=== PATIENT | male | born 1940 | race Caucasian/White ===

== ENCOUNTER → 2016-11-01 | Day surgery (SDC) | payer OTHER ==
[~2016-11-01] VITALS: Ht 176.5 cm; Wt 90.2 kg
[~2016-11-01] MED LIST: *morphine SULFATE 8 MG/ML PERIprocedure ONLY ONE; ACETAMINOPHEN 1000 MG/100 ML VIAL IV ONE; ALLO300T2 PO; ASPI1TAB69 PO; ATEN50TA PO; BUPIVACAINE/EPINEPHRINE 0.25% 50 ML VIAL ONE; DEXAMETHASONE SOD PHOS 4 MG/ML VIAL ONE; FAMOTIDINE 20 MG/2 ML VIAL ONE; FLUT50SP EACH NARE; HYDROmorphone HCL PF 1 MG/ML VIAL IV PUSH PRN; INSULIN HUMAN REGULAR 1,000 UNITS/10 ML VIAL SQ PRN; LACTATED RINGER'S 1000 ML INJ 1,000 ML IV ONE; LACTATED RINGER'S 1000 ML IV SCH; METOPROLOL TARTRATE 25 MG TAB PO PRN; MIDAZOLAM HCL 2 MG/2 ML VIAL ONE; NEOSTIGMINE 3 MG/3 ML SYR IV ONE; OMEP20TA PO; ONDANSETRON HCL 4 MG/2 ML VIAL IV PUSH ONE; PROPOFOL 200 MG/20 ML AMP IV ONE; SERT-132 PO; SITA1TAB2 PO; SODIUM CHLORID 0.9% 500 ML IV SCH; SODIUM CHLORIDE 0.9% INJ 100 ML ONE; ULTR50TA5 PO; VYTO10TA9 PO; ceFAZolin 1,000 MG/NS 100 ML IV SCH; ceFAZolin INJ 1,000 MG VIAL ONE; fentaNYL CITRATE 250 MCG/5 ML AMP ONE
[2016-11-01 06:46] VITALS: BP 148/81; PULSE 61; RESP 20; TEMP 98; O2SAT 94
[2016-11-01 06:52] LABS: AUTOMATED NEUTROPHIL # 5.2 TH/MM3 (1.8-7.7); BASOPHIL # 0.1 TH/MM3 (0-0.2); EOSINOPHIL # 0.2 TH/MM3 (0-0.4); EOSINOPHIL % 2.1 % (0.0-4.0); HEMO FLAGS DIFF FINAL; LYMPH % 25.4 % (9.0-44.0); LYMPHOCYTE # 2.1 TH/MM3 (1.0-4.8); MEAN CELL VOLUME 89.5 FL (80.0-100.0); MEAN CORPUSCULAR HEMOGLOBIN 30.4 PG (27.0-34.0); MONO % 7.9 % (0.0-8.0); NEUT % 63.6 % (16.0-70.0); PLATELET COUNT 127 TH/MM3 (150-450); RED BLOOD COUNT 4.59 MIL/MM3 (4.50-5.90); RED CELL DISTRIBUTION WIDTH 14.5 % (11.6-17.2); WHITE BLOOD COUNT 8.2 TH/MM3 (4.0-11.0)
--- NOTE | 2016-11-01 09:35 | EKG ---
Date Performed: 11/01/2016 Time Performed: 06:44:40 PTAGE: 75 years EKG: Sinus rhythm WITH FIRST DEGREE AV BLOCK SEPTAL MYOCARDIAL INFARCTION , OF INDETERMINATE AGE ABNORMAL ECG PREVIOUS TRACING : 03/29/2010 10.35 No significant change from previous tracing noted. DOCTOR: Kj Noguera Interpretating Date/Time 11/01/2016 09:34:30
[2016-11-01 12:18] VITALS: BP 133/67; PULSE 67; RESP 20; TEMP 97.7; O2SAT 94
--- NOTE | 2016-11-02 08:57 | MP ---
cc: BREANNA JONES M.D., JOSEPH D. M.D. CHEW, BOON Y. M.D. DATE OF SURGERY: 11/01/2016 PREOPERATIVE DIAGNOSIS Lymphadenopathy. POSTOPERATIVE DIAGNOSIS Lymphadenopathy. PROCEDURE Diagnostic laparoscopy with laparoscopic biopsy of deep retroperitoneal lymph node in the mesentery of the small bowel. ANESTHESIA General. SURGEON Dr. Turcios. ASSISTANT CLINICAL DIRECTOR Ms. Debra Cm. The COMMUNITY HEALTH DIRECTOR was present from beginning to the end of the case assisting in all portions of the procedure. It was necessary to have this individual in the room to assist in the above surgical procedure. The surgical procedure was assisted by the COMMUNITY HEALTH DIRECTOR. The COMMUNITY HEALTH DIRECTOR presence was necessary throughout the case for appropriate retraction, dissection, visualization, and resection of the important anatomical structures during the surgical procedure. The COMMUNITY HEALTH DIRECTOR was assisting throughout the entirety of the operation. The skill set of the COMMUNITY HEALTH DIRECTOR is medically and surgically necessary to safely complete the surgical procedure. During the surgical case the operating room hospital technician was working instrument table and passing instruments to the attending surgeon and COMMUNITY HEALTH DIRECTOR The COMMUNITY HEALTH DIRECTOR was directly assisting the operating surgeon and involved in the technical aspects of the surgical case. INDICATIONS This is a pleasant gentleman who was referred to me by Dr. Garett Granger, his primary care physician is Dr. Jones. They have asked me to perform a lymph node biopsy of lymph node seen on two different CT scans, suspicious. This could not be biopsied by radiology, for this reason plans were made for above. PROCEDURE The patient was taken to the operating room and placed in the supine position. After endotracheal anesthesia his abdomen is prepped with Betadine. With deep palpation we could feel a fullness in the kind of mid epigastric region off to the left. This corresponded to the area seen on CT scan. We made an incision just below the umbilicus. Veress needle was inserted, saline load test was performed. The abdomen was insufflated to 15 mmHg. We then placed two 5 mm ports in the left side of the abdomen. We can see the omentum draping over this enlarged node. This is gently sweeped upward and the patient is placed in Trendelenburg position that facilitates the transverse colon and omentum going superior. We were able to see the lymph node and feel it. I am able to dissect down a fair amount of tissue for pathological analysis, this was sent down, using the harmonic scalpel for frozen section, we send this down and Dr. Kecia Bethea states in question, there is a lymph node and it looks like a low grade lymphoma, although she wants to do definitive stains on it and immunohistochemistry. Further tissue was removed for pathological analysis and sent down as permanent. The lymph node that was biopsied was marked with numerous hemoclips. Alvarez is placed in the base of the cavity where the lymph node was removed. Hemostasis was assured. We do note that the patient had gallstones, he did not want any surgery on and also left inguinal hernia that is seen and did not want that repaired as well. We removed the irrigating solution and the trocars were removed, after the CO2 is removed, the 10 mm port sites closed at the fascial layer with 0 Vicryl and skin is closed with a 4-0 Monocryl at all three sites. Steri-Strips were applied. Sterile bandage was applied. The patient tolerated the procedure well and had no immediate postop complications. Intraoperative findings were discussed with the by phone. Jace Turcios MD JDB/TLL /10:34 AM /8:23 AM MTDKim
== END | disposition home or self-care (01) ==
LOC: HSDC 05:33
PROVIDERS: ATTEND Surgery
DX: C82.90 Follicular lymphoma, unspecified, unspecified site (principal); I44.0 Atrioventricular block, first degree
CPT/HCPCS: 00840; 38570; 85025; 88184; 88185; 88305; 88331; 93005; J0131; J0690; J1100; J2250; J2270; J2405; J2710; J3010; J7120

== ENCOUNTER 2016-11-28 09:15 | Day surgery (SDC) | payer OTHER ==
[~2016-11-28] VITALS: Ht 177.8 cm; Wt 86.4 kg
[~2016-11-28 09:15] MED LIST changes: -*morphine SULFATE 8 MG/ML PERIprocedure ONLY ONE; -ACETAMINOPHEN 1000 MG/100 ML VIAL IV ONE; -BUPIVACAINE/EPINEPHRINE 0.25% 50 ML VIAL ONE; -DEXAMETHASONE SOD PHOS 4 MG/ML VIAL ONE; -FAMOTIDINE 20 MG/2 ML VIAL ONE; -HYDROmorphone HCL PF 1 MG/ML VIAL IV PUSH PRN; -INSULIN HUMAN REGULAR 1,000 UNITS/10 ML VIAL SQ PRN; -LACTATED RINGER'S 1000 ML INJ 1,000 ML IV ONE; -LACTATED RINGER'S 1000 ML IV SCH; -METOPROLOL TARTRATE 25 MG TAB PO PRN; -MIDAZOLAM HCL 2 MG/2 ML VIAL ONE; -NEOSTIGMINE 3 MG/3 ML SYR IV ONE; -ONDANSETRON HCL 4 MG/2 ML VIAL IV PUSH ONE; -PROPOFOL 200 MG/20 ML AMP IV ONE; -SODIUM CHLORID 0.9% 500 ML IV SCH; -SODIUM CHLORIDE 0.9% INJ 100 ML ONE; -ceFAZolin 1,000 MG/NS 100 ML IV SCH; -ceFAZolin INJ 1,000 MG VIAL ONE; -fentaNYL CITRATE 250 MCG/5 ML AMP ONE
[2016-11-28 09:43] VITALS: BP 135/84; PULSE 65; RESP 20; O2SAT 96
[2016-11-28 10:12] LABS: AUTOMATED NEUTROPHIL # 5.6 TH/MM3 (1.8-7.7); BASOPHIL # 0.1 TH/MM3 (0-0.2); BASOPHIL % 0.9 % (0.0-2.0); EOSINOPHIL # 0.2 TH/MM3 (0-0.4); EOSINOPHIL % 2.6 % (0.0-4.0); HEMATOCRIT 44.9 % (39.0-51.0); HEMO FLAGS DIFF FINAL; LYMPH % 23.1 % (9.0-44.0); MEAN CELL VOLUME 89.7 FL (80.0-100.0); MEAN CORPUSCULAR HEMOGLOBIN 29.6 PG (27.0-34.0); MONO % 8.9 % (0.0-8.0); NEUT % 64.5 % (16.0-70.0); PLATELET COUNT 128 TH/MM3 (150-450); RED CELL DISTRIBUTION WIDTH 14.4 % (11.6-17.2); WHITE BLOOD COUNT 8.8 TH/MM3 (4.0-11.0)
[2016-11-28] MEDS ORDERED: MIDAZOLAM HCL 5 MG/5 ML VIAL ONE (11:09)
[2016-11-28] MEDS ORDERED: fentaNYL CITRATE 250 MCG/5 ML AMP ONE (11:09)
[2016-11-28 12:35] VITALS: BP 140/70; PULSE 66; RESP 20; TEMP 98.3; O2SAT 91
[2016-11-28 12:50] VITALS: BP 118/64; PULSE 73; RESP 18; O2SAT 95
[2016-11-28 13:18] LABS: BONE MARROW PROCESSING COMPLETE; IRON STAIN DONE; JENNER GIEMSA STAIN DONE
[2016-11-28 13:20] VITALS: BP 113/63; PULSE 64; RESP 20; O2SAT 95
[2016-11-28 13:50] VITALS: BP 115/60; PULSE 61; RESP 20; O2SAT 96
--- NOTE | 2016-11-28 16:04 | RADRPT ---
EXAM DATE/TIME: 11/28/2016 12:04 [facility] COMPARISON: No previous studies available for comparison. INDICATIONS : Bone marrow biopsy; Thrombocytopenia. SEDATION TIME: minutes BIOPSY SITE: Right iliac MEDICATION(S): 1.) 3 mg midazolam (Versed) IV 2.) 125 mcg fentanyl (Sublimaze) DEVICE(S): 1.) 11 gauge Bone biopsy needle MEDICAL HISTORY : Lymphoma. SURGICAL HISTORY : None. ENCOUNTER: Initial ACUITY: 1 day PAIN SCORE: 0/10 LOCATION: Right pelvis A total of two core specimen(s) were obtained and sent to the laboratory for pathologic evaluation. PROCEDURE: 1. CT guided pelvic biopsy. 2. Conscious sedation with continuous EKG and oximetry monitoring. 3. EKG and oximetry remained stable throughout the procedure. Prior to the procedure informed consent was obtained. Any appropriate prior imaging studies were rev iewed. Using automated exposure control and adjustment of the mA and/or kV according to patient size , radiation dose was kept as low as reasonably achievable to obtain optimal diagnostic quality images . The site was prepped in a sterile fashion. Full sterile technique was used, including cap, mask, isael rile gloves and gown and a large sterile sheet. Hand hygiene and 2% chlorhexidine and/or betadine/al cohol prep was utilized per protocol for cutaneous antisepsis. The skin and subcutaneous tissues wer e infiltrated with local anesthetic solution. With CT guidance the previously identified target was localized. Biopsy was performed using the presc ribed needle as above. Following biopsy marrow aspiration was performed with repeat puncture. Adequa te hemostasis was obtained with compression at the puncture site. Follow-up CT scan reveals no hemorrhage. Conscious sedation was performed with the prescribed dosages and duration as above in the presence of an independent trained radiology nurse to assist in the monitoring of the patient. EKG and oximetry remained stable throughout the procedure. The patient tolerated the procedure well and there were no complications. The patient was sent to Radiology Outpatient Unit in stable condition. CONCLUSION: 1. Uncomplicated CT guided bone marrow aspirate. 2. Uncomplicated CT guided bone marrow biopsy. Leo Farfan MD FACR on November 28, 2016 at 16:02 Board Certified Radiologist. This report was verified electronically.
== END 2016-11-28 14:45 | disposition home or self-care (01) ==
LOC: HRAD 09:15 → HRIP 09:42 → HRAD 14:45
PROVIDERS: ATTEND Internal Medicine Hematology & Oncology
DX: D69.6 Thrombocytopenia, unspecified (principal); E11.9 Type 2 diabetes mellitus without complications; I10 Essential (primary) hypertension
CPT/HCPCS: 38221; 77012; 85025; 85097; 88184; 88185; 88237; 88264; 88305; 88311; 88313; 99152; 99153; C1830; J2250; J3010; 88280

== ENCOUNTER 2017-05-26 06:36 | Day surgery (SDC) | payer OTHER ==
[~2017-05-26] VITALS: Ht 177.8 cm; Wt 88.6 kg
[2017-05-26 06:53] VITALS: BP 139/78; PULSE 63; RESP 20; TEMP 97.5; O2SAT 98
[2017-05-26] MEDS ORDERED: VANCOMYCIN 1000 MG/NS 250 ML - implanted port/tunneled catheter IV SCH ×2 (07:15)
[2017-05-26] MEDS ORDERED: CHLORHEXIDINE GLUCONATE 2 % 1 PACK (2 CLOTHS) TOPICAL SCH (07:15)
[2017-05-26] MEDS ORDERED: ceFAZolin 2 GM PREMIX 50 ML - implanted port/tunneled catheter insertion IV SCH (07:15)
[2017-05-26] MEDS ORDERED: SODIUM CHLORIDE 0.9% 1000 ML IV SCH (07:15)
[2017-05-26] MEDS ORDERED: POVIDONE IODINE 5% (ANTISEPSIS KIT) 4 APPLICATIONS EACH NARE SCH (07:15)
[2017-05-26] MEDS ORDERED: MIDAZOLAM HCL 5 MG/5 ML VIAL ONE (08:25)
--- NOTE | 2017-05-26 09:23 | PD.RAD ---
Post Procedure Progress Note Pre Procedure Diagnosis: (1) Lymphoma Post Procedure Diagnosis: (1) Lymphoma Procedure Date: May 26, 2017 Supervising Radiologist: Luis Boyle Proceduralist/Assist: Rober Zhu RT(R), Kristopher Penn RT(R) Anesthesia: Conscious Sedation Plan of Activity Patient to Unit: [facility] Patient Condition: Good See PACS Report for procedural detail/treatment Central Venous Access Device Procedure 1 Right Internal Jugular Infusaport Placement single lumen Luis Boyle MD May 26, 2017 09:23
[2017-05-26 09:30] VITALS: BP 136/72; PULSE 61; RESP 18; TEMP 97.7; O2SAT 95
[2017-05-26] MEDS ORDERED: SODIUM CHLORIDE 0.9% FLUSH 10 ML FLUSH IVF PRN (09:30)
[2017-05-26 09:45] VITALS: BP 125/65; PULSE 64; RESP 18; O2SAT 95
[2017-05-26 10:15] VITALS: BP 135/71; PULSE 63; RESP 18; O2SAT 94
[2017-05-26 10:45] VITALS: BP 135/61; PULSE 61; RESP 18; O2SAT 97
--- NOTE | 2017-05-26 10:55 | RADRPT ---
EXAM DATE/TIME: 05/26/2017 08:30 [facility] COMPARISON: No previous studies available for comparison. INDICATIONS : Patient presents with lymphoma in need of port placement for treatment. MEDICAL HISTORY : Diabetes GERD Gout HI Kidney stone Lymphoma CAD SURGICAL HISTORY : Retroperitoneal lymph node biopsy CABG Hernia repair Appendectomy ENCOUNTER: Initial ACUITY: 1 year PAIN SCORE: 0/10 LOCATION: N/A FLUORO TIME: 0.5 minutes IMAGE SERIES: 1 SEDATION TIME: 30 minutes ACCESS: Right internal jugular vein SEDATION: 1.) 2.5 mg midazolam (Versed) IV 2.) 125 mcg fentanyl (Sublimaze) IV Prophylactic antibiotics were administered with appropriate pre-procedure timing. Vancomycin within 2 hours of procedure, Ancef (or alternative) within 1 hour of procedure. DEVICE: 1. [address] Smart port PROCEDURE : 1. Continuous pulse oximetry and EKG monitoring. 2. Intravenous conscious sedation. 3. Ultrasound guidance for venous access. 4. Fluoroscopic guided implantable central venous port placement. The patient was placed supine. The neck was prepped in sterile fashion. Full sterile technique was u sed, including cap, mask, sterile gloves and gown, and a large sterile sheet. Hand hygiene and 2% ch lorhexidine Betadine was utilized per protocol for cutaneous antisepsis with appropriate dry time for site. Sterile gel and sterile probe cover were utilized for ultrasound guidance. The skin and sub cutaneous tissues were infiltrated with local anesthetic solution. Under direct ultrasound guidance, central venous access was accomplished in the targeted vessel. The ultrasound images depicting access guidance were stored and saved to PACS for permanent record. A s ubcutaneous pocket was created using blunt dissection. The port was introduced to the pocket. The c atheter tubing was fed through a subcutaneous tunnel to the venotomy site. The catheter tubing was c ut to a suitable length and then was introduced through a valved Peel-Away sheath and positioned with catheter tubing tip at the cavo-atrial junction level. The pocket incision was closed with subcutic ular Vicryl suture. Steri-Strips were applied. The port was flushed and locked with heparin solutio n per protocol. Sterile dressing was applied to the site. The patient tolerated the procedure well. Conscious sedation was performed with the prescribed dosages and duration as above in the presence of an independent trained radiology nurse to assist in the monitoring of the patient. EKG and oximetry remained stable throughout the procedure. The patient tolerated the procedure well and there were no complications. The patient was sent to post anesthesia recovery in stable condition. CONCLUSION: Uncomplicated ultrasound and fluoroscopic guided implanted central venous port catheter placement as described in detail above. An 8 Filipino Power port was placed. Luis Boyle MD on May 26, 2017 at 10:53 Board Certified Radiologist. This report was verified electronically.
== END 2017-05-26 11:35 | disposition home or self-care (01) ==
LOC: HROP 06:36 → HRIP 06:42 → HROP 11:35
PROVIDERS: ATTEND Internal Medicine Hematology & Oncology
DX: C85.90 Non-Hodgkin lymphoma, unspecified, unspecified site (principal); E11.9 Type 2 diabetes mellitus without complications; K21.9 Gastro-esophageal reflux disease without esophagitis; M10.9 Gout, unspecified; I25.2 Old myocardial infarction; I25.10 Atherosclerotic heart disease of native coronary artery without angina pectoris; N20.0 Calculus of kidney
CPT/HCPCS: 36561; 76937; 77001; 99152; 99153; C1788; J0690; J1642; J2250; J3010; J3370; J7030; J7050

== ENCOUNTER 2017-12-12 06:18 | Day surgery (SDC) | payer OTHER ==
[~2017-12-12] VITALS: Ht 177.8 cm; Wt 85.0 kg
[~2017-12-12 06:18] MED LIST changes: -OMEP20TA PO; +OMEP20TA93 PO; +TRAM50 PO; -ULTR50TA5 PO
[2017-12-12 06:52] VITALS: BP 121/71; PULSE 82; RESP 18; TEMP 97.9; O2SAT 97
[2017-12-12] MEDS ORDERED: LIDOCAINE 1%/EPINEPHrine 1:100,000 SOLN 50 ML VIAL ONE (06:56)
[2017-12-12] MEDS ORDERED: VYTO10TA9 PO (07:08)
[2017-12-12] MEDS ORDERED: METF500T PO (07:08)
[2017-12-12] MEDS ORDERED: ASPI-516 CHEW (07:08)
[2017-12-12] MEDS ORDERED: SODIUM CHLOR 0.9% 1000 ML INJ 1,000 ML IV SCH (07:15)
[2017-12-12] MEDS ORDERED: MIDAZOLAM HCL 2 MG/2 ML VIAL ONE ×2 (08:00→08:18)
--- NOTE | 2017-12-12 08:52 | PD.RAD ---
Post CT Procedure Prog Note Pre Procedure Diagnosis: (1) Retroperitoneal lymphadenopathy (2) Lymphoma Post Procedure Diagnosis: (1) Lymphoma (2) Retroperitoneal lymphadenopathy Procedure Date: Dec 12, 2017 Supervising Radiologist: Arpit Perez Proceduralist/Assist: kathleen cowart Estimated blood loss: none Anesthesia: Conscious Sedation Plan of Activity Patient to Unit: ROPU Patient Condition: Good See PACS Report for procedural detail/treatment Arpit Perez MD Dec 12, 2017 08:52
[2017-12-12 09:00] VITALS: BP 130/74; PULSE 86; RESP 18; TEMP 98.2; O2SAT 92
[2017-12-12 09:15] VITALS: BP 122/69; PULSE 55; RESP 20; O2SAT 94
[2017-12-12 09:45] VITALS: BP 127/75; PULSE 82; RESP 20; O2SAT 97
[2017-12-12 10:15] VITALS: BP 117/65; PULSE 82; RESP 20; O2SAT 97
[2017-12-12 10:45] VITALS: BP 123/68; PULSE 78; RESP 18; O2SAT 95
--- NOTE | 2017-12-12 18:08 | RADRPT ---
EXAM DATE/TIME: 12/12/2017 08:18 [facility] COMPARISON: No previous studies available for comparison. INDICATIONS : Enlarged node. SEDATION TIME: 30 minutes BIOPSY SITE: Left Retroperitoneal MEDICATION(S): 1.) 3 mg midazolam (Versed) IV 2.) 150 mcg fentanyl (Sublimaze) IV DEVICE(S): 1.) 18 gauge Ho blunt needle 2.) 20 gauge Temno core biopsy needle MEDICAL HISTORY : Cardiovascular disease. Diabetes mellitus type 2. Lymphoma. SURGICAL HISTORY : CABG Appendectomy. ENCOUNTER: Initial ACUITY: 1 day PAIN SCORE: 0/10 LOCATION: Left Retroperitoneal A total of three core specimen(s) were obtained and sent to the laboratory for pathologic evaluation. PROCEDURE: 1. CT guided lymph node biopsy. 2. Conscious sedation with continuous EKG and oximetry monitoring. Prior to the procedure informed consent was obtained. Any appropriate prior imaging studies were rev iewed. Using automated exposure control and adjustment of the mA and/or kV according to patient size, radiat ion dose was kept as low as reasonably achievable to obtain optimal diagnostic quality images. DICOM format image data is available electronically for review and comparison. The site was prepped in a sterile fashion. Full sterile technique was used, including cap, mask, isael rile gloves and gown and a large sterile sheet. Hand hygiene and 2% chlorhexidine and/or betadine/al cohol prep was utilized per protocol for cutaneous antisepsis. The skin and subcutaneous tissues wer e infiltrated with local anesthetic solution. With CT guidance the previously identified target was localized. Biopsy was performed using the presc ribed needle as above. Adequate hemostasis was obtained with compression at the puncture site. Follow-up CT scan reveals no hemorrhage. The patient tolerated the procedure well and there were no complications. The patient was returned to the Radiology Outpatient Unit in stable condition. CONCLUSION: Uncomplicated CT guided biopsy of retroperitoneal adenopathy. Arpit Perez MD on December 12, 2017 at 18:05 Board Certified Radiologist. This report was verified electronically.
== END 2017-12-12 10:55 | disposition home or self-care (01) ==
LOC: HRAD 06:18 → HRIP 06:22 → HRAD 10:55
PROVIDERS: ATTEND Internal Medicine Hematology & Oncology
DX: C83.33 Diffuse large B-cell lymphoma, intra-abdominal lymph nodes (principal); I10 Essential (primary) hypertension; E11.9 Type 2 diabetes mellitus without complications; I25.2 Old myocardial infarction; M10.9 Gout, unspecified; N20.0 Calculus of kidney; Z95.1 Presence of aortocoronary bypass graft
CPT/HCPCS: 38505; 77012; 88184; 88185; 88305; 88341; 88342; J2250; J3010; J7030; 88377

== ENCOUNTER 2018-01-10 06:35 | Inpatient (IN) | payer OTHER, MEDICARE ==
[2018-01-10] VITALS (10 sets, daily range): BP systolic 122–148; BP diastolic 60–81; PULSE 69–84; RESP 16–18; TEMP 96.6–98.5; O2SAT 96–100
[~2018-01-10] VITALS: Ht 177.8 cm; Wt 92.0 kg
[~2018-01-10 06:35] MED LIST changes: +ASPI-516 CHEW; -ASPI1TAB69 PO; +METF500T PO; -TRAM50 PO
[2018-01-10] MEDS ORDERED: GLUCAGON 1 MG/ML VIAL OTHER PRN (09:15)
[2018-01-10] MEDS ORDERED: DEXTROSE 50% IN WATER 50 ML VIAL(D50) IV PUSH PRN (09:15)
[2018-01-10] MEDS ORDERED: SODIUM CHLORIDE 0.65% NASAL SPRAY 45 ML BTL EACH NARE PRN (09:15)
[2018-01-10 09:34] LABS: AUTOMATED NEUTROPHIL # 6.8 TH/MM3 (1.8-7.7); BASOPHIL # 0.1 TH/MM3 (0-0.2); BASOPHIL % 0.9 % (0.0-2.0); EOSINOPHIL # 0.2 TH/MM3 (0-0.4); EOSINOPHIL % 2.2 % (0.0-4.0); HEMATOCRIT 34.5 % (39.0-51.0); HEMOGLOBIN 11.6 GM/DL (13.0-17.0); LYMPHOCYTE # 1.4 TH/MM3 (1.0-4.8); MEAN CELL VOLUME 94.5 FL (80.0-100.0); MEAN CORPUSCULAR HEMOGLOBIN 31.9 PG (27.0-34.0); MEAN CORPUSCULAR HGB CONC 33.8 % (32.0-36.0); MEAN PLATELET VOLUME 8.4 FL (7.0-11.0); MONO % 5.6 % (0.0-8.0); MONOCYTE # 0.5 TH/MM3 (0-0.9); NEUT % 75.3 % (16.0-70.0); PLATELET COUNT 107 TH/MM3 (150-450); RED BLOOD COUNT 3.65 MIL/MM3 (4.50-5.90); RED CELL DISTRIBUTION WIDTH 15.9 % (11.6-17.2)
[2018-01-10 09:58] LABS: ALBUMIN 3.5 GM/DL (3.4-5.0); ALT (GPT) 29 U/L (12-78); AST (GOT) 26 U/L (15-37); BICARBONATE 24.4 MEQ/L (21.0-32.0); BLOOD UREA NITROGEN 14 MG/DL (7-18); CALCIUM 9.1 MG/DL (8.5-10.1); CHLORIDE 107 MEQ/L (98-107); CREATININE 0.88 MG/DL (0.60-1.30); GLOMERULAR FILTRATION RATE 84 ML/MIN (>89); GLUCOSE,RANDOM 124 MG/DL (74-106); MAGNESIUM 1.8 MG/DL (1.5-2.5); SODIUM (NA) 140 MEQ/L (136-145)
[2018-01-10 10:02] LABS: ALKALINE PHOSPHATASE 70 U/L (45-117); PHOSPHORUS 3.1 MG/DL (2.5-4.9); TOTAL BILIRUBIN ADULT 0.3 MG/DL (0.2-1.0); TOTAL PROTEIN 7.2 GM/DL (6.4-8.2)
[2018-01-10 10:21] LABS: BANDS 7 % (0-6); LYMPHOCYTES 13 % (9-44); METAMYELOCYTES 1 % (0-1); MONOCYTES 9 % (0-8); NEUTROPHIL # MANUAL DIFF 6.8 TH/MM3 (1.8-7.7); OVALOCYTES 1+ (NORMAL); POLYS (SEG NEUTROPHILS) 68 % (16-70)
--- NOTE | 2018-01-10 11:05 | MB ---
cc: Garett Granger MD DATE: 01/10/2018 ADMITTING DIAGNOSES: Transformed large B-cell lymphoma, admitted for ICE chemotherapy. HISTORY OF PRESENT ILLNESS: The patient is a very pleasant 77-year-old male diagnosed with follicular lymphoma in 07/2016. He was treated with Rituxan and bendamustine. A CT scan after 3 cycles of chemotherapy showed improvement of the adenopathy. He continue on the Rituxan and bendamustine for 3 more cycles. Unfortunately, a PET scan after the sixth cycle of chemotherapy showed increase adenopathy. He had a biopsy which showed a transformed large B-cell lymphoma. Initially, we were planning on treating him with Rituxan and EPOCH chemotherapy; however, he had cardiomyopathy with an ejection fraction down to 25%. The plan is now to treat him with RICE chemotherapy. He received Rituxan yesterday. He tolerated it very well. He has mild fatigue. He denies any mouth sores. Denied any chest pain or palpitation. Denies shortness of breath or cough. Denies any nausea, vomiting, diarrhea or abdominal pain. He had an episode of backache yesterday, but that has resolved. Denies any dysuria, hematuria, rash or pruritus. No headache, focal numbness or weakness. PAST MEDICAL HISTORY: 1. Follicular lymphoma. 2. Diabetes mellitus. 3. Gastroesophageal reflux disease. 4. Cardiomyopathy. 5. Gout. 6. Coronary artery disease, status post a heart attack 1993. 7. Chronic kidney disease. 8. Kidney stone. PAST SURGICAL HISTORY: 1. Colonoscopy, 2010. 2. EGD, 2009. 3. Coronary bypass graft surgery in 1995. 4. Hernia repair in 1989. 5. Appendectomy in 1982. ALLERGIES: 1. AMOXICILLIN. 2. DEMEROL. 3. GLIMEPIRIDE. 4. GLIPIZIDE. 5. KEFLEX. 6. METOPROLOL. 7. PERCOCET WHICH CAUSES DIZZINESS. OUTPATIENT MEDICATIONS: 1. Allopurinol. 2. Aspirin. 3. Atenolol. 4. Azithromycin. 5. Niacin. 6. Januvia. 7. Metformin. 8. Nasonex. 9. Omeprazole. 10. Sertraline. FAMILY HISTORY: No cancer in the family. He has 2 daughters, both are healthy. SOCIAL HISTORY: He never smoked. He drinks occasionally. REVIEW OF SYSTEMS: CONSTITUTIONAL: Mild fatigue, otherwise negative. EYES: Negative. ENT: Negative. CARDIOVASCULAR: No chest pressure or palpitation. RESPIRATORY: No shortness of breath or cough. GASTROINTESTINAL: Denies nausea, vomiting, diarrhea or abdominal pain. GENITOURINARY: No dysuria or hematuria. MUSCULOSKELETAL: As above. HEMATOLOGIC: As above. ENDOCRINE: Negative. DERMATOLOGIC: Negative. PSYCHIATRIC: Negative. NEUROLOGIC: Negative. PHYSICAL EXAMINATION: VITAL SIGNS: Temperature, afebrile. Vitals stable. GENERAL: He is alert and oriented x 3, in no acute distress. HEENT: Atraumatic, normocephalic. Pupils equal, round, and reactive to light. Extraocular muscles are intact. No scleral icterus. Oropharynx, dry mucosa. No lesion, no thrush. No mucositis. NECK: No thyromegaly. No palpable mass. LYMPHATIC: No palpable cervical, clavicular, axillary, or inguinal lymph nodes. CARDIOVASCULAR: Regular S1, S2. No murmur. LUNGS: Clear to auscultation bilaterally. No wheezing or rhonchi. ABDOMEN: Soft, nontender. Cannot palpate liver or spleen. EXTREMITIES: No cyanosis, no clubbing, no edema, no calf tenderness. BACK: No paravertebral tenderness. SKIN: No rash or petechiae. NEUROLOGIC: Nonfocal. LABORATORY DATA: WBC 9, hemoglobin 11.6, platelet count 107. Creatinine 0.8. Liver transaminase within normal limits. LDH 375. ASSESSMENT: 1. 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 He first presented with adenopathy in the mediastinum and retroperitoneum. Bone marrow biopsy also showed follicular lymphoma, stage IV. He was started on Rituxan and bendamustine. CT scan after 3 cycles of chemotherapy showed improvement and decreased adenopathy. He completed 3 more cycles of Rituxan and bendamustine and repeat PET scan, unfortunately, showed increased retroperitoneal adenopathy and mesenteric adenopathy consistent with progression of disease. Biopsy of retroperitoneal lymph node showed transformed diffuse large B-cell lymphoma. There was not enough tissue to do c-MYC, BCL2 or BCL6 study. He had a second opinion consultation with Dr. Mac at [facility]. Initially, we plan to treat him with Rituxan and EPOCH, but we found out that he has an ejection fraction of 35% and is not able to tolerate Adriamycin. Plan is to treat him with Rituxan and ICE chemotherapy. If he had a good response, maybe he could have a consolidation bone marrow transplant, but I think that might be difficult given his cardiomyopathy. I have explained the potential side effect of chemotherapy to the patient and his . The side effects include, but are not limited to confusion, myelosuppression, alopecia, increased risk of infection and possibly requiring a blood product transfusion support, renal toxicity, tumor lysis syndrome, GI toxicity and so. I told him that chemotherapy may exacerbate the congestive heart failure given that we will be giving him a significant amount of IV fluid. They want to be aggressive with treatment. 2. Cardiomyopathy. Recent echocardiogram showed ejection fraction of 35%. He was seen by Dr. Lloyd recently. He has no symptoms at this time. 3. Anemia and thrombocytopenia due to chemotherapy. CBC is quite stable. 4. Diabetes mellitus, stable. 5. Gastroesophageal reflux is stable. PLAN: 1. Proceed with ICE chemotherapy. 2. Monitor closely and we will add diuretic if necessary. 3. Monitor lab work. Garett Granger MD BYC/DL , 10:12 AM , 11:03 AM [facility]
[2018-01-10] MEDS ORDERED: FUROSEMIDE 20 MG/2 ML VIAL IV PUSH PRN (11:30)
[2018-01-10] MEDS ORDERED: SODIUM CHLORIDE 0.9% IV ONE (12:30)
[2018-01-10] MEDS ORDERED: GRANISETRON IV ONE (12:30)
[2018-01-10] MEDS: INSULIN ASPART SUPPLEMENTAL SCALE SQ SCH ×3 (12:33→20:45)
[2018-01-10] MEDS ORDERED: ETOPOSIDE IV ONE (13:00)
[2018-01-10] MEDS ORDERED: NS IV ONE (13:00)
--- NOTE | 2018-01-10 15:37 | MB ---
cc: Flavio Velasquez DO DATE: 01/10/2018 REASON FOR CONSULTATION: Cardiomyopathy, on chemotherapy, possible arrhythmia. HISTORY OF PRESENT ILLNESS: Sarath Gómez is a pleasant 77-year-old male who sees my partner, Dr. Lloyd, in the office and appears to be admitted for starting chemotherapy. Apparently, he underwent a biopsy which showed transformed large B cell lymphoma and at the time they were looking into what to treat him with chemotherapeutic mazariegos. He has a known cardiomyopathy with an ejection fraction less than 50% for greater than 10 years. Most recent ejection fraction in the office was in a similar range to previous around 30%. As of right now they are planning on doing ICE chemotherapy which would include quite a bit of IV fluid and so he will need to be evaluated with his cardiomyopathy. It was also felt that his heart rate was irregular and an EKG was checked, but on this it appears that he has first degree heart block with sinus arrhythmia and no atrial fibrillation. In seeing him, he is currently hemodynamically stable without chest pain or shortness of breath. PAST MEDICAL HISTORY: 1. Coronary artery disease. 2. Follicular lymphoma. 3. Transformed large B-cell lymphoma. 4. Diabetes mellitus. 5. Gastroesophageal reflux disease. 6. Cardiomyopathy of unknown type. 7. Gout. 8. Chronic kidney disease. 9. Kidney stones. PAST SURGICAL HISTORY: 1. Coronary artery bypass grafting (1995). 2. Cardiac catheterization (03/29/2010): Left main 40%. LAD totally occluded at its origin. Left circumflex with large obtuse marginal 60% . RCA subtotal occlusion at its origin. Sequential vein graft to the diagonal and LAD is widely patent and mildly irregular. Vein graft to the distal RCA is widely patent and has minimal irregularities. 3. Colonoscopy (2010). 4. EGD (2009). 5. Hernia repair (1989). 6. Appendectomy (1982). ALLERGIES: 1. AMOXICILLIN. 2. DEMEROL. 3. GLIMEPIRIDE. 4. GLIPIZIDE. 5. KEFLEX. 6. METOPROLOL. 7. PERCOCET. MEDICATIONS: 1. Vytorin 10/40 every night. 2. Atenolol 50 mg daily. 3. Aspirin 81 mg daily. 4. Zoloft 50 mg daily. 5. Fluticasone 50 mcg b.i.d. 6. Omeprazole 20 mg daily. 7. Metformin 500 mg b.i.d. 8. Januvia 100 mg daily. 9. Allopurinol 300 mg daily. FAMILY HISTORY: Denies premature coronary artery disease or sudden cardiac within the family. SOCIAL HISTORY: The patient denies tobacco or drug abuse. He rarely drinks alcohol. REVIEW OF SYSTEMS: 14 systems are reviewed including osteopathic. Pertinent positives and negatives above, otherwise negative. PHYSICAL EXAMINATION: VITAL SIGNS: Temperature 98.2, heart rate 82, blood pressure 136/81, respirations 18, pulse oximetry 98% on room air. GENERAL: The patient appears well ,in no acute distress, alert, awake and oriented x3. HEENT: Extraocular muscles intact. Mucous membranes moist. NECK: Supple. No JVD at 45 degrees. No carotid bruits heard bilaterally. Carotid upstrokes brisk in nature. HEART: Regular rate and rhythm. Positive first and second heart sounds with no known murmurs, gallops or rubs. LUNGS: Clear to auscultation bilaterally. No wheezes, rales or rhonchi. ABDOMEN: Soft, nontender, nondistended, no organomegaly noted. EXTREMITIES: Show no clubbing, cyanosis or edema. Femoral and distal pulses intact bilaterally. NEUROLOGIC: No focal deficits. SKIN: Warm, dry and intact. OSTEOPATHIC: No kyphoscoliosis, lordosis or paraspinal tender points. LABORATORY DATA: Hemoglobin 11.6, hematocrit 34.5, platelets 107. Potassium 4.3, BUN 14, creatinine 0.88. Electrocardiogram (01/10/2018): Sinus rhythm with sinus arrhythmia and first-degree AV block. Nonspecific ST-T wave changes. IMPRESSION: 1. 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 2. Cardiomyopathy of unknown type. 3. Coronary artery disease with a history of coronary artery bypass grafting. 4. Anemia/thrombocytopenia due to chemotherapy. 5. Diabetes mellitus. 6. Possible arrhythmia, although appears to be sinus arrhythmia with first degree atrioventricular block. RECOMMENDATIONS: 1. Mr. Gómez presented with what appears to be diffuse large B-cell lymphoma and will be treated per Hematology/Oncology recommendations. 2. From a cardiomyopathy standpoint, he is not currently on the best of medications. From a cardiomyopathy standpoint, we may need to change medications around to help his overall heart including changing atenolol to probably carvedilol and may be adding lisinopril. This may be done also in the outpatient setting, but I do not want to change too much at this time as he is going through significant changes being placed on chemotherapy. 3. He does not appear to be in acute heart failure at this time by any means. This will continue to be evaluated with weights, I's and O's and clinically during his hospitalization as he does get an extensive amount of IV fluids during his chemotherapy treatment. He will need to have Lasix intermittently as judged clinically based on his overall picture. 4. Possible arrhythmia noted on telemetry, but EKG shows sinus rhythm. 5. There was a questionable arrhythmia noted on telemetry, but overall I agree with the medical team that once the EKG was reviewed, showed sinus arrhythmia with first degree AV block. 6. Further recommendations will be made based on the hospital course. Thank you for allowing me to see Sarath Rico. If there are any questions, please do not hesitate to call. DO JUVENCIO Avilez/SB , 02:55 PM , 03:35 PM
[2018-01-11] VITALS (15 sets, daily range): BP systolic 120–143; BP diastolic 61–78; PULSE 65–93; RESP 16–18; TEMP 97.8–98.6; O2SAT 94–97
[2018-01-11 06:29] LABS: AUTOMATED NEUTROPHIL # 5.6 TH/MM3 (1.8-7.7); BASOPHIL % 0.5 % (0.0-2.0); EOSINOPHIL # 0.2 TH/MM3 (0-0.4); EOSINOPHIL % 3.2 % (0.0-4.0); HEMATOCRIT 31.2 % (39.0-51.0); HEMOGLOBIN 10.7 GM/DL (13.0-17.0); LYMPH % 12.7 % (9.0-44.0); LYMPHOCYTE # 0.9 TH/MM3 (1.0-4.8); MEAN CELL VOLUME 93.7 FL (80.0-100.0); MEAN CORPUSCULAR HEMOGLOBIN 32.2 PG (27.0-34.0); MEAN CORPUSCULAR HGB CONC 34.3 % (32.0-36.0); MEAN PLATELET VOLUME 8.9 FL (7.0-11.0); MONO % 5.7 % (0.0-8.0); MONOCYTE # 0.4 TH/MM3 (0-0.9); NEUT % 77.9 % (16.0-70.0); PLATELET COUNT 93 TH/MM3 (150-450); RED BLOOD COUNT 3.33 MIL/MM3 (4.50-5.90); RED CELL DISTRIBUTION WIDTH 15.6 % (11.6-17.2); WHITE BLOOD COUNT 7.2 TH/MM3 (4.0-11.0)
[2018-01-11 06:40] LABS: ALT (GPT) 20 U/L (12-78); AST (GOT) 27 U/L (15-37); BICARBONATE 25.3 MEQ/L (21.0-32.0); BLOOD UREA NITROGEN 15 MG/DL (7-18); CALCIUM 8.5 MG/DL (8.5-10.1); CHLORIDE 107 MEQ/L (98-107); CREATININE 0.92 MG/DL (0.60-1.30); GLOMERULAR FILTRATION RATE 79 ML/MIN (>89); GLUCOSE,RANDOM 149 MG/DL (74-106); SODIUM (NA) 141 MEQ/L (136-145)
[2018-01-11 06:42] LABS: ALKALINE PHOSPHATASE 61 U/L (45-117); TOTAL BILIRUBIN ADULT 0.3 MG/DL (0.2-1.0); TOTAL PROTEIN 5.8 GM/DL (6.4-8.2)
[2018-01-11] MEDS: INSULIN ASPART SUPPLEMENTAL SCALE SQ SCH ×4 (08:00→22:59)
[2018-01-11] MEDS: ALLOPURINOL 300 MG TAB PO SCH (08:26)
[2018-01-11] MEDS: PANTOPRAZOLE SOD 20 MG DELAYED RELEASE TAB PO SCH (08:26)
[2018-01-11] MEDS: ATENOLOL 50 MG TAB PO SCH (08:26)
[2018-01-11] MEDS: SERTRALINE HCL 50 MG TAB PO SCH (08:26)
--- NOTE | 2018-01-11 08:53 | PD.ONC.PN ---
Subjective Subjective Remarks Afebrile overnight. Patient resting in bed in nad. No complaints. Tolerated VP16 yesterday without problems. Objective Data Date Time Temp Pulse Resp B/P (MAP) Pulse Ox O2 Delivery O2 Flow Rate FiO2 01/11/18 08:17 98.6 79 18 143/63 (89) 96 01/11/18 04:34 98.0 68 16 125/65 (85) 94 01/11/18 04:10 69 01/11/18 00:38 98.1 69 16 133/61 (85) 97 01/11/18 00:08 65 01/10/18 20:28 98.4 72 16 139/65 (89) 97 01/10/18 20:17 69 01/10/18 19:00 98 Room Air 01/10/18 17:10 97.8 76 18 148/78 (101) 96 01/10/18 16:00 76 01/10/18 15:18 98.5 76 18 134/68 (90) 97 01/10/18 14:45 78 18 98 01/10/18 13:36 82 18 136/81 (99) 98 01/10/18 12:32 98.2 84 18 147/68 (94) 97 01/10/18 12:00 78 01/10/18 12:00 98 Room Air 01/11/18 01/11/18 01/11/18 06:59 14:59 22:59 Intake Total 480 ml 716 ml Output Total 1200 ml 675 ml Balance -720 ml 41 ml Result Diagram: 01/11/18 0450 01/11/18 0450 Laboratory Results Laboratory Tests Test 01/10/18 09:15 01/11/18 04:50 White Blood Count 9.0 TH/MM3 7.2 TH/MM3 Red Blood Count 3.65 MIL/MM3 3.33 MIL/MM3 Hemoglobin 11.6 GM/DL 10.7 GM/DL Hematocrit 34.5 % 31.2 % Mean Corpuscular Volume 94.5 FL 93.7 FL Mean Corpuscular Hemoglobin 31.9 PG 32.2 PG Mean Corpuscular Hemoglobin Concent 33.8 % 34.3 % Red Cell Distribution Width 15.9 % 15.6 % Platelet Count 107 TH/MM3 93 TH/MM3 Mean Platelet Volume 8.4 FL 8.9 FL Neutrophils (%) (Auto) 75.3 % 77.9 % Lymphocytes (%) (Auto) 16.0 % 12.7 % Monocytes (%) (Auto) 5.6 % 5.7 % Eosinophils (%) (Auto) 2.2 % 3.2 % Basophils (%) (Auto) 0.9 % 0.5 % Neutrophils # (Auto) 6.8 TH/MM3 5.6 TH/MM3 Lymphocytes # (Auto) 1.4 TH/MM3 0.9 TH/MM3 Monocytes # (Auto) 0.5 TH/MM3 0.4 TH/MM3 Eosinophils # (Auto) 0.2 TH/MM3 0.2 TH/MM3 Basophils # (Auto) 0.1 TH/MM3 0.0 TH/MM3 CBC Comment AUTO DIFF AUTO DIFF Differential Total Cells Counted 100 Neutrophils % (Manual) 68 % Band Neutrophils % 7 % Lymphocytes % 13 % Monocytes % 9 % Eosinophils % 2 % Neutrophils # (Manual) 6.8 TH/MM3 Metamyelocytes 1 % Differential Comment FINAL DIFF MANUAL Platelet Estimate LOW Platelet Morphology Comment NORMAL Ovalocytes 1+ Blood Urea Nitrogen 14 MG/DL 15 MG/DL Creatinine 0.88 MG/DL 0.92 MG/DL Random Glucose 124 MG/DL 149 MG/DL Total Protein 7.2 GM/DL 5.8 GM/DL Albumin 3.5 GM/DL 3.0 GM/DL Calcium Level 9.1 MG/DL 8.5 MG/DL Phosphorus Level 3.1 MG/DL Magnesium Level 1.8 MG/DL Uric Acid 4.2 MG/DL 4.6 MG/DL Alkaline Phosphatase 70 U/L 61 U/L Aspartate Amino Transf (AST/SGOT) 26 U/L 27 U/L Alanine Aminotransferase (ALT/SGPT) 29 U/L 20 U/L Lactate Dehydrogenase 375 U/L Total Bilirubin 0.3 MG/DL 0.3 MG/DL Sodium Level 140 MEQ/L 141 MEQ/L Potassium Level 4.3 MEQ/L 4.2 MEQ/L Chloride Level 107 MEQ/L 107 MEQ/L Carbon Dioxide Level 24.4 MEQ/L 25.3 MEQ/L Anion Gap 9 MEQ/L 9 MEQ/L Estimat Glomerular Filtration Rate 84 ML/MIN 79 ML/MIN Administered Medications Medications (Trade) Dose Ordered Sig/Marilee Route PRN Reason Start Time Stop Time Status Last Admin Dose Admin Allopurinol (Zyloprim) 300 mg DAILY PO 01/11/18 09:00 01/11/18 08:26 Atenolol (Tenormin) 50 mg DAILY PO 01/11/18 09:00 01/11/18 08:26 Pantoprazole Sodium (Protonix) 20 mg DAILY PO 01/11/18 09:00 01/11/18 08:26 Sertraline HCl (Zoloft) 50 mg DAILY PO 01/11/18 09:00 01/11/18 08:26 Sitagliptin Phosphate (Januvia) 100 mg DAILY PO 01/11/18 09:00 01/11/18 08:26 Insulin Aspart (NovoLOG SUPPLEMENTAL SCALE) 1 ACHS SLIDING SCALE SQ 01/10/18 12:00 01/10/18 20:45 Objective Remarks GENERAL: Elderly male, sitting up in bed in nad. SKIN: Warm and dry. HEAD: Normocephalic. EYES: No injection or drainage. NECK: Supple, trachea midline. CARDIOVASCULAR: Regular rate and rhythm RESPIRATORY: Breath sounds equal bilaterally. No accessory muscle use. GASTROINTESTINAL: Abdomen soft, non-tender, nondistended. EXTREMITIES: No cyanosis NEUROLOGICAL: awake and alert. normal speech. moving extremities. Assessment/Plan Problem List: (1) Large B-cell lymphoma ICD Codes: C85.10 - Unspecified B-cell lymphoma, unspecified site Plan: --diagnosed with follicular lymphoma in 07/2016. treated with Rituxan and bendamustine. --CT scan after 3 cycles of chemotherapy showed improvement of the adenopathy. --PET scan after the sixth cycle of chemotherapy showed increase adenopathy. --biopsy showed transformed large B-cell lymphoma. ++cardiomyopathy with an ejection fraction down to 35%. (2) Cardiomyopathy ICD Codes: I42.9 - Cardiomyopathy, unspecified Plan: --cardiology following along with us, appreciate assistance. --Cardiomyopathy. Recent echocardiogram showed ejection fraction of 35%. --seen by Dr. Lloyd recently. (3) Anemia + thrombocytopenia Plan: --due to chemotherapy. --monitor closely. 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 h/o Diabetes mellitus.Gastroesophageal reflux disease. Cardiomyopathy. Gout. Coronary artery disease, status post a heart attack 1993. chronic kidney disease. Kidney stone. Plan 1. proceed with Day 2 of ICE chemotherapy. Discussed with patient the plan for today. will Give Etoposide, Carboplatin and start Ifex/Mesna combination today as well as concurrent hydration 2. will monitor I/O closely and give Lasix as needed for UO less than 100cc/hr or signs of fluid overload. 3. monitor blood pressure, continue home medications. Attending Statement The exam, history, and the medical decision-making described in the above note were completed with the assistance of the mid-level provider. I reviewed and agree with the findings presented. I attest that I had a [id number] encounter with the patient on the same day, and personally performed and documented my assessment and findings in the medical record. Denies CP/SOB. Good urine output. Tolerated VP16. Had episode of sinus arrythmia and cardiology is following. Appreciate cardiology input. Continue chemotx and monitor I/O closely. Shirley Hernandez January 11, 2018 08:53 Garett Granger MD January 11, 2018 11:09
[2018-01-11 09:07] LABS: BANDS 13 % (0-6); LYMPHOCYTES 14 % (9-44); METAMYELOCYTES 1 % (0-1); MONOCYTES 5 % (0-8); NEUTROPHIL # MANUAL DIFF 5.7 TH/MM3 (1.8-7.7); POLYS (SEG NEUTROPHILS) 65 % (16-70)
[2018-01-11 09:08] LABS: OVALOCYTES 1+ (NORMAL)
[2018-01-11] MEDS: GRANISETRON INJ 1 MG, DEXAMETHASONE INJ 20 MG in SODIUM CHLORIDE 0.9% INJ 50 ML IV SCH (11:32)
[2018-01-11] MEDS ORDERED: ETOPOSIDE IV ONE (12:00)
[2018-01-11] MEDS ORDERED: NS IV ONE (12:00)
--- NOTE | 2018-01-11 12:11 | PD.CARD.PN ---
Subjective Subjective Remarks No events overnight Feels well No SOB Objective Medications Current Medications Medications (Trade) Dose Ordered Sig/Marilee Route Start Time Stop Time Status Last Admin (Zyloprim) 300 mg DAILY PO 01/11/18 09:00 01/11/18 08:26 (Tenormin) 50 mg DAILY PO 01/11/18 09:00 01/11/18 08:26 (Protonix) 20 mg DAILY PO 01/11/18 09:00 01/11/18 08:26 (Zoloft) 50 mg DAILY PO 01/11/18 09:00 01/11/18 08:26 (Januvia) 100 mg DAILY PO 01/11/18 09:00 01/11/18 08:26 ([place]) 2 spray Q4H PRN EACH NARE 01/10/18 09:15 (D50w (Vial) Inj) 50 ml UNSCH PRN IV PUSH 01/10/18 09:15 (Glucagon Inj) 1 mg UNSCH PRN OTHER 01/10/18 09:15 (NovoLOG SUPPLEMENTAL SCALE) 1 ACHS SLIDING SCALE SQ 01/10/18 12:00 01/10/18 20:45 Granisetron HCl 1 mg/Dexamethasone Sodium Phosphate 20 mg/Sodium Chloride 56 ml @ 336 mls/hr Q24H IV 01/11/18 11:30 01/12/18 11:39 01/11/18 11:32 Etoposide 200 mg/ Sodium Chloride 510 ml @ 510 mls/hr ONCE ONCE IV 01/11/18 12:00 01/11/18 12:59 Carboplatin 547 mg/Sodium Chloride 250 ml @ 500 mls/hr ONCE ONCE IV 01/11/18 13:00 01/11/18 13:29 [place] 93106 mg/ Ifosfamide 16902 mg/Sodium Chloride 1,100 ml @ 45.833 mls/ hr ONCE ONCE IV 01/11/18 14:00 01/12/18 13:59 Etoposide 200 mg/ Sodium Chloride 510 ml @ 510 mls/hr ONCE ONCE IV 01/12/18 14:00 01/12/18 14:59 Sodium Chloride 1,000 ml @ 250 mls/hr Q4H IV 01/11/18 10:00 01/12/18 23:59 (Lasix Inj) 20 mg Q1H PRN IV PUSH 01/10/18 11:30 01/12/18 23:59 (Neupogen Inj) 480 mcg DAILY@14 SQ 01/14/18 14:00 01/21/18 14:01 (Methylene Blue Inj) 50 mg Q6H PRN IV PUSH 01/11/18 14:00 01/12/18 23:59 Vital Signs / I&O Vital Signs Date Time Temp Pulse Resp B/P (MAP) Pulse Ox O2 Delivery O2 Flow Rate FiO2 01/11/18 08:17 98.6 79 18 143/63 (89) 96 01/11/18 08:00 81 01/11/18 04:34 98.0 68 16 125/65 (85) 94 01/11/18 04:10 69 01/11/18 00:38 98.1 69 16 133/61 (85) 97 01/11/18 00:08 65 01/10/18 20:28 98.4 72 16 139/65 (89) 97 01/10/18 20:17 69 01/10/18 19:00 98 Room Air 01/10/18 17:10 97.8 76 18 148/78 (101) 96 01/10/18 16:00 76 01/10/18 15:18 98.5 76 18 134/68 (90) 97 01/10/18 14:45 78 18 98 01/10/18 13:36 82 18 136/81 (99) 98 01/10/18 12:32 98.2 84 18 147/68 (94) 97 I/O 01/10/18 01/10/18 01/10/18 01/11/18 01/11/18 01/11/18 07:00 15:00 23:00 07:00 15:00 23:00 Intake Total 560 ml 1320 ml 480 ml 716 ml Output Total 1475 ml 1200 ml 675 ml Balance 560 ml -155 ml -720 ml 41 ml Intake Oral 1320 ml 480 ml 716 ml IV Total 560 ml Output Urine Total 1475 ml 1200 ml 675 ml # Voids 5 Physical Exam GENERAL: SKIN: Warm and dry. HEAD: Atraumatic. Normocephalic. EYES: Pupils equal and round. No scleral icterus. No injection or drainage. ENT: No nasal bleeding or discharge. Mucous membranes pink and moist. NECK: Trachea midline. No JVD. CARDIOVASCULAR: Regular rate and rhythm. RESPIRATORY: No accessory muscle use. Clear to auscultation. Breath sounds equal bilaterally. GASTROINTESTINAL: Abdomen soft, non-tender, nondistended. Hepatic and splenic margins not palpable. MUSCULOSKELETAL: Extremities without clubbing, cyanosis, or edema. No obvious deformities. NEUROLOGICAL: Awake and alert. No obvious cranial nerve deficits. Motor grossly within normal limits. Five out of 5 muscle strength in the arms and legs. Normal speech. PSYCHIATRIC: Appropriate mood and affect; insight and judgment normal. Laboratory Laboratory Tests Test 01/11/18 04:50 White Blood Count 7.2 TH/MM3 Red Blood Count 3.33 MIL/MM3 Hemoglobin 10.7 GM/DL Hematocrit 31.2 % Mean Corpuscular Volume 93.7 FL Mean Corpuscular Hemoglobin 32.2 PG Mean Corpuscular Hemoglobin Concent 34.3 % Red Cell Distribution Width 15.6 % Platelet Count 93 TH/MM3 Mean Platelet Volume 8.9 FL Neutrophils (%) (Auto) 77.9 % Lymphocytes (%) (Auto) 12.7 % Monocytes (%) (Auto) 5.7 % Eosinophils (%) (Auto) 3.2 % Basophils (%) (Auto) 0.5 % Neutrophils # (Auto) 5.6 TH/MM3 Lymphocytes # (Auto) 0.9 TH/MM3 Monocytes # (Auto) 0.4 TH/MM3 Eosinophils # (Auto) 0.2 TH/MM3 Basophils # (Auto) 0.0 TH/MM3 CBC Comment AUTO DIFF Differential Total Cells Counted 100 Neutrophils % (Manual) 65 % Band Neutrophils % 13 % Lymphocytes % 14 % Monocytes % 5 % Eosinophils % 2 % Neutrophils # (Manual) 5.7 TH/MM3 Metamyelocytes 1 % Differential Comment FINAL DIFF MANUAL Platelet Estimate LOW Platelet Morphology Comment NORMAL Ovalocytes 1+ Blood Urea Nitrogen 15 MG/DL Creatinine 0.92 MG/DL Random Glucose 149 MG/DL Total Protein 5.8 GM/DL Albumin 3.0 GM/DL Calcium Level 8.5 MG/DL Uric Acid 4.6 MG/DL Alkaline Phosphatase 61 U/L Aspartate Amino Transf (AST/SGOT) 27 U/L Alanine Aminotransferase (ALT/SGPT) 20 U/L Total Bilirubin 0.3 MG/DL Sodium Level 141 MEQ/L Potassium Level 4.2 MEQ/L Chloride Level 107 MEQ/L Carbon Dioxide Level 25.3 MEQ/L Anion Gap 9 MEQ/L Estimat Glomerular Filtration Rate 79 ML/MIN Assessment and Plan Problem List: (1) Large B-cell lymphoma ICD Codes: C85.10 - Unspecified B-cell lymphoma, unspecified site (2) Anemia + thrombocytopenia (3) Cardiomyopathy ICD Codes: I42.9 - Cardiomyopathy, unspecified (4) Retroperitoneal lymphadenopathy ICD Codes: R59.0 - Localized enlarged lymph nodes (5) Lymphoma ICD Codes: C85.90 - Non-Hodgkin lymphoma, unspecified, unspecified site Assessment and Plan 1) Large B-cell lymphoma Per Heme/Onc 2) Cardiomyopathy Had for a number of years Consideration of changing BB to Coreg and starting CRISTINE-I, can be done outpt 3) Will have to watch with chemotherapy since high IV fluid volume Will continue to follow weight, I/Os, and clinically Lasix Flavio Raphael DO January 11, 2018 12:11
[2018-01-11] MEDS ORDERED: CARBOPLATIN IV ONE (13:00)
[2018-01-11] MEDS ORDERED: SODIUM CHLOR 0.9% IV ONE (13:00)
[2018-01-11] MEDS: IFOSFAMIDE IV ONE ×2 (14:00→20:21)
[2018-01-11] MEDS: MESNA IV ONE ×2 (14:00→20:21)
[2018-01-11] MEDS ORDERED: METHYLENE BLUE 100 MG/10 ML VIAL IV PUSH PRN (14:00)
[2018-01-11] MEDS: SODIUM CHLOR 0.9% IV ONE ×2 (14:00→20:21)
[2018-01-11] MEDS: SODIUM CHLOR 0.9% 1000 ML INJ 1,000 ML IV SCH ×5 (14:00→22:00)
[2018-01-12] VITALS (10 sets, daily range): BP systolic 118–135; BP diastolic 65–71; PULSE 59–111; RESP 16–18; TEMP 97.4–97.6; O2SAT 96–100
[2018-01-12] MEDS: SODIUM CHLOR 0.9% 1000 ML INJ 1,000 ML IV SCH ×4 (02:28→23:51)
[2018-01-12 05:43] LABS: HEMATOCRIT 30.4 % (39.0-51.0); HEMOGLOBIN 10.5 GM/DL (13.0-17.0); MEAN CELL VOLUME 93.1 FL (80.0-100.0); MEAN CORPUSCULAR HEMOGLOBIN 32.2 PG (27.0-34.0); MEAN CORPUSCULAR HGB CONC 34.6 % (32.0-36.0); MEAN PLATELET VOLUME 8.7 FL (7.0-11.0); PLATELET COUNT 88 TH/MM3 (150-450); RED BLOOD COUNT 3.26 MIL/MM3 (4.50-5.90); RED CELL DISTRIBUTION WIDTH 15.7 % (11.6-17.2); WHITE BLOOD COUNT 10.5 TH/MM3 (4.0-11.0)
[2018-01-12 06:09] LABS: AST (GOT) 26 U/L (15-37); BICARBONATE 22.2 MEQ/L (21.0-32.0); BLOOD UREA NITROGEN 19 MG/DL (7-18); CALCIUM 8.2 MG/DL (8.5-10.1); CHLORIDE 107 MEQ/L (98-107); CREATININE 0.95 MG/DL (0.60-1.30); GLOMERULAR FILTRATION RATE 76 ML/MIN (>89); GLUCOSE,RANDOM 209 MG/DL (74-106); SODIUM (NA) 140 MEQ/L (136-145)
[2018-01-12 06:23] LABS: ALKALINE PHOSPHATASE 62 U/L (45-117); ALT (GPT) 24 U/L (12-78); TOTAL BILIRUBIN ADULT 0.3 MG/DL (0.2-1.0); TOTAL PROTEIN 5.8 GM/DL (6.4-8.2)
[2018-01-12] MEDS: INSULIN ASPART SUPPLEMENTAL SCALE SQ SCH ×4 (08:00→23:37)
[2018-01-12 09:07] LABS: BANDS 15 % (0-6); LYMPHOCYTES 8 % (9-44); METAMYELOCYTES 2 % (0-1); MONOCYTES 5 % (0-8); NEUTROPHIL # MANUAL DIFF 9.1 TH/MM3 (1.8-7.7); OVALOCYTES 1+ (NORMAL); POLYS (SEG NEUTROPHILS) 70 % (16-70)
--- NOTE | 2018-01-12 10:27 | PD.ONC.PN ---
Subjective Subjective Remarks Afebrile overnight. Patient resting in room with . tolerated infusion last night without difficulty. No difficulty breathing. Had urine output greater than 100cc/hr. Did not require lasix. Objective Data Date Time Temp Pulse Resp B/P (MAP) Pulse Ox O2 Delivery O2 Flow Rate FiO2 01/12/18 04:50 97.6 72 127/65 (85) 100 01/12/18 04:01 59 01/12/18 01:02 97.6 65 16 135/68 (90) 96 01/12/18 00:02 72 01/11/18 20:29 97.8 75 18 133/76 (95) 97 01/11/18 20:11 73 01/11/18 19:00 96 Room Air 01/11/18 18:24 72 01/11/18 18:24 72 18 134/74 (94) 97 01/11/18 17:31 96 Room Air 01/11/18 17:28 98.0 89 18 141/77 (98) 96 01/11/18 16:30 96 Room Air 01/11/18 16:00 96 Room Air 01/11/18 16:00 91 01/11/18 14:52 98.4 93 18 137/78 (97) 97 01/11/18 13:59 73 96 01/11/18 12:29 98.5 70 18 120/70 (87) 96 01/11/18 12:00 96 Room Air 01/11/18 12:00 80 01/12/18 01/12/18 01/12/18 07:00 15:00 23:00 Intake Total 2688 ml Output Total 925 ml Balance 1763 ml Result Diagram: 01/12/18 0450 01/12/18 0450 Laboratory Results Laboratory Tests Test 01/12/18 04:50 01/12/18 06:05 White Blood Count 10.5 TH/MM3 Red Blood Count 3.26 MIL/MM3 Hemoglobin 10.5 GM/DL Hematocrit 30.4 % Mean Corpuscular Volume 93.1 FL Mean Corpuscular Hemoglobin 32.2 PG Mean Corpuscular Hemoglobin Concent 34.6 % Red Cell Distribution Width 15.7 % Platelet Count 88 TH/MM3 Mean Platelet Volume 8.7 FL CBC Comment AUTO DIFF Differential Total Cells Counted 100 Neutrophils % (Manual) 70 % Band Neutrophils % 15 % Lymphocytes % 8 % Monocytes % 5 % Neutrophils # (Manual) 9.1 TH/MM3 Metamyelocytes 2 % Differential Comment FINAL DIFF MANUAL Platelet Estimate LOW Platelet Morphology Comment NORMAL Ovalocytes 1+ Blood Urea Nitrogen 19 MG/DL Creatinine 0.95 MG/DL Random Glucose 209 MG/DL Total Protein 5.8 GM/DL Albumin 3.0 GM/DL Calcium Level 8.2 MG/DL Uric Acid 4.3 MG/DL Alkaline Phosphatase 62 U/L Aspartate Amino Transf (AST/SGOT) 26 U/L Alanine Aminotransferase (ALT/SGPT) 24 U/L Total Bilirubin 0.3 MG/DL Sodium Level 140 MEQ/L Potassium Level 3.8 MEQ/L Chloride Level 107 MEQ/L Carbon Dioxide Level 22.2 MEQ/L Anion Gap 11 MEQ/L Estimat Glomerular Filtration Rate 76 ML/MIN Urine Occult Blood NEG Administered Medications Medications (Trade) Dose Ordered Sig/Marilee Route PRN Reason Start Time Stop Time Status Last Admin Dose Admin Allopurinol (Zyloprim) 300 mg DAILY PO 01/11/18 09:00 01/11/18 08:26 Atenolol (Tenormin) 50 mg DAILY PO 01/11/18 09:00 01/11/18 08:26 Pantoprazole Sodium (Protonix) 20 mg DAILY PO 01/11/18 09:00 01/11/18 08:26 Sertraline HCl (Zoloft) 50 mg DAILY PO 01/11/18 09:00 01/11/18 08:26 Sitagliptin Phosphate (Januvia) 100 mg DAILY PO 01/11/18 09:00 01/11/18 08:26 Insulin Aspart (NovoLOG SUPPLEMENTAL SCALE) 1 ACHS SLIDING SCALE SQ 01/10/18 12:00 01/11/18 22:59 Granisetron HCl 1 mg/Dexamethasone Sodium Phosphate 20 mg/Sodium Chloride 56 ml @ 336 mls/hr Q24H IV 01/11/18 11:30 01/12/18 11:39 01/11/18 11:32 Mes[place] 20659 mg/ Ifosfamide 25820 mg/Sodium Chloride 1,100 ml @ 45.833 mls/ hr ONCE ONCE IV 01/11/18 14:00 01/12/18 13:59 01/11/18 20:21 Sodium Chloride 1,000 ml @ 150 mls/hr Q6H40M IV 01/11/18 10:00 01/12/18 23:59 01/11/18 20:22 Objective Remarks GENERAL: Elderly male, sitting up in bed in nad. SKIN: Warm and dry. HEAD: Normocephalic. EYES: No injection or drainage. NECK: Supple, trachea midline CARDIOVASCULAR: Regular rate and rhythm RESPIRATORY: Breath sounds equal bilaterally. No accessory muscle use. GASTROINTESTINAL: Abdomen soft, non-tender, nondistended. EXTREMITIES: No cyanosis NEUROLOGICAL: awake and alert. normal speech. moving extremities. Assessment/Plan Problem List: (1) Large B-cell lymphoma ICD Codes: C85.10 - Unspecified B-cell lymphoma, unspecified site Plan: --diagnosed with follicular lymphoma in 07/2016. treated with Rituxan and bendamustine. --CT scan after 3 cycles of chemotherapy showed improvement of the adenopathy. --PET scan after the sixth cycle of chemotherapy showed increase adenopathy. --biopsy showed transformed large B-cell lymphoma. ++cardiomyopathy with an ejection fraction down to 35%. (2) Cardiomyopathy ICD Codes: I42.9 - Cardiomyopathy, unspecified Plan: --cardiology following along with us, appreciate assistance. --Cardiomyopathy. Recent echocardiogram showed ejection fraction of 35%. --seen by Dr. Lloyd recently. (3) Anemia + thrombocytopenia Plan: --due to chemotherapy. --monitor closely. 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 h/o Diabetes mellitus.Gastroesophageal reflux disease. Cardiomyopathy. Gout. Coronary artery disease, status post a heart attack 1993. chronic kidney disease. Kidney stone. Plan 1. proceed with Day 3 of ICE chemotherapy. finish Ifex/Mesna and give last dose of etoposide. 2. continue to monitor I/O 3. plan for discharge over the weekend 4. start Neupogen tomorrow. Attending Statement The exam, history, and the medical decision-making described in the above note were completed with the assistance of the mid-level provider. I reviewed and agree with the findings presented. I attest that I had a [id number] encounter with the patient on the same day, and personally performed and documented my assessment and findings in the medical record. Tolerating chemotherapy. Has good urine output. Has A.fib but rate controlled. Cardiology following. Start neupogen tomorrow and d/c when if stable. Shirley Hernandez January 12, 2018 10:27 Garett Granger MD January 12, 2018 16:53
[2018-01-12] MEDS: ATENOLOL 50 MG TAB PO SCH (11:21)
[2018-01-12] MEDS: PANTOPRAZOLE SOD 20 MG DELAYED RELEASE TAB PO SCH (11:21)
[2018-01-12] MEDS: SERTRALINE HCL 50 MG TAB PO SCH (11:22)
[2018-01-12] MEDS: ALLOPURINOL 300 MG TAB PO SCH (11:23)
--- NOTE | 2018-01-12 12:10 | EKG ---
Date Performed: 01/10/2018 Time Performed: 12:26:28 PTAGE: 77 years EKG: Sinus arrhythmia with 1st degree A-V block Possible left anterior fascicular block Possible anteroseptal infarct - age undetermined Lateral T wave changes are nonspecific Abnormal ECG PREVIOUS TRACING : 11/01/2016 06.44 DOCTOR: Tushar Nelson Interpretating Date/Time 01/12/2018 11:59:27
[2018-01-12] MEDS: GRANISETRON INJ 1 MG, DEXAMETHASONE INJ 20 MG in SODIUM CHLORIDE 0.9% INJ 50 ML IV SCH (12:17)
[2018-01-12] MEDS ORDERED: ETOPOSIDE IV ONE (14:00)
[2018-01-12] MEDS ORDERED: NS IV ONE (14:00)
[2018-01-12] MEDS: ASPIRIN EC 81 MG TABEC PO SCH (16:17)
[2018-01-12] MEDS ORDERED: POLYETHYLENE GLYCOL 17 GM PKG PO ONE (18:30)
--- NOTE | 2018-01-12 18:35 | PD.CARD.PN ---
Subjective Subjective Remarks Overnight appears to have gone into AFib, rates controlled Feels well No SOB Objective Medications Current Medications Medications (Trade) Dose Ordered Sig/Marilee Route Start Time Stop Time Status Last Admin (Zyloprim) 300 mg DAILY PO 01/11/18 09:00 01/12/18 11:23 (Tenormin) 50 mg DAILY PO 01/11/18 09:00 01/12/18 11:21 (Protonix) 20 mg DAILY PO 01/11/18 09:00 01/12/18 11:21 (Zoloft) 50 mg DAILY PO 01/11/18 09:00 01/12/18 11:22 (Januvia) 100 mg DAILY PO 01/11/18 09:00 01/12/18 11:21 ([place]) 2 spray Q4H PRN EACH NARE 01/10/18 09:15 (D50w (Vial) Inj) 50 ml UNSCH PRN IV PUSH 01/10/18 09:15 (Glucagon Inj) 1 mg UNSCH PRN OTHER 01/10/18 09:15 (NovoLOG SUPPLEMENTAL SCALE) 1 ACHS SLIDING SCALE SQ 01/10/18 12:00 01/12/18 13:59 Sodium Chloride 1,000 ml @ 150 mls/hr Q6H40M IV 01/11/18 10:00 01/12/18 23:59 01/12/18 11:24 (Lasix Inj) 20 mg Q1H PRN IV PUSH 01/10/18 11:30 01/12/18 23:59 (Neupogen Inj) 480 mcg DAILY@14 SQ 01/14/18 14:00 01/21/18 14:01 (Methylene Blue Inj) 50 mg Q6H PRN IV PUSH 01/11/18 14:00 01/12/18 23:59 (Ecotrin Ec) 81 mg DAILY PO 01/12/18 14:15 01/12/18 16:17 (Miralax) 17 gm DAILY PO 01/13/18 09:00 Vital Signs / I&O Vital Signs Date Time Temp Pulse Resp B/P (MAP) Pulse Ox O2 Delivery O2 Flow Rate FiO2 01/12/18 16:15 97.4 66 18 131/71 (91) 97 01/12/18 04:50 97.6 72 127/65 (85) 100 01/12/18 04:01 59 01/12/18 01:02 97.6 65 16 135/68 (90) 96 01/12/18 00:02 72 01/11/18 20:29 97.8 75 18 133/76 (95) 97 01/11/18 20:11 73 01/11/18 19:00 96 Room Air I/O 01/11/18 01/11/18 01/11/18 01/12/18 01/12/18 01/12/18 07:00 15:00 23:00 07:00 15:00 23:00 Intake Total 480 ml 1272 ml 2090 ml 2688 ml 720 ml 500 ml Output Total 1200 ml 1475 ml 3000 ml 925 ml 800 ml 700 ml Balance -720 ml -203 ml -910 ml 1763 ml -80 ml -200 ml Intake Oral 480 ml 716 ml 840 ml 720 ml 720 ml 500 ml IV Total 556 ml 1250 ml 1968 ml Output Urine Total 1200 ml 1475 ml 3000 ml 925 ml 800 ml 700 ml Physical Exam GENERAL: SKIN: Warm and dry. HEAD: Atraumatic. Normocephalic. EYES: Pupils equal and round. No scleral icterus. No injection or drainage. ENT: No nasal bleeding or discharge. Mucous membranes pink and moist. NECK: Trachea midline. No JVD. CARDIOVASCULAR: Regular rate and rhythm. RESPIRATORY: No accessory muscle use. Clear to auscultation. Breath sounds equal bilaterally. GASTROINTESTINAL: Abdomen soft, non-tender, nondistended. Hepatic and splenic margins not palpable. MUSCULOSKELETAL: Extremities without clubbing, cyanosis, or edema. No obvious deformities. NEUROLOGICAL: Awake and alert. No obvious cranial nerve deficits. Motor grossly within normal limits. Five out of 5 muscle strength in the arms and legs. Normal speech. PSYCHIATRIC: Appropriate mood and affect; insight and judgment normal. Laboratory Laboratory Tests Test 01/12/18 04:50 01/12/18 06:05 White Blood Count 10.5 TH/MM3 Red Blood Count 3.26 MIL/MM3 Hemoglobin 10.5 GM/DL Hematocrit 30.4 % Mean Corpuscular Volume 93.1 FL Mean Corpuscular Hemoglobin 32.2 PG Mean Corpuscular Hemoglobin Concent 34.6 % Red Cell Distribution Width 15.7 % Platelet Count 88 TH/MM3 Mean Platelet Volume 8.7 FL CBC Comment AUTO DIFF Differential Total Cells Counted 100 Neutrophils % (Manual) 70 % Band Neutrophils % 15 % Lymphocytes % 8 % Monocytes % 5 % Neutrophils # (Manual) 9.1 TH/MM3 Metamyelocytes 2 % Differential Comment FINAL DIFF MANUAL Platelet Estimate LOW Platelet Morphology Comment NORMAL Ovalocytes 1+ Blood Urea Nitrogen 19 MG/DL Creatinine 0.95 MG/DL Random Glucose 209 MG/DL Total Protein 5.8 GM/DL Albumin 3.0 GM/DL Calcium Level 8.2 MG/DL Uric Acid 4.3 MG/DL Alkaline Phosphatase 62 U/L Aspartate Amino Transf (AST/SGOT) 26 U/L Alanine Aminotransferase (ALT/SGPT) 24 U/L Total Bilirubin 0.3 MG/DL Sodium Level 140 MEQ/L Potassium Level 3.8 MEQ/L Chloride Level 107 MEQ/L Carbon Dioxide Level 22.2 MEQ/L Anion Gap 11 MEQ/L Estimat Glomerular Filtration Rate 76 ML/MIN Urine Occult Blood NEG Assessment and Plan Problem List: (1) Large B-cell lymphoma ICD Codes: C85.10 - Unspecified B-cell lymphoma, unspecified site (2) Anemia + thrombocytopenia (3) Cardiomyopathy ICD Codes: I42.9 - Cardiomyopathy, unspecified (4) Retroperitoneal lymphadenopathy ICD Codes: R59.0 - Localized enlarged lymph nodes (5) Lymphoma ICD Codes: C85.90 - Non-Hodgkin lymphoma, unspecified, unspecified site Assessment and Plan 1) Large B-cell lymphoma Per Heme/Onc 2) Cardiomyopathy Had for a number of years Consideration of changing BB to Coreg and starting CRISTINE-I, can be done outpt 3) Will have to watch with chemotherapy since high IV fluid volume Received large volume, but urine output has kept up with intake Will continue to follow weight, I/Os, and clinically Lasix PRN 4) Afib New onset Rates controlled Not an anti-coagulation candidate due to thrombocytopenia, concern for platelets decreasing more with chemotherapy Discussed with Heme/Onc, consideration of ASA 81mg, will wait to see where his platelets level off Flavio Velasquez DO January 12, 2018 18:35
[2018-01-13] VITALS (14 sets, daily range): BP systolic 121–144; BP diastolic 66–78; PULSE 59–86; RESP 16–18; TEMP 97.5–98.6; O2SAT 95–100
[2018-01-13] MEDS ORDERED: FUROSEMIDE 20 MG/2 ML VIAL IV PUSH PRN (01:00)
[2018-01-13 05:44] LABS: HEMATOCRIT 29.8 % (39.0-51.0); HEMOGLOBIN 10.2 GM/DL (13.0-17.0); MEAN CELL VOLUME 93.6 FL (80.0-100.0); MEAN CORPUSCULAR HEMOGLOBIN 32.1 PG (27.0-34.0); MEAN CORPUSCULAR HGB CONC 34.3 % (32.0-36.0); PLATELET COUNT 89 TH/MM3 (150-450); RED BLOOD COUNT 3.18 MIL/MM3 (4.50-5.90); RED CELL DISTRIBUTION WIDTH 15.7 % (11.6-17.2); WHITE BLOOD COUNT 12.5 TH/MM3 (4.0-11.0)
[2018-01-13 06:11] LABS: ALBUMIN 3.1 GM/DL (3.4-5.0); AST (GOT) 31 U/L (15-37); BICARBONATE 25.3 MEQ/L (21.0-32.0); BLOOD UREA NITROGEN 22 MG/DL (7-18); CALCIUM 8.1 MG/DL (8.5-10.1); CHLORIDE 105 MEQ/L (98-107); CREATININE 0.99 MG/DL (0.60-1.30); GLOMERULAR FILTRATION RATE 73 ML/MIN (>89); GLUCOSE,RANDOM 183 MG/DL (74-106); SODIUM (NA) 138 MEQ/L (136-145)
[2018-01-13 06:14] LABS: ALKALINE PHOSPHATASE 61 U/L (45-117); ALT (GPT) 35 U/L (12-78); TOTAL BILIRUBIN ADULT 0.4 MG/DL (0.2-1.0); TOTAL PROTEIN 5.9 GM/DL (6.4-8.2)
[2018-01-13] MEDS: INSULIN ASPART SUPPLEMENTAL SCALE SQ SCH ×4 (08:00→20:17)
[2018-01-13 08:15] LABS: BANDS 11 % (0-6); LYMPHOCYTES 6 % (9-44); MONOCYTES 1 % (0-8); NEUTROPHIL # MANUAL DIFF 11.6 TH/MM3 (1.8-7.7); POLYS (SEG NEUTROPHILS) 82 % (16-70)
[2018-01-13 08:16] LABS: OVALOCYTES 1+ (NORMAL)
[2018-01-13] MEDS: PANTOPRAZOLE SOD 20 MG DELAYED RELEASE TAB PO SCH (08:22)
[2018-01-13] MEDS: SERTRALINE HCL 50 MG TAB PO SCH (08:22)
[2018-01-13] MEDS: ASPIRIN EC 81 MG TABEC PO SCH (08:22)
[2018-01-13] MEDS: ATENOLOL 50 MG TAB PO SCH (08:22)
[2018-01-13] MEDS: ALLOPURINOL 300 MG TAB PO SCH (08:22)
[2018-01-13] MEDS ORDERED: POLYETHYLENE GLYCOL 17 GM PKG PO SCH (09:00)
--- NOTE | 2018-01-13 10:52 | PD.CARD.PN ---
Subjective Subjective Remarks Mostly sinus rhythm with PVCs, occasional Afib noted Feels well SOB this morning, then given Lasix x1 and felt better after urinating Objective Medications Current Medications Medications (Trade) Dose Ordered Sig/Marilee Route Start Time Stop Time Status Last Admin (Zyloprim) 300 mg DAILY PO 01/11/18 09:00 01/13/18 08:22 (Tenormin) 50 mg DAILY PO 01/11/18 09:00 01/13/18 08:22 (Protonix) 20 mg DAILY PO 01/11/18 09:00 01/13/18 08:22 (Zoloft) 50 mg DAILY PO 01/11/18 09:00 01/13/18 08:22 (Januvia) 100 mg DAILY PO 01/11/18 09:00 01/13/18 08:22 ([place] Drasco) 2 spray Q4H PRN EACH NARE 01/10/18 09:15 (D50w (Vial) Inj) 50 ml UNSCH PRN IV PUSH 01/10/18 09:15 (Glucagon Inj) 1 mg UNSCH PRN OTHER 01/10/18 09:15 (NovoLOG SUPPLEMENTAL SCALE) 1 ACHS SLIDING SCALE SQ 01/10/18 12:00 01/12/18 23:37 (Neupogen Inj) 480 mcg DAILY@14 SQ 01/14/18 14:00 01/21/18 14:01 (Ecotrin Ec) 81 mg DAILY PO 01/12/18 14:15 01/13/18 08:22 (Miralax) 17 gm DAILY PO 01/13/18 09:00 01/13/18 08:22 Vital Signs / I&O Vital Signs Date Time Temp Pulse Resp B/P (MAP) Pulse Ox O2 Delivery O2 Flow Rate FiO2 01/13/18 09:45 124/66 (85) 01/13/18 09:00 97.9 01/13/18 08:30 79 01/13/18 08:30 100 Nasal Cannula 1.00 01/13/18 07:51 78 18 144/71 (95) 100 01/13/18 04:20 97.5 74 18 132/78 (96) 98 01/13/18 04:04 59 01/13/18 00:19 68 01/13/18 00:00 97.6 68 18 135/66 (89) 97 01/12/18 20:14 77 01/12/18 20:09 97.6 71 18 126/68 (87) 97 01/12/18 20:00 97 Room Air 01/12/18 16:15 97.4 66 18 131/71 (91) 97 01/12/18 16:00 98 Room Air 01/12/18 16:00 71 01/12/18 12:00 65 01/12/18 12:00 97 Room Air I/O 01/12/18 01/12/18 01/12/18 01/13/18 01/13/18 01/13/18 07:00 15:00 23:00 07:00 15:00 23:00 Intake Total 2688 ml 776 ml 3177 ml 1972 ml 510 ml Output Total 925 ml 1450 ml 1540 ml 1575 ml Balance 1763 ml -674 ml 1637 ml 397 ml 510 ml Intake Oral 720 ml 720 ml 865 ml 240 ml IV Total 1968 ml 56 ml 2312 ml 1732 ml 510 ml Output Urine Total 925 ml 1450 ml 1540 ml 1575 ml Physical Exam GENERAL: SKIN: Warm and dry. HEAD: Atraumatic. Normocephalic. EYES: Pupils equal and round. No scleral icterus. No injection or drainage. ENT: No nasal bleeding or discharge. Mucous membranes pink and moist. NECK: Trachea midline. No JVD. CARDIOVASCULAR: Regular rate and rhythm. RESPIRATORY: No accessory muscle use. Clear to auscultation. Breath sounds equal bilaterally. GASTROINTESTINAL: Abdomen soft, non-tender, nondistended. Hepatic and splenic margins not palpable. MUSCULOSKELETAL: Extremities without clubbing, cyanosis, or edema. No obvious deformities. NEUROLOGICAL: Awake and alert. No obvious cranial nerve deficits. Motor grossly within normal limits. Five out of 5 muscle strength in the arms and legs. Normal speech. PSYCHIATRIC: Appropriate mood and affect; insight and judgment normal. Laboratory Laboratory Tests Test 01/13/18 04:30 01/13/18 05:30 White Blood Count 12.5 TH/MM3 Red Blood Count 3.18 MIL/MM3 Hemoglobin 10.2 GM/DL Hematocrit 29.8 % Mean Corpuscular Volume 93.6 FL Mean Corpuscular Hemoglobin 32.1 PG Mean Corpuscular Hemoglobin Concent 34.3 % Red Cell Distribution Width 15.7 % Platelet Count 89 TH/MM3 Mean Platelet Volume 9.0 FL CBC Comment AUTO DIFF Differential Total Cells Counted 100 Neutrophils % (Manual) 82 % Band Neutrophils % 11 % Lymphocytes % 6 % Monocytes % 1 % Neutrophils # (Manual) 11.6 TH/MM3 Differential Comment FINAL DIFF MANUAL Platelet Estimate LOW Platelet Morphology Comment NORMAL Ovalocytes 1+ Blood Urea Nitrogen 22 MG/DL Creatinine 0.99 MG/DL Random Glucose 183 MG/DL Total Protein 5.9 GM/DL Albumin 3.1 GM/DL Calcium Level 8.1 MG/DL Uric Acid 4.2 MG/DL Alkaline Phosphatase 61 U/L Aspartate Amino Transf (AST/SGOT) 31 U/L Alanine Aminotransferase (ALT/SGPT) 35 U/L Total Bilirubin 0.4 MG/DL Sodium Level 138 MEQ/L Potassium Level 4.2 MEQ/L Chloride Level 105 MEQ/L Carbon Dioxide Level 25.3 MEQ/L Anion Gap 8 MEQ/L Estimat Glomerular Filtration Rate 73 ML/MIN Urine Occult Blood NEG Assessment and Plan Problem List: (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 Lloyd, can be restarted on discharge 3) Will have to watch with chemotherapy since high IV fluid volume Received large volume, but urine output has kept up with intake Will continue to follow weight, I/Os, and clinically Lasix PRN 4) Afib New onset Rates controlled Not an anti-coagulation candidate due to thrombocytopenia, concern for platelets decreasing more with chemotherapy Discussed with Heme/Onc, continue ASA 81mg, will wait to see where his platelets level off Flavio Velasquez DO January 13, 2018 10:52
--- NOTE | 2018-01-13 11:46 | PD.ONC.PN ---
Subjective Subjective Remarks Afebrile Patient reports he had a bowel movement this morning Had some mild burning on the right side of his abdomen earlier but it is gone now Anxious to go home Objective Data Date Time Temp Pulse Resp B/P (MAP) Pulse Ox O2 Delivery O2 Flow Rate FiO2 01/13/18 09:45 124/66 (85) 01/13/18 09:00 97.9 01/13/18 08:30 79 01/13/18 08:30 100 Nasal Cannula 1.00 01/13/18 07:51 78 18 144/71 (95) 100 01/13/18 04:20 97.5 74 18 132/78 (96) 98 01/13/18 04:04 59 01/13/18 00:19 68 01/13/18 00:00 97.6 68 18 135/66 (89) 97 01/12/18 20:14 77 01/12/18 20:09 97.6 71 18 126/68 (87) 97 01/12/18 20:00 97 Room Air 01/12/18 16:15 97.4 66 18 131/71 (91) 97 01/12/18 16:00 98 Room Air 01/12/18 16:00 71 01/12/18 12:00 65 01/12/18 12:00 97 Room Air 01/13/18 01/13/18 01/13/18 07:00 15:00 23:00 Intake Total 1972 ml 510 ml Output Total 1575 ml Balance 397 ml 510 ml Result Diagram: 01/13/18 0430 01/13/18 0430 Laboratory Results Laboratory Tests Test 01/13/18 04:30 01/13/18 05:30 White Blood Count 12.5 TH/MM3 Red Blood Count 3.18 MIL/MM3 Hemoglobin 10.2 GM/DL Hematocrit 29.8 % Mean Corpuscular Volume 93.6 FL Mean Corpuscular Hemoglobin 32.1 PG Mean Corpuscular Hemoglobin Concent 34.3 % Red Cell Distribution Width 15.7 % Platelet Count 89 TH/MM3 Mean Platelet Volume 9.0 FL CBC Comment AUTO DIFF Differential Total Cells Counted 100 Neutrophils % (Manual) 82 % Band Neutrophils % 11 % Lymphocytes % 6 % Monocytes % 1 % Neutrophils # (Manual) 11.6 TH/MM3 Differential Comment FINAL DIFF MANUAL Platelet Estimate LOW Platelet Morphology Comment NORMAL Ovalocytes 1+ Blood Urea Nitrogen 22 MG/DL Creatinine 0.99 MG/DL Random Glucose 183 MG/DL Total Protein 5.9 GM/DL Albumin 3.1 GM/DL Calcium Level 8.1 MG/DL Uric Acid 4.2 MG/DL Alkaline Phosphatase 61 U/L Aspartate Amino Transf (AST/SGOT) 31 U/L Alanine Aminotransferase (ALT/SGPT) 35 U/L Total Bilirubin 0.4 MG/DL Sodium Level 138 MEQ/L Potassium Level 4.2 MEQ/L Chloride Level 105 MEQ/L Carbon Dioxide Level 25.3 MEQ/L Anion Gap 8 MEQ/L Estimat Glomerular Filtration Rate 73 ML/MIN Urine Occult Blood NEG Administered Medications Medications (Trade) Dose Ordered Sig/Marilee Route PRN Reason Start Time Stop Time Status Last Admin Dose Admin Allopurinol (Zyloprim) 300 mg DAILY PO 01/11/18 09:00 01/13/18 08:22 Atenolol (Tenormin) 50 mg DAILY PO 01/11/18 09:00 01/13/18 08:22 Pantoprazole Sodium (Protonix) 20 mg DAILY PO 01/11/18 09:00 01/13/18 08:22 Sertraline HCl (Zoloft) 50 mg DAILY PO 01/11/18 09:00 01/13/18 08:22 Sitagliptin Phosphate (Januvia) 100 mg DAILY PO 01/11/18 09:00 01/13/18 08:22 Insulin Aspart (NovoLOG SUPPLEMENTAL SCALE) 1 ACHS SLIDING SCALE SQ 01/10/18 12:00 01/12/18 23:37 Aspirin (Ecotrin Ec) 81 mg DAILY PO 01/12/18 14:15 01/13/18 08:22 Polyethylene Glycol (Miralax) 17 gm DAILY PO 01/13/18 09:00 01/13/18 08:22 Objective Remarks GENERAL: Elderly male, sitting up in bed with visitors at bedside SKIN: Warm and dry. HEAD: Normocephalic. EYES: No injection or drainage. NECK: Supple, trachea midline CARDIOVASCULAR: Regular rate and rhythm RESPIRATORY: Breath sounds equal bilaterally. No accessory muscle use. GASTROINTESTINAL: Abdomen soft, non-tender, nondistended. EXTREMITIES: No cyanosis. No edema NEUROLOGICAL: Moving all extremities. No obvious focal deficit. Assessment/Plan Problem List: (1) Large B-cell lymphoma ICD Codes: C85.10 - Unspecified B-cell lymphoma, unspecified site Plan: --diagnosed with follicular lymphoma in 07/2016. treated with Rituxan and bendamustine. --CT scan after 3 cycles of chemotherapy showed improvement of the adenopathy. --PET scan after the sixth cycle of chemotherapy showed increase adenopathy. --biopsy showed transformed large B-cell lymphoma. ++cardiomyopathy with an ejection fraction down to 35%. (2) Cardiomyopathy ICD Codes: I42.9 - Cardiomyopathy, unspecified Plan: --cardiology following along with us, appreciate assistance. --Cardiomyopathy. Recent echocardiogram showed ejection fraction of 35%. --seen by Dr. Lloyd recently. (3) Anemia + thrombocytopenia Plan: --due to chemotherapy. --monitor closely. 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 h/o Diabetes mellitus.Gastroesophageal reflux disease. Cardiomyopathy. Gout. Coronary artery disease, status post a heart attack 1993. chronic kidney disease. Kidney stone. Plan 1. Patient has completed chemotherapy 2. Plan for discharge tomorrow after first dose of Neupogen 3. Monitor CBC 4. Follow-up in clinic as planned on Monday. Attending Statement The exam, history, and the medical decision-making described in the above note were completed with the assistance of the mid-level provider. I reviewed and agree with the findings presented. I attest that I had a [id number] encounter with the patient on the same day, and personally performed and documented my assessment and findings in the medical record. Had episode of SOB and wheezes this am, improved with lasix. completed VP16 this morning. Monitor closely. Start neupogen tomorrow. plan d/c if stable. Discussed with pt's family. Sally Haywood January 13, 2018 11:46 Garett Granger MD January 13, 2018 13:09
--- NOTE | 2018-01-13 14:23 | EKG ---
Date Performed: 01/11/2018 Time Performed: 18:34:20 PTAGE: 77 years EKG: Sinus rhythm WITH FIRST DEGREE AV BLOCK Possible anteroseptal infarct - age undetermined Lateral T wave changes a re nonspecific Abnormal ECG PREVIOUS TRACING : 01/10/2018 12.26 Since the previous tracing, no significant change noted DOCTOR: Saeed Saleem Interpretating Date/Time 01/13/2018 14:23:03
[2018-01-13] MEDS ORDERED: RESP: ALBUTEROL 2.5 MG/IPRATROPIUM 0.5 MG NEB (PRN) NEB (22:15)
[2018-01-14] VITALS: BP 107/44; PULSE 67; PULSE 72; RESP 16; TEMP 99.4; O2SAT 95
[2018-01-14 04:00] VITALS: BP 113/59; PULSE 79; PULSE 82; RESP 16; TEMP 98.4; O2SAT 97
[2018-01-14 06:34] LABS: BASOPHIL % 0.3 % (0.0-2.0); EOSINOPHIL % 0.1 % (0.0-4.0); HEMATOCRIT 28.2 % (39.0-51.0); HEMOGLOBIN 9.7 GM/DL (13.0-17.0); LYMPHOCYTE # 0.5 TH/MM3 (1.0-4.8); MEAN CELL VOLUME 94.9 FL (80.0-100.0); MEAN CORPUSCULAR HEMOGLOBIN 32.7 PG (27.0-34.0); MEAN CORPUSCULAR HGB CONC 34.5 % (32.0-36.0); MEAN PLATELET VOLUME 9.8 FL (7.0-11.0); MONO % 0.6 % (0.0-8.0); MONOCYTE # 0.1 TH/MM3 (0-0.9); PLATELET COUNT 82 TH/MM3 (150-450); RED BLOOD COUNT 2.97 MIL/MM3 (4.50-5.90); RED CELL DISTRIBUTION WIDTH 15.4 % (11.6-17.2); WHITE BLOOD COUNT 8.6 TH/MM3 (4.0-11.0)
--- NOTE | 2018-01-14 07:27 | PD.ONC.PN ---
Subjective Subjective Remarks Tmax 99.4 overnight Reports he did not sleep great. Had to get up to use the restroom and had difficulty catching his breath Denies palpitations Still feels comfortable to go home if he can get oxygen delivered Objective Data Date Time Temp Pulse Resp B/P (MAP) Pulse Ox O2 Delivery O2 Flow Rate FiO2 01/14/18 04:00 79 01/14/18 04:00 98.4 82 16 113/59 (77) 97 01/14/18 00:00 99.4 67 16 107/44 (65) 95 01/14/18 00:00 72 01/13/18 22:30 Nasal Cannula 2.00 01/13/18 22:16 98 Nasal Cannula 2.00 01/13/18 22:13 83 01/13/18 20:00 98.2 86 16 135/77 (96) 96 01/13/18 20:00 Room Air 01/13/18 16:00 98.6 72 18 125/69 (87) 98 01/13/18 15:49 74 01/13/18 12:00 98.3 72 18 121/68 (85) 95 01/13/18 12:00 73 01/13/18 09:45 124/66 (85) 01/13/18 09:00 97.9 01/13/18 08:30 79 01/13/18 08:30 100 Nasal Cannula 1.00 01/13/18 07:51 78 18 144/71 (95) 100 01/14/18 01/14/18 01/14/18 07:00 15:00 23:00 Intake Total 240 ml Output Total 775 ml Balance -535 ml Result Diagram: 01/14/18 0400 01/13/18 0430 Laboratory Results Laboratory Tests Test 01/14/18 04:00 01/14/18 06:15 White Blood Count 8.6 TH/MM3 Red Blood Count 2.97 MIL/MM3 Hemoglobin 9.7 GM/DL Hematocrit 28.2 % Mean Corpuscular Volume 94.9 FL Mean Corpuscular Hemoglobin 32.7 PG Mean Corpuscular Hemoglobin Concent 34.5 % Red Cell Distribution Width 15.4 % Platelet Count 82 TH/MM3 Mean Platelet Volume 9.8 FL Neutrophils (%) (Auto) 93.0 % Lymphocytes (%) (Auto) 6.0 % Monocytes (%) (Auto) 0.6 % Eosinophils (%) (Auto) 0.1 % Basophils (%) (Auto) 0.3 % Neutrophils # (Auto) 8.0 TH/MM3 Lymphocytes # (Auto) 0.5 TH/MM3 Monocytes # (Auto) 0.1 TH/MM3 Eosinophils # (Auto) 0.0 TH/MM3 Basophils # (Auto) 0.0 TH/MM3 CBC Comment AUTO DIFF Administered Medications Medications (Trade) Dose Ordered Sig/Marilee Route PRN Reason Start Time Stop Time Status Last Admin Dose Admin Allopurinol (Zyloprim) 300 mg DAILY PO 01/11/18 09:00 01/13/18 08:22 Atenolol (Tenormin) 50 mg DAILY PO 01/11/18 09:00 01/13/18 08:22 Pantoprazole Sodium (Protonix) 20 mg DAILY PO 01/11/18 09:00 01/13/18 08:22 Sertraline HCl (Zoloft) 50 mg DAILY PO 01/11/18 09:00 01/13/18 08:22 Sitagliptin Phosphate (Januvia) 100 mg DAILY PO 01/11/18 09:00 01/13/18 08:22 Insulin Aspart (NovoLOG SUPPLEMENTAL SCALE) 1 ACHS SLIDING SCALE SQ 01/10/18 12:00 01/13/18 20:17 Aspirin (Ecotrin Ec) 81 mg DAILY PO 01/12/18 14:15 01/13/18 08:22 Albuterol/ Ipratropium (Duoneb Neb) 1 ampule Q4HR NEB PRN NEB SHORTNESS OF BREATH 01/13/18 22:15 01/13/18 22:12 Objective Remarks GENERAL: Elderly male resting in bed in no obvious distress SKIN: Warm and dry. HEAD: Normocephalic. EYES: No injection or drainage. NECK: Supple, trachea midline CARDIOVASCULAR: Regular rate and rhythm RESPIRATORY: Clear anteriorly. Breathing unlabored at rest. On 1 L O2 via nasal cannula GASTROINTESTINAL: Abdomen soft, non-tender, nondistended. EXTREMITIES: No cyanosis. No edema NEUROLOGICAL: Moving all extremities. No obvious focal deficit. Assessment/Plan Problem List: (1) Large B-cell lymphoma ICD Codes: C85.10 - Unspecified B-cell lymphoma, unspecified site Plan: --diagnosed with follicular lymphoma in 07/2016. treated with Rituxan and bendamustine. --CT scan after 3 cycles of chemotherapy showed improvement of the adenopathy. --PET scan after the sixth cycle of chemotherapy showed increase adenopathy. --biopsy showed transformed large B-cell lymphoma. ++cardiomyopathy with an ejection fraction down to 35%. (2) Cardiomyopathy ICD Codes: I42.9 - Cardiomyopathy, unspecified Plan: --cardiology following along with us, appreciate assistance. --Cardiomyopathy. Recent echocardiogram showed ejection fraction of 35%. --seen by Dr. Lloyd recently. (3) Anemia + thrombocytopenia Plan: --due to chemotherapy. --monitor closely. 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 h/o Diabetes mellitus.Gastroesophageal reflux disease. Cardiomyopathy. Gout. Coronary artery disease, status post a heart attack 1993. chronic kidney disease. Kidney stone. Plan 1. Will ask respiratory therapy to do walk test 2. Consult case management for likely need for oxygen concentrator for home 3. Follow-up in clinic on Monday for daily Neupogen Attending Statement The exam, history, and the medical decision-making described in the above note were completed with the assistance of the mid-level provider. I reviewed and agree with the findings presented. I attest that I had a [id number] encounter with the patient on the same day, and personally performed and documented my assessment and findings in the medical record. Patient has now completed chemotherapy. He has an episode of shortness of breath this morning but has improved with nebulizer treatment. He denies any chest pain. His blood count was beginning to trend down. He will get Neupogen injection today. Plan to discharge him today. Will check CBC every Monday and . He has follow-up at hematology clinic on Monday. Sally Haywood January 14, 2018 07:26 Garett Granger MD January 14, 2018 11:29
[2018-01-14 08:00] VITALS: BP 103/56; PULSE 79; PULSE 80; RESP 18; TEMP 98; O2SAT 94
[2018-01-14] MEDS: INSULIN ASPART SUPPLEMENTAL SCALE SQ SCH (08:00)
[2018-01-14] MEDS: PANTOPRAZOLE SOD 20 MG DELAYED RELEASE TAB PO SCH (08:11)
[2018-01-14] MEDS: ALLOPURINOL 300 MG TAB PO SCH (08:11)
[2018-01-14] MEDS: ASPIRIN EC 81 MG TABEC PO SCH (08:11)
[2018-01-14] MEDS: ATENOLOL 50 MG TAB PO SCH (08:11)
[2018-01-14] MEDS: SERTRALINE HCL 50 MG TAB PO SCH (08:12)
[2018-01-14 09:17] VITALS: O2SAT 97
[2018-01-14 09:48] LABS: BANDS 7 % (0-6); LYMPHOCYTES 7 % (9-44); MONOCYTES 1 % (0-8); NEUTROPHIL # MANUAL DIFF 7.9 TH/MM3 (1.8-7.7); POLYS (SEG NEUTROPHILS) 85 % (16-70)
[2018-01-14 09:49] LABS: OVALOCYTES 1+ (NORMAL); TEARDROP RBCS 1+ (NORMAL)
[2018-01-14] MEDS ORDERED: FILGRASTIM 480 MCG/1.6 ML VIAL SQ SCH ×2 (10:00→14:00)
--- NOTE | 2018-01-14 11:27 | PD.CARD.PN ---
Subjective Subjective Remarks Mostly sinus rhythm with PVCs Feels well No SOB, mild edema Objective Medications Current Medications Medications (Trade) Dose Ordered Sig/Marilee Route Start Time Stop Time Status Last Admin (Zyloprim) 300 mg DAILY PO 01/11/18 09:00 01/14/18 08:11 (Tenormin) 50 mg DAILY PO 01/11/18 09:00 01/14/18 08:11 (Protonix) 20 mg DAILY PO 01/11/18 09:00 01/14/18 08:11 (Zoloft) 50 mg DAILY PO 01/11/18 09:00 01/14/18 08:12 (Januvia) 100 mg DAILY PO 01/11/18 09:00 01/14/18 08:11 ([place]) 2 spray Q4H PRN EACH NARE 01/10/18 09:15 (D50w (Vial) Inj) 50 ml UNSCH PRN IV PUSH 01/10/18 09:15 (Glucagon Inj) 1 mg UNSCH PRN OTHER 01/10/18 09:15 (NovoLOG SUPPLEMENTAL SCALE) 1 ACHS SLIDING SCALE SQ 01/10/18 12:00 01/13/18 20:17 (Ecotrin Ec) 81 mg DAILY PO 01/12/18 14:15 01/14/18 08:11 (Duoneb Neb) 1 ampule Q4HR NEB PRN NEB 01/13/18 22:15 01/13/18 22:12 (Neupogen Inj) 480 mcg DAILY@1000 SQ 01/14/18 10:00 01/21/18 10:01 01/14/18 10:37 Vital Signs / I&O Vital Signs Date Time Temp Pulse Resp B/P (MAP) Pulse Ox O2 Delivery O2 Flow Rate FiO2 01/14/18 09:17 97 21 01/14/18 08:00 98.0 79 18 103/56 (72) 94 01/14/18 08:00 Nasal Cannula 1.00 01/14/18 08:00 80 01/14/18 04:00 79 01/14/18 04:00 98.4 82 16 113/59 (77) 97 01/14/18 00:00 99.4 67 16 107/44 (65) 95 01/14/18 00:00 72 01/13/18 22:30 Nasal Cannula 2.00 01/13/18 22:16 98 Nasal Cannula 2.00 01/13/18 22:13 83 01/13/18 20:00 98.2 86 16 135/77 (96) 96 01/13/18 20:00 Room Air 01/13/18 16:00 98.6 72 18 125/69 (87) 98 01/13/18 15:49 74 01/13/18 12:00 98.3 72 18 121/68 (85) 95 01/13/18 12:00 73 I/O 01/13/18 01/13/18 01/13/18 01/14/18 01/14/18 01/14/18 07:00 15:00 23:00 07:00 15:00 23:00 Intake Total 1972 ml 510 ml 1560 ml 240 ml Output Total 1575 ml 1525 ml 775 ml Balance 397 ml 510 ml 35 ml -535 ml Intake Oral 240 ml 1560 ml 240 ml IV Total 1732 ml 510 ml Output Urine Total 1575 ml 1525 ml 775 ml # Bowel Movements 1 Physical Exam GENERAL: SKIN: Warm and dry. HEAD: Atraumatic. Normocephalic. EYES: Pupils equal and round. No scleral icterus. No injection or drainage. ENT: No nasal bleeding or discharge. Mucous membranes pink and moist. NECK: Trachea midline. No JVD. CARDIOVASCULAR: Regular rate and rhythm. RESPIRATORY: No accessory muscle use. Clear to auscultation. Breath sounds equal bilaterally. GASTROINTESTINAL: Abdomen soft, non-tender, nondistended. Hepatic and splenic margins not palpable. MUSCULOSKELETAL: Extremities without clubbing, cyanosis. Trace edema. No obvious deformities. NEUROLOGICAL: Awake and alert. No obvious cranial nerve deficits. Motor grossly within normal limits. Five out of 5 muscle strength in the arms and legs. Normal speech. PSYCHIATRIC: Appropriate mood and affect; insight and judgment normal. Laboratory Laboratory Tests Test 01/14/18 04:00 01/14/18 06:15 White Blood Count 8.6 TH/MM3 Red Blood Count 2.97 MIL/MM3 Hemoglobin 9.7 GM/DL Hematocrit 28.2 % Mean Corpuscular Volume 94.9 FL Mean Corpuscular Hemoglobin 32.7 PG Mean Corpuscular Hemoglobin Concent 34.5 % Red Cell Distribution Width 15.4 % Platelet Count 82 TH/MM3 Mean Platelet Volume 9.8 FL Neutrophils (%) (Auto) 93.0 % Lymphocytes (%) (Auto) 6.0 % Monocytes (%) (Auto) 0.6 % Eosinophils (%) (Auto) 0.1 % Basophils (%) (Auto) 0.3 % Neutrophils # (Auto) 8.0 TH/MM3 Lymphocytes # (Auto) 0.5 TH/MM3 Monocytes # (Auto) 0.1 TH/MM3 Eosinophils # (Auto) 0.0 TH/MM3 Basophils # (Auto) 0.0 TH/MM3 CBC Comment AUTO DIFF Differential Total Cells Counted 100 Neutrophils % (Manual) 85 % Band Neutrophils % 7 % Lymphocytes % 7 % Monocytes % 1 % Neutrophils # (Manual) 7.9 TH/MM3 Differential Comment FINAL DIFF MANUAL Platelet Estimate LOW Platelet Morphology Comment NORMAL Tear Drop Cells 1+ Ovalocytes 1+ Urine Occult Blood NEG Assessment and Plan Problem List: (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 Lloyd, can be restarted on discharge 3) Will have to watch with chemotherapy since high IV fluid volume Received large volume, but urine output has kept up with intake Will continue to follow weight, I/Os, and clinically Lasix dose today Otherwise cardiovascularly stable for discharge, follow up with Dr. Lloyd 4) Afib New onset Rates controlled Not an anti-coagulation candidate due to thrombocytopenia, concern for platelets decreasing more with chemotherapy Discussed with Heme/Onc, continue ASA 81mg, will wait to see where his platelets level off Flavio Velasquez DO January 14, 2018 11:27
[2018-01-14] MEDS ORDERED: FUROSEMIDE 20 MG/2 ML VIAL IV PUSH ONE ×2 (11:30→11:45)
--- NOTE | 2018-01-14 11:31 | HHI.DCPOC ---
Discharge Care Plan Diagnosis: (1) Large B-cell lymphoma Goals to Promote Your Health * To prevent worsening of your condition and complications * To maintain your health at the optimal level Directions to Meet Your Goals Take your medications as prescribed Follow your dietary instruction Follow activity as directed Keep your appointments as scheduled Take your immunizations and boosters as scheduled If your symptoms worsen call your PCP, if no PCP go to Urgent Care Center or Emergency Room Smoking is Dangerous to Your Health. Avoid second hand smoke Call the 24-hour hour crisis hotline for domestic abuse at Sally Haywood January 14, 2018 11:31
--- NOTE | 2018-01-14 11:38 | HHI.DS ---
Discharge Summary Admission Date January 10, 2018 at 06:35 Discharge Date: January 14, 2018 Admitting Diagnosis Large B-cell lymphoma Brief History Patient was originally diagnosed with follicular lymphoma in July 2016. He was treated with Rituxan and bendamustine and a CAT scan after 3 cycles showed improvement of the adenopathy. Unfortunately a PET scan after the sixth and final cycle of chemotherapy showed increased adenopathy. 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 He has been receiving Rituxan and ICE chemotherapy. He received the first cycle while inpatient on this hospitalization. He is being monitored for cardiac issues as he has severe cardiomyopathy with ejection fraction at 25%. CBC/BMP: 01/14/18 0400 01/13/18 0430 Significant Findings Laboratory Tests Test 01/12/18 04:50 01/12/18 06:05 01/13/18 04:30 01/13/18 05:30 Red Blood Count 3.26 MIL/MM3 (4.50-5.90) 3.18 MIL/MM3 (4.50-5.90) Hemoglobin 10.5 GM/DL (13.0-17.0) 10.2 GM/DL (13.0-17.0) Hematocrit 30.4 % (39.0-51.0) 29.8 % (39.0-51.0) Platelet Count 88 TH/MM3 (150-450) 89 TH/MM3 (150-450) Band Neutrophils % 15 % (0-6) 11 % (0-6) Lymphocytes % 8 % (9-44) 6 % (9-44) Neutrophils # (Manual) 9.1 TH/MM3 (1.8-7.7) 11.6 TH/MM3 (1.8-7.7) Metamyelocytes 2 % (0-1) Platelet Estimate LOW (NORMAL) LOW (NORMAL) Ovalocytes 1+ (NORMAL) 1+ (NORMAL) Blood Urea Nitrogen 19 MG/DL (7-18) 22 MG/DL (7-18) Random Glucose 209 MG/DL (74-106) 183 MG/DL (74-106) Total Protein 5.8 GM/DL (6.4-8.2) 5.9 GM/DL (6.4-8.2) Albumin 3.0 GM/DL (3.4-5.0) 3.1 GM/DL (3.4-5.0) Calcium Level 8.2 MG/DL (8.5-10.1) 8.1 MG/DL (8.5-10.1) Estimat Glomerular Filtration Rate 76 ML/MIN (>89) 73 ML/MIN (>89) White Blood Count 12.5 TH/MM3 (4.0-11.0) Neutrophils % (Manual) 82 % (16-70) Test 01/14/18 04:00 01/14/18 06:15 Red Blood Count 2.97 MIL/MM3 (4.50-5.90) Hemoglobin 9.7 GM/DL (13.0-17.0) Hematocrit 28.2 % (39.0-51.0) Platelet Count 82 TH/MM3 (150-450) Neutrophils (%) (Auto) 93.0 % (16.0-70.0) Lymphocytes (%) (Auto) 6.0 % (9.0-44.0) Neutrophils # (Auto) 8.0 TH/MM3 (1.8-7.7) Lymphocytes # (Auto) 0.5 TH/MM3 (1.0-4.8) Neutrophils % (Manual) 85 % (16-70) Band Neutrophils % 7 % (0-6) Lymphocytes % 7 % (9-44) Neutrophils # (Manual) 7.9 TH/MM3 (1.8-7.7) Platelet Estimate LOW (NORMAL) Tear Drop Cells 1+ (NORMAL) Ovalocytes 1+ (NORMAL) PE at Discharge See progress note dated 01/14/18 Hospital Course Patient was treated with Rituxan outpatient and was brought in for the remainder of the chemotherapy. This was started on 01/10. He tolerated the chemotherapy well. 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 He converted back to sinus rhythm and had no further cardiac incidents while chemotherapy ensued Pt Condition on Discharge: Fair Discharge Disposition: Discharge Home Discharge Instructions DIET: Follow Instructions for: Heart Healthy Diet Activities you can perform: Regular-No Restrictions Sally Haywood January 14, 2018 11:38
== END 2018-01-14 12:21 | disposition home or self-care (01) | DRG 847 ==
LOC: HCIN 06:35
PROVIDERS: ADMIT Internal Medicine Hematology & Oncology; ATTEND Internal Medicine Hematology & Oncology
DX: Z51.11 Encounter for antineoplastic chemotherapy (principal); I42.9 Cardiomyopathy, unspecified; C83.30 Diffuse large B-cell lymphoma, unspecified site; E11.22 Type 2 diabetes mellitus with diabetic chronic kidney disease; D69.59 Other secondary thrombocytopenia; D64.81 Anemia due to antineoplastic chemotherapy; I25.10 Atherosclerotic heart disease of native coronary artery without angina pectoris; K21.9 Gastro-esophageal reflux disease without esophagitis; M10.9 Gout, unspecified; Z87.442 Personal history of urinary calculi; Z95.1 Presence of aortocoronary bypass graft; I25.2 Old myocardial infarction; R59.0 Localized enlarged lymph nodes; T45.1X5A Adverse effect of antineoplastic and immunosuppressive drugs, initial encounter; N18.9 Chronic kidney disease, unspecified; I48.91 Unspecified atrial fibrillation; Z88.1 Allergy status to other antibiotic agents; Z88.5 Allergy status to narcotic agent; Z88.8 Allergy status to other drugs, medicaments and biological substances; Z79.82 Long term (current) use of aspirin; Z79.84 Long term (current) use of oral hypoglycemic drugs
CPT/HCPCS: 76937; 80053; 81002; 82948; 83615; 83735; 84100; 84550; 85007; 85027; 93005; 94618; 94664; J1100; J1442; J1626; J1815; J1940; J7030; J7040; J7050; J9045; J9181; J9208; J9209

== ENCOUNTER 2018-01-19 13:15 | Inpatient (IN) | payer OTHER, MEDICARE ==
[2018-01-19 15:20] VITALS: BP 116/62; PULSE 73; RESP 18; TEMP 97.4; O2SAT 98
[2018-01-19] MEDS ORDERED: LOPERAMIDE HCL 2 MG CAP PO PRN ×2 (16:00→17:15)
[2018-01-19] MEDS ORDERED: ACETAMINOPHEN 325 MG TAB PO PRN (16:00)
[2018-01-19] MEDS ORDERED: SODIUM CHLOR 0.9% 250 ML INJ 250 ML IV ONE (16:00)
[2018-01-19 16:25] VITALS: PULSE 81
[2018-01-19] MEDS: CEFEPIME INJ 2,000 MG in SODIUM CHLORIDE 0.9% INJ 100 ML IV SCH (16:52)
[2018-01-19] MEDS: VANCOMYCIN INJ 1,000 MG in SODIUM CHLOR 0.9% 250 ML INJ 250 ML IV SCH (17:00)
--- NOTE | 2018-01-19 17:41 | MB ---
cc: Garett Granger MD, Boon Y MD DATE: 01/19/2018 ATTENDING PHYSICIAN: Dr. Perez. REASON FOR CONSULTATION: Oncology is consulted to render an opinion regarding patient with lymphoma, recently treated with chemotherapy, presented with sepsis and neutropenic fever. 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 He was just discharged from the hospital last weekend. He has been getting Neupogen injection at the clinic. According to his , the patient developed fever up to 100.4 yesterday. He, however, refused to go to the emergency room as instructed. This morning he has temperature up to 101. Again, he refused to go to the emergency room. He also developed a blister-like lesion on his right face and scalp yesterday. When he came to the clinic for Neupogen injection, he was noted to be febrile and weak. He also had chills. Blood work showed 0 neutrophils. His platelet count was down to 15,000. He was admitted to the hospital. He denies any headache. Denies any visual changes. Denies any focal numbness or weakness. He has no chest pain. Denies any shortness of breath. He has occasional wheezes. He has no nausea, vomiting , diarrhea or abdominal pain. Denies any dysuria or hematuria. He said that the blister-like lesion on his right jaw area is tender. PAST MEDICAL HISTORY: 1. 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 2. Diabetes mellitus, 3. Gastroesophageal reflux disease, 4. Cardiomyopathy with ejection fraction around 35%, 5. Gout. 6. Coronary artery disease, status post a heart attack in 1993. 7. Chronic kidney disease. 8. Kidney stone. PAST SURGICAL HISTORY: 1. Colonoscopy, upper endoscopy 2. Coronary bypass graft surgery in 1995. 3. Hernia repair. 4. Appendectomy 5. Port placement. ALLERGIES: AMOXICILLIN, DEMEROL, GLIMEPIRIDE, GLIPIZIDE, KEFLEX, METOPROLOL, PERCOCET WHICH CAUSED DIZZINESS FAMILY HISTORY: No cancer in the family. He has 2 daughters, both are healthy. SOCIAL HISTORY: Never smoked. He drinks occasionally. CURRENT MEDICATIONS: 1. Neupogen 2. Allopurinol. 3. Aspirin. 4. Atenolol. 5. Zoloft. 6. Januvia. 7. Protonix. 8. Flonase. 9. Vancomycin. 10. Acyclovir. 11. Cefepime. REVIEW OF SYSTEMS: CONSTITUTIONAL: As above. EYES: Negative. ENT: Negative. CARDIOVASCULAR: Denied any chest pressure or palpitation. RESPIRATORY: Denies shortness of breath or cough. GASTROINTESTINAL: Denies any nausea, vomiting, diarrhea or abdominal pain. GENITOURINARY: Denies any dysuria or hematuria. MUSCULOSKELETAL: Denies any pain. HEMATOLOGIC: As above. ENDOCRINE: Negative. DERMATOLOGY: As above. NEUROLOGIC: Negative. PSYCHIATRIC: Negative. PHYSICAL EXAMINATION: VITAL SIGNS: Temperature 97.4, blood pressure 116/62, pulse 73, O2 saturation 98% on room air. GENERAL: He is alert, oriented x3 in no acute distress. He is having some chills. HEENT: Atraumatic, normocephalic. Pupils are equal, round, reactive to light. Oropharynx dry mucosa. No lesion. NECK: No thyromegaly or palpable mass. LYMPHATIC: No palpable cervical, clavicular, axillary, or inguinal lymph nodes. CARDIOVASCULAR: Regular S1, S2. No murmur. LUNGS: Clear to auscultation bilaterally with no wheezing. ABDOMEN: Soft, nontender. Could not palpate liver or spleen. EXTREMITIES: No cyanosis, clubbing, or edema. No calf tenderness. BACK: No paravertebral tenderness. SKIN: He has a blister-like lesion at his right jaw and 2 of them on his scalp. There is what looked like a blood blister. LABORATORY DATA: WBC 0.1, hemoglobin 8.2, platelet count 15,000. ANC is 0. Creatinine 1.2. Liver transaminase within normal limits. ASSESSMENT: 1. Sepsis and neutropenic fever. He started having a fever yesterday. He, however, refused to come to the emergency room as instructed. When he came to clinic today, he was noted to be weak and febrile. His temperature was up to 101. He has a blister-like lesion on his scalp and right face, worrisome for varicella zoster infection. He was given vancomycin, cefepime and acyclovir in the clinic and then admitted to the hospital. Culture has been drawn and is pending. Urinalysis is unremarkable. He has no pulmonary symptoms. He will continue with current antibiotic and infectious disease has been consulted. 2. Pancytopenia due to recent chemotherapy. His neutrophil trended down to 0. Continue to monitor him. He was given a unit of platelet transfusion today. No bleeding noted. We will transfuse to keep hemoglobin above 8 and platelet count above 20,000 given his symptoms. 3. Transformed large B cell lymphoma. He has a history of follicular lymphoma, stage IV, treated with Rituxan and bendamustine. After 6 cycles of chemotherapy, he was noted to have progression of disease with increased adenopathy. He has increased retroperitoneal and mesenteric adenopathy. Biopsy of the retroperitoneal adenopathy showed transformed diffuse large B-cell lymphoma. He was given the first cycle of RICE chemotherapy last week. 4. Cardiomyopathy. Recent echocardiogram showed ejection fraction of 35%. He has been followed by cardiology. He has no symptoms of congestive heart failure at this time. 5. Diabetes mellitus, stable. 6. Gastroesophageal reflux disease, stable. PLAN: 1. Continue vancomycin, cefepime and acyclovir. 2. Await infectious disease evaluation and recommendation. 3. Monitor blood culture. 4. Continue Neupogen. 5. Monitor CBC and transfuse to keep hemoglobin above 8 and platelets above 20,000. 6. Start hydration slowly as patient has decreased oral intake. Thank you, Dr. Perez, for asking me to see this patient. MD REMI Connors/ , 04:55 PM , 05:40 PM BARBRA
--- NOTE | 2018-01-19 17:54 | HHI.HP ---
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 He was just discharged from the hospital last weekend. Hehas been getting Neupogen injection at the clinic. According to his , the patient developed fever up to 100.4 yesterday. He, however, refused to go to the emergency room as instructed. This morning he has temperature up to 101. Again, he refused to go to the emergency room. He also developed a blister-like lesion on his right face and scalp yesterday. When he came to the clinic for Neupogen injection, he was noted to be febrile and weak. He also had chills. Blood work showed 0 neutrophils. His platelet count was down to 15,000. He is admitted to the hospital for further evaluation, IV abx. He denies any headache. Denies any visual changes. Denies any focal numbness or weakness. He has no chest pain. Denies any shortness of breath. He has occasional wheezes. He has no nausea, vomiting , diarrhea or abdominal pain. Denies any dysuria or hematuria. He said that the blister-like lesion on his right jaw area is tender. Review of Systems ROS Limitations: Clinical Condition, Poor Historian Except as stated in HPI: all other systems reviewed are Neg Past Family Social History Past Medical History Follicular lymphoma with transformation to a large B cell lymphoma. Diabetes mellitus, Gastroesophageal reflux disease, Cardiomyopathy with ejection fraction around 35%, Gout. Coronary artery disease, status post a heart attack in 1993. Chronic kidney disease. Kidney stone. Past Surgical History Colonoscopy, upper endoscopy Coronary bypass graft surgery in 1995. Hernia repair. Appendectomy Port placement. Reported Medications Reported Meds & Active Scripts Active Reported Lisinopril 2.5 Mg Tab 2.5 Mg PO HS Metformin (Metformin HCl) 500 Mg Tab 500 Mg PO BIDPC Aspirin 81 Mg Chew 81 Mg CHEW DAILY Vytorin (Ezetimibe-Simvastatin) 10-40 Mg Tab 1 Tab PO HS Januvia (Sitagliptin Phosphate) 100 Mg Tab 100 Mg PO DAILY Allopurinol 300 Mg Tab 300 Mg PO DAILY Atenolol 50 Mg Tab 50 Mg PO DAILY Vytorin (Ezetimibe-Simvastatin) 10-40 Mg Tab 1 Tab PO HS Fluticasone Nasal Colbert 50 Mcg/Act Naspr 50 Mcg EACH NARE BID 50 mcg/spray Omeprazole 20 Mg Tab 20 Mg PO DAILY Sertraline (Sertraline HCl) 50 Mg Tab 50 Mg PO DAILY Allergies: Coded Allergies: erythromycin base (Unverified Allergy, Severe, 05/26/17) Patient denies meperidine (Unverified Allergy, Severe, 05/26/17) Patient denies penicillin G (Unverified Allergy, Severe, 05/26/17) pt. denies acetaminophen (Unverified Allergy, Unknown, 05/26/17) oxycodone (Unverified Allergy, Unknown, 05/26/17) pt. denies amoxicillin (Unverified Adverse Reaction, Mild, upset stomach, 05/26/17) Family History No cancer in the family. He has 2 daughters, both are healthy. Social History Never smoked. He drinks occasionally. Physical Exam Vital Signs Vital Signs Date Time Temp Pulse Resp B/P (MAP) Pulse Ox O2 Delivery O2 Flow Rate FiO2 01/19/18 15:20 97.4 73 18 116/62 (80) 98 Physical Exam GENERAL: This is a well-nourished, well-developed patient, anxious. SKIN: Pale. Blister-like lesions at his right jaw and 2 of them on his scalp. There is what looked like a blood blister. HEAD: Atraumatic. Normocephalic. No temporal or scalp tenderness. EYES: Pupils equal round and reactive. Extraocular motions intact. No scleral icterus. No injection or drainage. ENT: Nose without bleeding, purulent drainage or septal hematoma. Throat without erythema, tonsillar hypertrophy or exudate. Uvula midline. Airway patent. NECK: Trachea midline. No JVD or lymphadenopathy. Supple, nontender, no meningeal signs. CARDIOVASCULAR: Regular rate and rhythm without murmurs, gallops, or rubs. RESPIRATORY: Clear to auscultation. Breath sounds equal bilaterally. No wheezes , rales, or rhonchi. GASTROINTESTINAL: Abdomen soft, non-tender, nondistended. No hepato-splenomegaly , or palpable masses. No guarding. MUSCULOSKELETAL: Extremities without clubbing, cyanosis, or edema. No joint tenderness, effusion, or edema noted. No calf tenderness. Negative Homans sign bilaterally. NEUROLOGICAL: Awake and alert. Cranial nerves II through XII intact. Motor and sensory grossly within normal limits. Five out of 5 muscle strength in all muscle groups. Normal speech. Caprini VTE Risk Assessment Caprini VTE Risk Assessment: Mod/High Risk (score >= 2) Caprini Risk Assessment Model Point Value = 1 Point Value = 2 Point Value = 3 Point Value = 5 Age 41-60 Minor surgery BMI > 25 kg/m2 Swollen legs Varicose veins or History of unexplained or recurrent spontaneous Oral contraceptives or hormone replacement Sepsis (< 1 month) Serious lung disease, including pneumonia (< 1 month) Abnormal pulmonary function Acute myocardial infarction Congestive heart failure (< 1 month) History of inflammatory bowel disease Medical patient at bed rest Age 61-74 Arthroscopic surgery Major open surgery (> 45 min) Laparoscopic surgery (> 45 min) Malignancy Confined to bed (> 72 hours) Immobilizing plaster cast Central venous access Age >= 75 History of VTE Family history of VTE Factor V Leiden Prothrombin [id number] Lupus anticoagulant Anticardiolipin antibodies Elevated serum homocysteine Heparin-induced thrombocytopenia Other congenital or acquired thrombophilia Stroke (< 1 month) Elective arthroplasty Hip, pelvis, or leg fracture Acute spinal cord injury (< 1 month) Prophylaxis Regimen Total Risk Factor Score Risk Level Prophylaxis Regimen 0-1 Low Early ambulation 2 Moderate Order ONE of the following: *Sequential Compression Device (SCD) *Heparin 5000 units SQ BID 3-4 Higher Order ONE of the following medications: *Heparin 5000 units SQ TID *Enoxaparin/Lovenox 40 mg SQ daily (WT < 150 kg, CrCl > 30 mL/min) *Enoxaparin/Lovenox 30 mg SQ daily (WT < 150 kg, CrCl > 10-29 mL/min) *Enoxaparin/Lovenox 30 mg SQ BID (WT < 150 kg, CrCl > 30 mL/min) AND/OR *Sequential Compression Device (SCD) 5 or more Highest Order ONE of the following medications: *Heparin 5000 units SQ TID (Preferred with Epidurals) *Enoxaparin/Lovenox 40 mg SQ daily (WT < 150 kg, CrCl > 30 mL/min) *Enoxaparin/Lovenox 30 mg SQ daily (WT < 150 kg, CrCl > 10-29 mL/min) *Enoxaparin/Lovenox 30 mg SQ BID (WT < 150 kg, CrCl > 30 mL/min) AND *Sequential Compression Device (SCD) Assessment and Plan Problem List: (1) Cardiomyopathy ICD Code: I42.9 - Cardiomyopathy, unspecified (2) Large B-cell lymphoma ICD Code: C85.10 - Unspecified B-cell lymphoma, unspecified site (3) Anemia + thrombocytopenia (4) Lymphoma ICD Code: C85.90 - Non-Hodgkin lymphoma, unspecified, unspecified site (5) Retroperitoneal lymphadenopathy ICD Code: R59.0 - Localized enlarged lymph nodes Assessment and Plan Severe Sepsis (fever, tachycardia. source rash, neutropenic fever, Lactic acid > 2) on admission Neutropenic fever Varicella Zoster on his scalp and right face, worrisome for varicella zoster infection Blood cultures pending Urinalysis is unremarkable. Started on vanco cefepime and acyclovir Cobsult ID for eval Consult hem onc Dr Granger Pancytopenia due to recent chemotherapy. Neutrophil trended down to 0. Received 1 unit of platelet transfusion today by Dr Granger as OP No bleeding noted. Transfuse to keep hemoglobin above 8 and platelet count above 20,000 given his symptoms. Gentle IVF Transformed large B cell lymphoma. History of follicular lymphoma, stage IV, treated with Rituxan and bendamustine . treated with chemo Consult Dr Granger his hem/onc Cardiomyopathy with low EF 35 % on recent OP ECHO. Sattign well on rrom air . Recent echocardiogram showed ejection fraction of 35%. He has been followed by cardiology. Monitor closely, he has no symptoms of congestive heart failure at this time. Diabetes mellitus 2, stable. ISS accuchecks. Monitor BS Gastroesophageal reflux disease, stable. cntinue PPI Anxiety/ depresson continue home emds ativan as need DVT ppx SCD/TEDs. CI chemical ppx at this time as patient with pancytopenia and high risk of bleeding. Discussed Condition With pt, family at bedside, hem/onc staff. Sally RUIZ hem/onc Physician Certification 2 Midnight Certification Type: Admission for Inpatient Services Order for Inpatient Services The services are ordered in accordance with Medicare regulations or non- Medicare payer requirements, as applicable. In the case of services not specified as inpatient-only, they are appropriately provided as inpatient services in accordance with the 2-midnight benchmark. Estimated LOS (days): 3 days is the estimated time the patient will need to remain in the hospital, assuming treatment plan goals are met and no additional complications. Post-Hospital Plan: Home Alvina Perez MD January 19, 2018 17:54
[2018-01-19] MEDS: ACYCLOVIR INJ 700 MG in SODIUM CHLORIDE 0.9% INJ 100 ML IV SCH (18:03)
[2018-01-19] MEDS: SODIUM CHLOR 0.9% 1000 ML INJ 1,000 ML IV SCH (18:14)
[2018-01-19 18:19] VITALS: BP 117/51; PULSE 75; TEMP 102.2; O2SAT 96
[2018-01-19] MEDS ORDERED: LISI2.5T3 PO (18:30)
[2018-01-19] MEDS: ACETAMINOPHEN/HYDROcodone 325 MG/5 MG TAB PO PRN (18:46)
--- NOTE | 2018-01-19 19:33 | RADRPT ---
EXAM DATE: 01/19/2018 7:29 PM EDT AGE/SEX: 77 years / Male INDICATIONS: Shortness of breath. Evaluate for pneumonia. CLINICAL DATA: This is the patient's initial encounter. Patient reports that signs and symptoms have been present for 1 week and indicates a pain score of 0/10. MEDICAL/SURGICAL HISTORY: Hypertension. CABG. COMPARISON: No prior [place] exams available for comparison. FINDINGS: Right-sided [id number] tip is in the superior vena cava. Previous CABG. Bilateral mostly basilar a irspace disease is present. Differential diagnosis includes edema and infection. No significant effus ion. Cardiomegaly. CONCLUSION: Cardiomegaly with bilateral mostly basilar airspace disease. Differential diagnosis includes mild sandy ma or infection. Electronically signed by: Jace Fajardo MD 01/19/2018 7:32 PM EDT
[2018-01-19 20:00] VITALS: BP 106/55; PULSE 98; RESP 18; TEMP 99.1; O2SAT 97
[2018-01-19 20:03] VITALS: PULSE 70
[2018-01-19] MEDS: SIMVASTATIN PO SCH (21:00)
[2018-01-19] MEDS: EZETIMIBE PO SCH (21:00)
[2018-01-19] MEDS: FLUTICASONE PROPIONATE 50 MCG/ACT 16 GM NASAL SPRAY EACH NARE SCH (22:30)
[2018-01-20] VITALS (13 sets, daily range): BP systolic 106–121; BP diastolic 54–78; PULSE 58–78; RESP 18; TEMP 97.5–99.8; O2SAT 97–100
[2018-01-20] MEDS: CEFEPIME INJ 2,000 MG in SODIUM CHLORIDE 0.9% INJ 100 ML IV SCH ×3 (00:57→16:32)
[2018-01-20] MEDS: ACYCLOVIR INJ 700 MG in SODIUM CHLORIDE 0.9% INJ 100 ML IV SCH ×2 (02:02→10:58)
[2018-01-20] MEDS: VANCOMYCIN INJ 1,000 MG in SODIUM CHLOR 0.9% 250 ML INJ 250 ML IV SCH ×2 (04:33→18:08)
[2018-01-20 05:49] LABS: MEAN CELL VOLUME 93.7 FL (80.0-100.0); MEAN CORPUSCULAR HEMOGLOBIN 32.1 PG (27.0-34.0); MEAN CORPUSCULAR HGB CONC 34.3 % (32.0-36.0); MEAN PLATELET VOLUME 8.9 FL (7.0-11.0); PLATELET COUNT 20 TH/MM3 (150-450); RED BLOOD COUNT 2.21 MIL/MM3 (4.50-5.90); RED CELL DISTRIBUTION WIDTH 14.5 % (11.6-17.2); WHITE BLOOD COUNT 0.1 TH/MM3 (4.0-11.0)
[2018-01-20 05:52] LABS: ALBUMIN 2.7 GM/DL (3.4-5.0); AST (GOT) 19 U/L (15-37); BICARBONATE 22.3 MEQ/L (21.0-32.0); BLOOD UREA NITROGEN 26 MG/DL (7-18); CALCIUM 7.5 MG/DL (8.5-10.1); CHLORIDE 108 MEQ/L (98-107); CREATININE 1.23 MG/DL (0.60-1.30); GLOMERULAR FILTRATION RATE 57 ML/MIN (>89); GLUCOSE,RANDOM 150 MG/DL (74-106); SODIUM (NA) 139 MEQ/L (136-145)
[2018-01-20 05:53] LABS: ALT (GPT) 29 U/L (12-78)
[2018-01-20 05:55] LABS: ALKALINE PHOSPHATASE 67 U/L (45-117); HEMATOCRIT 20.7 % (39.0-51.0); HEMOGLOBIN 7.1 GM/DL (13.0-17.0); TOTAL BILIRUBIN ADULT 0.6 MG/DL (0.2-1.0); TOTAL PROTEIN 5.6 GM/DL (6.4-8.2)
[2018-01-20 06:45] LABS: LYMPHOCYTES 90 % (9-44)
[2018-01-20] MEDS: SODIUM CHLOR 0.9% 1000 ML INJ 1,000 ML IV SCH ×2 (07:20→20:07)
[2018-01-20] MEDS: FLUTICASONE PROPIONATE 50 MCG/ACT 16 GM NASAL SPRAY EACH NARE SCH ×2 (09:40→20:12)
[2018-01-20] MEDS: SERTRALINE HCL 50 MG TAB PO SCH (09:41)
[2018-01-20] MEDS: ATENOLOL 50 MG TAB PO SCH (09:41)
[2018-01-20] MEDS: ALLOPURINOL 300 MG TAB PO SCH (09:41)
[2018-01-20] MEDS: ASPIRIN 81 MG CHEW TAB CHEW SCH (09:41)
[2018-01-20] MEDS: PANTOPRAZOLE SOD 20 MG DELAYED RELEASE TAB PO SCH (09:41)
--- NOTE | 2018-01-20 10:22 | PD.ONC.PN ---
Subjective Subjective Remarks T-max 102.2 at 6 PM last night Patient reports he still having diarrhea Thinks he feels somewhat better today. Denies shortness of breath Has some oozing from a small abrasion on his left arm He reports the blisters on his face are painful however it is not bad enough to take pain medication for it. Objective Data Date Time Temp Pulse Resp B/P (MAP) Pulse Ox O2 Delivery O2 Flow Rate FiO2 01/20/18 09:34 99.5 72 18 113/59 (77) 97 01/20/18 07:00 72 01/20/18 04:36 97.9 74 18 121/60 (80) 99 01/20/18 04:02 71 01/20/18 01:03 97.5 68 18 115/72 (86) 100 01/20/18 00:21 69 01/19/18 20:03 70 01/19/18 20:00 99.1 98 18 106/55 (72) 97 01/19/18 18:19 102.2 75 117/51 (73) 96 01/19/18 18:00 97 Room Air 01/19/18 16:25 81 01/19/18 15:20 97.4 73 18 116/62 (80) 98 01/20/18 01/20/18 01/20/18 07:00 15:00 23:00 Intake Total 300 ml Output Total 420 ml Balance -120 ml Result Diagram: 01/20/1843901/20/18439 Laboratory Results Laboratory Tests Test 01/19/18 18:05 01/20/18 04:40 Lactic Acid Level 2.7 mmol/L White Blood Count 0.1 TH/MM3 Red Blood Count 2.21 MIL/MM3 Hemoglobin 7.1 GM/DL Hematocrit 20.7 % Mean Corpuscular Volume 93.7 FL Mean Corpuscular Hemoglobin 32.1 PG Mean Corpuscular Hemoglobin Concent 34.3 % Red Cell Distribution Width 14.5 % Platelet Count 20 TH/MM3 Mean Platelet Volume 8.9 FL CBC Comment AUTO DIFF Differential Total Cells Counted 10 Lymphocytes % 90 % Eosinophils % 10 % Neutrophils # (Manual) 0.0 TH/MM3 Differential Comment FINAL DIFF MANUAL Platelet Estimate RARE Platelet Morphology Comment NORMAL Blood Urea Nitrogen 26 MG/DL Creatinine 1.23 MG/DL Random Glucose 150 MG/DL Total Protein 5.6 GM/DL Albumin 2.7 GM/DL Calcium Level 7.5 MG/DL Alkaline Phosphatase 67 U/L Aspartate Amino Transf (AST/SGOT) 19 U/L Alanine Aminotransferase (ALT/SGPT) 29 U/L Total Bilirubin 0.6 MG/DL Sodium Level 139 MEQ/L Potassium Level 3.7 MEQ/L Chloride Level 108 MEQ/L Carbon Dioxide Level 22.3 MEQ/L Anion Gap 9 MEQ/L Estimat Glomerular Filtration Rate 57 ML/MIN Culture Results Microbiology Date/Time Source Procedure Growth Status 01/19/18 18:05 Blood Peripheral Aerobic Blood Culture Pending Received 01/19/18 18:05 Blood Peripheral Anaerobic Blood Culture Pending Received 01/19/18 18:00 Blood Peripheral Aerobic Blood Culture Pending Received 01/19/18 18:00 Blood Peripheral Anaerobic Blood Culture Pending Received Administered Medications Medications (Trade) Dose Ordered Sig/Marilee Route PRN Reason Start Time Stop Time Status Last Admin Dose Admin Vancomycin HCl 1000 mg/Sodium Chloride 250 ml @ 250 mls/hr Q12H IV 01/19/18 17:00 01/20/18 04:33 Acyclovir Sodium 700 mg/Sodium Chloride 100 ml @ 100 mls/hr Q8H IV 01/19/18 17:00 01/20/18 02:02 Cefepime HCl 2000 mg/Sodium Chloride 100 ml @ 200 mls/hr Q8H IV 01/19/18 17:00 01/20/18 09:41 Allopurinol (Zyloprim) 300 mg DAILY PO 01/20/18 09:00 01/20/18 09:41 Aspirin (Aspirin Chew) 81 mg DAILY CHEW 01/20/18 09:00 01/20/18 09:41 Atenolol (Tenormin) 50 mg DAILY PO 01/20/18 09:00 01/20/18 09:41 Fluticasone Propionate (Flonase Gilles Spr) 2 spray BID EACH NARE 01/19/18 21:00 01/20/18 09:40 Sertraline HCl (Zoloft) 50 mg DAILY PO 01/20/18 09:00 01/20/18 09:41 Sitagliptin Phosphate (Januvia) 100 mg DAILY PO 01/20/18 09:00 01/20/18 09:40 Pantoprazole Sodium (Protonix) 20 mg DAILY PO 01/20/18 09:00 01/20/18 09:41 Sodium Chloride 1,000 ml @ 75 mls/hr [id number] IV 01/19/18 18:00 01/19/18 18:14 Acetaminophen/ Hydrocodone Bitart ([place] 5-325 Mg) 1 tab Q4H PRN PO pain 2-10 01/19/18 19:00 01/19/18 18:46 Objective Remarks GENERAL: Elderly male sitting on side of bed in no obvious distress. Spouse at bedside SKIN: Blood-filled blisters noted to right lip, cheek and scalp. HEAD: Normocephalic. Few blisters noted on scalp to the right side of midline. EYES: No injection or drainage. NECK: Supple, trachea midline. No JVD or lymphadenopathy. LYMPHATIC: Right supraclavicular shoddy lymph node palpated CARDIOVASCULAR: Irregular rhythm RESPIRATORY: Clear anteriorly. Breathing unlabored at rest. GASTROINTESTINAL: Abdomen soft, non-tender, nondistended. EXTREMITIES: No cyanosis, or edema. MUSCULOSKELETAL: Adequate muscle tone. NEUROLOGICAL: No obvious focal deficit. Awake, alert, and oriented x3. Assessment/Plan Problem List: (1) Neutropenic fever ICD Codes: D70.9 - Neutropenia, unspecified; R50.81 - Fever presenting with conditions classified elsewhere Plan: --The patient has been getting Neupogen injections in the clinic Monday through Monday and reported that he had been running fever overnight on Monday. He did not want to go to the emergency room. He was evaluated in clinic and given IV antibiotics as well as IV antivirals for what appears to be a herpes zoster outbreak on the right side of his face. 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 The patient had stage IV disease with involvement of the bone marrow on initial diagnosis. -- Treated with his first cycle of R- ICE chemo last week. --He received a second opinion at an academic center where they recommended R- EPOCH chemo however this was not feasible due to severe cardiomyopathy. (3) Cardiomyopathy ICD Codes: I42.9 - Cardiomyopathy, unspecified Plan: --No sign of CHF at this time (4) Pancytopenia due to chemotherapy ICD Codes: D61.810 - Antineoplastic chemotherapy induced pancytopenia Plan: --Transfuse to keep hemoglobin greater than 8 and platelet count greater than 20,000. Assessment 77 y/o male admitted with neutropenic fever Plan 1. Transfuse 1 unit packed red blood cells today 2. Monitor CBC 3. Continue antibiotics. Appreciate ID input and recommendations. 4. Check stool for C. difficile 5. Swab blisters on face to check for zoster Attending Statement The exam, history, and the medical decision-making described in the above note were completed with the assistance of the mid-level provider. I reviewed and agree with the findings presented. I attest that I had a [id number] encounter with the patient on the same day, and personally performed and documented my assessment and findings in the medical record. Patient was seen by myself at approximately 2:15 PM on 01/20/2018 (attending attestation and note is a late entry). Subjectively; the patient reports feeling fair, he denies having had any additional fevers or chills. He remains on antibiotic therapy and on growth factor support. Blood cultures (2 sets) had preliminary findings of gram-negative rods. He is on broad-spectrum antibiotic coverage with vancomycin cefepime and acyclovir infusion. Infectious diseases consultation reviewed. They have advised continue current treatment. Plan: Continue broad-spectrum antibiotic coverage and growth factor support. Transfuse as needed. He is cytopenic secondary to recent systemic chemotherapy with RICE which was delivered for management of relapsed diffuse large B-cell lymphoma. Sally Haywood January 20, 2018 10:22 Buddy Zelaya MD January 21, 2018 16:40
[2018-01-20] MEDS ORDERED: SODIUM CHLOR 0.9% 250 ML INJ 250 ML IV ONE (10:30)
--- NOTE | 2018-01-20 10:50 | PD.CONS ---
History of Present Illness Service Infectious disease Consult Requested By Humphrey Kruger Reason for Consult Evaluate patient with zoster, fever and neutropenia Primary Care Physician Roslyn Hurd MD Diagnoses: History of Present Illness Patient seen and examined. Records reviewed. Patient is a 77-year-old male, recently diagnosed to have transformation to large B-cell lymphoma, has received his first cycle of chemotherapy about a week ago, brought into the hospital for further evaluation of fevers. He has had some fevers for 2 days, but the patient has refused to go to the emergency room. He has developed some lesions on his right lower lip and some scalp, and when he went to the oncology clinic for Neupogen injection, he was noted to be febrile, and was having chills. He also has been having significant weakness. He denies any respiratory complaint, GI or any urinary complaints. He has not had any headache. According to the patient and the he has had fever blisters which she is actively on the same location as his current rash on the right lower lip. Patient apparently has had diagnosis of zoster several years ago by his primary care physician and he is rash was in the abdominal area. His initial blood works showed significant neutropenia. He has been febrile. Patient currently is on vancomycin, cefepime, and IV acyclovir. also mentioned that the patient hit his left elbow, and she had noticed that it is now red and swollen which is new. Infectious disease consultation has been requested to evaluate the patient with fever and neutropenia, and a possible zoster rash. Review of Systems Constitutional: COMPLAINS OF: Fatigue, Fever, Chills Eyes: DENIES: Eye pain Ears, nose, mouth, throat: DENIES: Nasal discharge, Oral lesions, Throat pain, Sinus Pain Respiratory: DENIES: Cough, Shortness of breath Cardiovascular: DENIES: Chest pain, Palpitations, Syncope Gastrointestinal: DENIES: Abdominal pain, Diarrhea, Nausea, Vomiting, Difficulty Swallowing Genitourinary: DENIES: Dysuria Musculoskeletal: COMPLAINS OF: Joint pain, Joint Swelling Integumentary: COMPLAINS OF: Rash, DENIES: Pruritus Neurologic: DENIES: Headache, Localized weakness Psychiatric: DENIES: Hallucinations Past Family Social History Allergies: Coded Allergies: erythromycin base (Unverified Allergy, Severe, 05/26/17) Patient denies meperidine (Unverified Allergy, Severe, 05/26/17) Patient denies penicillin G (Unverified Allergy, Severe, 05/26/17) pt. denies acetaminophen (Unverified Allergy, Unknown, 05/26/17) oxycodone (Unverified Allergy, Unknown, 05/26/17) pt. 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 Diabetes mellitus, Gastroesophageal reflux disease, Cardiomyopathy with ejection fraction around 35%, Gout. Coronary artery disease, status post a heart attack in 1993. Chronic kidney disease. Kidney stone. Past Surgical History Colonoscopy, upper endoscopy Coronary bypass graft surgery in 1995. Hernia repair. Appendectomy Port placement. Active Ordered Medications Current Medications Medications (Trade) Dose Ordered Sig/Marilee Route Start Time Stop Time Status Last Admin (Neupogen Inj) 480 mcg DAILY@14 SQ 01/20/18 14:00 Vancomycin HCl 1000 mg/Sodium Chloride 250 ml @ 250 mls/hr Q12H IV 01/19/18 17:00 01/20/18 04:33 Acyclovir Sodium 700 mg/Sodium Chloride 100 ml @ 100 mls/hr Q8H IV 01/19/18 17:00 01/20/18 02:02 Cefepime HCl 2000 mg/Sodium Chloride 100 ml @ 200 mls/hr Q8H IV 01/19/18 17:00 01/20/18 09:41 (Zyloprim) 300 mg DAILY PO 01/20/18 09:00 01/20/18 09:41 (Aspirin Chew) 81 mg DAILY CHEW 01/20/18 09:00 01/20/18 09:41 (Tenormin) 50 mg DAILY PO 01/20/18 09:00 01/20/18 09:41 (Flonase Gilles Spr) 2 spray BID EACH NARE 01/19/18 21:00 01/20/18 09:40 (Zoloft) 50 mg DAILY PO 01/20/18 09:00 01/20/18 09:41 (Januvia) 100 mg DAILY PO 01/20/18 09:00 01/20/18 09:40 Patient Own Medication PT OWN MED: EZETIMIBE-SIMVASTATIN... HS PO 01/19/18 21:00 (Protonix) 20 mg DAILY PO 01/20/18 09:00 01/20/18 09:41 Sodium Chloride 1,000 ml @ 75 mls/hr [id number] IV 01/19/18 18:00 01/19/18 18:14 (Imodium) 2 mg Q6H PRN PO 01/19/18 17:15 (Ativan) 0.5 mg Q6H PRN PO 01/19/18 18:00 ([place] 5-325 Mg) 1 tab Q4H PRN PO 01/19/18 19:00 01/19/18 18:46 Sodium Chloride 250 ml @ 15 mls/hr ONCE ONCE IV 01/20/18 10:30 01/21/18 03:09 (Benadryl) 25 mg Q4H PRN PO 01/20/18 10:30 Family History Noncontributory Social History No smoking Occasional alcohol use No illicit drugs Physical Exam Vital Signs Vital Signs Date Time Temp Pulse Resp B/P (MAP) Pulse Ox O2 Delivery O2 Flow Rate FiO2 01/20/18 09:45 Room Air 01/20/18 09:34 99.5 72 18 113/59 (77) 97 01/20/18 07:00 72 01/20/18 04:36 97.9 74 18 121/60 (80) 99 01/20/18 04:02 71 01/20/18 01:03 97.5 68 18 115/72 (86) 100 01/20/18 00:21 69 01/19/18 20:03 70 01/19/18 20:00 99.1 98 18 106/55 (72) 97 01/19/18 18:19 102.2 75 117/51 (73) 96 01/19/18 18:00 97 Room Air 01/19/18 16:25 81 01/19/18 15:20 97.4 73 18 116/62 (80) 98 Physical Exam GENERAL: Patient is a well-nourished, well-developed male, awake and alert, not in respiratory distress. SKIN: Warm and dry. No generalized rash. Has ecchymoses in his L forearm. Has rash with bloody crust in R lower lip, with some erythema and swelling around it and one similar and smaller spot on his R cheek HEAD: Atraumatic. Normocephalic. No temporal wasting, or tenderness. EYES: [place] conjunctiva. No petechia or hemorrhage. Pupils equal, round and reactive to light. Extraocular movements full and intact. No scleral icterus. No injection or drainage. EARS, NOSE AND THROAT: Nose without bleeding or purulent nasal discharge. No sinus tenderness. Mucous membranes pink and moist. No oral lesions noted. NECK: Trachea midline. Supple and not tender, no meningeal signs CARDIOVASCULAR: Regular rate and rhythm. No murmurs, rubs or gallops heard. Port looks ok. RESPIRATORY: Clear to auscultation. Breath sounds equal bilaterally. No rales , wheezing or rhonchi ABDOMEN: Soft, non-tender, nondistended. Bowel sounds present and normoactive. No guarding. No rebound. No organomegaly. EXTREMITIES: No clubbing, cyanosis, or edema. No joint effusion, has good ROM. No calf tenderness. Well perfused and warm. RUE - has ecchymoses on the forearm, and has some erythema with mild induration below the R elbow, good ROM at elbow joint NEUROLOGICAL: Awake and alert. Cranial nerves grossly intact. Motor grossly within normal limits. PSYCHIATRIC: Normal affect, calm and cooperative. LINE: No evidence of infection Laboratory Laboratory Tests Test 01/19/18 18:05 01/20/18 04:40 01/20/18 09:45 Lactic Acid Level 2.7 White Blood Count 0.1 Red Blood Count 2.21 Hemoglobin 7.1 Hematocrit 20.7 Mean Corpuscular Volume 93.7 Mean Corpuscular Hemoglobin 32.1 Mean Corpuscular Hemoglobin Concent 34.3 Red Cell Distribution Width 14.5 Platelet Count 20 Mean Platelet Volume 8.9 CBC Comment AUTO DIFF Differential Total Cells Counted 10 Lymphocytes % 90 Eosinophils % 10 Neutrophils # (Manual) 0.0 Differential Comment FINAL DIFF MANUAL Platelet Estimate RARE Platelet Morphology Comment NORMAL Blood Urea Nitrogen 26 Creatinine 1.23 Random Glucose 150 Total Protein 5.6 Albumin 2.7 Calcium Level 7.5 Alkaline Phosphatase 67 Aspartate Amino Transf (AST/SGOT) 19 Alanine Aminotransferase (ALT/SGPT) 29 Total Bilirubin 0.6 Sodium Level 139 Potassium Level 3.7 Chloride Level 108 Carbon Dioxide Level 22.3 Anion Gap 9 Estimat Glomerular Filtration Rate 57 Date/Time Source Procedure Growth Status 01/19/18 18:05 Blood Peripheral Aerobic Blood Culture Pending Received 01/19/18 18:05 Blood Peripheral Anaerobic Blood Culture Pending Received Result Diagram: 01/20/18 0440 01/20/18 0440 Imaging RADIOLOGY STUDIES/FILMS REVIEWED Last Impressions Chest X-Ray 01/19/18 0000 Signed Impressions: CONCLUSION: Cardiomegaly with bilateral mostly basilar airspace disease. Differential diagn osis includes mild edema or infection. Assessment and Plan Assessment and Plan IMPRESSION Febrile neutropenia, status post chemo for large cell lymphoma Rash in R lower lip looks more HSV Large cell lymphoma ?cellulitis R forearm vs due to recent trauma RECOMMENDATION Continue Vanco Continue Cefepime Continue Acyclovir for now - decrease dose UA and C/S Follow C/S Monitor temps Monitor progress I will follow along with you Thank you for this consultation Discussed Condition With Explained plan to the patient and Discussed with Lin Gilbert MD January 20, 2018 10:50
[2018-01-20] MEDS: diphenhydrAMINE HCL 25 MG CAP PO PRN (11:55)
--- NOTE | 2018-01-20 14:15 | HHI.PR ---
Subjective Remarks seen with at bedside states feeling better no further diarrhea- days before but not now no urinary symptoms minimal cough feels cold states had diarrhea days ago- none today Objective Vitals Vital Signs Date Time Temp Pulse Resp B/P (MAP) Pulse Ox O2 Delivery O2 Flow Rate FiO2 01/20/18 13:04 98.1 69 18 106/55 99 01/20/18 12:42 98.9 78 18 111/58 98 01/20/18 11:00 99.8 75 18 109/54 (72) 98 01/20/18 11:00 71 01/20/18 09:45 Room Air 01/20/18 09:34 99.5 72 18 113/59 (77) 97 01/20/18 07:00 72 01/20/18 04:36 97.9 74 18 121/60 (80) 99 01/20/18 04:02 71 01/20/18 01:03 97.5 68 18 115/72 (86) 100 01/20/18 00:21 69 01/19/18 20:03 70 01/19/18 20:00 99.1 98 18 106/55 (72) 97 01/19/18 18:19 102.2 75 117/51 (73) 96 01/19/18 18:00 97 Room Air 01/19/18 16:25 81 01/19/18 15:20 97.4 73 18 116/62 (80) 98 I/O 01/19/18 01/19/18 01/19/18 01/20/18 01/20/18 01/20/18 07:00 15:00 23:00 07:00 15:00 23:00 Intake Total 250 ml 300 ml Output Total 420 ml Balance 250 ml -120 ml Intake Oral 100 ml IV Total 250 ml 200 ml Output Urine Total 420 ml Result Diagram: 01/20/18 0440 01/20/18 0440 Imaging Last Impressions Chest X-Ray 01/19/18 0000 Signed Impressions: CONCLUSION: Cardiomegaly with bilateral mostly basilar airspace disease. Differential diagn osis includes mild edema or infection. Objective Remarks awake and alert, no acute distress anicteric face- with several dry necrotic scabs on the cheek and chin no oral thrush no nuchal rigidity chest wall- port in place- no signs of infection lungs decreased breath sounds, no rales irregular rhythm abdomen soft, nontender extremtiies- trace pretibiial edema, good peripheral pulses neuro exam- unremarkable A/P Problem List: (1) Cardiomyopathy ICD Code: I42.9 - Cardiomyopathy, unspecified (2) Large B-cell lymphoma ICD Code: C85.10 - Unspecified B-cell lymphoma, unspecified site (3) Anemia + thrombocytopenia (4) Lymphoma ICD Code: C85.90 - Non-Hodgkin lymphoma, unspecified, unspecified site (5) Retroperitoneal lymphadenopathy ICD Code: R59.0 - Localized enlarged lymph nodes Assessment and Plan 77 years old male Severe Sepsis (fever, tachycardia. source rash, neutropenic fever, Lactic acid > 2) on admission Neutropenic fever Varicella Zoster on his scalp and right face, worrisome for varicella zoster infection Blood cultures pending Urinalysis is unremarkable. Started on vanco cefepime and acyclovir ID ff stools ordered for C diff study Pancytopenia due to recent chemotherapy. Large B cell lymphoma stage IV, treated with Rituxan and bendamustine. Neutrophil trended down to 0. Received 1 unit of platelet transfusion today by Dr Granger as OP getting another unit today 01/20 Transfuse to keep hemoglobin above 8 and platelet count above 20,000 given his symptoms. Gentle IVF -ONcology ff Cardiomyopathy with low EF 35 % on recent OP ECHO. good sats Recent echocardiogram showed ejection fraction of 35%. He has been followed by cardiology. Monitor closely, he has no symptoms of congestive heart failure at this time. Diabetes mellitus 2, stable. on Januvia. Gastroesophageal reflux disease, stable. PPI Anxiety/ depression continue home emds ativan as need Patient up and ambulating seen with supportive at bedside Sheldon Gottlieb MD January 20, 2018 14:15
[2018-01-20] MEDS: FILGRASTIM 480 MCG/1.6 ML VIAL SQ SCH (14:21)
[2018-01-20 15:59] LABS: AMORPHOUS SEDIMENT, URINE RARE; BILIRUBIN, URINE NEG (NEG); BLOOD, URINE SMALL (NEG); GLUCOSE,URINE 70 mg/dL (NEG); KETONE, URINE TRACE mg/dL (NEG); NITRITE,URINE NEG (NEG); PH, URINE 5.5 (5.0-8.5); SQUAMOUS EPITHELIAL CELL URINE 1 /hpf (0-5); URINE COLOR YELLOW (YELLW/STRAW); URINE LEUKOCYTE ESTERASE NEG (NEG)
[2018-01-20] MEDS: ACYCLOVIR IV SCH (17:06)
[2018-01-20] MEDS: SODIUM CHLORIDE 0.9% IV SCH (17:06)
[2018-01-20] MEDS: SIMVASTATIN PO SCH (20:06)
[2018-01-20] MEDS: EZETIMIBE PO SCH (20:06)
[2018-01-20] MEDS: ACETAMINOPHEN/HYDROcodone 325 MG/5 MG TAB PO PRN (23:07)
[2018-01-21] VITALS (15 sets, daily range): BP systolic 114–145; BP diastolic 55–88; PULSE 62–82; RESP 18–22; TEMP 97.9–99.7; O2SAT 98–100
[2018-01-21] MEDS: SODIUM CHLORIDE 0.9% IV SCH (00:25)
[2018-01-21] MEDS: ACYCLOVIR IV SCH (00:25)
[2018-01-21] MEDS: CEFEPIME INJ 2,000 MG in SODIUM CHLORIDE 0.9% INJ 100 ML IV SCH ×3 (01:34→16:18)
[2018-01-21] MEDS: VANCOMYCIN INJ 1,000 MG in SODIUM CHLOR 0.9% 250 ML INJ 250 ML IV SCH ×2 (04:24→17:35)
[2018-01-21 04:36] LABS: HEMOGLOBIN 8.5 GM/DL (13.0-17.0); MEAN CELL VOLUME 92.3 FL (80.0-100.0); MEAN CORPUSCULAR HEMOGLOBIN 32.7 PG (27.0-34.0); MEAN CORPUSCULAR HGB CONC 35.4 % (32.0-36.0); MEAN PLATELET VOLUME 9.2 FL (7.0-11.0); RED BLOOD COUNT 2.61 MIL/MM3 (4.50-5.90); RED CELL DISTRIBUTION WIDTH 14.8 % (11.6-17.2); WHITE BLOOD COUNT 0.2 TH/MM3 (4.0-11.0)
[2018-01-21 04:50] LABS: PLATELET COUNT 13 TH/MM3 (150-450)
[2018-01-21 05:08] LABS: CALCIUM 7.8 MG/DL (8.5-10.1); CREATININE 1.22 MG/DL (0.60-1.30)
[2018-01-21] MEDS ORDERED: diphenhydrAMINE HCL 25 MG CAP PO PRN (08:00)
[2018-01-21] MEDS ORDERED: SODIUM CHLOR 0.9% 250 ML INJ 250 ML IV ONE (08:00)
--- NOTE | 2018-01-21 08:07 | HHI.IDPN ---
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 He has had some fevers for 2 days, but the patient has refused to go to the emergency room. He has developed some lesions on his right lower lip and some scalp, and when he went to the oncology clinic for Neupogen injection, he was noted to be febrile, and was having chills. He also has been having significant weakness. He denies any respiratory complaint, GI or any urinary complaints. He has not had any headache. According to the patient and the he has had fever blisters which she is actively on the same location as his current rash on the right lower lip. Patient apparently has had diagnosis of zoster several years ago by his primary care physician and he is rash was in the abdominal area. His initial blood works showed significant neutropenia. He has been febrile. Patient currently is on vancomycin, cefepime, and IV acyclovir. also mentioned that the patient hit his left elbow, and she had noticed that it is now red and swollen which is new. Infectious disease consultation has been requested to evaluate the patient with fever and neutropenia, and a possible zoster rash. Notes reviewed Temps better Appetite fair No swallowing difficulty No cough No GI complaints No complaints 1 blood culture done in the oncology center with gram-negative carolyn Blood cultures here are negative so far Count still low Antibiotics Cefepime Vancomycin Acyclovir Current Medications Medications (Trade) Dose Ordered Sig/Marilee Route Start Time Stop Time Status Last Admin (Neupogen Inj) 480 mcg DAILY@14 SQ 01/20/18 14:00 01/20/18 14:21 Vancomycin HCl 1000 mg/Sodium Chloride 250 ml @ 250 mls/hr Q12H IV 01/19/18 17:00 01/21/18 04:24 Cefepime HCl 2000 mg/Sodium Chloride 100 ml @ 200 mls/hr Q8H IV 01/19/18 17:00 01/21/18 01:34 (Zyloprim) 300 mg DAILY PO 01/20/18 09:00 01/20/18 09:41 (Aspirin Chew) 81 mg DAILY CHEW 01/20/18 09:00 01/20/18 09:41 (Tenormin) 50 mg DAILY PO 01/20/18 09:00 01/20/18 09:41 (Flonase Gilles Spr) 2 spray BID EACH NARE 01/19/18 21:00 01/20/18 20:12 (Zoloft) 50 mg DAILY PO 01/20/18 09:00 01/20/18 09:41 (Januvia) 100 mg DAILY PO 01/20/18 09:00 01/20/18 09:40 Patient Own Medication PT OWN MED: EZETIMIBE-SIMVASTATIN... HS PO 01/19/18 21:00 (Protonix) 20 mg DAILY PO 01/20/18 09:00 01/20/18 09:41 Sodium Chloride 1,000 ml @ 75 mls/hr [id number] IV 01/19/18 18:00 01/20/18 20:07 (Imodium) 2 mg Q6H PRN PO 01/19/18 17:15 (Ativan) 0.5 mg Q6H PRN PO 01/19/18 18:00 ([place] 5-325 Mg) 1 tab Q4H PRN PO 01/19/18 19:00 01/20/18 23:07 (Benadryl) 25 mg Q4H PRN PO 01/20/18 10:30 01/20/18 11:55 Acyclovir Sodium 400 mg/Sodium Chloride 100 ml @ 100 mls/hr Q8H IV 01/20/18 17:00 01/21/18 00:25 Sodium Chloride 250 ml @ 15 mls/hr ONCE ONCE IV 01/21/18 08:00 01/22/18 00:39 (Benadryl) 25 mg Q4H PRN PO 01/21/18 08:00 (Magic Mouthwash Adult Liq) 10 ml QID SWISH-SWAL 01/21/18 09:00 Lines Port right upper chest Past Medical History 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 Diabetes mellitus, Gastroesophageal reflux disease, Cardiomyopathy with ejection fraction around 35%, Gout. Coronary artery disease, status post a heart attack in 1993. Chronic kidney disease. Kidney stone. Past Surgical History Colonoscopy, upper endoscopy Coronary bypass graft surgery in 1995. Hernia repair. Appendectomy Port placement. Allergies: Coded Allergies: erythromycin base (Unverified Allergy, Severe, 05/26/17) Patient denies meperidine (Unverified Allergy, Severe, 05/26/17) Patient denies penicillin G (Unverified Allergy, Severe, 05/26/17) pt. denies acetaminophen (Unverified Allergy, Unknown, 05/26/17) oxycodone (Unverified Allergy, Unknown, 05/26/17) pt. denies amoxicillin (Unverified Adverse Reaction, Mild, upset stomach, 05/26/17) Objective . Vital Signs Date Time Temp Pulse Resp B/P (MAP) Pulse Ox O2 Delivery O2 Flow Rate FiO2 01/21/18 07:00 75 01/21/18 04:23 79 01/21/18 04:13 97.9 70 20 129/68 (88) 99 01/21/18 00:21 98.9 62 18 114/55 (74) 98 01/21/18 00:08 75 01/20/18 20:14 70 01/20/18 20:00 Room Air 01/20/18 19:57 99.8 58 18 111/78 (89) 97 01/20/18 16:30 99.1 69 18 120/67 98 01/20/18 15:00 61 01/20/18 13:04 98.1 69 18 106/55 99 01/20/18 12:42 98.9 78 18 111/58 98 01/20/18 11:00 99.8 75 18 109/54 (72) 98 01/20/18 11:00 71 01/20/18 09:45 Room Air 01/20/18 09:34 99.5 72 18 113/59 (77) 97 . Laboratory Tests Test 01/20/18 04:40 01/21/18 04:04 White Blood Count 0.1 TH/MM3 0.2 TH/MM3 Red Blood Count 2.21 MIL/MM3 2.61 MIL/MM3 Hemoglobin 7.1 GM/DL 8.5 GM/DL Hematocrit 20.7 % 24.0 % Mean Corpuscular Volume 93.7 FL 92.3 FL Mean Corpuscular Hemoglobin 32.1 PG 32.7 PG Mean Corpuscular Hemoglobin Concent 34.3 % 35.4 % Red Cell Distribution Width 14.5 % 14.8 % Platelet Count 20 TH/MM3 13 TH/MM3 Mean Platelet Volume 8.9 FL 9.2 FL CBC Comment AUTO DIFF AUTO DIFF Differential Total Cells Counted 10 Lymphocytes % 90 % Eosinophils % 10 % Neutrophils # (Manual) 0.0 TH/MM3 Differential Comment FINAL DIFF MANUAL Platelet Estimate RARE Platelet Morphology Comment NORMAL Laboratory Tests Test 01/19/18 18:05 01/20/18 04:40 01/21/18 04:04 Lactic Acid Level 2.7 mmol/L Blood Urea Nitrogen 26 MG/DL 24 MG/DL Creatinine 1.23 MG/DL 1.22 MG/DL Random Glucose 150 MG/DL 139 MG/DL Total Protein 5.6 GM/DL Albumin 2.7 GM/DL Calcium Level 7.5 MG/DL 7.8 MG/DL Alkaline Phosphatase 67 U/L Aspartate Amino Transf (AST/SGOT) 19 U/L Alanine Aminotransferase (ALT/SGPT) 29 U/L Total Bilirubin 0.6 MG/DL Sodium Level 139 MEQ/L 138 MEQ/L Potassium Level 3.7 MEQ/L 3.8 MEQ/L Chloride Level 108 MEQ/L 106 MEQ/L Carbon Dioxide Level 22.3 MEQ/L 22.0 MEQ/L Anion Gap 9 MEQ/L 10 MEQ/L Estimat Glomerular Filtration Rate 57 ML/MIN 57 ML/MIN Microbiology Date/Time Source Procedure Growth Status 01/19/18 18:05 Blood Peripheral Aerobic Blood Culture - Preliminary NO GROWTH IN 1 DAY Resulted 01/19/18 18:05 Blood Peripheral Anaerobic Blood Culture - Preliminary NO GROWTH IN 1 DAY Resulted 01/19/18 18:00 Blood Peripheral Aerobic Blood Culture - Preliminary NO GROWTH IN 1 DAY Resulted 01/19/18 18:00 Blood Peripheral Anaerobic Blood Culture - Preliminary NO GROWTH IN 1 DAY Resulted Imaging Last Impressions Chest X-Ray 01/19/18 0000 Signed Impressions: CONCLUSION: Cardiomegaly with bilateral mostly basilar airspace disease. Differential diagn osis includes mild edema or infection. Physical Exam GENERAL: awake and alert, not in respiratory distress. SKIN: Warm and dry. No generalized rash. Has ecchymoses in his L forearm. Has rash with bloody crust in R lower lip, with improving erythema and swelling around it and one similar and smaller spot on his R cheek HEAD: Atraumatic. Normocephalic. No temporal wasting, or tenderness. EYES: [place] conjunctiva. No petechia or hemorrhage. Pupils equal, round and reactive to light. Extraocular movements full and intact. No scleral icterus. No injection or drainage. EARS, NOSE AND THROAT: Nose without bleeding or purulent nasal discharge. No sinus tenderness. Mucous membranes pink and moist. No oral lesions noted. NECK: Trachea midline. Supple and not tender, no meningeal signs CARDIOVASCULAR: Regular rate and rhythm. No murmurs, rubs or gallops heard. Port looks ok. RESPIRATORY: Clear to auscultation. Breath sounds equal bilaterally. No rales , wheezing or rhonchi ABDOMEN: Soft, non-tender, nondistended. Bowel sounds present and normoactive. No guarding. No rebound. No organomegaly. EXTREMITIES: No clubbing, cyanosis, or edema. No joint effusion, has good ROM. No calf tenderness. Well perfused and warm. RUE - has ecchymoses on the forearm, and has some erythema with mild induration below the R elbow, good ROM at elbow joint NEUROLOGICAL: Awake and alert. Cranial nerves grossly intact. Motor grossly within normal limits. PSYCHIATRIC: Normal affect, calm and cooperative. LINE: No evidence of infection Assessment & Plan Remarks IMPRESSION Febrile neutropenia, status post chemo for large cell lymphoma GNR bacteremia Rash in R lower lip looks more HSV Large cell lymphoma ?cellulitis R forearm vs due to recent trauma RECOMMENDATION Continue Vanco Continue Cefepime Change Acyclovir to po Repeat BC from port Follow C/S Monitor temps Monitor progress D/W Dr Gottlieb D/W RN D/W Lin Tipton MD January 21, 2018 08:07
--- NOTE | 2018-01-21 08:16 | HHI.PR ---
Subjective Remarks up already side of the bed- having breakfast- frsutrated with the pancake- - trying to cuy- feels like rubber no difficulty swallowing T down Objective Vitals Vital Signs Date Time Temp Pulse Resp B/P (MAP) Pulse Ox O2 Delivery O2 Flow Rate FiO2 01/21/18 07:00 75 01/21/18 04:23 79 01/21/18 04:13 97.9 70 20 129/68 (88) 99 01/21/18 00:21 98.9 62 18 114/55 (74) 98 01/21/18 00:08 75 01/20/18 20:14 70 01/20/18 20:00 Room Air 01/20/18 19:57 99.8 58 18 111/78 (89) 97 01/20/18 16:30 99.1 69 18 120/67 98 01/20/18 15:00 61 01/20/18 13:04 98.1 69 18 106/55 99 01/20/18 12:42 98.9 78 18 111/58 98 01/20/18 11:00 99.8 75 18 109/54 (72) 98 01/20/18 11:00 71 01/20/18 09:45 Room Air 01/20/18 09:34 99.5 72 18 113/59 (77) 97 I/O 01/20/18 01/20/18 01/20/18 01/21/18 01/21/18 01/21/18 07:00 15:00 23:00 07:00 15:00 23:00 Intake Total 300 ml 3890 ml 560 ml Output Total 420 ml 625 ml 350 ml Balance -120 ml 3265 ml 210 ml Intake Oral 100 ml 2040 ml 360 ml IV Total 200 ml 1400 ml 200 ml Packed Cells 400 ml Blood Product IV Normal Saline Flush 50 ml Output Urine Total 420 ml 625 ml 350 ml # Voids 2 # Bowel Movements 1 Result Diagram: 01/21/18 0404 01/21/18 0404 Imaging Last Impressions Chest X-Ray 01/19/18 0000 Signed Impressions: CONCLUSION: Cardiomegaly with bilateral mostly basilar airspace disease. Differential diagn osis includes mild edema or infection. Objective Remarks awake and alert, no acute distress anicteric face- with several dry necrotic scabs on the cheek and chin no oral thrush no nuchal rigidity chest wall- port in place- no signs of infection lungs decreased breath sounds, no rales irregular rhythm abdomen soft, nontender extremities- , trace pretibial edema good peripheral pulses neuro exam- unremarkable A/P Problem List: (1) Cardiomyopathy ICD Code: I42.9 - Cardiomyopathy, unspecified (2) Large B-cell lymphoma ICD Code: C85.10 - Unspecified B-cell lymphoma, unspecified site (3) Anemia + thrombocytopenia (4) Lymphoma ICD Code: C85.90 - Non-Hodgkin lymphoma, unspecified, unspecified site (5) Retroperitoneal lymphadenopathy ICD Code: R59.0 - Localized enlarged lymph nodes Assessment and Plan 77 years old male Severe Sepsis (fever, tachycardia. source rash, neutropenic fever, Lactic acid > 2) on admission Neutropenic fever Varicella Zoster on his scalp and right face, worrisome for varicella zoster infection Blood cultures pending Urinalysis is unremarkable. on Vanco, cefepime and acyclovir ID ff stools ordered for C diff study Pancytopenia due to recent chemotherapy. Large B cell lymphoma stage IV, treated with Rituxan and bendamustine. Neutrophil trended down to 0. Transfuse to keep hemoglobin above 8 and platelet count above 20,000 given his symptoms. - blood product transfusion per Hematology -ONcology ff Cardiomyopathy with low EF 35 % on recent OP ECHO. good sats Recent echocardiogram showed ejection fraction of 35%. He has been followed by cardiology. on Lasix Diabetes mellitus 2, stable. on Januvia. good readings on BMP. Gastroesophageal reflux disease, stable. PPI Anxiety/ depression continue home emds ativan as need Patient up and ambulating seen with supportive at bedside Sheldon Gottlieb MD January 21, 2018 08:16
--- NOTE | 2018-01-21 08:28 | PD.ONC.PN ---
Subjective Subjective Remarks Afebrile overnight Patient reports he slept "so-so" States his breathing feels okay Reports he has had a poor appetite due to his mouth being sore Would like to try Magic mouthwash Objective Data Date Time Temp Pulse Resp B/P (MAP) Pulse Ox O2 Delivery O2 Flow Rate FiO2 01/21/18 07:00 75 01/21/18 04:23 79 01/21/18 04:13 97.9 70 20 129/68 (88) 99 01/21/18 00:21 98.9 62 18 114/55 (74) 98 01/21/18 00:08 75 01/20/18 20:14 70 01/20/18 20:00 Room Air 01/20/18 19:57 99.8 58 18 111/78 (89) 97 01/20/18 16:30 99.1 69 18 120/67 98 01/20/18 15:00 61 01/20/18 13:04 98.1 69 18 106/55 99 01/20/18 12:42 98.9 78 18 111/58 98 01/20/18 11:00 99.8 75 18 109/54 (72) 98 01/20/18 11:00 71 01/20/18 09:45 Room Air 01/20/18 09:34 99.5 72 18 113/59 (77) 97 01/21/18 01/21/18 01/21/18 07:00 15:00 23:00 Intake Total 560 ml Output Total 350 ml Balance 210 ml Result Diagram: 01/21/18 0404 01/21/18 0404 Laboratory Results Laboratory Tests Test 01/20/18 09:45 01/20/18 14:15 01/20/18 17:05 01/21/18 04:04 Urine Color YELLOW Urine Turbidity HAZY Urine pH 5.5 Urine Specific [place] 1.021 Urine Protein 30 mg/dL Urine Glucose (UA) 70 mg/dL Urine Ketones TRACE mg/dL Urine Occult Blood SMALL Urine Nitrite NEG Urine Bilirubin NEG Urine Urobilinogen LESS THAN 2.0 MG/DL Urine Leukocyte Esterase NEG Urine RBC 1 /hpf Urine WBC 4 /hpf Urine Squamous Epithelial Cells 1 /hpf Urine Amorphous Sediment RARE Microscopic Urinalysis Comment CULT NOT INDICATED Stool C. difficile Toxin (PCR) NEGATIVE Stl C. difficile Toxin Epiderm 027 PRESUMPTIVE NEGATIVE White Blood Count 0.2 TH/MM3 Red Blood Count 2.61 MIL/MM3 Hemoglobin 8.5 GM/DL Hematocrit 24.0 % Mean Corpuscular Volume 92.3 FL Mean Corpuscular Hemoglobin 32.7 PG Mean Corpuscular Hemoglobin Concent 35.4 % Red Cell Distribution Width 14.8 % Platelet Count 13 TH/MM3 Mean Platelet Volume 9.2 FL CBC Comment AUTO DIFF Blood Urea Nitrogen 24 MG/DL Creatinine 1.22 MG/DL Random Glucose 139 MG/DL Calcium Level 7.8 MG/DL Sodium Level 138 MEQ/L Potassium Level 3.8 MEQ/L Chloride Level 106 MEQ/L Carbon Dioxide Level 22.0 MEQ/L Anion Gap 10 MEQ/L Estimat Glomerular Filtration Rate 57 ML/MIN Culture Results Microbiology Date/Time Source Procedure Growth Status 01/19/18 18:05 Blood Peripheral Aerobic Blood Culture - Preliminary NO GROWTH IN 1 DAY Resulted 01/19/18 18:05 Blood Peripheral Anaerobic Blood Culture - Preliminary NO GROWTH IN 1 DAY Resulted 01/19/18 18:00 Blood Peripheral Aerobic Blood Culture - Preliminary NO GROWTH IN 1 DAY Resulted 01/19/18 18:00 Blood Peripheral Anaerobic Blood Culture - Preliminary NO GROWTH IN 1 DAY Resulted Administered Medications Medications (Trade) Dose Ordered Sig/Marilee Route PRN Reason Start Time Stop Time Status Last Admin Dose Admin Filgrastim (Neupogen Inj) 480 mcg DAILY@14 SQ 01/20/18 14:00 01/20/18 14:21 Vancomycin HCl 1000 mg/Sodium Chloride 250 ml @ 250 mls/hr Q12H IV 01/19/18 17:00 01/21/18 04:24 Cefepime HCl 2000 mg/Sodium Chloride 100 ml @ 200 mls/hr Q8H IV 01/19/18 17:00 01/21/18 01:34 Allopurinol (Zyloprim) 300 mg DAILY PO 01/20/18 09:00 01/20/18 09:41 Aspirin (Aspirin Chew) 81 mg DAILY CHEW 01/20/18 09:00 01/20/18 09:41 Atenolol (Tenormin) 50 mg DAILY PO 01/20/18 09:00 01/20/18 09:41 Fluticasone Propionate (Flonase Gilles Spr) 2 spray BID EACH NARE 01/19/18 21:00 01/20/18 20:12 Sertraline HCl (Zoloft) 50 mg DAILY PO 01/20/18 09:00 01/20/18 09:41 Sitagliptin Phosphate (Januvia) 100 mg DAILY PO 01/20/18 09:00 01/20/18 09:40 Pantoprazole Sodium (Protonix) 20 mg DAILY PO 01/20/18 09:00 01/20/18 09:41 Sodium Chloride 1,000 ml @ 75 mls/hr [id number] IV 01/19/18 18:00 01/20/18 20:07 Acetaminophen/ Hydrocodone Bitart ([place] 5-325 Mg) 1 tab Q4H PRN PO pain 2-10 01/19/18 19:00 01/20/18 23:07 Diphenhydramine HCl (Benadryl) 25 mg Q4H PRN PO SEE LABEL COMMENTS 01/20/18 10:30 01/20/18 11:55 Objective Remarks GENERAL: Elderly male resting in bed in no obvious distress SKIN: Blood-filled blisters noted to right lip, cheek and scalp. Left lateral arm with erythema. Appears to be an early cellulitis. HEAD: Normocephalic. Few blisters noted on scalp to the right side of midline. EYES: No injection or drainage. NECK: Supple, trachea midline. No JVD or lymphadenopathy. LYMPHATIC: Right supraclavicular shoddy lymph node palpated CARDIOVASCULAR: Irregular rhythm RESPIRATORY: Clear anteriorly. Breathing unlabored at rest. GASTROINTESTINAL: Abdomen soft, non-tender, nondistended. EXTREMITIES: No cyanosis, or edema. MUSCULOSKELETAL: Adequate muscle tone. NEUROLOGICAL: No obvious focal deficit. Awake, alert, and oriented x3. Assessment/Plan Problem List: (1) Neutropenic fever ICD Codes: D70.9 - Neutropenia, unspecified; R50.81 - Fever presenting with conditions classified elsewhere Plan: --The patient has been getting Neupogen injections in the clinic Monday through Monday and reported that he had been running fever overnight on Monday. He did not want to go to the emergency room. He was evaluated in clinic and given IV antibiotics as well as IV antivirals for what appears to be a herpes zoster outbreak on the right side of his face/scalp. --Infectious disease following --Patient is on vancomycin, cefepime and IV acyclovir --Blood cultures drawn from port on 01/19 show preliminary gram-negative rods --Blood cultures drawn in the evening on 01/19 show no growth 1 day (2) Large B-cell lymphoma ICD Codes: C85.10 - Unspecified B-cell lymphoma, unspecified site Plan: -- The patient recently was found to have large B-cell lymphoma that had been transformed from a prior diagnosis of follicular lymphoma. The patient had stage IV disease with involvement of the bone marrow on initial diagnosis. -- Treated with his first cycle of R- ICE chemo last week. --He received a second opinion at an [facility] center where they recommended R- EPOCH chemo however this was not feasible due to severe cardiomyopathy. (3) Cardiomyopathy ICD Codes: I42.9 - Cardiomyopathy, unspecified Plan: --No sign of CHF at this time (4) Pancytopenia due to chemotherapy ICD Codes: D61.810 - Antineoplastic chemotherapy induced pancytopenia Plan: --Transfuse to keep hemoglobin greater than 8 and platelet count greater than 20,000. Assessment 77 y/o male admitted with neutropenic fever Plan 1. Transfuse 1 unit platelets today 2. Start Magic mouthwash to hopefully increase p.o. intake 3. Continue cefepime, vancomycin. Change acyclovir to p.o. per infectious disease 4. Monitor CBC. Transfuse to keep platelets around 20,000, hemoglobin greater than 8. Attending Statement The exam, history, and the medical decision-making described in the above note were completed with the assistance of the mid-level provider. I reviewed and agree with the findings presented. I attest that I had a [id number] encounter with the patient on the same day, and personally performed and documented my assessment and findings in the medical record. Patient seen and examined, vital signs, labs and medications reviewed. Stool was negative for C. difficile antigen and toxin. Subjectively; the patient reports feeling weak and short of breath with minimal exertion. At the time I saw this patient at 5:40 PM he had just gotten back into bed after urinating. And he was visibly short of breath. Patient reports his appetite is poor but he has been forcing himself to eat. He continues to have diarrhea as well. Earlier today he was transfused 1 unit platelet for platelet count of 13. He remains on G-CSF, his absolute neutrophil count is undetectable, total WBC count 0.2. Though The microbiology lab called me yesterday personally and reported grams negative rods growing in 2 sets of blood cultures, on the EMR this is not yet been updated. I will try to clarify with microbiology. Continue ongoing care. Sally Haywood January 21, 2018 08:27 Buddy Zelaya MD January 21, 2018 17:48
[2018-01-21 08:52] LABS: LYMPHOCYTES 95 % (9-44); TEARDROP RBCS 1+ (NORMAL)
[2018-01-21 08:53] LABS: OVALOCYTES 1+ (NORMAL)
[2018-01-21] MEDS: ACYCLOVIR 200 MG CAP PO SCH ×4 (08:56→21:26)
[2018-01-21] MEDS: NYSTAT/DIPHENHY/LIDO MOUTHWASH (Adult) 120ML SWISH-SWAL SCH ×4 (08:56→20:22)
[2018-01-21] MEDS: SERTRALINE HCL 50 MG TAB PO SCH (08:57)
[2018-01-21] MEDS: ASPIRIN 81 MG CHEW TAB CHEW SCH (08:57)
[2018-01-21] MEDS: PANTOPRAZOLE SOD 20 MG DELAYED RELEASE TAB PO SCH (08:57)
[2018-01-21] MEDS: FLUTICASONE PROPIONATE 50 MCG/ACT 16 GM NASAL SPRAY EACH NARE SCH ×2 (08:57→20:13)
[2018-01-21] MEDS: ATENOLOL 50 MG TAB PO SCH (08:57)
[2018-01-21] MEDS: ALLOPURINOL 300 MG TAB PO SCH (08:57)
[2018-01-21] MEDS: diphenhydrAMINE HCL 25 MG CAP PO PRN (09:40)
[2018-01-21] MEDS: SODIUM CHLOR 0.9% 1000 ML INJ 1,000 ML IV SCH ×2 (10:00→23:23)
--- NOTE | 2018-01-21 12:19 | RADRPT ---
EXAM DATE: 01/21/2018 12:09 PM EDT AGE/SEX: 77 years / Male INDICATIONS: Short of breath CLINICAL DATA: This is the patient's subsequent encounter. Patient reports that signs and symptoms h ave been present for 2 days and indicates a pain score of 0/10. MEDICAL/SURGICAL HISTORY: . Hypertension. Diabetes mellitus type II. Renal failure, chronic. Appendectomy. [place] [facility] [place]. . FINDINGS: A single AP view of the chest demonstrates pulmonary venous congestion. The lung bases on today's kendra dy appear to be grossly clear. No significant pleural effusions are demonstrated.. The heart size is enlarged but stable. There is evidence of previous cardiothoracic surgery. The right-sided central l ine remains in place.. Osseous structures are intact. CONCLUSION: Pulmonary venous congestion. Electronically signed by: Reyes Gonzales MD 01/21/2018 12:17 PM EDT
[2018-01-21] MEDS: FILGRASTIM 480 MCG/1.6 ML VIAL SQ SCH (13:31)
[2018-01-21] MEDS ORDERED: FUROSEMIDE 20 MG/2 ML VIAL IV PUSH ONE (14:30)
--- NOTE | 2018-01-21 18:25 | MB ---
cc: Kj Noguera MD DATE: 01/21/2018 REASON FOR THE CONSULTATION: Atrial fibrillation, cardiomyopathy, elevated brain natriuretic peptide level. HISTORY OF PRESENT ILLNESS: The patient is a 77-year-old white male, followed in our office by Dr. Ronnell Lloyd, with a history of transformed large B-cell lymphoma, status post recent chemotherapy, history of paroxysmal atrial fibrillation diagnosed recently, coronary artery disease, diabetes, ischemic cardiomyopathy, with ejection fraction at 30%, who was admitted with neutropenic fever. The patient denies any recent chest pain, paroxysmal nocturnal dyspnea, dizziness, syncope, near syncope, palpitations, pedal edema. He does experience mild dyspnea with very minimal exertion. He reports compliance with his medications. On his last admission, he was felt to be a poor candidate for anticoagulation therapy with his severe thrombocytopenia, so he was recommended daily baby aspirin for his atrial fibrillation. PAST MEDICAL HISTORY: 1. Paroxysmal atrial fibrillation. 2. Coronary artery disease, status post bypass surgery in 1993 with 3 separate vein grafts to the LAD, diagonal, right coronary artery. His last heart catheterization was 03/2010, showing 50% left main, totally occluded LAD at its origin, 60% obtuse marginal disease, subtotal occluded proximal right coronary artery, patent vein graft to the diagonal with sequential to the LAD, patent vein graft to the right coronary artery. The obtuse marginal disease was treated medically. 3. Diabetes. 4. Gastroesophageal reflux disease. 5. Gout. 6. Hyperlipidemia. 7. Hypertension. 8. Ischemic cardiomyopathy with ejection fraction of 30% by echo 01/02/2018. 9. Transformed large B cell lymphoma, status post his first cycle of chemotherapy about 2 weeks ago. CARDIAC MEDICATIONS: Currently include: 1. Aspirin 81 mg p.o. daily. 2. Atenolol 50 mg p.o. daily. ALLERGIES: ACETAMINOPHEN, AMOXICILLIN, ERYTHROMYCIN, DEMEROL, OXYCODONE, PENICILLIN. FAMILY HISTORY: Noncontributory. SOCIAL HISTORY: The patient is a former smoker. He denies alcohol abuse. REVIEW OF SYSTEMS: As in the history of present illness, otherwise negative or noncontributory. He also denies headache, abdominal pain, melena, nausea, bright red blood per rectum. PHYSICAL EXAMINATION: VITAL SIGNS: His blood pressure 128/79, with a pulse of 66, respirations 18. GENERAL: He is a well-developed, well-nourished white male, in no acute distress. NECK: Jugular venous pressure is normal. Carotid pulses are 2+ bilaterally and without bruits. CHEST: Reveals diminished breath sounds at the bases. CARDIAC: He has an irregularly irregular rhythm, without S3 or murmur. ABDOMEN: He has a soft, nontender abdomen. Bowel sounds are present. There is no definite hepatosplenomegaly. EXTREMITIES: Reveals no clubbing or cyanosis. There is trace to 1+ pretibial edema bilaterally. IMAGING: Chest x-ray from today shows pulmonary venous congestion. LABORATORY DATA: Includes potassium 3.8, BUN 24, creatinine 1.22. Brain natriuretic peptide level 784, WBC 0.2, hemoglobin 8.5, platelets 13. IMPRESSION: Possible mild congestive heart failure, persistent atrial fibrillation, with overall controlled heart rates in this 77-year-old white male with a history of recently diagnosed paroxysmal atrial fibrillation, history of coronary artery disease, diabetes, hypertension, ischemic cardiomyopathy with ejection fraction of 30%, large B-cell lymphoma, status post chemotherapy. His chest x-ray has been reviewed. Indeed, it does show pulmonary venous congestion. His brain natriuretic peptide level is also moderately elevated. There is no evidence for acute coronary syndrome. His atrial fibrillation persists. His thromboembolic risk is fairly high, although with severe thrombocytopenia, he is not a good candidate for oral anticoagulation therapy. RECOMMENDATIONS: 1. Would resume his CRISTINE inhibitor and continue his beta megha. 2. Agree with mild diuresis. 3. Consider stopping his baby aspirin in light of the severe thrombocytopenia. MD STEPAN Licea/PAULO , 05:21 PM , 06:24 PM BARBRA
[2018-01-21] MEDS ORDERED: FUROSEMIDE 40 MG/4 ML VIAL IV PUSH ONE (19:15)
[2018-01-21] MEDS: SIMVASTATIN PO SCH (20:22)
[2018-01-21] MEDS: EZETIMIBE PO SCH (20:22)
[2018-01-22] VITALS (14 sets, daily range): BP systolic 115–136; BP diastolic 53–75; PULSE 58–80; RESP 18–22; TEMP 96.9–99.8; O2SAT 98–100
[2018-01-22] MEDS: CEFEPIME INJ 2,000 MG in SODIUM CHLORIDE 0.9% INJ 100 ML IV SCH ×3 (00:50→18:29)
[2018-01-22] MEDS: ACYCLOVIR 200 MG CAP PO SCH ×5 (04:35→21:00)
[2018-01-22] MEDS: VANCOMYCIN INJ 1,000 MG in SODIUM CHLOR 0.9% 250 ML INJ 250 ML IV SCH ×2 (04:35→19:41)
[2018-01-22 05:01] LABS: HEMATOCRIT 22.4 % (39.0-51.0); HEMOGLOBIN 7.9 GM/DL (13.0-17.0); MEAN CELL VOLUME 92.6 FL (80.0-100.0); MEAN CORPUSCULAR HEMOGLOBIN 32.6 PG (27.0-34.0); MEAN CORPUSCULAR HGB CONC 35.2 % (32.0-36.0); MEAN PLATELET VOLUME 7.7 FL (7.0-11.0); PLATELET COUNT 25 TH/MM3 (150-450); RED BLOOD COUNT 2.42 MIL/MM3 (4.50-5.90); RED CELL DISTRIBUTION WIDTH 14.8 % (11.6-17.2); WHITE BLOOD COUNT 0.2 TH/MM3 (4.0-11.0)
[2018-01-22 05:23] LABS: BICARBONATE 23.3 MEQ/L (21.0-32.0); CREATININE 1.21 MG/DL (0.60-1.30)
[2018-01-22] MEDS ORDERED: SODIUM CHLOR 0.9% 250 ML INJ 250 ML IV ONE (07:45)
[2018-01-22 09:13] LABS: LYMPHOCYTES 87 % (9-44); MONOCYTES 13 % (0-8)
--- NOTE | 2018-01-22 09:21 | HHI.IDPN ---
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 He has had some fevers for 2 days, but the patient has refused to go to the emergency room. He has developed some lesions on his right lower lip and some scalp, and when he went to the oncology clinic for Neupogen injection, he was noted to be febrile, and was having chills. He also has been having significant weakness. He denies any respiratory complaint, GI or any urinary complaints. He has not had any headache. According to the patient and the he has had fever blisters which she is actively on the same location as his current rash on the right lower lip. Patient apparently has had diagnosis of zoster several years ago by his primary care physician and he is rash was in the abdominal area. His initial blood works showed significant neutropenia. He has been febrile. Patient currently is on vancomycin, cefepime, and IV acyclovir. also mentioned that the patient hit his left elbow, and she had noticed that it is now red and swollen which is new. Infectious disease consultation has been requested to evaluate the patient with fever and neutropenia, and a possible zoster rash. Notes reviewed D/W RN Temps low grade BC from oncology center has GNR, and now with [facility]PC BC here negative so far Counts remain very low Appetite fair No swallowing difficulty No cough No GI complaints No complaints Antibiotics Cefepime Vancomycin Acyclovir Current Medications Medications (Trade) Dose Ordered Sig/Marilee Route Start Time Stop Time Status Last Admin (Neupogen Inj) 480 mcg DAILY@14 SQ 01/20/18 14:00 01/21/18 13:31 Vancomycin HCl 1000 mg/Sodium Chloride 250 ml @ 250 mls/hr Q12H IV 01/19/18 17:00 01/22/18 04:35 Cefepime HCl 2000 mg/Sodium Chloride 100 ml @ 200 mls/hr Q8H IV 01/19/18 17:00 01/22/18 00:50 (Zyloprim) 300 mg DAILY PO 01/20/18 09:00 01/21/18 08:57 (Tenormin) 50 mg DAILY PO 01/20/18 09:00 01/21/18 08:57 (Flonase Gilles Spr) 2 spray BID EACH NARE 01/19/18 21:00 01/21/18 08:57 (Zoloft) 50 mg DAILY PO 01/20/18 09:00 01/21/18 08:57 (Januvia) 100 mg DAILY PO 01/20/18 09:00 01/21/18 08:57 Patient Own Medication PT OWN MED: EZETIMIBE-SIMVASTATIN... HS PO 01/19/18 21:00 (Protonix) 20 mg DAILY PO 01/20/18 09:00 01/21/18 08:57 Sodium Chloride 1,000 ml @ 75 mls/hr [id number] IV 01/19/18 18:00 01/21/18 23:23 (Imodium) 2 mg Q6H PRN PO 01/19/18 17:15 (Ativan) 0.5 mg Q6H PRN PO 01/19/18 18:00 ([place] 5-325 Mg) 1 tab Q4H PRN PO 01/19/18 19:00 01/20/18 23:07 (Benadryl) 25 mg Q4H PRN PO 01/21/18 08:00 (Magic Mouthwash Adult Liq) 10 ml QID SWISH-SWAL 01/21/18 09:00 01/21/18 17:35 (Zovirax) 200 mg 5 TIMES A DAY PO 01/21/18 10:00 01/28/18 09:59 01/22/18 04:35 (Duoneb Neb) 1 ampule Q4HR NEB PRN NEB 01/21/18 12:00 Sodium Chloride 250 ml @ 15 mls/hr ONCE ONCE IV 01/22/18 07:45 01/23/18 00:24 (Benadryl) 25 mg Q4H PRN PO 01/22/18 07:45 Lines Port right upper chest Past Medical History 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 Diabetes mellitus, Gastroesophageal reflux disease, Cardiomyopathy with ejection fraction around 35%, Gout. Coronary artery disease, status post a heart attack in 1993. Chronic kidney disease. Kidney stone. Past Surgical History Colonoscopy, upper endoscopy Coronary bypass graft surgery in 1995. Hernia repair. Appendectomy Port placement. Allergies: Coded Allergies: erythromycin base (Unverified Allergy, Severe, 05/26/17) Patient denies meperidine (Unverified Allergy, Severe, 05/26/17) Patient denies penicillin G (Unverified Allergy, Severe, 05/26/17) pt. denies acetaminophen (Unverified Allergy, Unknown, 05/26/17) oxycodone (Unverified Allergy, Unknown, 05/26/17) pt. denies amoxicillin (Unverified Adverse Reaction, Mild, upset stomach, 05/26/17) Objective . Vital Signs Date Time Temp Pulse Resp B/P (MAP) Pulse Ox O2 Delivery O2 Flow Rate FiO2 01/22/18 04:30 98.6 69 18 121/59 (79) 100 01/22/18 03:10 72 01/22/18 00:00 98.0 76 20 133/71 (91) 98 01/21/18 23:08 81 01/21/18 20:00 98.4 72 22 130/88 (102) 99 01/21/18 19:15 Room Air 01/21/18 19:11 82 01/21/18 15:29 99.7 66 18 128/79 (95) 100 01/21/18 15:00 66 01/21/18 11:34 98.5 75 18 129/65 99 01/21/18 11:00 72 01/21/18 10:40 99.4 74 18 131/65 99 01/21/18 10:15 98.2 66 18 145/80 100 . Laboratory Tests Test 01/21/18 04:04 01/22/18 04:43 White Blood Count 0.2 TH/MM3 0.2 TH/MM3 Corrected White Blood Count 0.0 TH/MM3 0.0 TH/MM3 Red Blood Count 2.61 MIL/MM3 2.42 MIL/MM3 Hemoglobin 8.5 GM/DL 7.9 GM/DL Hematocrit 24.0 % 22.4 % Mean Corpuscular Volume 92.3 FL 92.6 FL Mean Corpuscular Hemoglobin 32.7 PG 32.6 PG Mean Corpuscular Hemoglobin Concent 35.4 % 35.2 % Red Cell Distribution Width 14.8 % 14.8 % Platelet Count 13 TH/MM3 25 TH/MM3 Mean Platelet Volume 9.2 FL 7.7 FL CBC Comment AUTO DIFF AUTO DIFF Differential Total Cells Counted 20 15 Lymphocytes % 95 % 87 % Eosinophils % 5 % Differential Comment FINAL DIFF MANUAL FINAL DIFF MANUAL Platelet Estimate RARE LOW Platelet Morphology Comment NORMAL NORMAL Tear Drop Cells 1+ Ovalocytes 1+ Monocytes % 13 % Laboratory Tests Test 01/21/18 04:04 01/21/18 12:35 01/22/18 04:43 Blood Urea Nitrogen 24 MG/DL 28 MG/DL Creatinine 1.22 MG/DL 1.21 MG/DL Random Glucose 139 MG/DL 136 MG/DL Calcium Level 7.8 MG/DL 8.0 MG/DL Sodium Level 138 MEQ/L 136 MEQ/L Potassium Level 3.8 MEQ/L 3.9 MEQ/L Chloride Level 106 MEQ/L 105 MEQ/L Carbon Dioxide Level 22.0 MEQ/L 23.3 MEQ/L Anion Gap 10 MEQ/L 8 MEQ/L Estimat Glomerular Filtration Rate 57 ML/MIN 58 ML/MIN B-Type Natriuretic Peptide 784 PG/ML Microbiology Date/Time Source Procedure Growth Status 01/21/18 09:45 Blood Other Aerobic Blood Culture Pending Received 01/21/18 09:45 Blood Other Anaerobic Blood Culture Pending Received 01/19/18 18:05 Blood Peripheral Aerobic Blood Culture - Preliminary NO GROWTH IN 2 DAYS Resulted 01/19/18 18:05 Blood Peripheral Anaerobic Blood Culture - Preliminary NO GROWTH IN 2 DAYS Resulted 01/19/18 18:00 Blood Peripheral Aerobic Blood Culture - Preliminary NO GROWTH IN 2 DAYS Resulted 01/19/18 18:00 Blood Peripheral Anaerobic Blood Culture - Preliminary NO GROWTH IN 2 DAYS Resulted Imaging Last Impressions Chest X-Ray 01/19/18 0000 Signed Impressions: CONCLUSION: Cardiomegaly with bilateral mostly basilar airspace disease. Differential diagn osis includes mild edema or infection. Physical Exam GENERAL: awake and alert, not in respiratory distress. SKIN: Warm and dry. No generalized rash. Has ecchymoses in his L forearm. Has rash with bloody crust in R lower lip, with improving erythema and swelling around it and one similar and smaller spot on his R cheek HEAD: Atraumatic. Normocephalic. No temporal wasting, or tenderness. EYES: [place] conjunctiva. No petechia or hemorrhage. Pupils equal, round and reactive to light. Extraocular movements full and intact. No scleral icterus. No injection or drainage. EARS, NOSE AND THROAT: Nose without bleeding or purulent nasal discharge. No sinus tenderness. Mucous membranes pink and moist. No oral lesions noted. NECK: Trachea midline. Supple and not tender, no meningeal signs CARDIOVASCULAR: Regular rate and rhythm. No murmurs, rubs or gallops heard. Port looks ok. RESPIRATORY: Clear to auscultation. Breath sounds equal bilaterally. No rales , wheezing or rhonchi ABDOMEN: Soft, non-tender, nondistended. Bowel sounds present and normoactive. No guarding. No rebound. No organomegaly. EXTREMITIES: No clubbing, cyanosis, or edema. No joint effusion, has good ROM. No calf tenderness. Well perfused and warm. RUE - has ecchymoses on the forearm, and has some erythema with mild induration below the R elbow, good ROM at elbow joint NEUROLOGICAL: Awake and alert. Cranial nerves grossly intact. Motor grossly within normal limits. PSYCHIATRIC: Normal affect, calm and cooperative. 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
[2018-01-22] MEDS: ATENOLOL 50 MG TAB PO SCH (10:15)
[2018-01-22] MEDS: SERTRALINE HCL 50 MG TAB PO SCH (10:15)
[2018-01-22] MEDS: NYSTAT/DIPHENHY/LIDO MOUTHWASH (Adult) 120ML SWISH-SWAL SCH ×4 (10:15→20:58)
[2018-01-22] MEDS: ALLOPURINOL 300 MG TAB PO SCH (10:16)
[2018-01-22] MEDS: PANTOPRAZOLE SOD 20 MG DELAYED RELEASE TAB PO SCH (10:16)
[2018-01-22] MEDS: FLUTICASONE PROPIONATE 50 MCG/ACT 16 GM NASAL SPRAY EACH NARE SCH ×2 (10:23→20:57)
--- NOTE | 2018-01-22 10:45 | PD.ONC.PN ---
Subjective Subjective Remarks Afebrile overnight Patient states his breathing is okay at rest Gets somewhat short of breath with activity Diarrhea improved Noticed lower extremities feel swollen today Objective Data Date Time Temp Pulse Resp B/P (MAP) Pulse Ox O2 Delivery O2 Flow Rate FiO2 01/22/18 09:57 96.9 67 19 136/65 (88) 01/22/18 08:00 99 Room Air 01/22/18 08:00 76 01/22/18 04:30 98.6 69 18 121/59 (79) 100 01/22/18 03:10 72 01/22/18 00:00 98.0 76 20 133/71 (91) 98 01/21/18 23:08 81 01/21/18 20:00 98.4 72 22 130/88 (102) 99 01/21/18 19:15 Room Air 01/21/18 19:11 82 01/21/18 15:29 99.7 66 18 128/79 (95) 100 01/21/18 15:00 66 01/21/18 11:34 98.5 75 18 129/65 99 01/21/18 11:00 72 01/22/18 01/22/18 01/22/18 07:00 15:00 23:00 Output Total 1500 ml Balance -1500 ml Result Diagram: 01/22/18 0443 01/22/18 0443 Laboratory Results Laboratory Tests Test 01/21/18 12:35 01/22/18 04:43 B-Type Natriuretic Peptide 784 PG/ML White Blood Count 0.2 TH/MM3 Corrected White Blood Count 0.0 TH/MM3 Red Blood Count 2.42 MIL/MM3 Hemoglobin 7.9 GM/DL Hematocrit 22.4 % Mean Corpuscular Volume 92.6 FL Mean Corpuscular Hemoglobin 32.6 PG Mean Corpuscular Hemoglobin Concent 35.2 % Red Cell Distribution Width 14.8 % Platelet Count 25 TH/MM3 Mean Platelet Volume 7.7 FL CBC Comment AUTO DIFF Differential Total Cells Counted 15 Lymphocytes % 87 % Monocytes % 13 % Differential Comment FINAL DIFF MANUAL Platelet Estimate LOW Platelet Morphology Comment NORMAL Blood Urea Nitrogen 28 MG/DL Creatinine 1.21 MG/DL Random Glucose 136 MG/DL Calcium Level 8.0 MG/DL Sodium Level 136 MEQ/L Potassium Level 3.9 MEQ/L Chloride Level 105 MEQ/L Carbon Dioxide Level 23.3 MEQ/L Anion Gap 8 MEQ/L Estimat Glomerular Filtration Rate 58 ML/MIN Culture Results Microbiology Date/Time Source Procedure Growth Status 01/21/18 09:45 Blood Other Aerobic Blood Culture Pending Received 01/21/18 09:45 Blood Other Anaerobic Blood Culture Pending Received 01/19/18 18:05 Blood Peripheral Aerobic Blood Culture - Preliminary NO GROWTH IN 2 DAYS Resulted 01/19/18 18:05 Blood Peripheral Anaerobic Blood Culture - Preliminary NO GROWTH IN 2 DAYS Resulted 01/19/18 18:00 Blood Peripheral Aerobic Blood Culture - Preliminary NO GROWTH IN 2 DAYS Resulted 01/19/18 18:00 Blood Peripheral Anaerobic Blood Culture - Preliminary NO GROWTH IN 2 DAYS Resulted Administered Medications Medications (Trade) Dose Ordered Sig/Marilee Route PRN Reason Start Time Stop Time Status Last Admin Dose Admin Filgrastim (Neupogen Inj) 480 mcg DAILY@14 SQ 01/20/18 14:00 01/21/18 13:31 Vancomycin HCl 1000 mg/Sodium Chloride 250 ml @ 250 mls/hr Q12H IV 01/19/18 17:00 01/22/18 04:35 Cefepime HCl 2000 mg/Sodium Chloride 100 ml @ 200 mls/hr Q8H IV 01/19/18 17:00 01/22/18 10:23 Allopurinol (Zyloprim) 300 mg DAILY PO 01/20/18 09:00 01/22/18 10:16 Atenolol (Tenormin) 50 mg DAILY PO 01/20/18 09:00 01/22/18 10:15 Fluticasone Propionate (Flonase Gilles Spr) 2 spray BID EACH NARE 01/19/18 21:00 01/22/18 10:23 Sertraline HCl (Zoloft) 50 mg DAILY PO 01/20/18 09:00 01/22/18 10:15 Sitagliptin Phosphate (Januvia) 100 mg DAILY PO 01/20/18 09:00 01/22/18 10:16 Pantoprazole Sodium (Protonix) 20 mg DAILY PO 01/20/18 09:00 01/22/18 10:16 Acetaminophen/ Hydrocodone Bitart ([place] 5-325 Mg) 1 tab Q4H PRN PO pain 2-10 01/19/18 19:00 01/20/18 23:07 Multi-Ingredient Mouthwash/Gargle (Magic Mouthwash Adult Liq) 10 ml QID SWISH-SWAL 01/21/18 09:00 01/22/18 10:15 Acyclovir (Zovirax) 200 mg 5 TIMES A DAY PO 01/21/18 10:00 01/28/18 09:59 01/22/18 10:15 Objective Remarks GENERAL: Elderly male resting in bed in no obvious distress SKIN: Blood-filled blisters noted to right lip, cheek and scalp. Left lateral arm with erythema, open lesion. Bandage covering. HEAD: Normocephalic. Few blisters noted on scalp to the right side of midline. EYES: No injection or drainage. NECK: Supple, trachea midline. No JVD or lymphadenopathy. LYMPHATIC: Right supraclavicular shoddy lymph node palpated CARDIOVASCULAR: Irregular rhythm RESPIRATORY: Clear anteriorly. Breathing unlabored at rest. GASTROINTESTINAL: Abdomen soft, non-tender, nondistended. EXTREMITIES: No cyanosis, or edema. MUSCULOSKELETAL: Adequate muscle tone. NEUROLOGICAL: No obvious focal deficit. Awake, alert, and oriented x3. Assessment/Plan Problem List: (1) Neutropenic fever ICD Codes: D70.9 - Neutropenia, unspecified; R50.81 - Fever presenting with conditions classified elsewhere Plan: --The patient has been getting Neupogen injections in the clinic Monday through Monday and reported that he had been running fever overnight on Monday. He did not want to go to the emergency room. He was evaluated in clinic and given IV antibiotics as well as IV antivirals for what appears to be a herpes zoster outbreak on the right side of his face/scalp. --Infectious disease following --Patient is on vancomycin, cefepime and IV acyclovir --Blood cultures drawn from port on 01/19 show preliminary gram-negative rods --Blood cultures drawn in the evening on 01/19 show no growth 1 day (2) Large B-cell lymphoma ICD Codes: C85.10 - Unspecified B-cell lymphoma, unspecified site Plan: -- The patient recently was found to have large B-cell lymphoma that had been transformed from a prior diagnosis of follicular lymphoma. The patient had stage IV disease with involvement of the bone marrow on initial diagnosis. -- Treated with his first cycle of R- ICE chemo last week. --He received a second opinion at an academic center where they recommended R- EPOCH chemo however this was not feasible due to severe cardiomyopathy. (3) Cardiomyopathy ICD Codes: I42.9 - Cardiomyopathy, unspecified Plan: --Chest x-ray on 01/21 showed vascular congestion --BNP elevated --Cardiology following (4) Pancytopenia due to chemotherapy ICD Codes: D61.810 - Antineoplastic chemotherapy induced pancytopenia Plan: --Transfuse to keep hemoglobin greater than 8 and platelet count greater than 20,000. Assessment 77 y/o male admitted with neutropenic fever Plan 1. Transfuse 1 unit packed red blood cells today 2. Start Lasix 20 mg IV once daily for cardiomyopathy, increasing lower extremity edema 3. Continue antibiotics per infectious disease 4. Monitor CBC Attending Statement The exam, history, and the medical decision-making described in the above note were completed with the assistance of the mid-level provider. I reviewed and agree with the findings presented. I attest that I had a [id number] encounter with the patient on the same day, and personally performed and documented my assessment and findings in the medical record. Now afebrile. Still neutropenic. Blood cultures negative to date. Continue abx per ID> Continue neupogen. Transfuse PRBC today. Sally Haywood January 22, 2018 10:45 Garett Granger MD January 22, 2018 21:16
--- NOTE | 2018-01-22 11:55 | PD.CARD.PN ---
Subjective Subjective Remarks Dyspneic walking to bathroom and while washing up. No CP, dizziness, near syncope, palpitations. Slept poorly. Objective Medications Item Value Date Time Furosemide 20 mg 01/22/18 1100 (Lasix Inj) DAILY/IV PUSH Atenolol 50 mg 01/20/18 0900 (Tenormin) DAILY/PO 01/22/18 1015 Current Medications Medications (Trade) Dose Ordered Sig/Marilee Route Start Time Stop Time Status Last Admin (Neupogen Inj) 480 mcg DAILY@14 SQ 01/20/18 14:00 01/21/18 13:31 Vancomycin HCl 1000 mg/Sodium Chloride 250 ml @ 250 mls/hr Q12H IV 01/19/18 17:00 01/22/18 04:35 Cefepime HCl 2000 mg/Sodium Chloride 100 ml @ 200 mls/hr Q8H IV 01/19/18 17:00 01/22/18 10:23 (Zyloprim) 300 mg DAILY PO 01/20/18 09:00 01/22/18 10:16 (Tenormin) 50 mg DAILY PO 01/20/18 09:00 01/22/18 10:15 (Flonase Gilles Spr) 2 spray BID EACH NARE 01/19/18 21:00 01/22/18 10:23 (Zoloft) 50 mg DAILY PO 01/20/18 09:00 01/22/18 10:15 (Januvia) 100 mg DAILY PO 01/20/18 09:00 01/22/18 10:16 Patient Own Medication PT OWN MED: EZETIMIBE-SIMVASTATIN... HS PO 01/19/18 21:00 (Protonix) 20 mg DAILY PO 01/20/18 09:00 01/22/18 10:16 (Imodium) 2 mg Q6H PRN PO 01/19/18 17:15 (Ativan) 0.5 mg Q6H PRN PO 01/19/18 18:00 (Purdin 5-325 Mg) 1 tab Q4H PRN PO 01/19/18 19:00 01/20/18 23:07 (Benadryl) 25 mg Q4H PRN PO 01/21/18 08:00 (Magic Mouthwash Adult Liq) 10 ml QID SWISH-SWAL 5/27/18 09:00 01/22/18 10:15 (Zovirax) 200 mg 5 TIMES A DAY PO 01/21/18 10:00 01/28/18 09:59 01/22/18 10:15 (Duoneb Neb) 1 ampule Q4HR NEB PRN NEB 01/21/18 12:00 Sodium Chloride 250 ml @ 15 mls/hr ONCE ONCE IV 01/22/18 07:45 01/23/18 00:24 (Benadryl) 25 mg Q4H PRN PO 01/22/18 07:45 (Lasix Inj) 20 mg DAILY IV PUSH 01/22/18 11:00 Vital Signs / I&O Vital Signs Date Time Temp Pulse Resp B/P (MAP) Pulse Ox O2 Delivery O2 Flow Rate FiO2 01/22/18 09:57 96.9 67 19 136/65 (88) 01/22/18 08:00 99 Room Air 01/22/18 08:00 76 01/22/18 04:30 98.6 69 18 121/59 (79) 100 01/22/18 03:10 72 01/22/18 00:00 98.0 76 20 133/71 (91) 98 01/21/18 23:08 81 01/21/18 20:00 98.4 72 22 130/88 (102) 99 01/21/18 19:15 Room Air 01/21/18 19:11 82 01/21/18 15:29 99.7 66 18 128/79 (95) 100 01/21/18 15:00 66 I/O 01/21/18 01/21/18 01/21/18 01/22/18 01/22/18 01/22/18 07:00 15:00 23:00 07:00 15:00 23:00 Intake Total 560 ml 311 ml 1680 ml Output Total 350 ml 1440 ml 1500 ml Balance 210 ml 311 ml 240 ml -1500 ml Intake Oral 360 ml 1680 ml IV Total 200 ml Platelets 311 ml Output Urine Total 350 ml 1440 ml 1500 ml # Voids 1 # Bowel Movements 1 Physical Exam GENERAL: Well developed, well nourished. No acute distress. HEENT: Jugular venous pressure is normal. CHEST: Diminished breath sounds bases. Minimal left basilar crackles. CARDIAC: Regular rate and rhythm without S3, S4, or murmur. ABDOMEN: Soft, nontender, no hepatosplenomegaly. Bowel sounds present. EXTREMITIES: No clubbing, cyanosis. Trace edema bilaterally. Laboratory Laboratory Tests Test 01/21/18 12:35 01/22/18 04:43 B-Type Natriuretic Peptide 784 PG/ML White Blood Count 0.2 TH/MM3 Corrected White Blood Count 0.0 TH/MM3 Red Blood Count 2.42 MIL/MM3 Hemoglobin 7.9 GM/DL Hematocrit 22.4 % Mean Corpuscular Volume 92.6 FL Mean Corpuscular Hemoglobin 32.6 PG Mean Corpuscular Hemoglobin Concent 35.2 % Red Cell Distribution Width 14.8 % Platelet Count 25 TH/MM3 Mean Platelet Volume 7.7 FL CBC Comment AUTO DIFF Differential Total Cells Counted 15 Lymphocytes % 87 % Monocytes % 13 % Differential Comment FINAL DIFF MANUAL Platelet Estimate LOW Platelet Morphology Comment NORMAL Blood Urea Nitrogen 28 MG/DL Creatinine 1.21 MG/DL Random Glucose 136 MG/DL Calcium Level 8.0 MG/DL Sodium Level 136 MEQ/L Potassium Level 3.9 MEQ/L Chloride Level 105 MEQ/L Carbon Dioxide Level 23.3 MEQ/L Anion Gap 8 MEQ/L Estimat Glomerular Filtration Rate 58 ML/MIN Assessment and Plan Problem List: (1) Ischemic cardiomyopathy ICD Codes: I25.5 - Ischemic cardiomyopathy Status: Chronic Plan: Stable overnight. Still considerably dyspneic with minimal activity. Negative fluid balance so far today. EF 35% by echo this month. REC agree with IV furosemide diuresis continue his beta megha, resume CRISTINE-I (I believe he was on Lisinopril recently) will f/u as needed; he can f/u with Dr. Lloyd after discharge (2) CAD (coronary artery disease) ICD Codes: I25.10 - Atherosclerotic heart disease of [place] coronary artery without angina pectoris Status: Chronic Plan: History of CABG 1993. Stable. No angina symptoms. Continue beta megha. Resume aspirin when possible. (3) Paroxysmal atrial fibrillation ICD Codes: I48.0 - Paroxysmal atrial fibrillation Status: Chronic Plan: Remains in atrial fibrillation. No HR control problems. Not good candidate for oral anticoagulation therapy at this time. Continue beta megha. Resume aspirin when possible. Code Status full code Discussed Condition With patient and Problem Qualifiers (1) CAD (coronary artery disease): Qualified Codes: I25.10 - Atherosclerotic heart disease of [place] coronary artery without angina pectoris Kj Noguera MD January 22, 2018 11:55
[2018-01-22] MEDS: diphenhydrAMINE HCL 25 MG CAP PO PRN (12:50)
--- NOTE | 2018-01-22 14:21 | HHI.PR ---
Subjective Remarks sitting at side of bed no chest discomfort still with leg swelling- improved voiding Objective Vitals Vital Signs Date Time Temp Pulse Resp B/P (MAP) Pulse Ox O2 Delivery O2 Flow Rate FiO2 01/22/18 12:46 99.8 78 20 127/67 (87) 100 01/22/18 12:00 75 01/22/18 09:57 96.9 67 19 136/65 (88) 01/22/18 08:00 99 Room Air 01/22/18 08:00 76 01/22/18 04:30 98.6 69 18 121/59 (79) 100 01/22/18 03:10 72 01/22/18 00:00 98.0 76 20 133/71 (91) 98 01/21/18 23:08 81 01/21/18 20:00 98.4 72 22 130/88 (102) 99 01/21/18 19:15 Room Air 01/21/18 19:11 82 01/21/18 15:29 99.7 66 18 128/79 (95) 100 01/21/18 15:00 66 I/O 01/21/18 01/21/18 01/21/18 01/22/18 01/22/18 01/22/18 07:00 15:00 23:00 07:00 15:00 23:00 Intake Total 560 ml 311 ml 1680 ml Output Total 350 ml 1440 ml 1500 ml Balance 210 ml 311 ml 240 ml -1500 ml Intake Oral 360 ml 1680 ml IV Total 200 ml Platelets 311 ml Output Urine Total 350 ml 1440 ml 1500 ml # Voids 1 # Bowel Movements 1 Result Diagram: 01/22/18 0443 01/22/18 0443 Imaging Last Impressions Chest X-Ray 01/21/18 0000 Signed Impressions: CONCLUSION: Pulmonary venous congestion. Objective Remarks awake and alert, no acute distress anicteric face- with several dry black scabs on the cheek and chin - no surrounding erytehma no oral thrush no nuchal rigidity chest wall- port in place- no signs of infection lungs decreased breath sounds, no rales irregular rhythm abdomen soft, nontender extremtiies- trace pretibiial edema, good peripheral pulses neuro exam- unremarkable A/P Problem List: (1) Cardiomyopathy ICD Code: I42.9 - Cardiomyopathy, unspecified (2) Large B-cell lymphoma ICD Code: C85.10 - Unspecified B-cell lymphoma, unspecified site (3) Anemia + thrombocytopenia (4) Lymphoma ICD Code: C85.90 - Non-Hodgkin lymphoma, unspecified, unspecified site (5) Retroperitoneal lymphadenopathy ICD Code: R59.0 - Localized enlarged lymph nodes Assessment and Plan 77 years old male Severe Sepsis (fever, tachycardia. source rash, neutropenic fever, Lactic acid > 2) on admission Neutropenic fever Varicella Zoster on his scalp and right face, worrisome for varicella zoster infection- scabs drying up Blood cultures negative so far Urinalysis is unremarkable. on Vanco, cefepime and acyclovir ID ff stools ordered for C diff study- no reported diarrhea Pancytopenia due to recent chemotherapy. Large B cell lymphoma stage IV, treated with Rituxan and bendamustine. Neutrophil trended down to 0. Transfuse to keep hemoglobin above 8 and platelet count above 20,000 given his symptoms. - blood product transfusion per Hematology -ONcology ff Cardiomyopathy with low EF 35 % on recent OP ECHO. good sats Recent echocardiogram showed ejection fraction of 35%. He has been followed by cardiology. on Lasix IV daily - Lisinopril 10 mg po daily Diabetes mellitus 2, stable. on Januvia. good readings on BMP. Gastroesophageal reflux disease, stable. PPI Anxiety/ depression continue home emds ativan as need Patient up and ambulating seen with supportive at bedside Sheldon Gottlieb MD January 22, 2018 14:20
[2018-01-22] MEDS: FUROSEMIDE 20 MG/2 ML VIAL IV PUSH SCH (15:13)
[2018-01-22] MEDS: FILGRASTIM 480 MCG/1.6 ML VIAL SQ SCH (19:41)
[2018-01-22] MEDS: SIMVASTATIN PO SCH (21:00)
[2018-01-22] MEDS: EZETIMIBE PO SCH (21:00)
[2018-01-23] VITALS (10 sets, daily range): BP systolic 112–143; BP diastolic 46–73; PULSE 58–98; RESP 16–20; TEMP 97.4–99.7; O2SAT 98–99
[2018-01-23] MEDS ORDERED: FUROSEMIDE 40 MG/4 ML VIAL IV PUSH ONE (00:30)
[2018-01-23] MEDS: CEFEPIME INJ 2,000 MG in SODIUM CHLORIDE 0.9% INJ 100 ML IV SCH ×3 (00:44→18:11)
[2018-01-23 01:22] LABS: HEMATOCRIT 24.1 % (39.0-51.0); HEMOGLOBIN 8.5 GM/DL (13.0-17.0); MEAN CELL VOLUME 92.6 FL (80.0-100.0); MEAN CORPUSCULAR HEMOGLOBIN 32.5 PG (27.0-34.0); MEAN CORPUSCULAR HGB CONC 35.1 % (32.0-36.0); MEAN PLATELET VOLUME 8.6 FL (7.0-11.0); PLATELET COUNT 22 TH/MM3 (150-450); RED BLOOD COUNT 2.61 MIL/MM3 (4.50-5.90); RED CELL DISTRIBUTION WIDTH 14.2 % (11.6-17.2); WHITE BLOOD COUNT 0.2 TH/MM3 (4.0-11.0)
[2018-01-23 01:36] LABS: BICARBONATE 23.3 MEQ/L (21.0-32.0); CALCIUM 7.7 MG/DL (8.5-10.1); CREATININE 1.07 MG/DL (0.60-1.30); MAGNESIUM 1.7 MG/DL (1.5-2.5)
[2018-01-23 01:40] LABS: TROPONIN I 0.02 NG/ML (0.02-0.05)
[2018-01-23 01:51] LABS: BANDS 4 % (0-6); LYMPHOCYTES 88 % (9-44); MONOCYTES 4 % (0-8); POLYS (SEG NEUTROPHILS) 4 % (16-70)
[2018-01-23] MEDS: ACYCLOVIR 200 MG CAP PO SCH ×5 (05:01→20:40)
[2018-01-23] MEDS ORDERED: SODIUM CHLORIDE 0.9% FLUSH 10 ML FLUSH IV FLUSH PRN (05:30)
[2018-01-23] MEDS: VANCOMYCIN INJ 1,000 MG in SODIUM CHLOR 0.9% 250 ML INJ 250 ML IV SCH ×2 (06:08→18:39)
[2018-01-23] MEDS: FLUTICASONE PROPIONATE 50 MCG/ACT 16 GM NASAL SPRAY EACH NARE SCH ×2 (08:48→20:39)
[2018-01-23] MEDS: NYSTAT/DIPHENHY/LIDO MOUTHWASH (Adult) 120ML SWISH-SWAL SCH ×4 (08:48→20:40)
[2018-01-23] MEDS: SERTRALINE HCL 50 MG TAB PO SCH (08:49)
[2018-01-23] MEDS: FUROSEMIDE 20 MG/2 ML VIAL IV PUSH SCH (08:49)
[2018-01-23] MEDS: ALLOPURINOL 300 MG TAB PO SCH (08:49)
[2018-01-23] MEDS: ATENOLOL 50 MG TAB PO SCH (08:49)
[2018-01-23] MEDS: LISINOPRIL 10 MG TAB PO SCH (08:49)
[2018-01-23] MEDS: PANTOPRAZOLE SOD 20 MG DELAYED RELEASE TAB PO SCH (08:50)
--- NOTE | 2018-01-23 09:06 | PD.ONC.PN ---
Subjective Subjective Remarks tmax 99.7 overnight. Patient denies pain. states he is short of breath with exertion. no change in leg swelling. Objective Data Date Time Temp Pulse Resp B/P (MAP) Pulse Ox O2 Delivery O2 Flow Rate FiO2 01/23/18 08:36 98.2 72 18 99 01/23/18 08:15 99 Nasal Cannula 1.00 01/23/18 04:56 97.6 74 20 143/73 (96) 98 01/23/18 04:10 58 01/23/18 00:47 99.7 01/23/18 00:17 65 01/22/18 23:30 74 22 134/75 (94) 100 01/22/18 21:01 97.9 58 20 127/75 (92) 100 01/22/18 20:57 99 Nasal Cannula 1.00 01/22/18 20:13 80 01/22/18 17:30 98.2 71 20 131/53 (79) 01/22/18 17:30 98.2 71 20 131/53 100 01/22/18 16:00 67 01/22/18 15:00 99.0 80 18 115/56 99 01/22/18 14:27 97.1 80 20 123/73 98 01/22/18 12:46 99.8 78 20 127/67 (87) 100 01/22/18 12:00 75 01/22/18 12:00 75 01/22/18 09:57 96.9 67 19 136/65 (88) 01/23/18 01/23/18 01/23/18 07:00 15:00 23:00 Intake Total 240 ml Output Total 1850 ml Balance -1850 ml 240 ml Result Diagram: 01/23/18 0045 01/23/18 0045 Laboratory Results Laboratory Tests Test 01/23/18 00:45 White Blood Count 0.2 TH/MM3 Red Blood Count 2.61 MIL/MM3 Hemoglobin 8.5 GM/DL Hematocrit 24.1 % Mean Corpuscular Volume 92.6 FL Mean Corpuscular Hemoglobin 32.5 PG Mean Corpuscular Hemoglobin Concent 35.1 % Red Cell Distribution Width 14.2 % Platelet Count 22 TH/MM3 Mean Platelet Volume 8.6 FL CBC Comment AUTO DIFF Differential Total Cells Counted 25 Neutrophils % (Manual) 4 % Band Neutrophils % 4 % Lymphocytes % 88 % Monocytes % 4 % Neutrophils # (Manual) 0.0 TH/MM3 Differential Comment FINAL DIFF MANUAL Platelet Estimate LOW Platelet Morphology Comment NORMAL Blood Urea Nitrogen 29 MG/DL Creatinine 1.07 MG/DL Random Glucose 157 MG/DL Calcium Level 7.7 MG/DL Magnesium Level 1.7 MG/DL Sodium Level 135 MEQ/L Potassium Level 3.5 MEQ/L Chloride Level 102 MEQ/L Carbon Dioxide Level 23.3 MEQ/L Anion Gap 10 MEQ/L Estimat Glomerular Filtration Rate 67 ML/MIN Total Creatine Kinase 46 U/L Troponin I 0.02 NG/ML B-Type Natriuretic Peptide 803 PG/ML Culture Results Microbiology Date/Time Source Procedure Growth Status 01/21/18 09:45 Blood Other Aerobic Blood Culture - Preliminary NO GROWTH IN 1 DAY Resulted 01/21/18 09:45 Blood Other Anaerobic Blood Culture - Preliminary NO GROWTH IN 1 DAY Resulted Imaging Studies Last Impressions Chest X-Ray 01/21/18 0000 Signed Impressions: CONCLUSION: Pulmonary venous congestion. Administered Medications Medications (Trade) Dose Ordered Sig/Marilee Route PRN Reason Start Time Stop Time Status Last Admin Dose Admin Filgrastim (Neupogen Inj) 480 mcg DAILY@14 SQ 01/20/18 14:00 01/22/18 19:41 Vancomycin HCl 1000 mg/Sodium Chloride 250 ml @ 250 mls/hr Q12H IV 01/19/18 17:00 01/23/18 06:08 Cefepime HCl 2000 mg/Sodium Chloride 100 ml @ 200 mls/hr Q8H IV 01/19/18 17:00 01/23/18 08:47 Allopurinol (Zyloprim) 300 mg DAILY PO 01/20/18 09:00 01/23/18 08:49 Atenolol (Tenormin) 50 mg DAILY PO 01/20/18 09:00 01/23/18 08:49 Fluticasone Propionate (Flonase Gilles Spr) 2 spray BID EACH NARE 01/19/18 21:00 01/23/18 08:48 Sertraline HCl (Zoloft) 50 mg DAILY PO 01/20/18 09:00 01/23/18 08:49 Sitagliptin Phosphate (Januvia) 100 mg DAILY PO 01/20/18 09:00 01/23/18 08:49 Pantoprazole Sodium (Protonix) 20 mg DAILY PO 01/20/18 09:00 01/23/18 08:50 Acetaminophen/ Hydrocodone Bitart ([place] 5-325 Mg) 1 tab Q4H PRN PO pain 2-10 01/19/18 19:00 01/20/18 23:07 Multi-Ingredient Mouthwash/Gargle (Magic Mouthwash Adult Liq) 10 ml QID SWISH-SWAL 01/21/18 09:00 01/23/18 08:48 Acyclovir (Zovirax) 200 mg 5 TIMES A DAY PO 01/21/18 10:00 01/28/18 09:59 01/23/18 08:49 Diphenhydramine HCl (Benadryl) 25 mg Q4H PRN PO SEE LABEL COMMENTS 01/22/18 07:45 01/22/18 12:50 Furosemide (Lasix Inj) 20 mg DAILY IV PUSH 01/22/18 11:00 01/23/18 08:49 Lisinopril (Prinivil) 10 mg DAILY PO 01/23/18 09:00 01/23/18 08:49 Heparin Sodium (Porcine) (Heparin Central Flush) 250 units UNSCH PRN IV FLUSH SEE PROTOCOL TABLE 01/23/18 05:30 01/23/18 05:28 Objective Remarks GENERAL: Pleasant elderly male, sitting up on side of bed in nad. when shifting positions from lying to sitting or sitting to standing he becomes dyspneic. SKIN: Warm and dry. crusted facial lesions periorally on right side of face. HEAD: Normocephalic. EYES: No scleral icterus. No injection or drainage. NECK: Supple, trachea midline. LYMPHATIC: No adenopathy. CARDIOVASCULAR: Regular rate and rhythm RESPIRATORY: Breath sounds equal bilaterally. No accessory muscle use. GASTROINTESTINAL: Abdomen soft, non-tender, nondistended. EXTREMITIES: No cyanosis. mild edema in bilateral lower extremities. NEUROLOGICAL: No obvious focal deficit. Awake, alert, and oriented x3. Assessment/Plan Problem List: (1) Neutropenic fever ICD Codes: D70.9 - Neutropenia, unspecified; R50.81 - Fever presenting with conditions classified elsewhere Plan: --The patient has been getting Neupogen injections in the clinic Monday through Monday and reported that he had been running fever overnight on Monday. He did not want to go to the emergency room. He was evaluated in clinic and given IV antibiotics as well as IV antivirals for what appears to be a herpes zoster outbreak on the right side of his face/scalp. 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 The patient had stage IV disease with involvement of the bone marrow on initial diagnosis. -- Treated with his first cycle of R- ICE chemo last week. --He received a second opinion at an academic center where they recommended R- EPOCH chemo however this was not feasible due to severe cardiomyopathy. (3) Cardiomyopathy ICD Codes: I42.9 - Cardiomyopathy, unspecified Plan: --Chest x-ray on 01/21 showed vascular congestion --BNP elevated --Cardiology following (4) Pancytopenia due to chemotherapy ICD Codes: D61.810 - Antineoplastic chemotherapy induced pancytopenia Plan: --Transfuse to keep hemoglobin greater than 8 and platelet count greater than 20,000. Assessment 77 y/o male admitted with neutropenic fever Plan 1. no transfusion today 2. continue lasix 3. continue antibiotics. 4. await bone marrow recovery, continue Neupogen. Attending Statement The exam, history, and the medical decision-making described in the above note were completed with the assistance of the mid-level provider. I reviewed and agree with the findings presented. I attest that I had a [id number] encounter with the patient on the same day, and personally performed and documented my assessment and findings in the medical record. SOB improved with diuresis. No CP. Afebrile. ANC still 0. Blood cultures negative to date. Continue abx per ID> Continue neupogen. No transfusion needed today. Shirley Hernandez January 23, 2018 09:06 Garett Granger MD January 23, 2018 13:58
[2018-01-23] MEDS: FILGRASTIM 480 MCG/1.6 ML VIAL SQ SCH (12:19)
--- NOTE | 2018-01-23 13:10 | HHI.PR ---
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 He was just discharged from the hospital last weekend. Hehas been getting Neupogen injection at the clinic. According to his , the patient developed fever up to 100.4 yesterday. He, however, refused to go to the emergency room as instructed. This morning he has temperature up to 101. Again, he refused to go to the emergency room. He also developed a blister-like lesion on his right face and scalp yesterday. When he came to the clinic for Neupogen injection, he was noted to be febrile and weak. He also had chills. Blood work showed 0 neutrophils. His platelet count was down to 15,000. He is admitted to the hospital for further evaluation, IV abx. He denies any headache. Denies any visual changes. Denies any focal numbness or weakness. He has no chest pain. Denies any shortness of breath. He has occasional wheezes. He has no nausea, vomiting , diarrhea or abdominal pain. Denies any dysuria or hematuria. He said that the blister-like lesion on his right jaw area is tender. 5- seen with at bedside states feeling better no further diarrhea- days before but not now no urinary symptoms minimal cough feels cold states had diarrhea days ago- none today 5 up already side of the bed- having breakfast- frsutrated with the pancake- - trying to cuy- feels like rubber no difficulty swallowing T down 5 sitting at side of bed no chest discomfort still with leg swelling- improved voiding 5- LESS SWELLING BL LOWER EXTREMITIES STILL VERY NEUTROPENIC AND PANCYTOPENIC DW RN AND PT AND FAMILY Patient remains quite neutropenic keep in isolation A.m. labs Objective Vitals Vital Signs Date Time Temp Pulse Resp B/P (MAP) Pulse Ox O2 Delivery O2 Flow Rate FiO2 01/23/18 12:19 97.4 70 20 112/69 (83) 99 01/23/18 11:54 71 01/23/18 09:42 99 1.00 01/23/18 08:36 98.2 72 18 135/46 (75) 99 01/23/18 08:15 99 Nasal Cannula 1.00 01/23/18 04:56 97.6 74 20 143/73 (96) 98 01/23/18 04:10 58 01/23/18 00:47 99.7 01/23/18 00:17 65 01/22/18 23:30 74 22 134/75 (94) 100 01/22/18 21:01 97.9 58 20 127/75 (92) 100 01/22/18 20:57 99 Nasal Cannula 1.00 01/22/18 20:13 80 01/22/18 17:30 98.2 71 20 131/53 (79) 01/22/18 17:30 98.2 71 20 131/53 100 01/22/18 16:00 67 01/22/18 15:00 99.0 80 18 115/56 99 01/22/18 14:27 97.1 80 20 123/73 98 I/O 01/22/18 01/22/18 01/22/18 01/23/18 01/23/18 01/23/18 07:00 15:00 23:00 07:00 15:00 23:00 Intake Total 130 ml 2175 ml 716 ml Output Total 1500 ml 1425 ml 1850 ml 500 ml Balance -1500 ml 130 ml 750 ml -1850 ml 216 ml Intake Oral 720 ml 716 ml IV Total 100 ml 1025 ml Packed Cells 400 ml Blood Product IV Normal Saline Flush 30 ml 30 ml Output Urine Total 1500 ml 1425 ml 1850 ml 500 ml # Bowel Movements 1 2 Result Diagram: 01/23/18 0045 01/23/18 0045 Other Results Laboratory Tests Test 01/20/18 14:15 01/20/18 17:05 01/21/18 04:04 01/21/18 12:35 Urine Color YELLOW Urine Turbidity HAZY Urine pH 5.5 Urine Specific [place] 1.021 Urine Protein 30 mg/dL Urine Glucose (UA) 70 mg/dL Urine Ketones TRACE mg/dL Urine Occult Blood SMALL Urine Nitrite NEG Urine Bilirubin NEG Urine Urobilinogen LESS THAN 2.0 MG/DL Urine Leukocyte Esterase NEG Urine RBC 1 /hpf Urine WBC 4 /hpf Urine Squamous Epithelial Cells 1 /hpf Urine Amorphous Sediment RARE Microscopic Urinalysis Comment CULT NOT INDICATED Stool C. difficile Toxin (PCR) NEGATIVE Stl C. difficile Toxin Epiderm 027 PRESUMPTIVE NEGATIVE White Blood Count 0.2 TH/MM3 Corrected White Blood Count 0.0 TH/MM3 Red Blood Count 2.61 MIL/MM3 Hemoglobin 8.5 GM/DL Hematocrit 24.0 % Mean Corpuscular Volume 92.3 FL Mean Corpuscular Hemoglobin 32.7 PG Mean Corpuscular Hemoglobin Concent 35.4 % Red Cell Distribution Width 14.8 % Platelet Count 13 TH/MM3 Mean Platelet Volume 9.2 FL CBC Comment AUTO DIFF Differential Total Cells Counted 20 Lymphocytes % 95 % Eosinophils % 5 % Differential Comment FINAL DIFF MANUAL Platelet Estimate RARE Platelet Morphology Comment NORMAL Tear Drop Cells 1+ Ovalocytes 1+ Blood Urea Nitrogen 24 MG/DL Creatinine 1.22 MG/DL Random Glucose 139 MG/DL Calcium Level 7.8 MG/DL Sodium Level 138 MEQ/L Potassium Level 3.8 MEQ/L Chloride Level 106 MEQ/L Carbon Dioxide Level 22.0 MEQ/L Anion Gap 10 MEQ/L Estimat Glomerular Filtration Rate 57 ML/MIN B-Type Natriuretic Peptide 784 PG/ML Test 01/22/18 04:43 01/23/18 00:45 01/23/18 10:00 White Blood Count 0.2 TH/MM3 0.2 TH/MM3 Corrected White Blood Count 0.0 TH/MM3 Red Blood Count 2.42 MIL/MM3 2.61 MIL/MM3 Hemoglobin 7.9 GM/DL 8.5 GM/DL Hematocrit 22.4 % 24.1 % Mean Corpuscular Volume 92.6 FL 92.6 FL Mean Corpuscular Hemoglobin 32.6 PG 32.5 PG Mean Corpuscular Hemoglobin Concent 35.2 % 35.1 % Red Cell Distribution Width 14.8 % 14.2 % Platelet Count 25 TH/MM3 22 TH/MM3 Mean Platelet Volume 7.7 FL 8.6 FL CBC Comment AUTO DIFF AUTO DIFF Differential Total Cells Counted 15 25 Lymphocytes % 87 % 88 % Monocytes % 13 % 4 % Differential Comment FINAL DIFF MANUAL FINAL DIFF MANUAL Platelet Estimate LOW LOW Platelet Morphology Comment NORMAL NORMAL Blood Urea Nitrogen 28 MG/DL 29 MG/DL Creatinine 1.21 MG/DL 1.07 MG/DL Random Glucose 136 MG/DL 157 MG/DL Calcium Level 8.0 MG/DL 7.7 MG/DL Sodium Level 136 MEQ/L 135 MEQ/L Potassium Level 3.9 MEQ/L 3.5 MEQ/L Chloride Level 105 MEQ/L 102 MEQ/L Carbon Dioxide Level 23.3 MEQ/L 23.3 MEQ/L Anion Gap 8 MEQ/L 10 MEQ/L Estimat Glomerular Filtration Rate 58 ML/MIN 67 ML/MIN Neutrophils % (Manual) 4 % Band Neutrophils % 4 % Neutrophils # (Manual) 0.0 TH/MM3 Magnesium Level 1.7 MG/DL Total Creatine Kinase 46 U/L Troponin I 0.02 NG/ML B-Type Natriuretic Peptide 803 PG/ML Imaging Last Impressions Chest X-Ray 01/21/18 0000 Signed Impressions: CONCLUSION: Pulmonary venous congestion. Objective Remarks GENERAL: Awake alert and oriented 3 talkative and cooperative SKIN: Warm and dry. Multiple lesions around the lips in various stages of healing HEAD: Atraumatic. Normocephalic. EYES: Pupils equal and round. No scleral icterus. No injection or drainage. Extraocular muscles intact ENT: No nasal bleeding or discharge. Mucous membranes pink and moist. Tongue is midline NECK: Trachea midline. No JVD. Supple CARDIOVASCULAR: Regular rate and rhythm. S1-S2 no S3 or S4 RESPIRATORY: No accessory muscle use. Clear to auscultation. Breath sounds equal bilaterally. GASTROINTESTINAL: Abdomen soft, non-tender, nondistended. Hepatic and splenic margins not palpable. MUSCULOSKELETAL: Extremities without clubbing, cyanosis +1 to trace edema lower extrema. No obvious deformities. NEUROLOGICAL: Awake and alert. No obvious cranial nerve deficits. Motor grossly within normal limits. Five out of 5 muscle strength in the arms and legs. Normal speech. PSYCHIATRIC: Appropriate mood and affect; insight and judgment normal. Procedures NONE Medications and IVs Current Medications Filgrastim (Neupogen Inj) 480 mcg DAILY@14 SQ Last administered on 01/23/18at 12 :19; Start 01/20/18 at 14:00 Vancomycin HCl 1000 mg/Sodium Chloride 250 ml @ 250 mls/hr Q12H IV Last administered on 01/23/18at 06:08; Start 01/19/18 at 17:00 Acyclovir Sodium 700 mg/Sodium Chloride 100 ml @ 100 mls/hr Q8H IV Last administered on 01/20/18at 10:58; Start 01/19/18 at 17:00; Stop 01/20/18 at 11:10 ; Status DC Loperamide HCl (Imodium) 2 mg Q4H PRN PO diarrhea ; Start 01/19/18 at 16:00; Stop 01/19/18 at 17:05; Status DC Cefepime HCl 2000 mg/Sodium Chloride 100 ml @ 200 mls/hr Q8H IV Last administered on 01/23/18 08:47; Start 01/19/18 at 17:00 Sodium Chloride 250 ml @ 15 mls/hr ONCE ONCE IV Last administered on at 16:54; Start 01/19/18 at 16:00; Stop 01/20/18 at 08:39; Status DC Acetaminophen (Tylenol) 650 mg Q4H PRN PO mild pain/ fever/ headache ; Start at 16:00; Stop 01/19/18 at 16:36; Status DC Allopurinol (Zyloprim) 300 mg DAILY PO Last administered on 01/23/18 08:49; Start 01/20/18 at 09:00 Aspirin (Aspirin Chew) 81 mg DAILY CHEW Last administered on 01/21/18at 08:57; Start 01/20/18 at 09:00; Stop 01/22/18 at 07:45; Status DC Atenolol (Tenormin) 50 mg DAILY PO Last administered on 01/23/18 08:49; Start 01/20/18 at 09:00 Fluticasone Propionate (Flonase Gilles Spr) 2 spray BID EACH NARE Last administered on 01/23/18 08:48; Start 01/19/18 at 21:00 Sertraline HCl (Zoloft) 50 mg DAILY PO Last administered on 01/23/18 08:49; Start 01/20/18 at 09:00 Sitagliptin Phosphate (Januvia) 100 mg DAILY PO Last administered on 01/23/18 08:49; Start 01/20/18 at 09:00 Patient Own Medication PT OWN MED: EZETIMIBE-SIMVASTATIN... HS PO ; Start at 21:00 Pantoprazole Sodium (Protonix) 20 mg DAILY PO Last administered on 01/23/18 08 :50; Start 01/20/18 at 09:00 Sodium Chloride 1,000 ml @ 75 mls/hr [id number] IV Last administered on at 23:23; Start 01/19/18 at 18:00; Stop 01/22/18 at 09:59; Status DC Loperamide HCl (Imodium) 2 mg Q6H PRN PO diarrhea ; Start 01/19/18 at 17:15 Lorazepam (Ativan) 0.5 mg Q6H PRN PO ANXIETY ; Start 01/19/18 at 18:00 Acetaminophen/ Hydrocodone Bitart (Zurich 5-325 Mg) 1 tab Q4H PRN PO pain 2-10 Last administered on 01/20/18at 23:07; Start 01/19/18 at 19:00 Sodium Chloride 250 ml @ 15 mls/hr ONCE ONCE IV Last administered on at 12:46; Start 01/20/18 at 10:30; Stop 01/21/18 at 03:09; Status DC Diphenhydramine HCl (Benadryl) 25 mg Q4H PRN PO SEE LABEL COMMENTS Last administered on 01/21/18at 09:40; Start 01/20/18 at 10:30; Stop 01/21/18 at 09:40 ; Status DC Acyclovir Sodium 400 mg/Sodium Chloride 100 ml @ 100 mls/hr Q8H IV Last administered on 01/21/18at 00:25; Start 01/20/18 at 17:00; Stop 01/21/18 at 08:09 ; Status DC Sodium Chloride 250 ml @ 15 mls/hr ONCE ONCE IV Last administered on at 09:44; Start 01/21/18 at 08:00; Stop 01/22/18 at 00:39; Status DC Diphenhydramine HCl (Benadryl) 25 mg Q4H PRN PO SEE LABEL COMMENTS; Start 01/21 at 08:00 Multi-Ingredient Mouthwash/Gargle (Magic Mouthwash Adult Liq) 10 ml QID SWISH- SWAL Last administered on 01/23/18at 12:14; Start 01/21/18 at 09:00 Acyclovir (Zovirax) 200 mg 5 TIMES A DAY PO Last administered on 01/23/18at 12: 15; Start 01/21/18 at 10:00; Stop 01/28/18 at 09:59 Albuterol/ Ipratropium (Duoneb Neb) 1 ampule Q4HR NEB PRN NEB sob/wheezing; Start 01/21/18 at 12:00 Furosemide (Lasix Inj) 20 mg NOW ONCE IV PUSH Last administered on 01/21/18at 14:46; Start 01/21/18 at 14:30; Stop 01/21/18 at 14:31; Status DC Furosemide (Lasix Inj) 40 mg ONCE ONCE IV PUSH Last administered on 01/21/18at 20:12; Start 01/21/18 at 19:15; Stop 01/21/18 at 19:16; Status DC Sodium Chloride 250 ml @ 15 mls/hr ONCE ONCE IV Last administered on at 14:40; Start 01/22/18 at 07:45; Stop 01/23/18 at 00:24; Status DC Diphenhydramine HCl (Benadryl) 25 mg Q4H PRN PO SEE LABEL COMMENTS Last administered on 01/22/18at 12:50; Start 01/22/18 at 07:45 Furosemide (Lasix Inj) 20 mg DAILY IV PUSH Last administered on 01/23/18at 08:49 ; Start 01/22/18 at 11:00 Lisinopril (Prinivil) 10 mg DAILY PO Last administered on 01/23/18at 08:49; Start 01/23/18 at 09:00 Furosemide (Lasix Inj) 40 mg ONCE ONCE IV PUSH Last administered on 01/23/18at 00:35; Start 01/23/18 at 00:30; Stop 01/23/18 at 00:31; Status DC Sodium Chloride (NS Flush) 5 ml UNSCH PRN IV FLUSH SEE PROTOCOL TABLE; Start at 05:30 Heparin Sodium (Porcine) (Heparin Central Flush) 250 units UNSCH PRN IV FLUSH SEE PROTOCOL TABLE Last administered on 01/23/18at 05:28; Start 01/23/18 at 05:30 Heparin Sodium (Porcine) (Heparin Central Flush) 500 units UNSCH IV FLUSH ; Start 01/23/18 at 05:30 A/P Problem List: (1) Cardiomyopathy ICD Code: I42.9 - Cardiomyopathy, unspecified (2) Large B-cell lymphoma ICD Code: C85.10 - Unspecified B-cell lymphoma, unspecified site (3) Anemia + thrombocytopenia (4) Lymphoma ICD Code: C85.90 - Non-Hodgkin lymphoma, unspecified, unspecified site (5) Retroperitoneal lymphadenopathy ICD Code: R59.0 - Localized enlarged lymph nodes Assessment and Plan 77 years old male Severe Sepsis (fever, tachycardia. source rash, neutropenic fever, Lactic acid > 2) on admission Neutropenic fever Varicella Zoster on his scalp and right face, worrisome for varicella zoster infection- scabs drying up Blood cultures negative so far Urinalysis is unremarkable. on Vanco, cefepime and acyclovir ID ff stools ordered for C diff study- no reported diarrhea Pancytopenia due to recent chemotherapy. Large B cell lymphoma stage IV, treated with Rituxan and bendamustine. Neutrophil trended down to 0. Transfuse to keep hemoglobin above 8 and platelet count above 20,000 given his symptoms. - blood product transfusion per Hematology -ONcology ff Cardiomyopathy with low EF 35 % on recent OP ECHO. good sats Recent echocardiogram showed ejection fraction of 35%. He has been followed by cardiology. on Lasix IV daily - Lisinopril 10 mg po daily Diabetes mellitus 2, stable. on Januvia. good readings on BMP. Gastroesophageal reflux disease, stable. PPI Anxiety/ depression continue home emds ativan as need Patient up and ambulating seen with supportive at bedside Patient remains quite neutropenic at this time keep in isolation Leo Rai DO January 23, 2018 13:10
--- NOTE | 2018-01-23 13:47 | EKG ---
Date Performed: 01/22/2018 Time Performed: 23:30:18 PTAGE: 77 years EKG: Atrial fibrillation with PVC(s) Prolonged QT interval Possible septal infarct - age undeter mined Lateral T wave changes are nonspecific Low QRS voltages in precordial leads Abnormal ECG PREVIOUS TRACING : 01/11/2018 18.34 Atrial fibrillation replaces Sinus rhythm . Clinical correlation is recommended. DOCTOR: London Rider Interpretating Date/Time 01/23/2018 13:46:24
[2018-01-23] MEDS ORDERED: ALTEPLASE RECOMBINANT 2 MG VIAL IV ONE (16:00)
[2018-01-23] MEDS: SIMVASTATIN PO SCH (20:29)
[2018-01-23] MEDS: EZETIMIBE PO SCH (20:29)
[2018-01-24] VITALS (8 sets, daily range): BP systolic 113–128; BP diastolic 45–77; PULSE 57–80; RESP 16–23; TEMP 97.1–97.9; O2SAT 95–100
[2018-01-24] MEDS: CEFEPIME INJ 2,000 MG in SODIUM CHLORIDE 0.9% INJ 100 ML IV SCH ×3 (01:42→18:42)
[2018-01-24] MEDS: VANCOMYCIN INJ 1,000 MG in SODIUM CHLOR 0.9% 250 ML INJ 250 ML IV SCH ×2 (04:13→20:00)
[2018-01-24] MEDS: ACYCLOVIR 200 MG CAP PO SCH ×5 (06:07→21:27)
[2018-01-24 06:31] LABS: HEMATOCRIT 23.8 % (39.0-51.0); HEMOGLOBIN 8.3 GM/DL (13.0-17.0); MEAN CELL VOLUME 91.8 FL (80.0-100.0); MEAN CORPUSCULAR HGB CONC 34.9 % (32.0-36.0); MEAN PLATELET VOLUME 8.9 FL (7.0-11.0); RED CELL DISTRIBUTION WIDTH 14.2 % (11.6-17.2); WHITE BLOOD COUNT 0.3 TH/MM3 (4.0-11.0)
[2018-01-24 06:42] LABS: PLATELET COUNT 12 TH/MM3 (150-450)
[2018-01-24 06:53] LABS: ALBUMIN 2.6 GM/DL (3.4-5.0); ALT (GPT) 62 U/L (12-78); AST (GOT) 48 U/L (15-37); BICARBONATE 23.6 MEQ/L (21.0-32.0); BLOOD UREA NITROGEN 28 MG/DL (7-18); CHLORIDE 102 MEQ/L (98-107); CREATININE 1.04 MG/DL (0.60-1.30); GLOMERULAR FILTRATION RATE 69 ML/MIN (>89); GLUCOSE,RANDOM 132 MG/DL (74-106); MAGNESIUM 1.7 MG/DL (1.5-2.5); PHOSPHORUS 2.5 MG/DL (2.5-4.9); SODIUM (NA) 138 MEQ/L (136-145)
[2018-01-24 06:55] LABS: ALKALINE PHOSPHATASE 94 U/L (45-117); TOTAL BILIRUBIN ADULT 0.6 MG/DL (0.2-1.0); TOTAL PROTEIN 5.7 GM/DL (6.4-8.2)
[2018-01-24] MEDS ORDERED: SODIUM CHLOR 0.9% 250 ML INJ 250 ML IV ONE (08:15)
[2018-01-24] MEDS ORDERED: diphenhydrAMINE HCL 25 MG CAP PO PRN (08:15)
[2018-01-24 08:53] LABS: BANDS 20 % (0-6); LYMPHOCYTES 67 % (9-44); MONOCYTES 7 % (0-8); NEUTROPHIL # MANUAL DIFF 0.1 TH/MM3 (1.8-7.7); POLYS (SEG NEUTROPHILS) 7 % (16-70)
[2018-01-24 08:54] LABS: OVALOCYTES 1+ (NORMAL)
[2018-01-24] MEDS ORDERED: POTASSIUM BICARBONATE 25 MEQ EFFERVESCENT TAB PO ONE (09:00)
[2018-01-24] MEDS: ALLOPURINOL 300 MG TAB PO SCH (09:20)
[2018-01-24] MEDS: SERTRALINE HCL 50 MG TAB PO SCH (09:20)
[2018-01-24] MEDS: LISINOPRIL 10 MG TAB PO SCH (09:21)
[2018-01-24] MEDS: FUROSEMIDE 20 MG/2 ML VIAL IV PUSH SCH (09:21)
[2018-01-24] MEDS: ATENOLOL 50 MG TAB PO SCH (09:21)
[2018-01-24] MEDS: PANTOPRAZOLE SOD 20 MG DELAYED RELEASE TAB PO SCH (09:21)
[2018-01-24] MEDS: FLUTICASONE PROPIONATE 50 MCG/ACT 16 GM NASAL SPRAY EACH NARE SCH ×2 (09:21→21:27)
[2018-01-24] MEDS: NYSTAT/DIPHENHY/LIDO MOUTHWASH (Adult) 120ML SWISH-SWAL SCH ×4 (09:22→21:27)
--- NOTE | 2018-01-24 09:55 | PD.ONC.PN ---
Subjective Subjective Remarks Afebrile Patient reports his leg swelling is increased Gets short of breath with activity No bleeding Objective Data Date Time Temp Pulse Resp B/P (MAP) Pulse Ox O2 Delivery O2 Flow Rate FiO2 01/24/18 09:24 97.7 68 20 117/65 (82) 96 01/24/18 04:09 97.5 72 18 128/70 (89) 100 01/24/18 04:00 80 01/24/18 00:06 97 Nasal Cannula 2.00 01/24/18 00:00 66 01/24/18 00:00 97.1 63 16 113/77 (89) 97 01/23/18 20:30 68 01/23/18 20:30 98.0 72 16 124/63 (83) 98 01/23/18 20:30 98 Room Air 01/23/18 17:41 73 01/23/18 16:40 97.8 98 20 118/64 (82) 99 01/23/18 12:19 97.4 70 20 112/69 (83) 99 01/23/18 11:54 71 01/24/18 01/24/18 01/24/18 07:00 15:00 23:00 Intake Total 830 ml Output Total 950 ml Balance -120 ml Result Diagram: 01/24/18 0415 01/24/18 0415 Laboratory Results Laboratory Tests Test 01/23/18 10:00 01/24/18 04:15 Stool C. difficile Toxin (PCR) NEGATIVE Stl C. difficile Toxin Epiderm 027 PRESUMPTIVE NEGATIVE White Blood Count 0.3 TH/MM3 Red Blood Count 2.60 MIL/MM3 Hemoglobin 8.3 GM/DL Hematocrit 23.8 % Mean Corpuscular Volume 91.8 FL Mean Corpuscular Hemoglobin 32.0 PG Mean Corpuscular Hemoglobin Concent 34.9 % Red Cell Distribution Width 14.2 % Platelet Count 12 TH/MM3 Mean Platelet Volume 8.9 FL CBC Comment AUTO DIFF Differential Total Cells Counted 15 Neutrophils % (Manual) 7 % Band Neutrophils % 20 % Lymphocytes % 67 % Monocytes % 7 % Neutrophils # (Manual) 0.1 TH/MM3 Differential Comment FINAL DIFF MANUAL Platelet Estimate LOW Platelet Morphology Comment NORMAL Ovalocytes 1+ Blood Urea Nitrogen 28 MG/DL Creatinine 1.04 MG/DL Random Glucose 132 MG/DL Total Protein 5.7 GM/DL Albumin 2.6 GM/DL Calcium Level 8.0 MG/DL Phosphorus Level 2.5 MG/DL Magnesium Level 1.7 MG/DL Alkaline Phosphatase 94 U/L Aspartate Amino Transf (AST/SGOT) 48 U/L Alanine Aminotransferase (ALT/SGPT) 62 U/L Total Bilirubin 0.6 MG/DL Sodium Level 138 MEQ/L Potassium Level 3.1 MEQ/L Chloride Level 102 MEQ/L Carbon Dioxide Level 23.6 MEQ/L Anion Gap 12 MEQ/L Estimat Glomerular Filtration Rate 69 ML/MIN Administered Medications Medications (Trade) Dose Ordered Sig/Marilee Route PRN Reason Start Time Stop Time Status Last Admin Dose Admin Filgrastim (Neupogen Inj) 480 mcg DAILY@14 SQ 01/20/18 14:00 01/23/18 12:19 Vancomycin HCl 1000 mg/Sodium Chloride 250 ml @ 250 mls/hr Q12H IV 01/19/18 17:00 01/24/18 04:13 Cefepime HCl 2000 mg/Sodium Chloride 100 ml @ 200 mls/hr Q8H IV 01/19/18 17:00 01/24/18 09:22 Allopurinol (Zyloprim) 300 mg DAILY PO 01/20/18 09:00 01/24/18 09:20 Atenolol (Tenormin) 50 mg DAILY PO 01/20/18 09:00 01/24/18 09:21 Fluticasone Propionate (Flonase Gilles Spr) 2 spray BID EACH NARE 01/19/18 21:00 01/24/18 09:21 Sertraline HCl (Zoloft) 50 mg DAILY PO 01/20/18 09:00 01/24/18 09:20 Sitagliptin Phosphate (Januvia) 100 mg DAILY PO 01/20/18 09:00 01/24/18 09:21 Pantoprazole Sodium (Protonix) 20 mg DAILY PO 01/20/18 09:00 01/24/18 09:21 Acetaminophen/ Hydrocodone Bitart ([place] 5-325 Mg) 1 tab Q4H PRN PO pain 2-10 01/19/18 19:00 01/20/18 23:07 Multi-Ingredient Mouthwash/Gargle (Magic Mouthwash Adult Liq) 10 ml QID SWISH-SWAL 01/21/18 09:00 01/24/18 09:22 Acyclovir (Zovirax) 200 mg 5 TIMES A DAY PO 01/21/18 10:00 01/28/18 09:59 01/24/18 09:20 Diphenhydramine HCl (Benadryl) 25 mg Q4H PRN PO SEE LABEL COMMENTS 01/22/18 07:45 01/22/18 12:50 Furosemide (Lasix Inj) 20 mg DAILY IV PUSH 01/22/18 11:00 01/24/18 09:21 Lisinopril (Prinivil) 10 mg DAILY PO 01/23/18 09:00 01/24/18 09:21 Heparin Sodium (Porcine) (Heparin Central Flush) 250 units UNSCH PRN IV FLUSH SEE PROTOCOL TABLE 01/23/18 05:30 01/23/18 14:30 Objective Remarks GENERAL: Elderly male resting in bed in no obvious distress SKIN: Healing scabs noted to right lip, cheek and scalp. Left lateral arm with erythema, open lesion. Bandage covering. HEAD: Normocephalic. EYES: No injection or drainage. NECK: Supple, trachea midline. No JVD or lymphadenopathy. CARDIOVASCULAR: Irregular rhythm RESPIRATORY: Clear anteriorly. On 2L NC. Becomes tachypneic with ambulation GASTROINTESTINAL: Abdomen soft, non-tender, nondistended. EXTREMITIES: No cyanosis, or edema. MUSCULOSKELETAL: Adequate muscle tone. NEUROLOGICAL: No obvious focal deficit. Awake, alert, and oriented x3. Assessment/Plan Problem List: (1) Neutropenic fever ICD Codes: D70.9 - Neutropenia, unspecified; R50.81 - Fever presenting with conditions classified elsewhere Plan: --The patient has been getting Neupogen injections in the clinic Monday through Monday and reported that he had been running fever overnight on Monday. He did not want to go to the emergency room. He was evaluated in clinic and given IV antibiotics as well as IV antivirals for what appears to be a herpes zoster outbreak on the right side of his face/scalp. 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 The patient had stage IV disease with involvement of the bone marrow on initial diagnosis. -- Treated with his first cycle of R- ICE chemo last week. --He received a second opinion at an academic center where they recommended R- EPOCH chemo however this was not feasible due to severe cardiomyopathy. (3) Cardiomyopathy ICD Codes: I42.9 - Cardiomyopathy, unspecified Plan: --Chest x-ray on 01/21 showed vascular congestion --BNP elevated --Cardiology following (4) Pancytopenia due to chemotherapy ICD Codes: D61.810 - Antineoplastic chemotherapy induced pancytopenia Plan: --Transfuse to keep hemoglobin greater than 8 and platelet count greater than 20,000. Assessment 77 y/o male admitted with neutropenic fever Plan 1. Transfuse 1 unit platelets today 2. Continue antibiotics per infectious disease 3. Continue Neupogen for chemotherapy associated neutropenia 4. Supportive care Attending Statement The exam, history, and the medical decision-making described in the above note were completed with the assistance of the mid-level provider. I reviewed and agree with the findings presented. I attest that I had a [id number] encounter with the patient on the same day, and personally performed and documented my assessment and findings in the medical record. Patient feeling a little better. He still had dyspnea on exertion. He has 1+ ankle edema. He still has pancytopenia but remains afebrile. He has no bleeding. We will give him 1 unit of platelet transfusion today. Continue antibiotics per infectious disease. Continue Neupogen. Sally Haywood January 24, 2018 09:55 Garett Granger MD January 24, 2018 15:40
[2018-01-24] MEDS: MAGNESIUM SULFATE 1 GM PREMIX 100 ML IV SCH ×2 (10:45→14:11)
--- NOTE | 2018-01-24 12:47 | HHI.IDPN ---
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 He has had some fevers for 2 days, but the patient has refused to go to the emergency room. He has developed some lesions on his right lower lip and some scalp, and when he went to the oncology clinic for Neupogen injection, he was noted to be febrile, and was having chills. He also has been having significant weakness. He denies any respiratory complaint, GI or any urinary complaints. He has not had any headache. According to the patient and the he has had fever blisters which she is actively on the same location as his current rash on the right lower lip. Patient apparently has had diagnosis of zoster several years ago by his primary care physician and he is rash was in the abdominal area. His initial blood works showed significant neutropenia. He has been febrile. Patient currently is on vancomycin, cefepime, and IV acyclovir. also mentioned that the patient hit his left elbow, and she had noticed that it is now red and swollen which is new. Infectious disease consultation has been requested to evaluate the patient with fever and neutropenia, and a possible zoster rash. Notes reviewed Temps ok Remains pancytopenic BC from oncology center has Klebsiella and Viridans Strep BC here negative so far Counts remain very low Continues with WRIGHT Antibiotics Cefepime Vancomycin Acyclovir Current Medications Medications (Trade) Dose Ordered Sig/Marilee Route Start Time Stop Time Status Last Admin (Neupogen Inj) 480 mcg DAILY@14 SQ 01/20/18 14:00 01/23/18 12:19 Vancomycin HCl 1000 mg/Sodium Chloride 250 ml @ 250 mls/hr Q12H IV 01/19/18 17:00 01/24/18 04:13 Cefepime HCl 2000 mg/Sodium Chloride 100 ml @ 200 mls/hr Q8H IV 01/19/18 17:00 01/24/18 09:22 (Zyloprim) 300 mg DAILY PO 01/20/18 09:00 01/24/18 09:20 (Tenormin) 50 mg DAILY PO 01/20/18 09:00 01/24/18 09:21 (Flonase Gilles Spr) 2 spray BID EACH NARE 01/19/18 21:00 01/24/18 09:21 (Zoloft) 50 mg DAILY PO 01/20/18 09:00 01/24/18 09:20 (Januvia) 100 mg DAILY PO 01/20/18 09:00 01/24/18 09:21 Patient Own Medication PT OWN MED: EZETIMIBE-SIMVASTATIN... HS PO 01/19/18 21:00 (Protonix) 20 mg DAILY PO 01/20/18 09:00 01/24/18 09:21 (Imodium) 2 mg Q6H PRN PO 01/19/18 17:15 (Ativan) 0.5 mg Q6H PRN PO 01/19/18 18:00 ([place] 5-325 Mg) 1 tab Q4H PRN PO 01/19/18 19:00 01/20/18 23:07 (Benadryl) 25 mg Q4H PRN PO 01/21/18 08:00 (Magic Mouthwash Adult Liq) 10 ml QID SWISH-SWAL 01/21/18 09:00 01/24/18 09:22 (Zovirax) 200 mg 5 TIMES A DAY PO 01/21/18 10:00 01/28/18 09:59 01/24/18 09:20 (Duoneb Neb) 1 ampule Q4HR NEB PRN NEB 01/21/18 12:00 (Benadryl) 25 mg Q4H PRN PO 01/22/18 07:45 01/22/18 12:50 (Lasix Inj) 20 mg DAILY IV PUSH 01/22/18 11:00 01/24/18 09:21 (Prinivil) 10 mg DAILY PO 01/23/18 09:00 01/24/18 09:21 (NS Flush) 5 ml UNSCH PRN IV FLUSH 01/23/18 05:30 (Heparin Central Flush) 250 units UNSCH PRN IV FLUSH 01/23/18 05:30 01/23/18 14:30 (Heparin Central Flush) 500 units UNSCH IV FLUSH 01/23/18 05:30 Sodium Chloride 250 ml @ 15 mls/hr ONCE ONCE IV 01/24/18 08:15 01/25/18 00:54 (Benadryl) 25 mg Q4H PRN PO 01/24/18 08:15 01/24/18 12:05 Lines Port right upper chest Past Medical History 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 Diabetes mellitus, Gastroesophageal reflux disease, Cardiomyopathy with ejection fraction around 35%, Gout. Coronary artery disease, status post a heart attack in 1993. Chronic kidney disease. Kidney stone. Past Surgical History Colonoscopy, upper endoscopy Coronary bypass graft surgery in 1995. Hernia repair. Appendectomy Port placement. Allergies: Coded Allergies: erythromycin base (Unverified Allergy, Severe, 05/26/17) Patient denies meperidine (Unverified Allergy, Severe, 05/26/17) Patient denies penicillin G (Unverified Allergy, Severe, 05/26/17) pt. denies oxycodone (Unverified Allergy, Unknown, 05/26/17) pt. denies amoxicillin (Unverified Adverse Reaction, Mild, upset stomach, 05/26/17) Objective . Vital Signs Date Time Temp Pulse Resp B/P (MAP) Pulse Ox O2 Delivery O2 Flow Rate FiO2 01/24/18 09:24 97.7 68 20 117/65 (82) 96 01/24/18 04:09 97.5 72 18 128/70 (89) 100 01/24/18 04:00 80 01/24/18 00:06 97 Nasal Cannula 2.00 01/24/18 00:00 66 01/24/18 00:00 97.1 63 16 113/77 (89) 97 01/23/18 20:30 68 01/23/18 20:30 98.0 72 16 124/63 (83) 98 01/23/18 20:30 98 Room Air 01/23/18 17:41 73 01/23/18 16:40 97.8 98 20 118/64 (82) 99 . Laboratory Tests Test 01/23/18 00:45 01/24/18 04:15 White Blood Count 0.2 TH/MM3 0.3 TH/MM3 Red Blood Count 2.61 MIL/MM3 2.60 MIL/MM3 Hemoglobin 8.5 GM/DL 8.3 GM/DL Hematocrit 24.1 % 23.8 % Mean Corpuscular Volume 92.6 FL 91.8 FL Mean Corpuscular Hemoglobin 32.5 PG 32.0 PG Mean Corpuscular Hemoglobin Concent 35.1 % 34.9 % Red Cell Distribution Width 14.2 % 14.2 % Platelet Count 22 TH/MM3 12 TH/MM3 Mean Platelet Volume 8.6 FL 8.9 FL CBC Comment AUTO DIFF AUTO DIFF Differential Total Cells Counted 25 15 Neutrophils % (Manual) 4 % 7 % Band Neutrophils % 4 % 20 % Lymphocytes % 88 % 67 % Monocytes % 4 % 7 % Neutrophils # (Manual) 0.0 TH/MM3 0.1 TH/MM3 Differential Comment FINAL DIFF MANUAL FINAL DIFF MANUAL Platelet Estimate LOW LOW Platelet Morphology Comment NORMAL NORMAL Ovalocytes 1+ Laboratory Tests Test 01/23/18 00:45 01/24/18 04:15 Blood Urea Nitrogen 29 MG/DL 28 MG/DL Creatinine 1.07 MG/DL 1.04 MG/DL Random Glucose 157 MG/DL 132 MG/DL Calcium Level 7.7 MG/DL 8.0 MG/DL Magnesium Level 1.7 MG/DL 1.7 MG/DL Sodium Level 135 MEQ/L 138 MEQ/L Potassium Level 3.5 MEQ/L 3.1 MEQ/L Chloride Level 102 MEQ/L 102 MEQ/L Carbon Dioxide Level 23.3 MEQ/L 23.6 MEQ/L Anion Gap 10 MEQ/L 12 MEQ/L Estimat Glomerular Filtration Rate 67 ML/MIN 69 ML/MIN Total Creatine Kinase 46 U/L Troponin I 0.02 NG/ML B-Type Natriuretic Peptide 803 PG/ML Total Protein 5.7 GM/DL Albumin 2.6 GM/DL Phosphorus Level 2.5 MG/DL Alkaline Phosphatase 94 U/L Aspartate Amino Transf (AST/SGOT) 48 U/L Alanine Aminotransferase (ALT/SGPT) 62 U/L Total Bilirubin 0.6 MG/DL Imaging Last Impressions Chest X-Ray 01/19/18 0000 Signed Impressions: CONCLUSION: Cardiomegaly with bilateral mostly basilar airspace disease. Differential diagn osis includes mild edema or infection. Physical Exam GENERAL: awake and alert, not in respiratory distress. SKIN: Warm and dry. No generalized rash. Has ecchymoses in his L forearm. Has rash with bloody crust in R lower lip, with improving erythema and swelling around it and one similar and smaller spot on his R cheek HEAD: Atraumatic. Normocephalic. No temporal wasting, or tenderness. EYES: [place] conjunctiva. No petechia or hemorrhage. Pupils equal, round and reactive to light. Extraocular movements full and intact. No scleral icterus. No injection or drainage. EARS, NOSE AND THROAT: Nose without bleeding or purulent nasal discharge. No sinus tenderness. Mucous membranes pink and moist. No oral lesions noted. NECK: Trachea midline. Supple and not tender, no meningeal signs CARDIOVASCULAR: Regular rate and rhythm. No murmurs, rubs or gallops heard. Port looks ok. RESPIRATORY: Clear to auscultation. Breath sounds equal bilaterally. No rales , wheezing or rhonchi ABDOMEN: Soft, non-tender, nondistended. Bowel sounds present and normoactive. No guarding. No rebound. No organomegaly. EXTREMITIES: No clubbing, cyanosis, or edema. No joint effusion, has good ROM. No calf tenderness. Well perfused and warm. RUE - has ecchymoses on the forearm, and has some erythema with mild induration below the R elbow, good ROM at elbow joint NEUROLOGICAL: Awake and alert. Cranial nerves grossly intact. Motor grossly within normal limits. PSYCHIATRIC: Normal affect, calm and cooperative. LINE: No evidence of infection Assessment & Plan Remarks IMPRESSION Febrile neutropenia, status post chemo for large cell lymphoma Kleb and Viridans Strep bacteremia Rash in R lower lip - HSV Large cell lymphoma ?cellulitis R forearm vs due to recent trauma RECOMMENDATION Continue Vanco Continue Cefepime Continue Acyclovir - to finish 01/28 Follow C/S Monitor temps Monitor progress Wait for counts to increase D/W Lin Gilbert MD January 24, 2018 12:47
--- NOTE | 2018-01-24 13:13 | HHI.PR ---
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 He was just discharged from the hospital last weekend. Hehas been getting Neupogen injection at the clinic. According to his , the patient developed fever up to 100.4 yesterday. He, however, refused to go to the emergency room as instructed. This morning he has temperature up to 101. Again, he refused to go to the emergency room. He also developed a blister-like lesion on his right face and scalp yesterday. When he came to the clinic for Neupogen injection, he was noted to be febrile and weak. He also had chills. Blood work showed 0 neutrophils. His platelet count was down to 15,000. He is admitted to the hospital for further evaluation, IV abx. He denies any headache. Denies any visual changes. Denies any focal numbness or weakness. He has no chest pain. Denies any shortness of breath. He has occasional wheezes. He has no nausea, vomiting , diarrhea or abdominal pain. Denies any dysuria or hematuria. He said that the blister-like lesion on his right jaw area is tender. 5- seen with at bedside states feeling better no further diarrhea- days before but not now no urinary symptoms minimal cough feels cold states had diarrhea days ago- none today 5 up already side of the bed- having breakfast- frsutrated with the pancake- - trying to cuy- feels like rubber no difficulty swallowing T down 01-22 sitting at side of bed no chest discomfort still with leg swelling- improved voiding 5- LESS SWELLING BL LOWER EXTREMITIES STILL VERY NEUTROPENIC AND PANCYTOPENIC DW RN AND PT AND FAMILY Patient remains quite neutropenic keep in isolation A.m. 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 WOUND Objective Vitals Vital Signs Date Time Temp Pulse Resp B/P (MAP) Pulse Ox O2 Delivery O2 Flow Rate FiO2 01/24/18 12:49 97.9 57 20 118/69 95 01/24/18 09:24 97.7 68 20 117/65 (82) 96 01/24/18 04:09 97.5 72 18 128/70 (89) 100 01/24/18 04:00 80 01/24/18 00:06 97 Nasal Cannula 2.00 01/24/18 00:00 66 01/24/18 00:00 97.1 63 16 113/77 (89) 97 01/23/18 20:30 68 01/23/18 20:30 98.0 72 16 124/63 (83) 98 01/23/18 20:30 98 Room Air 01/23/18 17:41 73 01/23/18 16:40 97.8 98 20 118/64 (82) 99 I/O 01/23/18 01/23/18 01/23/18 01/24/18 01/24/18 01/24/18 07:00 15:00 23:00 07:00 15:00 23:00 Intake Total 1066 ml 250 ml 830 ml Output Total 1850 ml 500 ml 300 ml 950 ml 325 ml Balance -1850 ml 566 ml -50 ml -120 ml -325 ml Intake Oral 716 ml 250 ml 480 ml IV Total 350 ml 350 ml Output Urine Total 1850 ml 500 ml 300 ml 950 ml 325 ml # Voids 2 # Bowel Movements 2 2 Result Diagram: 01/24/18 0415 01/24/18 0415 Other Results Laboratory Tests Test 01/22/18 04:43 01/23/18 00:45 01/23/18 10:00 01/24/18 04:15 White Blood Count 0.2 TH/MM3 0.2 TH/MM3 0.3 TH/MM3 Corrected White Blood Count 0.0 TH/MM3 Red Blood Count 2.42 MIL/MM3 2.61 MIL/MM3 2.60 MIL/MM3 Hemoglobin 7.9 GM/DL 8.5 GM/DL 8.3 GM/DL Hematocrit 22.4 % 24.1 % 23.8 % Mean Corpuscular Volume 92.6 FL 92.6 FL 91.8 FL Mean Corpuscular Hemoglobin 32.6 PG 32.5 PG 32.0 PG Mean Corpuscular Hemoglobin Concent 35.2 % 35.1 % 34.9 % Red Cell Distribution Width 14.8 % 14.2 % 14.2 % Platelet Count 25 TH/MM3 22 TH/MM3 12 TH/MM3 Mean Platelet Volume 7.7 FL 8.6 FL 8.9 FL CBC Comment AUTO DIFF AUTO DIFF AUTO DIFF Differential Total Cells Counted 15 25 15 Lymphocytes % 87 % 88 % 67 % Monocytes % 13 % 4 % 7 % Differential Comment FINAL DIFF MANUAL FINAL DIFF MANUAL FINAL DIFF MANUAL Platelet Estimate LOW LOW LOW Platelet Morphology Comment NORMAL NORMAL NORMAL Blood Urea Nitrogen 28 MG/DL 29 MG/DL 28 MG/DL Creatinine 1.21 MG/DL 1.07 MG/DL 1.04 MG/DL Random Glucose 136 MG/DL 157 MG/DL 132 MG/DL Calcium Level 8.0 MG/DL 7.7 MG/DL 8.0 MG/DL Sodium Level 136 MEQ/L 135 MEQ/L 138 MEQ/L Potassium Level 3.9 MEQ/L 3.5 MEQ/L 3.1 MEQ/L Chloride Level 105 MEQ/L 102 MEQ/L 102 MEQ/L Carbon Dioxide Level 23.3 MEQ/L 23.3 MEQ/L 23.6 MEQ/L Anion Gap 8 MEQ/L 10 MEQ/L 12 MEQ/L Estimat Glomerular Filtration Rate 58 ML/MIN 67 ML/MIN 69 ML/MIN Neutrophils % (Manual) 4 % 7 % Band Neutrophils % 4 % 20 % Neutrophils # (Manual) 0.0 TH/MM3 0.1 TH/MM3 Magnesium Level 1.7 MG/DL 1.7 MG/DL Total Creatine Kinase 46 U/L Troponin I 0.02 NG/ML B-Type Natriuretic Peptide 803 PG/ML Stool C. difficile Toxin (PCR) NEGATIVE Stl C. difficile Toxin Epiderm 027 PRESUMPTIVE NEGATIVE Ovalocytes 1+ Total Protein 5.7 GM/DL Albumin 2.6 GM/DL Phosphorus Level 2.5 MG/DL Alkaline Phosphatase 94 U/L Aspartate Amino Transf (AST/SGOT) 48 U/L Alanine Aminotransferase (ALT/SGPT) 62 U/L Total Bilirubin 0.6 MG/DL Imaging Last Impressions Chest X-Ray 01/21/18 0000 Signed Impressions: CONCLUSION: Pulmonary venous congestion. Objective Remarks GENERAL: Awake alert and oriented 3 talkative and cooperative SKIN: Warm and dry. Multiple lesions around the lips in various stages of healing HEAD: Atraumatic. Normocephalic. EYES: Pupils equal and round. No scleral icterus. No injection or drainage. Extraocular muscles intact ENT: No nasal bleeding or discharge. Mucous membranes pink and moist. Tongue is midline NECK: Trachea midline. No JVD. Supple CARDIOVASCULAR: Regular rate and rhythm. S1-S2 no S3 or S4 RESPIRATORY: No accessory muscle use. Clear to auscultation. Breath sounds equal bilaterally. GASTROINTESTINAL: Abdomen soft, non-tender, nondistended. Hepatic and splenic margins not palpable. MUSCULOSKELETAL: Extremities without clubbing, cyanosis +1 to trace edema lower extrema. No obvious deformities. NEUROLOGICAL: Awake and alert. No obvious cranial nerve deficits. Motor grossly within normal limits. 4 out of 5 muscle strength in the arms and legs. Normal speech. PSYCHIATRIC: Appropriate mood and affect; insight and judgment normal. Procedures NONE Medications and IVs Current Medications Filgrastim (Neupogen Inj) 480 mcg DAILY@14 SQ Last administered on 01/23/18 12 :19; Start 01/20/18 at 14:00 Vancomycin HCl 1000 mg/Sodium Chloride 250 ml @ 250 mls/hr Q12H IV Last administered on 01/24/18at 04:13; Start 01/19/18 at 17:00 Acyclovir Sodium 700 mg/Sodium Chloride 100 ml @ 100 mls/hr Q8H IV Last administered on 01/20/18at 10:58; Start 01/19/18 at 17:00; Stop 01/20/18 at 11:10 ; Status DC Loperamide HCl (Imodium) 2 mg Q4H PRN PO diarrhea ; Start 01/19/18 at 16:00; Stop 01/19/18 at 17:05; Status DC Cefepime HCl 2000 mg/Sodium Chloride 100 ml @ 200 mls/hr Q8H IV Last administered on 01/24/18at 09:22; Start 01/19/18 at 17:00 Sodium Chloride 250 ml @ 15 mls/hr ONCE ONCE IV Last administered on at 16:54; Start 01/19/18 at 16:00; Stop 01/20/18 at 08:39; Status DC Acetaminophen (Tylenol) 650 mg Q4H PRN PO mild pain/ fever/ headache ; Start at 16:00; Stop 01/19/18 at 16:36; Status DC Allopurinol (Zyloprim) 300 mg DAILY PO Last administered on 01/24/18at 09:20; Start 01/20/18 at 09:00 Aspirin (Aspirin Chew) 81 mg DAILY CHEW Last administered on 01/21/18at 08:57; Start 01/20/18 at 09:00; Stop 01/22/18 at 07:45; Status DC Atenolol (Tenormin) 50 mg DAILY PO Last administered on 01/24/18 09:21; Start 01/20/18 at 09:00 Fluticasone Propionate (Flonase Gilles Spr) 2 spray BID EACH NARE Last administered on 01/24/18 09:21; Start 01/19/18 at 21:00 Sertraline HCl (Zoloft) 50 mg DAILY PO Last administered on 01/24/18 09:20; Start 01/20/18 at 09:00 Sitagliptin Phosphate (Januvia) 100 mg DAILY PO Last administered on 01/24/18 09:21; Start 01/20/18 at 09:00 Patient Own Medication PT OWN MED: EZETIMIBE-SIMVASTATIN... HS PO ; Start at 21:00 Pantoprazole Sodium (Protonix) 20 mg DAILY PO Last administered on 01/24/18 09 :21; Start 01/20/18 at 09:00 Sodium Chloride 1,000 ml @ 75 mls/hr [id number] IV Last administered on 23:23; Start 01/19/18 at 18:00; Stop 01/22/18 at 09:59; Status DC Loperamide HCl (Imodium) 2 mg Q6H PRN PO diarrhea ; Start 01/19/18 at 17:15 Lorazepam (Ativan) 0.5 mg Q6H PRN PO ANXIETY ; Start 01/19/18 at 18:00 Acetaminophen/ Hydrocodone Bitart ([place] 5-325 Mg) 1 tab Q4H PRN PO pain 2-10 Last administered on 01/20/18at 23:07; Start 01/19/18 at 19:00 Sodium Chloride 250 ml @ 15 mls/hr ONCE ONCE IV Last administered on at 12:46; Start 01/20/18 at 10:30; Stop 01/21/18 at 03:09; Status DC Diphenhydramine HCl (Benadryl) 25 mg Q4H PRN PO SEE LABEL COMMENTS Last administered on 01/21/18at 09:40; Start 01/20/18 at 10:30; Stop 01/21/18 at 09:40 ; Status DC Acyclovir Sodium 400 mg/Sodium Chloride 100 ml @ 100 mls/hr Q8H IV Last administered on 01/21/18at 00:25; Start 01/20/18 at 17:00; Stop 01/21/18 at 08:09 ; Status DC Sodium Chloride 250 ml @ 15 mls/hr ONCE ONCE IV Last administered on at 09:44; Start 01/21/18 at 08:00; Stop 01/22/18 at 00:39; Status DC Diphenhydramine HCl (Benadryl) 25 mg Q4H PRN PO SEE LABEL COMMENTS; Start 01/21 at 08:00 Multi-Ingredient Mouthwash/Gargle (Magic Mouthwash Adult Liq) 10 ml QID SWISH- SWAL Last administered on 01/24/18at 09:22; Start 01/21/18 at 09:00 Acyclovir (Zovirax) 200 mg 5 TIMES A DAY PO Last administered on 01/24/18at 09: 20; Start 01/21/18 at 10:00; Stop 01/28/18 at 09:59 Albuterol/ Ipratropium (Duoneb Neb) 1 ampule Q4HR NEB PRN NEB sob/wheezing; Start 01/21/18 at 12:00 Furosemide (Lasix Inj) 20 mg NOW ONCE IV PUSH Last administered on 01/21/18at 14:46; Start 01/21/18 at 14:30; Stop 01/21/18 at 14:31; Status DC Furosemide (Lasix Inj) 40 mg ONCE ONCE IV PUSH Last administered on 01/21/18at 20:12; Start 01/21/18 at 19:15; Stop 01/21/18 at 19:16; Status DC Sodium Chloride 250 ml @ 15 mls/hr ONCE ONCE IV Last administered on at 14:40; Start 01/22/18 at 07:45; Stop 01/23/18 at 00:24; Status DC Diphenhydramine HCl (Benadryl) 25 mg Q4H PRN PO SEE LABEL COMMENTS Last administered on 01/22/18at 12:50; Start 01/22/18 at 07:45 Furosemide (Lasix Inj) 20 mg DAILY IV PUSH Last administered on 01/24/18at 09:21 ; Start 01/22/18 at 11:00 Lisinopril (Prinivil) 10 mg DAILY PO Last administered on 01/24/18at 09:21; Start 01/23/18 at 09:00 Furosemide (Lasix Inj) 40 mg ONCE ONCE IV PUSH Last administered on 01/23/18at 00:35; Start 01/23/18 at 00:30; Stop 01/23/18 at 00:31; Status DC Sodium Chloride (NS Flush) 5 ml UNSCH PRN IV FLUSH SEE PROTOCOL TABLE; Start at 05:30 Heparin Sodium (Porcine) (Heparin Central Flush) 250 units UNSCH PRN IV FLUSH SEE PROTOCOL TABLE Last administered on 01/23/18at 14:30; Start 01/23/18 at 05:30 Heparin Sodium (Porcine) (Heparin Central Flush) 500 units UNSCH IV FLUSH ; Start 01/23/18 at 05:30 Alteplase, Recombinant (Cathflo Activase Inj) 2 mg ONCE ONCE IV Last administered on 01/23/18at 16:40; Start 01/23/18 at 16:00; Stop 01/23/18 at 16:01 ; Status DC Sodium Chloride 250 ml @ 15 mls/hr ONCE ONCE IV ; Start 01/24/18 at 08:15; Stop 01/25/18 at 00:54 Diphenhydramine HCl (Benadryl) 25 mg Q4H PRN PO SEE LABEL COMMENTS Last administered on 01/24/18at 12:05; Start 01/24/18 at 08:15 Magnesium Sulfate/ Dextrose 100 ml @ 100 mls/hr Q1H IV Last administered on at 10:45; Start 01/24/18 at 09:00; Stop 01/24/18 at 10:59; Status DC Potassium Bicarbonate (Effer-K Eff) 75 meq ONCE ONCE PO Last administered on at 10:45; Start 01/24/18 at 09:00; Stop 01/24/18 at 09:04; Status DC A/P Problem List: (1) Cardiomyopathy ICD Code: I42.9 - Cardiomyopathy, unspecified (2) Large B-cell lymphoma ICD Code: C85.10 - Unspecified B-cell lymphoma, unspecified site (3) Anemia + thrombocytopenia (4) Lymphoma ICD Code: C85.90 - Non-Hodgkin lymphoma, unspecified, unspecified site (5) Retroperitoneal lymphadenopathy ICD Code: R59.0 - Localized enlarged lymph nodes Assessment and Plan 77 years old male Severe Sepsis (fever, tachycardia. source rash, neutropenic fever, Lactic acid > 2) on admission Neutropenic fever Varicella Zoster on his scalp and right face, worrisome for varicella zoster infection- scabs drying up Blood cultures negative so far Urinalysis is unremarkable. on Vanco, cefepime and acyclovir ID ff stools ordered for C diff study- no reported diarrhea Pancytopenia due to recent chemotherapy. Large B cell lymphoma stage IV, treated with Rituxan and bendamustine. Neutrophil trended down to 0. Transfuse to keep hemoglobin above 8 and platelet count above 20,000 given his symptoms. - blood product transfusion per Hematology -ONcology ff TRANSFUSE PLATELETS 5-30 Cardiomyopathy with low EF 35 % on recent OP ECHO. good sats Recent echocardiogram showed ejection fraction of 35%. He has been followed by cardiology. on Lasix IV daily - Lisinopril 10 mg po daily Diabetes mellitus 2, stable. on Januvia. good readings on BMP. Gastroesophageal reflux disease, stable. PPI Anxiety/ depression continue home emds ativan as need Patient up and ambulating seen with supportive at bedside Patient remains quite neutropenic at this time keep in isolation THROMBOCYTOPENIA BEING TRANSFUSED PLATELETS 5-30 Discharge Planning PENDING HEM/ONC ID CLEARANCE Leo Rai DO January 24, 2018 13:13
[2018-01-24] MEDS: FILGRASTIM 480 MCG/1.6 ML VIAL SQ SCH (13:46)
--- NOTE | 2018-01-24 16:12 | PD.WCN.NOT ---
Wound Consult Description: Consult for WOUND MANAGEMENT of left arm wound per Dr Rai Communicated with: Patient ANIA Peter was unavailable, Spoke with ANIA Dorsey at nurses station Recommendation: Leave absorbant transparent film in place for up to 7 days unless dressing is saturated or dislodged. Additional Information: Patient seen on [facility] for left forearm wound. Bordered gauze dressing dated today noted with scant sero-sanguinous exudate was removed from left forearm to reveal an open wound measuring 0.4cm x 0.3cm x 0.2cm of 100% pink tissue noted in partial thickness wound bed with maceration to periwound with purple discoloration and induration. Patient states that he bumped his arm prior to his arrival here and it has gotten worse. Taking into account the patients current condition (low platelets) it is not surprising that his arm is quite ecchymotic from the trauma giving the appearance. The wound was thoroughly cleansed with NS and gauze. Slight pressure was applied to the surrounding area with no evidence of drainage from the wound bed. Mask was required to enter patient room, therefore if the wound had an odor it would have been difficult to detect. An absorbant transparent film was applied for two reasons. The area is tender to touch, making dressing changes uncomfortable for the patient, and the wound is not actively draining. Transparent absorbant film dressing may remain in place if undisturbed for up to 7 days and hold a minimal amount of drainage. Wound can be visualized without removing the dressing. The dressing can be removed by loosening the edges with adhesive remover. If wound begins actively draining, requiring dressing removal please hayley pattern hanger for other dressing options and possible wound culture. Jeannie Leach [facility] January 24, 2018 16:12
[2018-01-24] MEDS: EZETIMIBE PO SCH (21:13)
[2018-01-24] MEDS: SIMVASTATIN PO SCH (21:13)
[2018-01-25] VITALS (12 sets, daily range): BP systolic 113–153; BP diastolic 56–84; PULSE 67–82; RESP 16–24; TEMP 97.2–98.7; O2SAT 98–100
[2018-01-25] MEDS: CEFEPIME INJ 2,000 MG in SODIUM CHLORIDE 0.9% INJ 100 ML IV SCH ×3 (01:45→19:58)
[2018-01-25 03:51] LABS: VZV PCR RESULT <500 (<500 copies)
[2018-01-25] MEDS: VANCOMYCIN INJ 1,000 MG in SODIUM CHLOR 0.9% 250 ML INJ 250 ML IV SCH ×2 (05:14→20:53)
[2018-01-25] MEDS: ACYCLOVIR 200 MG CAP PO SCH ×5 (05:14→20:53)
[2018-01-25] MEDS: RESP: ALBUTEROL 2.5 MG/IPRATROPIUM 0.5 MG NEB (PRN) NEB ×2 (05:50→20:07)
[2018-01-25 06:00] LABS: HEMATOCRIT 21.9 % (39.0-51.0); HEMOGLOBIN 7.7 GM/DL (13.0-17.0); MEAN CELL VOLUME 91.9 FL (80.0-100.0); MEAN CORPUSCULAR HEMOGLOBIN 32.2 PG (27.0-34.0); MEAN PLATELET VOLUME 8.5 FL (7.0-11.0); RED BLOOD COUNT 2.39 MIL/MM3 (4.50-5.90); RED CELL DISTRIBUTION WIDTH 14.2 % (11.6-17.2); WHITE BLOOD COUNT 0.7 TH/MM3 (4.0-11.0)
[2018-01-25 06:05] LABS: PLATELET COUNT 17 TH/MM3 (150-450)
[2018-01-25 06:23] LABS: ALBUMIN 2.7 GM/DL (3.4-5.0); AST (GOT) 31 U/L (15-37); BICARBONATE 23.7 MEQ/L (21.0-32.0); BLOOD UREA NITROGEN 26 MG/DL (7-18); CALCIUM 8.2 MG/DL (8.5-10.1); CHLORIDE 106 MEQ/L (98-107); CREATININE 1.04 MG/DL (0.60-1.30); GLOMERULAR FILTRATION RATE 69 ML/MIN (>89); GLUCOSE,RANDOM 137 MG/DL (74-106); SODIUM (NA) 138 MEQ/L (136-145)
[2018-01-25 06:27] LABS: ALKALINE PHOSPHATASE 90 U/L (45-117); ALT (GPT) 54 U/L (12-78); PHOSPHORUS 2.3 MG/DL (2.5-4.9); TOTAL BILIRUBIN ADULT 0.7 MG/DL (0.2-1.0); TOTAL PROTEIN 5.6 GM/DL (6.4-8.2)
[2018-01-25] MEDS ORDERED: ACETAMINOPHEN 325 MG TAB PO PRN (08:15)
[2018-01-25] MEDS ORDERED: diphenhydrAMINE HCL 25 MG CAP PO PRN (08:15)
[2018-01-25] MEDS ORDERED: SODIUM CHLOR 0.9% 250 ML INJ 250 ML IV ONE (08:15)
[2018-01-25] MEDS ORDERED: FUROSEMIDE 20 MG/2 ML VIAL IV PUSH ONE (08:15)
[2018-01-25] MEDS: ALLOPURINOL 300 MG TAB PO SCH (09:00)
[2018-01-25] MEDS ORDERED: POTASSIUM BICARBONATE 25 MEQ EFFERVESCENT TAB PO ONE (09:00)
--- NOTE | 2018-01-25 09:16 | RADRPT ---
EXAM DATE: 01/25/2018 9:04 AM EDT AGE/SEX: 77 years / Male INDICATIONS: Ascites. CLINICAL DATA: This is the patient's initial encounter. Patient reports that signs and symptoms have been present for 1 day and indicates a pain score of 0/10. MEDICAL/SURGICAL HISTORY: Hypercholesterolemia. Hypertension. Myocardial infarction. Arthritis . Transitional B cell lymphoma. Chemotherapy. Diabetes. GERD. Appendectomy. Inguinal hernia repair. right shoulder surgery. Kidney stones removed. CABG. COMPARISON: No prior [place] exams available for comparison. FINDINGS: Imaging of the 4 quadrants of the abdomen obtained. Masses: None Fluid Collections: None Other: No abdominal ascites. Cholelithiasis. Bilateral pleural effusions. CONCLUSION: 1. No abdominal ascites. 2. Cholelithiasis. 3. Bilateral pleural effusions. Electronically signed by: Arpit Perez MD 01/25/2018 9:15 AM EDT
--- NOTE | 2018-01-25 09:28 | PD.ONC.PN ---
Subjective Subjective Remarks Afebrile overnight. Patient resting in bed. tired of being in the hospital. feeling somewhat discouraged. Objective Data Date Time Temp Pulse Resp B/P (MAP) Pulse Ox O2 Delivery O2 Flow Rate FiO2 01/25/18 08:00 97.7 70 18 146/66 (92) 99 01/25/18 05:13 100 Nasal Cannula 2.00 01/25/18 05:11 97.4 69 19 118/66 (83) 100 01/25/18 04:00 67 01/25/18 00:01 97.6 77 17 128/78 (95) 98 01/25/18 00:00 67 01/24/18 23:40 100 Nasal Cannula 3.00 01/24/18 21:15 97.8 74 18 119/67 (84) 98 01/24/18 21:15 70 01/24/18 21:15 98 Nasal Cannula 2.00 01/24/18 16:25 97.7 76 23 123/73 (90) 99 01/24/18 13:30 97.2 59 20 119/45 100 01/24/18 12:49 97.9 57 20 118/69 (85) 95 01/24/18 12:49 97.9 57 20 118/69 95 01/25/18 01/25/18 01/25/18 07:00 15:00 23:00 Intake Total 550 ml Output Total 400 ml Balance 150 ml Result Diagram: 01/25/18 0515 01/25/18 0515 Laboratory Results Laboratory Tests Test 01/25/18 05:15 White Blood Count 0.7 TH/MM3 Red Blood Count 2.39 MIL/MM3 Hemoglobin 7.7 GM/DL Hematocrit 21.9 % Mean Corpuscular Volume 91.9 FL Mean Corpuscular Hemoglobin 32.2 PG Mean Corpuscular Hemoglobin Concent 35.0 % Red Cell Distribution Width 14.2 % Platelet Count 17 TH/MM3 Mean Platelet Volume 8.5 FL CBC Comment AUTO DIFF Blood Urea Nitrogen 26 MG/DL Creatinine 1.04 MG/DL Random Glucose 137 MG/DL Total Protein 5.6 GM/DL Albumin 2.7 GM/DL Calcium Level 8.2 MG/DL Phosphorus Level 2.3 MG/DL Magnesium Level 2.0 MG/DL Alkaline Phosphatase 90 U/L Aspartate Amino Transf (AST/SGOT) 31 U/L Alanine Aminotransferase (ALT/SGPT) 54 U/L Total Bilirubin 0.7 MG/DL Sodium Level 138 MEQ/L Potassium Level 3.4 MEQ/L Chloride Level 106 MEQ/L Carbon Dioxide Level 23.7 MEQ/L Anion Gap 8 MEQ/L Estimat Glomerular Filtration Rate 69 ML/MIN Imaging Studies Last 24 hours Impressions Abdomen Ultrasound 01/25/18 0000 Signed Impressions: CONCLUSION: 1. No abdominal ascites. 2. Cholelithiasis. 3. Bilateral pleural effusions. Administered Medications Medications (Trade) Dose Ordered Sig/Marilee Route PRN Reason Start Time Stop Time Status Last Admin Dose Admin Filgrastim (Neupogen Inj) 480 mcg DAILY@14 SQ 01/20/18 14:00 01/24/18 13:46 Vancomycin HCl 1000 mg/Sodium Chloride 250 ml @ 250 mls/hr Q12H IV 01/19/18 17:00 01/25/18 05:14 Cefepime HCl 2000 mg/Sodium Chloride 100 ml @ 200 mls/hr Q8H IV 01/19/18 17:00 01/25/18 01:45 Allopurinol (Zyloprim) 300 mg DAILY PO 01/20/18 09:00 01/24/18 09:20 Atenolol (Tenormin) 50 mg DAILY PO 01/20/18 09:00 01/24/18 09:21 Fluticasone Propionate (Flonase Gilles Spr) 2 spray BID EACH NARE 01/19/18 21:00 01/24/18 09:21 Sertraline HCl (Zoloft) 50 mg DAILY PO 01/20/18 09:00 01/24/18 09:20 Sitagliptin Phosphate (Januvia) 100 mg DAILY PO 01/20/18 09:00 01/24/18 09:21 Pantoprazole Sodium (Protonix) 20 mg DAILY PO 01/20/18 09:00 01/24/18 09:21 Acetaminophen/ Hydrocodone Bitart ([place] 5-325 Mg) 1 tab Q4H PRN PO pain 2-10 01/19/18 19:00 01/20/18 23:07 Multi-Ingredient Mouthwash/Gargle (Magic Mouthwash Adult Liq) 10 ml QID SWISH-SWAL 01/21/18 09:00 01/24/18 18:40 Acyclovir (Zovirax) 200 mg 5 TIMES A DAY PO 01/21/18 10:00 01/28/18 09:59 01/25/18 05:14 Albuterol/ Ipratropium (Duoneb Neb) 1 ampule Q4HR NEB PRN NEB sob/wheezing 01/21/18 12:00 01/25/18 05:50 Diphenhydramine HCl (Benadryl) 25 mg Q4H PRN PO SEE LABEL COMMENTS 01/22/18 07:45 01/22/18 12:50 Furosemide (Lasix Inj) 20 mg DAILY IV PUSH 01/22/18 11:00 01/24/18 09:21 Lisinopril (Prinivil) 10 mg DAILY PO 01/23/18 09:00 01/24/18 09:21 Heparin Sodium (Porcine) (Heparin Central Flush) 250 units UNSCH PRN IV FLUSH SEE PROTOCOL TABLE 01/23/18 05:30 01/23/18 14:30 Diphenhydramine HCl (Benadryl) 25 mg Q4H PRN PO SEE LABEL COMMENTS 01/24/18 08:15 01/24/18 12:05 Objective Remarks GENERAL: elderly male, sitting upright in bed. on 2L O2 via NC SKIN: Warm and dry. HEAD: Normocephalic. EYES: No injection or drainage. NECK: Supple, trachea midline. CARDIOVASCULAR: Regular rate and rhythm RESPIRATORY: Breath sounds equal bilaterally. No accessory muscle use. GASTROINTESTINAL: Abdomen soft, non-tender, nondistended. EXTREMITIES: No cyanosis. 1+edema bilateral ankles. MUSCULOSKELETAL: Adequate muscle tone. NEUROLOGICAL: awake and alert. normal speech. moving extremities. Assessment/Plan Problem List: (1) Neutropenic fever ICD Codes: D70.9 - Neutropenia, unspecified; R50.81 - Fever presenting with conditions classified elsewhere Plan: --Infectious disease following --on vancomycin, cefepime and acyclovir --most recent blood cultures with no growth. 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 The patient had stage IV disease with involvement of the bone marrow on initial diagnosis. -- Treated with his first cycle of R- ICE chemo last week. --He received a second opinion at an academic center where they recommended R- EPOCH chemo however this was not feasible due to severe cardiomyopathy. (3) Cardiomyopathy ICD Codes: I42.9 - Cardiomyopathy, unspecified Plan: --Chest x-ray on 01/21 showed vascular congestion --BNP elevated --Cardiology following (4) Pancytopenia due to chemotherapy ICD Codes: D61.810 - Antineoplastic chemotherapy induced pancytopenia Plan: --Transfuse to keep hemoglobin greater than 8 and platelet count greater than 20,000. Assessment 77 y/o male admitted with neutropenic fever Plan 1. continue Neupogen 2. give 1 unit pRBC and 1 unit platelets 3. continue antibiotics 4. give lasix after pRBC transfusion. Attending Statement The exam, history, and the medical decision-making described in the above note were completed with the assistance of the mid-level provider. I reviewed and agree with the findings presented. I attest that I had a [id number] encounter with the patient on the same day, and personally performed and documented my assessment and findings in the medical record. Has SOB. C/o abdominal distention. Get US abdomen to r/o ascites. Counts are still low, Transfuse PRBC/platelet today. Discussed with pt and his . Continue neupogen. Shirley Hernandez January 25, 2018 09:28 Garett Granger MD January 25, 2018 15:25
--- NOTE | 2018-01-25 09:49 | HHI.IDPN ---
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 He has had some fevers for 2 days, but the patient has refused to go to the emergency room. He has developed some lesions on his right lower lip and some scalp, and when he went to the oncology clinic for Neupogen injection, he was noted to be febrile, and was having chills. He also has been having significant weakness. He denies any respiratory complaint, GI or any urinary complaints. He has not had any headache. According to the patient and the he has had fever blisters which she is actively on the same location as his current rash on the right lower lip. Patient apparently has had diagnosis of zoster several years ago by his primary care physician and he is rash was in the abdominal area. His initial blood works showed significant neutropenia. He has been febrile. Patient currently is on vancomycin, cefepime, and IV acyclovir. also mentioned that the patient hit his left elbow, and she had noticed that it is now red and swollen which is new. Infectious disease consultation has been requested to evaluate the patient with fever and neutropenia, and a possible zoster rash. Notes reviewed Temps ok Remains pancytopenic BC from oncology center has Klebsiella and Viridans Strep BC here negative so far Counts remain very low No new complaints Antibiotics Cefepime Vancomycin Acyclovir Current Medications Medications (Trade) Dose Ordered Sig/Marilee Route Start Time Stop Time Status Last Admin (Neupogen Inj) 480 mcg DAILY@14 SQ 01/20/18 14:00 01/24/18 13:46 Vancomycin HCl 1000 mg/Sodium Chloride 250 ml @ 250 mls/hr Q12H IV 01/19/18 17:00 01/25/18 05:14 Cefepime HCl 2000 mg/Sodium Chloride 100 ml @ 200 mls/hr Q8H IV 01/19/18 17:00 01/25/18 01:45 (Zyloprim) 300 mg DAILY PO 01/20/18 09:00 01/24/18 09:20 (Tenormin) 50 mg DAILY PO 01/20/18 09:00 01/24/18 09:21 (Flonase Gilles Spr) 2 spray BID EACH NARE 5/25/18 21:00 01/24/18 09:21 (Zoloft) 50 mg DAILY PO 01/20/18 09:00 01/24/18 09:20 (Januvia) 100 mg DAILY PO 01/20/18 09:00 01/24/18 09:21 Patient Own Medication PT OWN MED: EZETIMIBE-SIMVASTATIN... HS PO 01/19/18 21:00 (Protonix) 20 mg DAILY PO 01/20/18 09:00 01/24/18 09:21 (Imodium) 2 mg Q6H PRN PO 01/19/18 17:15 (Ativan) 0.5 mg Q6H PRN PO 01/19/18 18:00 ([place] 5-325 Mg) 1 tab Q4H PRN PO 01/19/18 19:00 01/20/18 23:07 (Magic Mouthwash Adult Liq) 10 ml QID SWISH-SWAL 01/21/18 09:00 01/24/18 18:40 (Zovirax) 200 mg 5 TIMES A DAY PO 01/21/18 10:00 01/28/18 09:59 01/25/18 05:14 (Duoneb Neb) 1 ampule Q4HR NEB PRN NEB 01/21/18 12:00 01/25/18 05:50 (Benadryl) 25 mg Q4H PRN PO 01/22/18 07:45 01/22/18 12:50 (Lasix Inj) 20 mg DAILY IV PUSH 01/22/18 11:00 01/24/18 09:21 (Prinivil) 10 mg DAILY PO 01/23/18 09:00 01/24/18 09:21 (NS Flush) 5 ml UNSCH PRN IV FLUSH 01/23/18 05:30 (Heparin Central Flush) 250 units UNSCH PRN IV FLUSH 01/23/18 05:30 01/23/18 14:30 (Heparin Central Flush) 500 units UNSCH IV FLUSH 01/23/18 05:30 (Benadryl) 25 mg Q4H PRN PO 01/24/18 08:15 01/24/18 12:05 Sodium Chloride 250 ml @ 15 mls/hr ONCE ONCE IV 01/25/18 08:15 01/26/18 00:54 (Tylenol) 650 mg Q4H PRN PO 01/25/18 08:15 (Benadryl) 25 mg Q4H PRN PO 01/25/18 08:15 Lines Port right upper chest Past Medical History 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 Diabetes mellitus, Gastroesophageal reflux disease, Cardiomyopathy with ejection fraction around 35%, Gout. Coronary artery disease, status post a heart attack in 1993. Chronic kidney disease. Kidney stone. Past Surgical History Colonoscopy, upper endoscopy Coronary bypass graft surgery in 1995. Hernia repair. Appendectomy Port placement. Allergies: Coded Allergies: erythromycin base (Unverified Allergy, Severe, 05/26/17) Patient denies meperidine (Unverified Allergy, Severe, 05/26/17) Patient denies penicillin G (Unverified Allergy, Severe, 05/26/17) pt. denies oxycodone (Unverified Allergy, Unknown, 05/26/17) pt. denies amoxicillin (Unverified Adverse Reaction, Mild, upset stomach, 05/26/17) Objective . Vital Signs Date Time Temp Pulse Resp B/P (MAP) Pulse Ox O2 Delivery O2 Flow Rate FiO2 01/25/18 08:00 97.7 70 18 146/66 (92) 99 01/25/18 05:13 100 Nasal Cannula 2.00 01/25/18 05:11 97.4 69 19 118/66 (83) 100 01/25/18 04:00 67 01/25/18 00:01 97.6 77 17 128/78 (95) 98 01/25/18 00:00 67 01/24/18 23:40 100 Nasal Cannula 3.00 01/24/18 21:15 97.8 74 18 119/67 (84) 98 01/24/18 21:15 70 01/24/18 21:15 98 Nasal Cannula 2.00 01/24/18 16:25 97.7 76 23 123/73 (90) 99 01/24/18 13:30 97.2 59 20 119/45 100 01/24/18 12:49 97.9 57 20 118/69 (85) 95 01/24/18 12:49 97.9 57 20 118/69 95 . Laboratory Tests Test 01/24/18 04:15 01/25/18 05:15 White Blood Count 0.3 TH/MM3 0.7 TH/MM3 Red Blood Count 2.60 MIL/MM3 2.39 MIL/MM3 Hemoglobin 8.3 GM/DL 7.7 GM/DL Hematocrit 23.8 % 21.9 % Mean Corpuscular Volume 91.8 FL 91.9 FL Mean Corpuscular Hemoglobin 32.0 PG 32.2 PG Mean Corpuscular Hemoglobin Concent 34.9 % 35.0 % Red Cell Distribution Width 14.2 % 14.2 % Platelet Count 12 TH/MM3 17 TH/MM3 Mean Platelet Volume 8.9 FL 8.5 FL CBC Comment AUTO DIFF AUTO DIFF Differential Total Cells Counted 15 Neutrophils % (Manual) 7 % Band Neutrophils % 20 % Lymphocytes % 67 % Monocytes % 7 % Neutrophils # (Manual) 0.1 TH/MM3 Differential Comment FINAL DIFF MANUAL Platelet Estimate LOW Platelet Morphology Comment NORMAL Ovalocytes 1+ Laboratory Tests Test 01/24/18 04:15 01/25/18 05:15 Blood Urea Nitrogen 28 MG/DL 26 MG/DL Creatinine 1.04 MG/DL 1.04 MG/DL Random Glucose 132 MG/DL 137 MG/DL Total Protein 5.7 GM/DL 5.6 GM/DL Albumin 2.6 GM/DL 2.7 GM/DL Calcium Level 8.0 MG/DL 8.2 MG/DL Phosphorus Level 2.5 MG/DL 2.3 MG/DL Magnesium Level 1.7 MG/DL 2.0 MG/DL Alkaline Phosphatase 94 U/L 90 U/L Aspartate Amino Transf (AST/SGOT) 48 U/L 31 U/L Alanine Aminotransferase (ALT/SGPT) 62 U/L 54 U/L Total Bilirubin 0.6 MG/DL 0.7 MG/DL Sodium Level 138 MEQ/L 138 MEQ/L Potassium Level 3.1 MEQ/L 3.4 MEQ/L Chloride Level 102 MEQ/L 106 MEQ/L Carbon Dioxide Level 23.6 MEQ/L 23.7 MEQ/L Anion Gap 12 MEQ/L 8 MEQ/L Estimat Glomerular Filtration Rate 69 ML/MIN 69 ML/MIN Imaging Last Impressions Chest X-Ray 01/19/18 0000 Signed Impressions: CONCLUSION: Cardiomegaly with bilateral mostly basilar airspace disease. Differential diagn osis includes mild edema or infection. Physical Exam GENERAL: awake and alert, not in respiratory distress. SKIN: Warm and dry. No generalized rash. Has ecchymoses in his L forearm. HSV lesions lower lip with eschar, erythema gone. HEAD: Atraumatic. Normocephalic. No temporal wasting, or tenderness. EYES: [place] conjunctiva. No petechia or hemorrhage. Pupils equal, round and reactive to light. Extraocular movements full and intact. No scleral icterus. No injection or drainage. EARS, NOSE AND THROAT: Nose without bleeding or purulent nasal discharge. No sinus tenderness. Mucous membranes pink and moist. No oral lesions noted. NECK: Trachea midline. Supple and not tender, no meningeal signs CARDIOVASCULAR: Regular rate and rhythm. No murmurs, rubs or gallops heard. Port looks ok. RESPIRATORY: Clear to auscultation. Breath sounds equal bilaterally. No rales , wheezing or rhonchi ABDOMEN: Soft, non-tender, nondistended. Bowel sounds present and normoactive. No guarding. No rebound. No organomegaly. EXTREMITIES: No clubbing, cyanosis, or edema. No joint effusion, has good ROM. No calf tenderness. Well perfused and warm. RUE - has ecchymoses on the forearm, and has some erythema with mild induration below the R elbow, good ROM at elbow joint NEUROLOGICAL: Awake and alert. Cranial nerves grossly intact. Motor grossly within normal limits. PSYCHIATRIC: Normal affect, calm and cooperative. 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
[2018-01-25] MEDS: NYSTAT/DIPHENHY/LIDO MOUTHWASH (Adult) 120ML SWISH-SWAL SCH ×4 (10:13→20:53)
[2018-01-25] MEDS: PANTOPRAZOLE SOD 20 MG DELAYED RELEASE TAB PO SCH (10:14)
[2018-01-25] MEDS: SERTRALINE HCL 50 MG TAB PO SCH (10:14)
[2018-01-25] MEDS: FUROSEMIDE 20 MG/2 ML VIAL IV PUSH SCH (10:14)
[2018-01-25] MEDS: ATENOLOL 50 MG TAB PO SCH (10:15)
[2018-01-25] MEDS: FLUTICASONE PROPIONATE 50 MCG/ACT 16 GM NASAL SPRAY EACH NARE SCH ×2 (10:15→20:52)
[2018-01-25] MEDS: LISINOPRIL 10 MG TAB PO SCH (10:15)
[2018-01-25 10:42] LABS: BANDS 28 % (0-6); LYMPHOCYTES 20 % (9-44); MONOCYTES 18 % (0-8); NEUTROPHIL # MANUAL DIFF 0.4 TH/MM3 (1.8-7.7); POLYS (SEG NEUTROPHILS) 34 % (16-70)
--- NOTE | 2018-01-25 12:41 | HHI.PR ---
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 He was just discharged from the hospital last weekend. Hehas been getting Neupogen injection at the clinic. According to his , the patient developed fever up to 100.4 yesterday. He, however, refused to go to the emergency room as instructed. This morning he has temperature up to 101. Again, he refused to go to the emergency room. He also developed a blister-like lesion on his right face and scalp yesterday. When he came to the clinic for Neupogen injection, he was noted to be febrile and weak. He also had chills. Blood work showed 0 neutrophils. His platelet count was down to 15,000. He is admitted to the hospital for further evaluation, IV abx. He denies any headache. Denies any visual changes. Denies any focal numbness or weakness. He has no chest pain. Denies any shortness of breath. He has occasional wheezes. He has no nausea, vomiting , diarrhea or abdominal pain. Denies any dysuria or hematuria. He said that the blister-like lesion on his right jaw area is tender. 5- seen with at bedside states feeling better no further diarrhea- days before but not now no urinary symptoms minimal cough feels cold states had diarrhea days ago- none today 5 up already side of the bed- having breakfast- frsutrated with the pancake- - trying to cuy- feels like rubber no difficulty swallowing T down 01-22 sitting at side of bed no chest discomfort still with leg swelling- improved voiding 01-23 LESS SWELLING BL LOWER EXTREMITIES STILL VERY NEUTROPENIC AND PANCYTOPENIC DW RN AND PT AND FAMILY Patient remains quite neutropenic keep in isolation A.m. 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 labs Objective Vitals Vital Signs Date Time Temp Pulse Resp B/P (MAP) Pulse Ox O2 Delivery O2 Flow Rate FiO2 01/25/18 10:42 73 01/25/18 08:00 97.7 70 18 146/66 (92) 99 01/25/18 05:13 100 Nasal Cannula 2.00 01/25/18 05:11 97.4 69 19 118/66 (83) 100 01/25/18 04:00 67 01/25/18 00:01 97.6 77 17 128/78 (95) 98 01/25/18 00:00 67 01/24/18 23:40 100 Nasal Cannula 3.00 01/24/18 21:15 97.8 74 18 119/67 (84) 98 01/24/18 21:15 70 01/24/18 21:15 98 Nasal Cannula 2.00 01/24/18 16:25 97.7 76 23 123/73 (90) 99 01/24/18 13:30 97.2 59 20 119/45 100 01/24/18 12:49 97.9 57 20 118/69 (85) 95 01/24/18 12:49 97.9 57 20 118/69 95 I/O 01/24/18 01/24/18 01/24/18 01/25/18 01/25/18 01/25/18 07:00 15:00 23:00 07:00 15:00 23:00 Intake Total 830 ml 287 ml 250 ml 550 ml Output Total 950 ml 325 ml 400 ml Balance -120 ml -38 ml 250 ml 150 ml Intake Oral 480 ml 200 ml IV Total 350 ml 250 ml 350 ml Platelets 287 ml Output Urine Total 950 ml 325 ml 400 ml # Voids 2 # Bowel Movements 2 Result Diagram: 01/25/18 0515 01/25/18 0515 Other Results Laboratory Tests Test 01/23/18 00:45 01/23/18 10:00 01/24/18 04:15 01/25/18 05:15 White Blood Count 0.2 TH/MM3 0.3 TH/MM3 0.7 TH/MM3 Red Blood Count 2.61 MIL/MM3 2.60 MIL/MM3 2.39 MIL/MM3 Hemoglobin 8.5 GM/DL 8.3 GM/DL 7.7 GM/DL Hematocrit 24.1 % 23.8 % 21.9 % Mean Corpuscular Volume 92.6 FL 91.8 FL 91.9 FL Mean Corpuscular Hemoglobin 32.5 PG 32.0 PG 32.2 PG Mean Corpuscular Hemoglobin Concent 35.1 % 34.9 % 35.0 % Red Cell Distribution Width 14.2 % 14.2 % 14.2 % Platelet Count 22 TH/MM3 12 TH/MM3 17 TH/MM3 Mean Platelet Volume 8.6 FL 8.9 FL 8.5 FL CBC Comment AUTO DIFF AUTO DIFF AUTO DIFF Differential Total Cells Counted 25 15 50 Neutrophils % (Manual) 4 % 7 % 34 % Band Neutrophils % 4 % 20 % 28 % Lymphocytes % 88 % 67 % 20 % Monocytes % 4 % 7 % 18 % Neutrophils # (Manual) 0.0 TH/MM3 0.1 TH/MM3 0.4 TH/MM3 Differential Comment FINAL DIFF MANUAL FINAL DIFF MANUAL FINAL DIFF MANUAL Platelet Estimate LOW LOW RARE Platelet Morphology Comment NORMAL NORMAL NORMAL Blood Urea Nitrogen 29 MG/DL 28 MG/DL 26 MG/DL Creatinine 1.07 MG/DL 1.04 MG/DL 1.04 MG/DL Random Glucose 157 MG/DL 132 MG/DL 137 MG/DL Calcium Level 7.7 MG/DL 8.0 MG/DL 8.2 MG/DL Magnesium Level 1.7 MG/DL 1.7 MG/DL 2.0 MG/DL Sodium Level 135 MEQ/L 138 MEQ/L 138 MEQ/L Potassium Level 3.5 MEQ/L 3.1 MEQ/L 3.4 MEQ/L Chloride Level 102 MEQ/L 102 MEQ/L 106 MEQ/L Carbon Dioxide Level 23.3 MEQ/L 23.6 MEQ/L 23.7 MEQ/L Anion Gap 10 MEQ/L 12 MEQ/L 8 MEQ/L Estimat Glomerular Filtration Rate 67 ML/MIN 69 ML/MIN 69 ML/MIN Total Creatine Kinase 46 U/L Troponin I 0.02 NG/ML B-Type Natriuretic Peptide 803 PG/ML Stool C. difficile Toxin (PCR) NEGATIVE Stl C. difficile Toxin Epiderm 027 PRESUMPTIVE NEGATIVE Ovalocytes 1+ Total Protein 5.7 GM/DL 5.6 GM/DL Albumin 2.6 GM/DL 2.7 GM/DL Phosphorus Level 2.5 MG/DL 2.3 MG/DL Alkaline Phosphatase 94 U/L 90 U/L Aspartate Amino Transf (AST/SGOT) 48 U/L 31 U/L Alanine Aminotransferase (ALT/SGPT) 62 U/L 54 U/L Total Bilirubin 0.6 MG/DL 0.7 MG/DL Imaging Last Impressions Abdomen Ultrasound 01/25/18 Signed Impressions: CONCLUSION: 1. No abdominal ascites. 2. Cholelithiasis. 3. Bilateral pleural effusions. Chest X-Ray 01/21/18 Signed Impressions: CONCLUSION: Pulmonary venous congestion. Objective Remarks GENERAL: Awake alert and oriented 3 talkative and cooperative SKIN: Warm and dry. Multiple lesions around the lips in various stages of healing HEAD: Atraumatic. Normocephalic. EYES: Pupils equal and round. No scleral icterus. No injection or drainage. Extraocular muscles intact ENT: No nasal bleeding or discharge. Mucous membranes pink and moist. Tongue is midline NECK: Trachea midline. No JVD. Supple CARDIOVASCULAR: Regular rate and rhythm. S1-S2 no S3 or S4 RESPIRATORY: No accessory muscle use. Clear to auscultation. Breath sounds equal bilaterally. GASTROINTESTINAL: Abdomen soft, non-tender, nondistended. Hepatic and splenic margins not palpable. MUSCULOSKELETAL: Extremities without clubbing, cyanosis +1 to trace edema lower extrema. No obvious deformities. NEUROLOGICAL: Awake and alert. No obvious cranial nerve deficits. Motor grossly within normal limits. 4 out of 5 muscle strength in the arms and legs. Normal speech. PSYCHIATRIC: Appropriate mood and affect; insight and judgment normal. Procedures NONE Medications and IVs Current Medications Filgrastim (Neupogen Inj) 480 mcg DAILY@14 SQ Last administered on 01/24/18at 13 :46; Start 01/20/18 at 14:00 Vancomycin HCl 1000 mg/Sodium Chloride 250 ml @ 250 mls/hr Q12H IV Last administered on 01/25/18at 05:14; Start 01/19/18 at 17:00 Acyclovir Sodium 700 mg/Sodium Chloride 100 ml @ 100 mls/hr Q8H IV Last administered on 01/20/18at 10:58; Start 01/19/18 at 17:00; Stop 01/20/18 at 11:10 ; Status DC Loperamide HCl (Imodium) 2 mg Q4H PRN PO diarrhea ; Start 01/19/18 at 16:00; Stop 01/19/18 at 17:05; Status DC Cefepime HCl 2000 mg/Sodium Chloride 100 ml @ 200 mls/hr Q8H IV Last administered on 01/25/18at 10:13; Start 01/19/18 at 17:00 Sodium Chloride 250 ml @ 15 mls/hr ONCE ONCE IV Last administered on at 16:54; Start 01/19/18 at 16:00; Stop 01/20/18 at 08:39; Status DC Acetaminophen (Tylenol) 650 mg Q4H PRN PO mild pain/ fever/ headache ; Start at 16:00; Stop 01/19/18 at 16:36; Status DC Allopurinol (Zyloprim) 300 mg DAILY PO Last administered on 01/25/18at 09:00; Start 01/20/18 at 09:00 Aspirin (Aspirin Chew) 81 mg DAILY CHEW Last administered on 01/21/18at 08:57; Start 01/20/18 at 09:00; Stop 01/22/18 at 07:45; Status DC Atenolol (Tenormin) 50 mg DAILY PO Last administered on 01/25/18at 10:15; Start 01/20/18 at 09:00 Fluticasone Propionate (Flonase Gilles Spr) 2 spray BID EACH NARE Last administered on 01/25/18at 10:15; Start 01/19/18 at 21:00 Sertraline HCl (Zoloft) 50 mg DAILY PO Last administered on 01/25/18at 10:14; Start 01/20/18 at 09:00 Sitagliptin Phosphate (Januvia) 100 mg DAILY PO Last administered on 01/25/18at 10:15; Start 01/20/18 at 09:00 Patient Own Medication PT OWN MED: EZETIMIBE-SIMVASTATIN... HS PO ; Start at 21:00 Pantoprazole Sodium (Protonix) 20 mg DAILY PO Last administered on 01/25/18at 10 :14; Start 01/20/18 at 09:00 Sodium Chloride 1,000 ml @ 75 mls/hr [id number] IV Last administered on at 23:23; Start 01/19/18 at 18:00; Stop 01/22/18 at 09:59; Status DC Loperamide HCl (Imodium) 2 mg Q6H PRN PO diarrhea ; Start 01/19/18 at 17:15 Lorazepam (Ativan) 0.5 mg Q6H PRN PO ANXIETY ; Start 01/19/18 at 18:00 Acetaminophen/ Hydrocodone Bitart ([place] 5-325 Mg) 1 tab Q4H PRN PO pain 2-10 Last administered on 01/20/18at 23:07; Start 01/19/18 at 19:00 Sodium Chloride 250 ml @ 15 mls/hr ONCE ONCE IV Last administered on at 12:46; Start 01/20/18 at 10:30; Stop 01/21/18 at 03:09; Status DC Diphenhydramine HCl (Benadryl) 25 mg Q4H PRN PO SEE LABEL COMMENTS Last administered on 01/21/18at 09:40; Start 01/20/18 at 10:30; Stop 01/21/18 at 09:40 ; Status DC Acyclovir Sodium 400 mg/Sodium Chloride 100 ml @ 100 mls/hr Q8H IV Last administered on 01/21/18at 00:25; Start 01/20/18 at 17:00; Stop 01/21/18 at 08:09 ; Status DC Sodium Chloride 250 ml @ 15 mls/hr ONCE ONCE IV Last administered on at 09:44; Start 01/21/18 at 08:00; Stop 01/22/18 at 00:39; Status DC Diphenhydramine HCl (Benadryl) 25 mg Q4H PRN PO SEE LABEL COMMENTS; Start 01/21 at 08:00; Status Cancel Multi-Ingredient Mouthwash/Gargle (Magic Mouthwash Adult Liq) 10 ml QID SWISH- SWAL Last administered on 01/25/18at 10:13; Start 01/21/18 at 09:00 Acyclovir (Zovirax) 200 mg 5 TIMES A DAY PO Last administered on 01/25/18at 10: 14; Start 01/21/18 at 10:00; Stop 01/28/18 at 09:59 Albuterol/ Ipratropium (Duoneb Neb) 1 ampule Q4HR NEB PRN NEB sob/wheezing Last administered on 01/25/18at 05:50; Start 01/21/18 at 12:00 Furosemide (Lasix Inj) 20 mg NOW ONCE IV PUSH Last administered on 01/21/18at 14:46; Start 01/21/18 at 14:30; Stop 01/21/18 at 14:31; Status DC Furosemide (Lasix Inj) 40 mg ONCE ONCE IV PUSH Last administered on 01/21/18at 20:12; Start 01/21/18 at 19:15; Stop 01/21/18 at 19:16; Status DC Sodium Chloride 250 ml @ 15 mls/hr ONCE ONCE IV Last administered on at 14:40; Start 01/22/18 at 07:45; Stop 01/23/18 at 00:24; Status DC Diphenhydramine HCl (Benadryl) 25 mg Q4H PRN PO SEE LABEL COMMENTS Last administered on 01/22/18at 12:50; Start 01/22/18 at 07:45 Furosemide (Lasix Inj) 20 mg DAILY IV PUSH Last administered on 01/25/18at 10:14 ; Start 01/22/18 at 11:00 Lisinopril (Prinivil) 10 mg DAILY PO Last administered on 01/25/18at 10:15; Start 01/23/18 at 09:00 Furosemide (Lasix Inj) 40 mg ONCE ONCE IV PUSH Last administered on 01/23/18at 00:35; Start 01/23/18 at 00:30; Stop 01/23/18 at 00:31; Status DC Sodium Chloride (NS Flush) 5 ml UNSCH PRN IV FLUSH SEE PROTOCOL TABLE; Start at 05:30 Heparin Sodium (Porcine) (Heparin Central Flush) 250 units UNSCH PRN IV FLUSH SEE PROTOCOL TABLE Last administered on 01/23/18at 14:30; Start 01/23/18 at 05:30 Heparin Sodium (Porcine) (Heparin Central Flush) 500 units UNSCH IV FLUSH ; Start 01/23/18 at 05:30 Alteplase, Recombinant (Cathflo Activase Inj) 2 mg ONCE ONCE IV Last administered on 01/23/18at 16:40; Start 01/23/18 at 16:00; Stop 01/23/18 at 16:01 ; Status DC Sodium Chloride 250 ml @ 15 mls/hr ONCE ONCE IV Last administered on at 12:50; Start 01/24/18 at 08:15; Stop 01/25/18 at 00:54; Status DC Diphenhydramine HCl (Benadryl) 25 mg Q4H PRN PO SEE LABEL COMMENTS Last administered on 01/24/18at 12:05; Start 01/24/18 at 08:15 Magnesium Sulfate/ Dextrose 100 ml @ 100 mls/hr Q1H IV Last administered on at 14:11; Start 01/24/18 at 09:00; Stop 01/24/18 at 10:59; Status DC Potassium Bicarbonate (Effer-K Eff) 75 meq ONCE ONCE PO Last administered on at 10:45; Start 01/24/18 at 09:00; Stop 01/24/18 at 09:04; Status DC Sodium Chloride 250 ml @ 15 mls/hr ONCE ONCE IV ; Start 01/25/18 at 08:15; Stop 01/26/18 at 00:54 Acetaminophen (Tylenol) 650 mg Q4H PRN PO SEE LABEL COMMENTS; Start 01/25/18 at 08:15 Diphenhydramine HCl (Benadryl) 25 mg Q4H PRN PO SEE LABEL COMMENTS; Start 01/25 at 08:15 Furosemide (Lasix Inj) 20 mg ONCE ONCE IV PUSH ; Start 01/25/18 at 08:15; Stop 01/25/18 at 09:07; Status DC Potassium Bicarbonate (Effer-K Eff) 100 meq ONCE ONCE PO ; Start 01/25/18 at 09 :00; Stop 01/25/18 at 09:07; Status DC A/P Problem List: (1) Cardiomyopathy ICD Code: I42.9 - Cardiomyopathy, unspecified (2) Large B-cell lymphoma ICD Code: C85.10 - Unspecified B-cell lymphoma, unspecified site (3) Anemia + thrombocytopenia (4) Lymphoma ICD Code: C85.90 - Non-Hodgkin lymphoma, unspecified, unspecified site (5) Retroperitoneal lymphadenopathy ICD Code: R59.0 - Localized enlarged lymph nodes Assessment and Plan 77 years old male Severe Sepsis (fever, tachycardia. source rash, neutropenic fever, Lactic acid > 2) on admission Neutropenic fever Varicella Zoster on his scalp and right face, worrisome for varicella zoster infection- scabs drying up Blood cultures negative so far Urinalysis is unremarkable. on Vanco, cefepime and acyclovir ID ff stools ordered for C diff study- no reported diarrhea Pancytopenia due to recent chemotherapy. Large B cell lymphoma stage IV, treated with Rituxan and bendamustine. Neutrophil trended down to 0. Transfuse to keep hemoglobin above 8 and platelet count above 20,000 given his symptoms. - blood product transfusion per Hematology -ONcology ff TRANSFUSE PLATELETS 5-30 Cardiomyopathy with low EF 35 % on recent OP ECHO. good sats Recent echocardiogram showed ejection fraction of 35%. He has been followed by cardiology. on Lasix IV daily - Lisinopril 10 mg po daily Diabetes mellitus 2, stable. on Januvia. good readings on BMP. Gastroesophageal reflux disease, stable. PPI Anxiety/ depression continue home [facility] as need Patient up and ambulating seen with supportive at bedside Patient remains quite neutropenic at this time keep in isolation THROMBOCYTOPENIA BEING TRANSFUSED PLATELETS 5-30 Hypokalemia will replace A.m. labs Discharge Planning PENDING HEM/ONC ID CLEARANCE Leo Rai DO January 25, 2018 12:41
[2018-01-25] MEDS: FILGRASTIM 480 MCG/1.6 ML VIAL SQ SCH (14:29)
[2018-01-25] MEDS: diphenhydrAMINE HCL 25 MG CAP PO PRN (17:53)
[2018-01-25] MEDS: EZETIMIBE PO SCH (20:53)
[2018-01-25] MEDS: LORazepam 0.5 MG TAB PO PRN (20:53)
[2018-01-25] MEDS: SIMVASTATIN PO SCH (20:53)
[2018-01-26] VITALS (11 sets, daily range): BP systolic 120–143; BP diastolic 50–74; PULSE 59–81; RESP 16–22; TEMP 97.6–98.6; O2SAT 96–99
[2018-01-26] MEDS: CEFEPIME INJ 2,000 MG in SODIUM CHLORIDE 0.9% INJ 100 ML IV SCH ×3 (00:14→16:43)
[2018-01-26] MEDS: VANCOMYCIN INJ 1,000 MG in SODIUM CHLOR 0.9% 250 ML INJ 250 ML IV SCH ×2 (04:03→17:13)
[2018-01-26] MEDS: ACYCLOVIR 200 MG CAP PO SCH ×5 (04:03→19:59)
[2018-01-26] MEDS: LORazepam 0.5 MG TAB PO PRN ×2 (04:03→19:58)
[2018-01-26 04:59] LABS: HEMATOCRIT 25.8 % (39.0-51.0); HEMOGLOBIN 8.9 GM/DL (13.0-17.0); MEAN CORPUSCULAR HGB CONC 34.5 % (32.0-36.0); MEAN PLATELET VOLUME 8.8 FL (7.0-11.0); PLATELET COUNT 26 TH/MM3 (150-450); RED BLOOD COUNT 2.87 MIL/MM3 (4.50-5.90); RED CELL DISTRIBUTION WIDTH 15.5 % (11.6-17.2); WHITE BLOOD COUNT 2.1 TH/MM3 (4.0-11.0)
[2018-01-26 05:13] LABS: ALBUMIN 2.8 GM/DL (3.4-5.0); AST (GOT) 27 U/L (15-37); BICARBONATE 24.6 MEQ/L (21.0-32.0); BLOOD UREA NITROGEN 24 MG/DL (7-18); CALCIUM 8.3 MG/DL (8.5-10.1); CHLORIDE 105 MEQ/L (98-107); CREATININE 1.03 MG/DL (0.60-1.30); GLOMERULAR FILTRATION RATE 70 ML/MIN (>89); GLUCOSE,RANDOM 135 MG/DL (74-106); MAGNESIUM 1.8 MG/DL (1.5-2.5); SODIUM (NA) 140 MEQ/L (136-145)
[2018-01-26 05:14] LABS: ALT (GPT) 51 U/L (12-78); PHOSPHORUS 2.3 MG/DL (2.5-4.9)
[2018-01-26 05:16] LABS: ALKALINE PHOSPHATASE 93 U/L (45-117); TOTAL PROTEIN 5.9 GM/DL (6.4-8.2)
[2018-01-26] MEDS: NYSTAT/DIPHENHY/LIDO MOUTHWASH (Adult) 120ML SWISH-SWAL SCH ×4 (08:09→19:55)
[2018-01-26] MEDS: ALLOPURINOL 300 MG TAB PO SCH (08:09)
[2018-01-26] MEDS: ATENOLOL 50 MG TAB PO SCH (08:09)
[2018-01-26] MEDS: LISINOPRIL 10 MG TAB PO SCH (08:09)
[2018-01-26] MEDS: FLUTICASONE PROPIONATE 50 MCG/ACT 16 GM NASAL SPRAY EACH NARE SCH ×2 (08:09→19:57)
[2018-01-26] MEDS: PANTOPRAZOLE SOD 20 MG DELAYED RELEASE TAB PO SCH (08:09)
[2018-01-26] MEDS: FUROSEMIDE 20 MG/2 ML VIAL IV PUSH SCH ×2 (08:09→17:14)
[2018-01-26] MEDS: SERTRALINE HCL 50 MG TAB PO SCH (08:09)
--- NOTE | 2018-01-26 08:42 | RADRPT ---
EXAM DATE: 01/26/2018 8:15 AM EDT AGE/SEX: 77 years / Male INDICATIONS: Shortness of breath. CLINICAL DATA: This is the patient's subsequent encounter. Patient reports that signs and symptoms h ave been present for 3 days and indicates a pain score of 0/10. MEDICAL/SURGICAL HISTORY: Hypertension. Diabetes. Hypercholesterolemia. Myocardial infarctio n. CABG. Port for chemotherapy. COMPARISON: [facility] [place], CHEST SINGLE AP, 01/21/2018. . FINDINGS: Right IJ [id number] in stable position. Interval development of hazy opacity in the left mid to lo wer lung zones consistent with small pleural effusion and associated airspace disease in the left low er lobe. There is also mild airspace disease in the right lower lobe. Cardiac silhouette is enlarged. Pulmonary vascularity is indistinct. Remainder of the exam is unchanged. CONCLUSION: 1. Cardiomegaly with mild pulmonary vascular congestion. 2. Interval development of small left pleural effusion with associated left lower lobe airspace dise ase. 3. Mild right lower lobe airspace disease, presumably atelectasis. Electronically signed by: Stiven Baez MD 01/26/2018 8:40 AM EDT
[2018-01-26 09:49] LABS: BANDS 20 % (0-6); CORRECTED NUCLEATED RBC 1 /100 WBC (0-0); DOHLE BODIES PRESENT (NONE SEEN); LYMPHOCYTES 4 % (9-44); METAMYELOCYTES 2 % (0-1); MONOCYTES 5 % (0-8); MYELOCYTES 1 % (0-0); NEUTROPHIL # MANUAL DIFF 1.9 TH/MM3 (1.8-7.7); NUCLEATED RED BLOOD CELL 1 (0-0); POLYS (SEG NEUTROPHILS) 67 % (16-70); ROULEAUX PRESENT (NORMAL)
[2018-01-26] MEDS: POTASSIUM CHLORIDE 20 MEQ CONTROLLED RELEASE TAB PO SCH ×2 (10:13→19:58)
--- NOTE | 2018-01-26 10:19 | HHI.PR ---
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 He was just discharged from the hospital last weekend. Hehas been getting Neupogen injection at the clinic. According to his , the patient developed fever up to 100.4 yesterday. He, however, refused to go to the emergency room as instructed. This morning he has temperature up to 101. Again, he refused to go to the emergency room. He also developed a blister-like lesion on his right face and scalp yesterday. When he came to the clinic for Neupogen injection, he was noted to be febrile and weak. He also had chills. Blood work showed 0 neutrophils. His platelet count was down to 15,000. He is admitted to the hospital for further evaluation, IV abx. He denies any headache. Denies any visual changes. Denies any focal numbness or weakness. He has no chest pain. Denies any shortness of breath. He has occasional wheezes. He has no nausea, vomiting , diarrhea or abdominal pain. Denies any dysuria or hematuria. He said that the blister-like lesion on his right jaw area is tender. 5-26 seen with at bedside states feeling better no further diarrhea- days before but not now no urinary symptoms minimal cough feels cold states had diarrhea days ago- none today 5-27 up already side of the bed- having breakfast- frsutrated with the pancake- - trying to cuy- feels like rubber no difficulty swallowing T down 5-28 sitting at side of bed no chest discomfort still with leg swelling- improved voiding 5-29 LESS SWELLING BL LOWER EXTREMITIES STILL VERY NEUTROPENIC AND PANCYTOPENIC ELI RN AND PT AND FAMILY Patient remains quite neutropenic keep in isolation A.m. 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 labs 6-1 still short of breath TRANSFUSED YESTERDAY AM LABS INCREASE ACTIVITY WILL GIVE LASIX DUE TO ALL OF BLOOD PRODUCTS DW RN AND PT AND CM AND ONCOLOGY AND Objective Vitals Vital Signs Date Time Temp Pulse Resp B/P (MAP) Pulse Ox O2 Delivery O2 Flow Rate FiO2 01/26/18 08:00 97.7 81 16 143/74 (97) 98 01/26/18 07:47 98 Nasal Cannula 2.00 01/26/18 07:00 63 01/26/18 04:11 98.2 76 22 143/74 (97) 96 01/26/18 04:00 79 01/26/18 00:11 97.6 71 22 121/68 (85) 98 01/26/18 00:00 59 01/25/18 20:00 96 2.00 01/25/18 20:00 77 01/25/18 20:00 97.2 24 153/84 (107) 98 01/25/18 16:16 98.7 74 16 143/71 100 01/25/18 16:00 98.4 82 18 143/71 (95) 100 01/25/18 15:32 97.9 70 20 113/56 100 01/25/18 14:39 97.6 77 20 128/68 100 01/25/18 14:03 97.8 72 20 135/58 99 01/25/18 10:42 73 I/O 01/25/18 01/25/18 01/25/18 01/26/18 01/26/18 01/26/18 07:00 15:00 23:00 07:00 15:00 23:00 Intake Total 550 ml 1540 ml 590 ml Output Total 400 ml 1700 ml 650 ml Balance 150 ml -160 ml -60 ml Intake Oral 200 ml 600 ml 240 ml IV Total 350 ml 250 ml 350 ml Packed Cells 400 ml Platelets 290 ml Output Urine Total 400 ml 1700 ml 650 ml # Bowel Movements 2 1 Result Diagram: 01/26/18 0400 01/26/18 0400 Other Results Laboratory Tests Test 01/24/18 04:15 01/25/18 05:15 01/26/18 04:00 White Blood Count 0.3 TH/MM3 0.7 TH/MM3 2.1 TH/MM3 Red Blood Count 2.60 MIL/MM3 2.39 MIL/MM3 2.87 MIL/MM3 Hemoglobin 8.3 GM/DL 7.7 GM/DL 8.9 GM/DL Hematocrit 23.8 % 21.9 % 25.8 % Mean Corpuscular Volume 91.8 FL 91.9 FL 90.0 FL Mean Corpuscular Hemoglobin 32.0 PG 32.2 PG 31.0 PG Mean Corpuscular Hemoglobin Concent 34.9 % 35.0 % 34.5 % Red Cell Distribution Width 14.2 % 14.2 % 15.5 % Platelet Count 12 TH/MM3 17 TH/MM3 26 TH/MM3 Mean Platelet Volume 8.9 FL 8.5 FL 8.8 FL CBC Comment AUTO DIFF AUTO DIFF AUTO DIFF Differential Total Cells Counted 15 50 100 Neutrophils % (Manual) 7 % 34 % 67 % Band Neutrophils % 20 % 28 % 20 % Lymphocytes % 67 % 20 % 4 % Monocytes % 7 % 18 % 5 % Neutrophils # (Manual) 0.1 TH/MM3 0.4 TH/MM3 1.9 TH/MM3 Differential Comment FINAL DIFF MANUAL FINAL DIFF MANUAL FINAL DIFF MANUAL Platelet Estimate LOW RARE LOW Platelet Morphology Comment NORMAL NORMAL NORMAL Ovalocytes 1+ Blood Urea Nitrogen 28 MG/DL 26 MG/DL 24 MG/DL Creatinine 1.04 MG/DL 1.04 MG/DL 1.03 MG/DL Random Glucose 132 MG/DL 137 MG/DL 135 MG/DL Total Protein 5.7 GM/DL 5.6 GM/DL 5.9 GM/DL Albumin 2.6 GM/DL 2.7 GM/DL 2.8 GM/DL Calcium Level 8.0 MG/DL 8.2 MG/DL 8.3 MG/DL Phosphorus Level 2.5 MG/DL 2.3 MG/DL 2.3 MG/DL Magnesium Level 1.7 MG/DL 2.0 MG/DL 1.8 MG/DL Alkaline Phosphatase 94 U/L 90 U/L 93 U/L Aspartate Amino Transf (AST/SGOT) 48 U/L 31 U/L 27 U/L Alanine Aminotransferase (ALT/SGPT) 62 U/L 54 U/L 51 U/L Total Bilirubin 0.6 MG/DL 0.7 MG/DL 1.0 MG/DL Sodium Level 138 MEQ/L 138 MEQ/L 140 MEQ/L Potassium Level 3.1 MEQ/L 3.4 MEQ/L 3.3 MEQ/L Chloride Level 102 MEQ/L 106 MEQ/L 105 MEQ/L Carbon Dioxide Level 23.6 MEQ/L 23.7 MEQ/L 24.6 MEQ/L Anion Gap 12 MEQ/L 8 MEQ/L 10 MEQ/L Estimat Glomerular Filtration Rate 69 ML/MIN 69 ML/MIN 70 ML/MIN Eosinophils % 1 % Metamyelocytes 2 % Myelocytes 1 % Nucleated Red Blood Cells 1 /100 WBC Dohle Bodies PRESENT Rouleau PRESENT Imaging Last Impressions Chest X-Ray 01/26/18 0000 Signed Impressions: CONCLUSION: 1. Cardiomegaly with mild pulmonary vascular congestion. 2. Interval development of small left pleural effusion with associated left lo wer lobe airspace disease. 3. Mild right lower lobe airspace disease, presumably atelectasis. Abdomen Ultrasound 01/25/18 0000 Signed Impressions: CONCLUSION: 1. No abdominal ascites. 2. Cholelithiasis. 3. Bilateral pleural effusions. Objective Remarks GENERAL: Awake alert and oriented 3 talkative and cooperative SKIN: Warm and dry. Multiple lesions around the lips in various stages of healing HEAD: Atraumatic. Normocephalic. EYES: Pupils equal and round. No scleral icterus. No injection or drainage. Extraocular muscles intact ENT: No nasal bleeding or discharge. Mucous membranes pink and moist. Tongue is midline NECK: Trachea midline. No JVD. Supple CARDIOVASCULAR: Regular rate and rhythm. S1-S2 no S3 or S4 RESPIRATORY: No accessory muscle use. Clear to auscultation. Breath sounds equal bilaterally. DECREASED BREATH SOUNDS BL GASTROINTESTINAL: Abdomen soft, non-tender, nondistended. Hepatic and splenic margins not palpable. MUSCULOSKELETAL: Extremities without clubbing, cyanosis +1 to trace edema lower extrema. No obvious deformities. NEUROLOGICAL: Awake and alert. No obvious cranial nerve deficits. Motor grossly within normal limits. 4 out of 5 muscle strength in the arms and legs. Normal speech. PSYCHIATRIC: Appropriate mood and affect; insight and judgment normal. Procedures NONE Medications and IVs Current Medications Filgrastim (Neupogen Inj) 480 mcg DAILY@14 SQ Last administered on 01/25/18at 14 :29; Start 01/20/18 at 14:00 Vancomycin HCl 1000 mg/Sodium Chloride 250 ml @ 250 mls/hr Q12H IV Last administered on 01/26/18at 04:03; Start 01/19/18 at 17:00 Acyclovir Sodium 700 mg/Sodium Chloride 100 ml @ 100 mls/hr Q8H IV Last administered on 01/20/18at 10:58; Start 01/19/18 at 17:00; Stop 01/20/18 at 11:10 ; Status DC Loperamide HCl (Imodium) 2 mg Q4H PRN PO diarrhea ; Start 01/19/18 at 16:00; Stop 01/19/18 at 17:05; Status DC Cefepime HCl 2000 mg/Sodium Chloride 100 ml @ 200 mls/hr Q8H IV Last administered on 01/26/18at 08:09; Start 01/19/18 at 17:00 Sodium Chloride 250 ml @ 15 mls/hr ONCE ONCE IV Last administered on at 16:54; Start 01/19/18 at 16:00; Stop 01/20/18 at 08:39; Status DC Acetaminophen (Tylenol) 650 mg Q4H PRN PO mild pain/ fever/ headache ; Start at 16:00; Stop 01/19/18 at 16:36; Status DC Allopurinol (Zyloprim) 300 mg DAILY PO Last administered on 01/26/18at 08:09; Start 01/20/18 at 09:00 Aspirin (Aspirin Chew) 81 mg DAILY CHEW Last administered on 01/21/18at 08:57; Start 01/20/18 at 09:00; Stop 01/22/18 at 07:45; Status DC Atenolol (Tenormin) 50 mg DAILY PO Last administered on 01/26/18at 08:09; Start 01/20/18 at 09:00 Fluticasone Propionate (Flonase Gilles Spr) 2 spray BID EACH NARE Last administered on 01/26/18at 08:09; Start 01/19/18 at 21:00 Sertraline HCl (Zoloft) 50 mg DAILY PO Last administered on 01/26/18at 08:09; Start 01/20/18 at 09:00 Sitagliptin Phosphate (Januvia) 100 mg DAILY PO Last administered on 01/26/18at 08:09; Start 01/20/18 at 09:00 Patient Own Medication PT OWN MED: EZETIMIBE-SIMVASTATIN... HS PO ; Start at 21:00 Pantoprazole Sodium (Protonix) 20 mg DAILY PO Last administered on 01/26/18at 08: 09; Start 01/20/18 at 09:00 Sodium Chloride 1,000 ml @ 75 mls/hr [id number] IV Last administered on at 23:23; Start 01/19/18 at 18:00; Stop 01/22/18 at 09:59; Status DC Loperamide HCl (Imodium) 2 mg Q6H PRN PO diarrhea ; Start 01/19/18 at 17:15 Lorazepam (Ativan) 0.5 mg Q6H PRN PO ANXIETY Last administered on 01/26/18at 04: 03; Start 01/19/18 at 18:00 Acetaminophen/ Hydrocodone Bitart ([place] 5-325 Mg) 1 tab Q4H PRN PO pain 2-10 Last administered on 01/20/18at 23:07; Start 01/19/18 at 19:00 Sodium Chloride 250 ml @ 15 mls/hr ONCE ONCE IV Last administered on at 12:46; Start 01/20/18 at 10:30; Stop 01/21/18 at 03:09; Status DC Diphenhydramine HCl (Benadryl) 25 mg Q4H PRN PO SEE LABEL COMMENTS Last administered on 01/21/18at 09:40; Start 01/20/18 at 10:30; Stop 01/21/18 at 09:40 ; Status DC Acyclovir Sodium 400 mg/Sodium Chloride 100 ml @ 100 mls/hr Q8H IV Last administered on 01/21/18at 00:25; Start 01/20/18 at 17:00; Stop 01/21/18 at 08:09 ; Status DC Sodium Chloride 250 ml @ 15 mls/hr ONCE ONCE IV Last administered on at 09:44; Start 01/21/18 at 08:00; Stop 01/22/18 at 00:39; Status DC Diphenhydramine HCl (Benadryl) 25 mg Q4H PRN PO SEE LABEL COMMENTS; Start 01/21 at 08:00; Status Cancel Multi-Ingredient Mouthwash/Gargle (Magic Mouthwash Adult Liq) 10 ml QID SWISH- SWAL Last administered on 01/26/18at 08:09; Start 01/21/18 at 09:00 Acyclovir (Zovirax) 200 mg 5 TIMES A DAY PO Last administered on 01/26/18at 10: 12; Start 01/21/18 at 10:00; Stop 01/28/18 at 09:59 Albuterol/ Ipratropium (Duoneb Neb) 1 ampule Q4HR NEB PRN NEB sob/wheezing Last administered on 01/25/18at 20:07; Start 01/21/18 at 12:00 Furosemide (Lasix Inj) 20 mg NOW ONCE IV PUSH Last administered on 01/21/18 14:46; Start 01/21/18 at 14:30; Stop 01/21/18 at 14:31; Status DC Furosemide (Lasix Inj) 40 mg ONCE ONCE IV PUSH Last administered on 01/21/18at 20:12; Start 01/21/18 at 19:15; Stop 01/21/18 at 19:16; Status DC Sodium Chloride 250 ml @ 15 mls/hr ONCE ONCE IV Last administered on at 14:40; Start 01/22/18 at 07:45; Stop 01/23/18 at 00:24; Status DC Diphenhydramine HCl (Benadryl) 25 mg Q4H PRN PO SEE LABEL COMMENTS Last administered on 01/25/18at 17:53; Start 01/22/18 at 07:45; Stop 01/25/18 at 17:55 ; Status DC Furosemide (Lasix Inj) 20 mg DAILY IV PUSH Last administered on 01/26/18 08:09 ; Start 01/22/18 at 11:00 Lisinopril (Prinivil) 10 mg DAILY PO Last administered on 01/26/18 08:09; Start 01/23/18 at 09:00 Furosemide (Lasix Inj) 40 mg ONCE ONCE IV PUSH Last administered on 01/23/18at 00:35; Start 01/23/18 at 00:30; Stop 01/23/18 at 00:31; Status DC Sodium Chloride (NS Flush) 5 ml UNSCH PRN IV FLUSH SEE PROTOCOL TABLE Last administered on 01/26/18 08:09; Start 01/23/18 at 05:30 Heparin Sodium (Porcine) (Heparin Central Flush) 250 units UNSCH PRN IV FLUSH SEE PROTOCOL TABLE Last administered on 01/23/18at 14:30; Start 01/23/18 at 05:30 Heparin Sodium (Porcine) (Heparin Central Flush) 500 units UNSCH IV FLUSH ; Start 01/23/18 at 05:30 Alteplase, Recombinant (Cathflo Activase Inj) 2 mg ONCE ONCE IV Last administered on 01/23/18at 16:40; Start 01/23/18 at 16:00; Stop 01/23/18 at 16:01 ; Status DC Sodium Chloride 250 ml @ 15 mls/hr ONCE ONCE IV Last administered on at 12:50; Start 01/24/18 at 08:15; Stop 01/25/18 at 00:54; Status DC Diphenhydramine HCl (Benadryl) 25 mg Q4H PRN PO SEE LABEL COMMENTS Last administered on 01/24/18at 12:05; Start 01/24/18 at 08:15 Magnesium Sulfate/ Dextrose 100 ml @ 100 mls/hr Q1H IV Last administered on at 14:11; Start 01/24/18 at 09:00; Stop 01/24/18 at 10:59; Status DC Potassium Bicarbonate (Effer-K Eff) 75 meq ONCE ONCE PO Last administered on at 10:45; Start 01/24/18 at 09:00; Stop 01/24/18 at 09:04; Status DC Sodium Chloride 250 ml @ 15 mls/hr ONCE ONCE IV Last administered on at 15:27; Start 01/25/18 at 08:15; Stop 01/26/18 at 00:54; Status DC Acetaminophen (Tylenol) 650 mg Q4H PRN PO SEE LABEL COMMENTS; Start 01/25/18 at 08:15 Diphenhydramine HCl (Benadryl) 25 mg Q4H PRN PO SEE LABEL COMMENTS Last administered on 01/25/18at 12:43; Start 01/25/18 at 08:15 Furosemide (Lasix Inj) 20 mg ONCE ONCE IV PUSH Last administered on 01/25/18at 15:25; Start 01/25/18 at 08:15; Stop 01/25/18 at 09:07; Status DC Potassium Bicarbonate (Effer-K Eff) 100 meq ONCE ONCE PO Last administered on 01/25/18at 18:07; Start 01/25/18 at 09:00; Stop 01/25/18 at 09:07; Status DC Potassium Chloride (KCl) 20 meq Q12HR PO Last administered on 01/26/18at 10:13; Start 01/26/18 at 09:30 Furosemide (Lasix Inj) 20 mg ONCE ONCE IV PUSH ; Start 01/26/18 at 12:30; Stop 01/26/18 at 12:31 A/P Problem List: (1) Cardiomyopathy ICD Code: I42.9 - Cardiomyopathy, unspecified (2) Large B-cell lymphoma ICD Code: C85.10 - Unspecified B-cell lymphoma, unspecified site (3) Anemia + thrombocytopenia (4) Lymphoma ICD Code: C85.90 - Non-Hodgkin lymphoma, unspecified, unspecified site (5) Retroperitoneal lymphadenopathy ICD Code: R59.0 - Localized enlarged lymph nodes Assessment and Plan 77 years old male Severe Sepsis (fever, tachycardia. source rash, neutropenic fever, Lactic acid > 2) on admission Neutropenic fever Varicella Zoster on his scalp and right face, worrisome for varicella zoster infection- scabs drying up Blood cultures negative so far Urinalysis is unremarkable. on Vanco, cefepime and acyclovir ID ff stools ordered for C diff study- no reported diarrhea OUT OF NEUTROPENIC PRECAUTIONS 6-1 Pancytopenia due to recent chemotherapy. Large B cell lymphoma stage IV, treated with Rituxan and bendamustine. Neutrophil trended down to 0. Transfuse to keep hemoglobin above 8 and platelet count above 20,000 given his symptoms. - blood product transfusion per Hematology -ONcology ff TRANSFUSE PLATELETS 5-30 Cardiomyopathy with low EF 35 % on recent OP ECHO. good sats Recent echocardiogram showed ejection fraction of 35%. He has been followed by cardiology. on Lasix IV daily - Lisinopril 10 mg po daily Diabetes mellitus 2, stable. on Januvia. good readings on BMP. Gastroesophageal reflux disease, stable. PPI Anxiety/ depression continue home emds ativan as need Patient up and ambulating seen with supportive at bedside Patient remains quite neutropenic at this time keep in isolation THROMBOCYTOPENIA BEING TRANSFUSED PLATELETS 5-30 Hypokalemia will replace WILL REPLACE AGAIN FLUID OVERLOAD WILL GIVE LASIX A.m. labs Discharge Planning PENDING HEM/ONC ID CLEARANCE Leo Rai DO Jan 26, 2018 10:19
[2018-01-26] MEDS ORDERED: FUROSEMIDE 20 MG/2 ML VIAL IV PUSH SCH (10:30)
--- NOTE | 2018-01-26 11:07 | PD.ONC.PN ---
Subjective Subjective Remarks Afebrile overnight. Patient is anxious about remaining in the hospital. he had a hard time sleeping last night. still has some pulmonary congestion, requiring O2 via NC. Objective Data Date Time Temp Pulse Resp B/P (MAP) Pulse Ox O2 Delivery O2 Flow Rate FiO2 01/26/18 08:00 97.7 81 16 143/74 (97) 98 01/26/18 07:47 98 Nasal Cannula 2.00 01/26/18 07:00 63 01/26/18 04:11 98.2 76 22 143/74 (97) 96 01/26/18 04:00 79 01/26/18 00:11 97.6 71 22 121/68 (85) 98 01/26/18 00:00 59 01/25/18 20:00 96 2.00 01/25/18 20:00 77 01/25/18 20:00 97.2 24 153/84 (107) 98 01/25/18 16:16 98.7 74 16 143/71 100 01/25/18 16:00 98.4 82 18 143/71 (95) 100 01/25/18 15:32 97.9 70 20 113/56 100 01/25/18 14:39 97.6 77 20 128/68 100 01/25/18 14:03 97.8 72 20 135/58 99 01/26/18 01/26/18 01/26/18 07:00 15:00 23:00 Intake Total 590 ml Output Total 650 ml Balance -60 ml Result Diagram: 01/26/18 0400 01/26/18 0400 Laboratory Results Laboratory Tests Test 01/26/18 04:00 White Blood Count 2.1 TH/MM3 Red Blood Count 2.87 MIL/MM3 Hemoglobin 8.9 GM/DL Hematocrit 25.8 % Mean Corpuscular Volume 90.0 FL Mean Corpuscular Hemoglobin 31.0 PG Mean Corpuscular Hemoglobin Concent 34.5 % Red Cell Distribution Width 15.5 % Platelet Count 26 TH/MM3 Mean Platelet Volume 8.8 FL CBC Comment AUTO DIFF Differential Total Cells Counted 100 Neutrophils % (Manual) 67 % Band Neutrophils % 20 % Lymphocytes % 4 % Monocytes % 5 % Eosinophils % 1 % Neutrophils # (Manual) 1.9 TH/MM3 Metamyelocytes 2 % Myelocytes 1 % Nucleated Red Blood Cells 1 /100 WBC Differential Comment FINAL DIFF MANUAL Dohle Bodies PRESENT Platelet Estimate LOW Platelet Morphology Comment NORMAL Rouleau PRESENT Blood Urea Nitrogen 24 MG/DL Creatinine 1.03 MG/DL Random Glucose 135 MG/DL Total Protein 5.9 GM/DL Albumin 2.8 GM/DL Calcium Level 8.3 MG/DL Phosphorus Level 2.3 MG/DL Magnesium Level 1.8 MG/DL Alkaline Phosphatase 93 U/L Aspartate Amino Transf (AST/SGOT) 27 U/L Alanine Aminotransferase (ALT/SGPT) 51 U/L Total Bilirubin 1.0 MG/DL Sodium Level 140 MEQ/L Potassium Level 3.3 MEQ/L Chloride Level 105 MEQ/L Carbon Dioxide Level 24.6 MEQ/L Anion Gap 10 MEQ/L Estimat Glomerular Filtration Rate 70 ML/MIN Imaging Studies Last 24 hours Impressions Chest X-Ray 01/26/18 0000 Signed Impressions: CONCLUSION: 1. Cardiomegaly with mild pulmonary vascular congestion. 2. Interval development of small left pleural effusion with associated left lo wer lobe airspace disease. 3. Mild right lower lobe airspace disease, presumably atelectasis. Administered Medications Medications (Trade) Dose Ordered Sig/Marilee Route PRN Reason Start Time Stop Time Status Last Admin Dose Admin Filgrastim (Neupogen Inj) 480 mcg DAILY@14 SQ 01/20/18 14:00 01/25/18 14:29 Vancomycin HCl 1000 mg/Sodium Chloride 250 ml @ 250 mls/hr Q12H IV 01/19/18 17:00 01/26/18 04:03 Cefepime HCl 2000 mg/Sodium Chloride 100 ml @ 200 mls/hr Q8H IV 01/19/18 17:00 01/26/18 08:09 Allopurinol (Zyloprim) 300 mg DAILY PO 01/20/18 09:00 01/26/18 08:09 Atenolol (Tenormin) 50 mg DAILY PO 01/20/18 09:00 01/26/18 08:09 Fluticasone Propionate (Flonase [place] Spr) 2 spray BID EACH NARE 01/19/18 21:00 01/26/18 08:09 Sertraline HCl (Zoloft) 50 mg DAILY PO 01/20/18 09:00 01/26/18 08:09 Sitagliptin Phosphate (Januvia) 100 mg DAILY PO 01/20/18 09:00 01/26/18 08:09 Pantoprazole Sodium (Protonix) 20 mg DAILY PO 01/20/18 09:00 01/26/18 08:09 Lorazepam (Ativan) 0.5 mg Q6H PRN PO ANXIETY 01/19/18 18:00 01/26/18 04:03 Acetaminophen/ Hydrocodone Bitart ([place] 5-325 Mg) 1 tab Q4H PRN PO pain 2-10 01/19/18 19:00 01/20/18 23:07 Multi-Ingredient Mouthwash/Gargle (Magic Mouthwash Adult Liq) 10 ml QID SWISH-SWAL 01/21/18 09:00 01/26/18 08:09 Acyclovir (Zovirax) 200 mg 5 TIMES A DAY PO 01/21/18 10:00 01/28/18 09:59 01/26/18 10:12 Albuterol/ Ipratropium (Duoneb Neb) 1 ampule Q4HR NEB PRN NEB sob/wheezing 01/21/18 12:00 01/25/18 20:07 Lisinopril (Prinivil) 10 mg DAILY PO 01/23/18 09:00 01/26/18 08:09 Sodium Chloride (NS Flush) 5 ml UNSCH PRN IV FLUSH SEE PROTOCOL TABLE 01/23/18 05:30 01/26/18 08:09 Heparin Sodium (Porcine) (Heparin Central Flush) 250 units UNSCH PRN IV FLUSH SEE PROTOCOL TABLE 01/23/18 05:30 01/23/18 14:30 Diphenhydramine HCl (Benadryl) 25 mg Q4H PRN PO SEE LABEL COMMENTS 01/24/18 08:15 01/24/18 12:05 Diphenhydramine HCl (Benadryl) 25 mg Q4H PRN PO SEE LABEL COMMENTS 01/25/18 08:15 01/25/18 12:43 Potassium Chloride (KCl) 20 meq Q12HR PO 01/26/18 09:30 01/26/18 10:13 Objective Remarks GENERAL: elderly male, upright in bed in nad. On 2L o2 via NC SKIN: Warm and dry. HEAD: Normocephalic. EYES: No injection or drainage. NECK: Supple, trachea midline. CARDIOVASCULAR: Regular rate and rhythm RESPIRATORY: occasional rhonchi. GASTROINTESTINAL: Abdomen soft, non-tender, nondistended. EXTREMITIES: No cyanosis. bilateral ankles with 1-2+edema. MUSCULOSKELETAL: Adequate muscle tone. NEUROLOGICAL: awake and alert. normal speech. moving extremities. Assessment/Plan Problem List: (1) Neutropenic fever ICD Codes: D70.9 - Neutropenia, unspecified; R50.81 - Fever presenting with conditions classified elsewhere Plan: --Infectious disease following --on vancomycin, cefepime and acyclovir --most recent blood cultures with no growth. 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 The patient had stage IV disease with involvement of the bone marrow on initial diagnosis. -- Treated with his first cycle of R- ICE chemo last week. --He received a second opinion at an [facility] where they recommended R- EPOCH chemo however this was not feasible due to severe cardiomyopathy. (3) Cardiomyopathy ICD Codes: I42.9 - Cardiomyopathy, unspecified Plan: --Chest x-ray on 01/21 showed vascular congestion --BNP elevated --Cardiology following (4) Pancytopenia due to chemotherapy ICD Codes: D61.810 - Antineoplastic chemotherapy induced pancytopenia Plan: --Transfuse to keep hemoglobin greater than 8 and platelet count greater than 20,000. Assessment 77 y/o male admitted with neutropenic fever Plan 1. continue Neupogen until WBC>5K 2. no transfusion today 3. give extra dose of Lasix for pulmonary congestion Attending Statement The exam, history, and the medical decision-making described in the above note were completed with the assistance of the mid-level provider. I reviewed and agree with the findings presented. I attest that I had a [id number] encounter with the patient on the same day, and personally performed and documented my assessment and findings in the medical record. Still has WRIGHT. Blood counts improving. No need for transfusion today. Continue neupogen. Continue diuresis. Shirley Hernandez Jan 26, 2018 11:06 Garett Granger MD Jan 26, 2018 15:21
[2018-01-26] MEDS: POTASSIUM CHLORIDE 25 MEQ EFFERVESCENT TAB NG SCH ×2 (11:22→19:58)
[2018-01-26] MEDS ORDERED: FUROSEMIDE 20 MG/2 ML VIAL IV PUSH ONE (12:30)
[2018-01-26] MEDS: FILGRASTIM 480 MCG/1.6 ML VIAL SQ SCH (14:45)
--- NOTE | 2018-01-26 16:52 | HHI.IDPN ---
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 He has had some fevers for 2 days, but the patient has refused to go to the emergency room. He has developed some lesions on his right lower lip and some scalp, and when he went to the oncology clinic for Neupogen injection, he was noted to be febrile, and was having chills. He also has been having significant weakness. He denies any respiratory complaint, GI or any urinary complaints. He has not had any headache. According to the patient and the he has had fever blisters which she is actively on the same location as his current rash on the right lower lip. Patient apparently has had diagnosis of zoster several years ago by his primary care physician and he is rash was in the abdominal area. His initial blood works showed significant neutropenia. He has been febrile. Patient currently is on vancomycin, cefepime, and IV acyclovir. also mentioned that the patient hit his left elbow, and she had noticed that it is now red and swollen which is new. Infectious disease consultation has been requested to evaluate the patient with fever and neutropenia, and a possible zoster rash. Notes reviewed Temps ok WBC up to 2.1 today, platelet 26 BC from oncology center has Klebsiella and Viridans Strep BC here negative so far No new complaints Antibiotics Cefepime Vancomycin Current Medications Medications (Trade) Dose Ordered Sig/Marilee Route Start Time Stop Time Status Last Admin (Neupogen Inj) 480 mcg DAILY@14 SQ 01/20/18 14:00 01/26/18 14:45 Vancomycin HCl 1000 mg/Sodium Chloride 250 ml @ 250 mls/hr Q12H IV 01/19/18 17:00 01/26/18 04:03 Cefepime HCl 2000 mg/Sodium Chloride 100 ml @ 200 mls/hr Q8H IV 01/19/18 17:00 01/26/18 16:43 (Zyloprim) 300 mg DAILY PO 01/20/18 09:00 01/26/18 08:09 (Tenormin) 50 mg DAILY PO 01/20/18 09:00 01/26/18 08:09 (Flonase Gilles Spr) 2 spray BID EACH NARE 01/19/18 21:00 01/26/18 08:09 (Zoloft) 50 mg DAILY PO 01/20/18 09:00 01/26/18 08:09 (Januvia) 100 mg DAILY PO 01/20/18 09:00 01/26/18 08:09 Patient Own Medication PT OWN MED: EZETIMIBE-SIMVASTATIN... HS PO 01/19/18 21:00 (Protonix) 20 mg DAILY PO 01/20/18 09:00 01/26/18 08:09 (Imodium) 2 mg Q6H PRN PO 01/19/18 17:15 (Ativan) 0.5 mg Q6H PRN PO 01/19/18 18:00 01/26/18 04:03 ([place] 5-325 Mg) 1 tab Q4H PRN PO 01/19/18 19:00 01/20/18 23:07 (Magic Mouthwash Adult Liq) 10 ml QID SWISH-SWAL 01/21/18 09:00 01/26/18 12:28 (Zovirax) 200 mg 5 TIMES A DAY PO 01/21/18 10:00 01/28/18 09:59 01/26/18 14:45 (Duoneb Neb) 1 ampule Q4HR NEB PRN NEB 01/21/18 12:00 01/25/18 20:07 (Prinivil) 10 mg DAILY PO 01/23/18 09:00 01/26/18 08:09 (NS Flush) 5 ml UNSCH PRN IV FLUSH 01/23/18 05:30 01/26/18 08:09 (Benadryl) 25 mg Q4H PRN PO 01/24/18 08:15 01/24/18 12:05 (Tylenol) 650 mg Q4H PRN PO 01/25/18 08:15 (Benadryl) 25 mg Q4H PRN PO 01/25/18 08:15 01/25/18 12:43 (KCl) 20 meq Q12HR PO 01/26/18 09:30 01/26/18 10:13 (K-Lyte Cl Eff) 50 meq Q12HR NG 01/26/18 10:30 01/26/18 11:22 (Lasix Inj) 20 mg BID@ IV PUSH 01/26/18 18:00 (Heparin Central Flush) 250 unit UNSCH PRN IV FLUSH 01/26/18 16:30 (Heparin Central Flush) 500 unit UNSCH IV FLUSH 01/26/18 16:30 Lines Port right upper chest Past Medical History 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 Diabetes mellitus, Gastroesophageal reflux disease, Cardiomyopathy with ejection fraction around 35%, Gout. Coronary artery disease, status post a heart attack in 1993. Chronic kidney disease. Kidney stone. Past Surgical History Colonoscopy, upper endoscopy Coronary bypass graft surgery in 1995. Hernia repair. Appendectomy Port placement. Allergies: Coded Allergies: erythromycin base (Unverified Allergy, Severe, 05/26/17) Patient denies meperidine (Unverified Allergy, Severe, 05/26/17) Patient denies penicillin G (Unverified Allergy, Severe, 05/26/17) pt. denies oxycodone (Unverified Allergy, Unknown, 05/26/17) pt. denies amoxicillin (Unverified Adverse Reaction, Mild, upset stomach, 05/26/17) Objective . Vital Signs Date Time Temp Pulse Resp B/P (MAP) Pulse Ox O2 Delivery O2 Flow Rate FiO2 01/26/18 15:20 97.8 67 18 120/64 (82) 99 01/26/18 11:20 97.8 67 18 121/50 (73) 98 01/26/18 11:15 67 01/26/18 08:00 97.7 81 16 143/74 (97) 98 01/26/18 07:47 98 Nasal Cannula 2.00 01/26/18 07:00 63 01/26/18 04:11 98.2 76 22 143/74 (97) 96 01/26/18 04:00 79 01/26/18 00:11 97.6 71 22 121/68 (85) 98 01/26/18 00:00 59 01/25/18 20:00 96 2.00 01/25/18 20:00 77 01/25/18 20:00 97.2 24 153/84 (107) 98 . Laboratory Tests Test 01/25/18 05:15 01/26/18 04:00 White Blood Count 0.7 TH/MM3 2.1 TH/MM3 Red Blood Count 2.39 MIL/MM3 2.87 MIL/MM3 Hemoglobin 7.7 GM/DL 8.9 GM/DL Hematocrit 21.9 % 25.8 % Mean Corpuscular Volume 91.9 FL 90.0 FL Mean Corpuscular Hemoglobin 32.2 PG 31.0 PG Mean Corpuscular Hemoglobin Concent 35.0 % 34.5 % Red Cell Distribution Width 14.2 % 15.5 % Platelet Count 17 TH/MM3 26 TH/MM3 Mean Platelet Volume 8.5 FL 8.8 FL CBC Comment AUTO DIFF AUTO DIFF Differential Total Cells Counted 50 100 Neutrophils % (Manual) 34 % 67 % Band Neutrophils % 28 % 20 % Lymphocytes % 20 % 4 % Monocytes % 18 % 5 % Neutrophils # (Manual) 0.4 TH/MM3 1.9 TH/MM3 Differential Comment FINAL DIFF MANUAL FINAL DIFF MANUAL Platelet Estimate RARE LOW Platelet Morphology Comment NORMAL NORMAL Eosinophils % 1 % Metamyelocytes 2 % Myelocytes 1 % Nucleated Red Blood Cells 1 /100 WBC Dohle Bodies PRESENT Rouleau PRESENT Laboratory Tests Test 01/25/18 05:15 01/26/18 04:00 Blood Urea Nitrogen 26 MG/DL 24 MG/DL Creatinine 1.04 MG/DL 1.03 MG/DL Random Glucose 137 MG/DL 135 MG/DL Total Protein 5.6 GM/DL 5.9 GM/DL Albumin 2.7 GM/DL 2.8 GM/DL Calcium Level 8.2 MG/DL 8.3 MG/DL Phosphorus Level 2.3 MG/DL 2.3 MG/DL Magnesium Level 2.0 MG/DL 1.8 MG/DL Alkaline Phosphatase 90 U/L 93 U/L Aspartate Amino Transf (AST/SGOT) 31 U/L 27 U/L Alanine Aminotransferase (ALT/SGPT) 54 U/L 51 U/L Total Bilirubin 0.7 MG/DL 1.0 MG/DL Sodium Level 138 MEQ/L 140 MEQ/L Potassium Level 3.4 MEQ/L 3.3 MEQ/L Chloride Level 106 MEQ/L 105 MEQ/L Carbon Dioxide Level 23.7 MEQ/L 24.6 MEQ/L Anion Gap 8 MEQ/L 10 MEQ/L Estimat Glomerular Filtration Rate 69 ML/MIN 70 ML/MIN Imaging Last Impressions Chest X-Ray 01/19/18 0000 Signed Impressions: CONCLUSION: Cardiomegaly with bilateral mostly basilar airspace disease. Differential diagn osis includes mild edema or infection. Physical Exam GENERAL: awake and alert, not in respiratory distress. SKIN: Warm and dry. No generalized rash. Has ecchymoses in his L forearm. HSV lesions lower lip with eschar, erythema gone. HEAD: Atraumatic. Normocephalic. No temporal wasting, or tenderness. EYES: Tomas De Castro conjunctiva. No petechia or hemorrhage. Pupils equal, round and reactive to light. Extraocular movements full and intact. No scleral icterus. No injection or drainage. EARS, NOSE AND THROAT: Nose without bleeding or purulent nasal discharge. No sinus tenderness. Mucous membranes pink and moist. No oral lesions noted. NECK: Trachea midline. Supple and not tender, no meningeal signs CARDIOVASCULAR: Regular rate and rhythm. No murmurs, rubs or gallops heard. Port looks ok. RESPIRATORY: Clear to auscultation. Breath sounds equal bilaterally. No rales , wheezing or rhonchi ABDOMEN: Soft, non-tender, nondistended. Bowel sounds present and normoactive. No guarding. No rebound. No organomegaly. EXTREMITIES: No clubbing, cyanosis, or edema. No joint effusion, has good ROM. No calf tenderness. Well perfused and warm. RUE - has ecchymoses on the forearm, and has some erythema with mild induration below the R elbow, good ROM at elbow joint NEUROLOGICAL: Awake and alert. Cranial nerves grossly intact. Motor grossly within normal limits. PSYCHIATRIC: Normal affect, calm and cooperative. LINE: No evidence of infection Assessment & Plan Remarks IMPRESSION Febrile neutropenia, status post chemo for large cell lymphoma - temps resolved Kleb and Viridans Strep bacteremia Rash in R lower lip - HSV Large cell lymphoma ?cellulitis R forearm vs due to recent trauma RECOMMENDATION Continue Vanco Continue Cefepime Continue Acyclovir - to finish 01/28 If counts continues to improve, should be able to D/C IV ABx and use Levaquin x 7 more days for his bacteremia Monitor temps Monitor progress Improving Dr Jacob Dia available if with questions this weekend He is clinically stable from ID standpoint Lin Johnson MD Jan 26, 2018 16:52
[2018-01-26] MEDS: EZETIMIBE PO SCH (20:05)
[2018-01-26] MEDS: SIMVASTATIN PO SCH (20:05)
[2018-01-27] VITALS (12 sets, daily range): BP systolic 120–148; BP diastolic 62–78; PULSE 65–103; RESP 16–22; TEMP 97.5–98.4; O2SAT 96–98
[2018-01-27] MEDS: CEFEPIME INJ 2,000 MG in SODIUM CHLORIDE 0.9% INJ 100 ML IV SCH ×3 (00:16→16:26)
[2018-01-27] MEDS: LORazepam 0.5 MG TAB PO PRN ×3 (03:00→19:41)
[2018-01-27] MEDS: ACYCLOVIR 200 MG CAP PO SCH ×5 (04:12→22:09)
[2018-01-27] MEDS: VANCOMYCIN INJ 1,000 MG in SODIUM CHLOR 0.9% 250 ML INJ 250 ML IV SCH ×2 (04:12→17:29)
[2018-01-27 05:17] LABS: HEMATOCRIT 24.5 % (39.0-51.0); HEMOGLOBIN 8.5 GM/DL (13.0-17.0); MEAN CELL VOLUME 90.8 FL (80.0-100.0); MEAN CORPUSCULAR HEMOGLOBIN 31.5 PG (27.0-34.0); MEAN CORPUSCULAR HGB CONC 34.7 % (32.0-36.0); MEAN PLATELET VOLUME 9.6 FL (7.0-11.0); PLATELET COUNT 23 TH/MM3 (150-450); RED CELL DISTRIBUTION WIDTH 15.7 % (11.6-17.2); WHITE BLOOD COUNT 3.5 TH/MM3 (4.0-11.0)
[2018-01-27 05:41] LABS: ALBUMIN 2.8 GM/DL (3.4-5.0); ALT (GPT) 45 U/L (12-78); AST (GOT) 23 U/L (15-37); BLOOD UREA NITROGEN 23 MG/DL (7-18); CALCIUM 8.5 MG/DL (8.5-10.1); CHLORIDE 104 MEQ/L (98-107); CREATININE 1.02 MG/DL (0.60-1.30); GLOMERULAR FILTRATION RATE 70 ML/MIN (>89); GLUCOSE,RANDOM 118 MG/DL (74-106); MAGNESIUM 1.7 MG/DL (1.5-2.5); PHOSPHORUS 2.2 MG/DL (2.5-4.9); SODIUM (NA) 140 MEQ/L (136-145)
[2018-01-27 05:44] LABS: ALKALINE PHOSPHATASE 95 U/L (45-117); TOTAL BILIRUBIN ADULT 0.7 MG/DL (0.2-1.0); TOTAL PROTEIN 5.5 GM/DL (6.4-8.2)
--- NOTE | 2018-01-27 07:39 | HHI.PR ---
Subjective Remarks Pt seen and examined. present in the room. No new complaints. Continues to have dyspnea and dry cough. Not really ambulating. Denies CP, abdominal pain, hemoptysis, fever, chills, or urine symptoms. Objective Vital Signs Date Time Temp Pulse Resp B/P (MAP) Pulse Ox O2 Delivery O2 Flow Rate FiO2 01/27/18 04:09 97.5 70 22 121/62 (81) 97 01/27/18 04:00 66 01/27/18 00:13 98.3 70 22 120/65 (83) 98 01/27/18 00:00 70 01/26/18 20:00 96 Nasal Cannula 2.00 01/26/18 20:00 98.6 78 22 127/68 (87) 96 01/26/18 20:00 68 01/26/18 15:20 97.8 67 18 120/64 (82) 99 01/26/18 15:00 71 01/26/18 11:20 97.8 67 18 121/50 (73) 98 01/26/18 11:15 67 01/26/18 08:00 97.7 81 16 143/74 (97) 98 01/26/18 07:47 98 Nasal Cannula 2.00 I/O 01/26/18 01/26/18 01/26/18 01/27/18 01/27/18 01/27/18 07:00 15:00 23:00 07:00 15:00 23:00 Intake Total 590 ml 2420 ml 830 ml Output Total 650 ml 2425 ml 1074 ml Balance -60 ml -5 ml -244 ml Intake Oral 240 ml 2420 ml 480 ml IV Total 350 ml 350 ml Output Urine Total 650 ml 2425 ml 1074 ml # Bowel Movements 1 Result Diagram: 01/27/18 0420 01/27/18 0420 Imaging Chest X-Ray 01/26/18 0000 Signed Impressions: CONCLUSION: 1. Cardiomegaly with mild pulmonary vascular congestion. 2. Interval development of small left pleural effusion with associated left lo wer lobe airspace disease. 3. Mild right lower lobe airspace disease, presumably atelectasis. Abdomen Ultrasound 01/25/18 0000 Signed Impressions: CONCLUSION: 1. No abdominal ascites. 2. Cholelithiasis. 3. Bilateral pleural effusions. Objective Remarks GENERAL: WN, WD male sitting up in chair in NAD. SKIN: Warm and dry. HEENT: AT/NC. Pupils equal and round. MMM. NECK: Supple no tender LAD or JVD. HEART: Irregular rhythm. LUNGS: Crackles at left base otherwise clear. ABDOMEN: +BS, soft, NT, ND. EXTREMITIES: 1+ pitting edema up shins. NEURO: Awake and alert. Nonfocal. PSYCH: Appropriate mood and affect. A/P Problem List: (1) Neutropenic fever ICD Code: D70.9 - Neutropenia, unspecified; R50.81 - Fever presenting with conditions classified elsewhere Status: Acute (2) Pancytopenia due to chemotherapy ICD Code: D61.810 - Antineoplastic chemotherapy induced pancytopenia Status: Chronic (3) Large B-cell lymphoma ICD Code: C85.10 - Unspecified B-cell lymphoma, unspecified site (4) Cardiomyopathy ICD Code: I42.9 - Cardiomyopathy, unspecified Status: Chronic Assessment and Plan 77 YOWM with large B cell lymphoma, DM, cardiomyopathy, CAD, and CKD admitted for severe sepsis and neutropenic fever. 1. Severe sepsis, resolved - On admission was febrile, tachycardic, and had elevated lactic acid in the setting of neutropenia - Source of infection was suspected to be herpes simplex - OP blood cultures done at onc office growing Klebsiella and Strep viridans - Blood cultures have remained negative this hospitalization - U/A unremarkable 2. Neutropenic fever - ID and heme/onc following - Monitor for fevers - Currently on IV vanc and cefepime - Per ID, if WBC continues to improve can change to Levaquin x 7 days - WBC count up to 3.5 today, will check tomorrow and if continues to improve will change to PO antibiotics and consider discharge 3. HSV - ID following - On Acyclovir until 01/28 4. Large B cell lymphoma - Stage IV disease with involvement of the bone marrow on initial diagnosis - Treated with his first cycle of R- ICE chemo last week - Heme/onc following 5. Pancytopenia - Transfuse to keep Hb>8 and PLT>20K - Neupogen until WBC>5K - S/P 3 units RBCs and 3 units platelets transfused 6. Cardiomyopathy with EF 35% - Cardiology evaluated earlier in admission, available as needed - Continue Lasix and Lisinopril - CXR 01/26 showing cardiomegaly with mild pulmonary vascular congestion and interval development of small left pleural effusion and RLL atelectasis - Repeat CXR today given pleural effusion, findings on exam, and patient symptoms. If increasing could consider tapping if large enough 7. L forearm wound - Wound care following, placed absorbant transparent film since dressing changes are uncomfortable for patient and since the wound is not actively draining - Film may be left in place up to 7 days - Culture if wound begins draining 8. DM2 - Stable, continue Januvia 9. GERD - Stable, continue PPI 10. Anxiety/depression - Stable, continue home meds - Ativan PRN 11. HTN - Stable, continue atenolol and Lisinopril DVT prophylaxis: C/I given severe thrombocytopenia, SCDs, encourage ambulation Discharge Planning Anticipate D/C over next day or two if patient remains clinically stable Nighat Quiñonez MD Jan 27, 2018 07:39
[2018-01-27] MEDS: ALLOPURINOL 300 MG TAB PO SCH (08:47)
[2018-01-27] MEDS: FLUTICASONE PROPIONATE 50 MCG/ACT 16 GM NASAL SPRAY EACH NARE SCH ×2 (08:47→19:44)
[2018-01-27] MEDS: POTASSIUM CHLORIDE 20 MEQ CONTROLLED RELEASE TAB PO SCH ×2 (08:47→19:41)
[2018-01-27] MEDS: PANTOPRAZOLE SOD 20 MG DELAYED RELEASE TAB PO SCH (08:47)
[2018-01-27] MEDS: LISINOPRIL 10 MG TAB PO SCH (08:47)
[2018-01-27] MEDS: SERTRALINE HCL 50 MG TAB PO SCH (08:48)
[2018-01-27] MEDS: FUROSEMIDE 20 MG/2 ML VIAL IV PUSH SCH ×2 (09:02→17:30)
[2018-01-27] MEDS: ATENOLOL 50 MG TAB PO SCH (09:02)
[2018-01-27] MEDS: NYSTAT/DIPHENHY/LIDO MOUTHWASH (Adult) 120ML SWISH-SWAL SCH ×4 (09:03→19:41)
[2018-01-27 09:42] LABS: BANDS 12 % (0-6); LYMPHOCYTES 5 % (9-44); METAMYELOCYTES 1 % (0-1); MONOCYTES 4 % (0-8); MYELOCYTES 2 % (0-0); NEUTROPHIL # MANUAL DIFF 3.2 TH/MM3 (1.8-7.7); POLYS (SEG NEUTROPHILS) 76 % (16-70)
[2018-01-27 09:43] LABS: DOHLE BODIES PRESENT (NONE SEEN); ROULEAUX PRESENT (NORMAL)
--- NOTE | 2018-01-27 10:14 | PD.ONC.PN ---
Subjective Subjective Remarks Afebrile overnight. patient resting in bed. still feeling short of breath with exertion. otherwise without complaints. Objective Data Date Time Temp Pulse Resp B/P (MAP) Pulse Ox O2 Delivery O2 Flow Rate FiO2 01/27/18 08:01 98.1 79 20 148/78 (101) 97 01/27/18 04:09 97.5 70 22 121/62 (81) 97 01/27/18 04:00 66 01/27/18 00:13 98.3 70 22 120/65 (83) 98 01/27/18 00:00 70 01/26/18 20:00 96 Nasal Cannula 2.00 01/26/18 20:00 98.6 78 22 127/68 (87) 96 01/26/18 20:00 68 01/26/18 15:20 97.8 67 18 120/64 (82) 99 01/26/18 15:00 71 01/26/18 11:20 97.8 67 18 121/50 (73) 98 01/26/18 11:15 67 01/27/18 01/27/18 01/27/18 06:59 14:59 22:59 Intake Total 830 ml Output Total 1074 ml Balance -244 ml Result Diagram: 01/27/18 0420 01/27/18 0420 Laboratory Results Laboratory Tests Test 01/27/18 04:20 White Blood Count 3.5 TH/MM3 Red Blood Count 2.70 MIL/MM3 Hemoglobin 8.5 GM/DL Hematocrit 24.5 % Mean Corpuscular Volume 90.8 FL Mean Corpuscular Hemoglobin 31.5 PG Mean Corpuscular Hemoglobin Concent 34.7 % Red Cell Distribution Width 15.7 % Platelet Count 23 TH/MM3 Mean Platelet Volume 9.6 FL CBC Comment AUTO DIFF Differential Total Cells Counted 100 Neutrophils % (Manual) 76 % Band Neutrophils % 12 % Lymphocytes % 5 % Monocytes % 4 % Neutrophils # (Manual) 3.2 TH/MM3 Metamyelocytes 1 % Myelocytes 2 % Differential Comment AUTO DIFF CONFIRMED Dohle Bodies PRESENT Platelet Estimate LOW Platelet Morphology Comment NORMAL Rouleau PRESENT Blood Urea Nitrogen 23 MG/DL Creatinine 1.02 MG/DL Random Glucose 118 MG/DL Total Protein 5.5 GM/DL Albumin 2.8 GM/DL Calcium Level 8.5 MG/DL Phosphorus Level 2.2 MG/DL Magnesium Level 1.7 MG/DL Alkaline Phosphatase 95 U/L Aspartate Amino Transf (AST/SGOT) 23 U/L Alanine Aminotransferase (ALT/SGPT) 45 U/L Total Bilirubin 0.7 MG/DL Sodium Level 140 MEQ/L Potassium Level 3.7 MEQ/L Chloride Level 104 MEQ/L Carbon Dioxide Level 26.0 MEQ/L Anion Gap 10 MEQ/L Estimat Glomerular Filtration Rate 70 ML/MIN Administered Medications Medications (Trade) Dose Ordered Sig/Marilee Route PRN Reason Start Time Stop Time Status Last Admin Dose Admin Filgrastim (Neupogen Inj) 480 mcg DAILY@14 SQ 01/20/18 14:00 01/26/18 14:45 Vancomycin HCl 1000 mg/Sodium Chloride 250 ml @ 250 mls/hr Q12H IV 01/19/18 17:00 01/27/18 04:12 Cefepime HCl 2000 mg/Sodium Chloride 100 ml @ 200 mls/hr Q8H IV 01/19/18 17:00 01/27/18 08:45 Allopurinol (Zyloprim) 300 mg DAILY PO 01/20/18 09:00 01/27/18 08:47 Atenolol (Tenormin) 50 mg DAILY PO 01/20/18 09:00 01/27/18 09:02 Fluticasone Propionate (Flonase Gilles Spr) 2 spray BID EACH NARE 01/19/18 21:00 01/27/18 08:47 Sertraline HCl (Zoloft) 50 mg DAILY PO 01/20/18 09:00 01/27/18 08:48 Sitagliptin Phosphate (Januvia) 100 mg DAILY PO 01/20/18 09:00 01/27/18 08:48 Pantoprazole Sodium (Protonix) 20 mg DAILY PO 01/20/18 09:00 01/27/18 08:47 Lorazepam (Ativan) 0.5 mg Q6H PRN PO ANXIETY 01/19/18 18:00 01/27/18 03:00 Acetaminophen/ Hydrocodone Bitart ([place] 5-325 Mg) 1 tab Q4H PRN PO pain 2-10 01/19/18 19:00 01/20/18 23:07 Multi-Ingredient Mouthwash/Gargle (Magic Mouthwash Adult Liq) 10 ml QID SWISH-SWAL 01/21/18 09:00 01/27/18 09:03 Acyclovir (Zovirax) 200 mg 5 TIMES A DAY PO 01/21/18 10:00 01/28/18 09:59 01/27/18 08:47 Albuterol/ Ipratropium (Duoneb Neb) 1 ampule Q4HR NEB PRN NEB sob/wheezing 01/21/18 12:00 01/25/18 20:07 Lisinopril (Prinivil) 10 mg DAILY PO 01/23/18 09:00 01/27/18 08:47 Sodium Chloride (NS Flush) 5 ml UNSCH PRN IV FLUSH SEE PROTOCOL TABLE 01/23/18 05:30 01/26/18 08:09 Diphenhydramine HCl (Benadryl) 25 mg Q4H PRN PO SEE LABEL COMMENTS 01/24/18 08:15 01/24/18 12:05 Diphenhydramine HCl (Benadryl) 25 mg Q4H PRN PO SEE LABEL COMMENTS 01/25/18 08:15 01/25/18 12:43 Potassium Chloride (KCl) 20 meq Q12HR PO 01/26/18 09:30 01/27/18 08:47 Furosemide (Lasix Inj) 20 mg BID@ IV PUSH 01/26/18 18:00 01/27/18 09:02 Objective Remarks GENERAL: elderly male, sitting up in bed in nad. On 2L O2 via NC SKIN: Warm and dry. HEAD: Normocephalic. EYES: No injection or drainage. NECK: Supple, trachea midline. CARDIOVASCULAR: Regular rate and rhythm RESPIRATORY: occasional rhonchi. GASTROINTESTINAL: Abdomen soft, non-tender, nondistended. EXTREMITIES: No cyanosis. ble with mild edema MUSCULOSKELETAL: Adequate muscle tone. NEUROLOGICAL: awake, alert. normal speech. moving all extremities. Assessment/Plan Problem List: (1) Neutropenic fever ICD Codes: D70.9 - Neutropenia, unspecified; R50.81 - Fever presenting with conditions classified elsewhere Status: Acute Plan: --Infectious disease following --on vancomycin, cefepime and acyclovir --most recent blood cultures with no growth. 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 The patient had stage IV disease with involvement of the bone marrow on initial diagnosis. -- Treated with his first cycle of R- ICE chemo last week. --He received a second opinion at an academic center where they recommended R- EPOCH chemo however this was not feasible due to severe cardiomyopathy. (3) Cardiomyopathy ICD Codes: I42.9 - Cardiomyopathy, unspecified Status: Chronic Plan: --Chest x-ray on 01/21 showed vascular congestion --BNP elevated --Cardiology following (4) Pancytopenia due to chemotherapy ICD Codes: D61.810 - Antineoplastic chemotherapy induced pancytopenia Status: Chronic Plan: --Transfuse to keep hemoglobin greater than 8 and platelet count greater than 20,000. Assessment 77 y/o male admitted with neutropenic fever Plan 1. no transfusion today 2. continue neupogen 3. continue antibiotics 4. continue Lasix. Attending Statement The exam, history, and the medical decision-making described in the above note were completed with the assistance of the mid-level provider. I reviewed and agree with the findings presented. I attest that I had a [id number] encounter with the patient on the same day, and personally performed and documented my assessment and findings in the medical record Large B cell Lymphoma neutropenic fever-- ANC 3.2 continue Neupogen daily acute chf/cardiomyopathy-- on lasix and lisininopr WBC up repeat Blood cultures negative monitor daily cbc Shirley Hernandez Jan 27, 2018 10:13 Florian Soriano MD Jan 27, 2018 11:38
[2018-01-27] MEDS: FILGRASTIM 480 MCG/1.6 ML VIAL SQ SCH (13:13)
--- NOTE | 2018-01-27 15:10 | RADRPT ---
EXAM DATE: 01/27/2018 3:02 PM EDT AGE/SEX: 77 years / Male INDICATIONS: Pleural effusion. CLINICAL DATA: This is the patient's subsequent encounter. Patient reports that signs and symptoms h ave been present for 4 - 6 days and indicates a pain score of 0/10. MEDICAL/SURGICAL HISTORY: . Hypertension. Diabetes. Hypercholesterolemia. Myocardial infarction . CABG. . Port for chemotherapy. COMPARISON: [facility] – [place], CHEST SINGLE AP, 01/26/2018. . FINDINGS: Trace atelectasis of both bases and not significantly changed. A very small left pleural effusion is present and I also believe similar to before. No pneumothorax. Heart size stable, upper limits of normal. Patient has had previous median sternotomy. Right IJ Infus e-a-Port catheter with tip in the right atrium again noted. CONCLUSION: Mild bibasilar atelectasis not significantly changed. Electronically signed by: Tate Rooney MD 01/27/2018 3:08 PM EDT
[2018-01-27] MEDS: SIMVASTATIN PO SCH (19:43)
[2018-01-27] MEDS: EZETIMIBE PO SCH (19:43)
[2018-01-27] MEDS: RESP: ALBUTEROL 2.5 MG/IPRATROPIUM 0.5 MG NEB (PRN) NEB (22:18)
[2018-01-28] VITALS (11 sets, daily range): BP systolic 114–147; BP diastolic 44–78; PULSE 63–78; RESP 16–24; TEMP 97.6–98.7; O2SAT 94–98
[2018-01-28] MEDS: CEFEPIME INJ 2,000 MG in SODIUM CHLORIDE 0.9% INJ 100 ML IV SCH ×2 (01:43→09:00)
[2018-01-28] MEDS: LORazepam 0.5 MG TAB PO PRN (01:43)
[2018-01-28] MEDS: ACYCLOVIR 200 MG CAP PO SCH (04:32)
[2018-01-28] MEDS: VANCOMYCIN INJ 1,000 MG in SODIUM CHLOR 0.9% 250 ML INJ 250 ML IV SCH (04:32)
[2018-01-28 05:59] LABS: HEMATOCRIT 27.6 % (39.0-51.0); HEMOGLOBIN 9.4 GM/DL (13.0-17.0); MEAN CELL VOLUME 91.7 FL (80.0-100.0); MEAN CORPUSCULAR HEMOGLOBIN 31.4 PG (27.0-34.0); MEAN CORPUSCULAR HGB CONC 34.2 % (32.0-36.0); MEAN PLATELET VOLUME 9.8 FL (7.0-11.0); PLATELET COUNT 28 TH/MM3 (150-450); RED BLOOD COUNT 3.01 MIL/MM3 (4.50-5.90); RED CELL DISTRIBUTION WIDTH 15.6 % (11.6-17.2); WHITE BLOOD COUNT 9.2 TH/MM3 (4.0-11.0)
[2018-01-28 06:14] LABS: CALCIUM 8.6 MG/DL (8.5-10.1); CREATININE 1.05 MG/DL (0.60-1.30)
--- NOTE | 2018-01-28 08:38 | PD.ONC.PN ---
Subjective Subjective Remarks Afebrile overnight. patient continues to have persistent shortness of breath, even at rest. per nurses he has also been quite anxious and the ativan he has been receiving does not seem to be working for his anxiety. He has a cough productive of sputum. Objective Data Date Time Temp Pulse Resp B/P (MAP) Pulse Ox O2 Delivery O2 Flow Rate FiO2 01/28/18 07:44 94 Nasal Cannula 2.00 01/28/18 07:39 97.6 76 24 128/72 (90) 94 01/28/18 04:00 97.9 74 17 136/78 (97) 98 01/28/18 04:00 66 01/28/18 00:00 98.0 75 16 147/74 (98) 95 01/28/18 00:00 71 01/27/18 21:45 97 Nasal Cannula 2.00 01/27/18 20:00 Nasal Cannula 2.00 01/27/18 20:00 65 01/27/18 20:00 97.7 68 16 138/72 (94) 97 01/27/18 16:45 98.4 74 18 124/78 (93) 97 01/27/18 16:00 84 01/27/18 12:23 96 Nasal Cannula 2.00 01/27/18 12:00 67 01/28/18 01/28/18 01/28/18 07:00 15:00 23:00 Intake Total 240 ml Output Total 400 ml Balance -160 ml Result Diagram: 01/28/18 0430 01/28/18 0456 Laboratory Results Laboratory Tests Test 01/28/18 04:30 01/28/18 04:56 White Blood Count 9.2 TH/MM3 Red Blood Count 3.01 MIL/MM3 Hemoglobin 9.4 GM/DL Hematocrit 27.6 % Mean Corpuscular Volume 91.7 FL Mean Corpuscular Hemoglobin 31.4 PG Mean Corpuscular Hemoglobin Concent 34.2 % Red Cell Distribution Width 15.6 % Platelet Count 28 TH/MM3 Mean Platelet Volume 9.8 FL CBC Comment AUTO DIFF Blood Urea Nitrogen 19 MG/DL Creatinine 1.05 MG/DL Random Glucose 111 MG/DL Calcium Level 8.6 MG/DL Sodium Level 140 MEQ/L Potassium Level 3.9 MEQ/L Chloride Level 105 MEQ/L Carbon Dioxide Level 25.0 MEQ/L Anion Gap 10 MEQ/L Estimat Glomerular Filtration Rate 68 ML/MIN Administered Medications Medications (Trade) Dose Ordered Sig/Marilee Route PRN Reason Start Time Stop Time Status Last Admin Dose Admin Vancomycin HCl 1000 mg/Sodium Chloride 250 ml @ 250 mls/hr Q12H IV 01/19/18 17:00 01/28/18 04:32 Cefepime HCl 2000 mg/Sodium Chloride 100 ml @ 200 mls/hr Q8H IV 01/19/18 17:00 01/28/18 01:43 Allopurinol (Zyloprim) 300 mg DAILY PO 01/20/18 09:00 01/27/18 08:47 Atenolol (Tenormin) 50 mg DAILY PO 01/20/18 09:00 01/27/18 09:02 Fluticasone Propionate (Flonase Gilles Spr) 2 spray BID EACH NARE 01/19/18 21:00 01/27/18 08:47 Sertraline HCl (Zoloft) 50 mg DAILY PO 01/20/18 09:00 01/27/18 08:48 Sitagliptin Phosphate (Januvia) 100 mg DAILY PO 01/20/18 09:00 01/27/18 08:48 Pantoprazole Sodium (Protonix) 20 mg DAILY PO 01/20/18 09:00 01/27/18 08:47 Acetaminophen/ Hydrocodone Bitart ([place] 5-325 Mg) 1 tab Q4H PRN PO pain 2-10 01/19/18 19:00 01/20/18 23:07 Multi-Ingredient Mouthwash/Gargle (Magic Mouthwash Adult Liq) 10 ml QID SWISH-SWAL 01/21/18 09:00 01/27/18 19:41 Acyclovir (Zovirax) 200 mg 5 TIMES A DAY PO 01/21/18 10:00 01/28/18 09:59 01/28/18 04:32 Albuterol/ Ipratropium (Duoneb Neb) 1 ampule Q4HR NEB PRN NEB sob/wheezing 01/21/18 12:00 01/27/18 22:18 Lisinopril (Prinivil) 10 mg DAILY PO 01/23/18 09:00 01/27/18 08:47 Sodium Chloride (NS Flush) 5 ml UNSCH PRN IV FLUSH SEE PROTOCOL TABLE 01/23/18 05:30 01/26/18 08:09 Diphenhydramine HCl (Benadryl) 25 mg Q4H PRN PO SEE LABEL COMMENTS 01/24/18 08:15 01/24/18 12:05 Diphenhydramine HCl (Benadryl) 25 mg Q4H PRN PO SEE LABEL COMMENTS 01/25/18 08:15 01/25/18 12:43 Potassium Chloride (KCl) 20 meq Q12HR PO 01/26/18 09:30 01/27/18 19:41 Furosemide (Lasix Inj) 20 mg BID@, IV PUSH 01/26/18 18:00 01/27/18 17:30 Objective Remarks GENERAL: Pleasant anxious male, sitting up in bed SKIN: Warm and dry. HEAD: Normocephalic. EYES: No injection or drainage. NECK: Supple, trachea midline. CARDIOVASCULAR: Regular rate and rhythm RESPIRATORY: forced prolonged expiration. scattered rhonchi. on 2L O2 via NC GASTROINTESTINAL: Abdomen soft, non-tender, nondistended. EXTREMITIES: No cyanosis NEUROLOGICAL: awake and alert. normal speech. moving all extremities. Assessment/Plan Problem List: (1) Neutropenic fever ICD Codes: D70.9 - Neutropenia, unspecified; R50.81 - Fever presenting with conditions classified elsewhere Status: Acute Plan: --Infectious disease following --on vancomycin, cefepime and acyclovir --most recent blood cultures with no growth. 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 The patient had stage IV disease with involvement of the bone marrow on initial diagnosis. -- Treated with his first cycle of R- ICE chemo last week. --He received a second opinion at an academic center where they recommended R- EPOCH chemo however this was not feasible due to severe cardiomyopathy. (3) Cardiomyopathy ICD Codes: I42.9 - Cardiomyopathy, unspecified Status: Chronic Plan: --Chest x-ray on 01/21 showed vascular congestion --BNP elevated --Cardiology following (4) Pancytopenia due to chemotherapy ICD Codes: D61.810 - Antineoplastic chemotherapy induced pancytopenia Status: Chronic Plan: --Transfuse to keep hemoglobin greater than 8 and platelet count greater than 20,000. Assessment 77 y/o male admitted with neutropenic fever Plan 1. stop neupogen 2. will obtain CTA, I don't think the reason for his dyspnea can entirely be attributed to his cardiomyopathy. may need to consult pulmonology as well to see if they have any recommendations. 3. continue antibiotics per infectious disease. his WBC has now recovered. we will need ID to provide home antibiotic recommendations. Attending Statement The exam, history, and the medical decision-making described in the above note were completed with the assistance of the mid-level provider. I reviewed and agree with the findings presented. 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 dyspnea persistent repeat 2 D echo--hx of anthracycline exposure supportive care Shirley Hernandez Jan 28, 2018 08:38 Florian Soriano MD Jan 28, 2018 11:17
[2018-01-28] MEDS: NYSTAT/DIPHENHY/LIDO MOUTHWASH (Adult) 120ML SWISH-SWAL SCH ×4 (09:00→19:54)
[2018-01-28 09:14] LABS: BANDS 28 % (0-6); LYMPHOCYTES 1 % (9-44); METAMYELOCYTES 1 % (0-1); MONOCYTES 8 % (0-8); MYELOCYTES 2 % (0-0); NEUTROPHIL # MANUAL DIFF 8.4 TH/MM3 (1.8-7.7); POLYS (SEG NEUTROPHILS) 60 % (16-70)
[2018-01-28 09:15] LABS: DOHLE BODIES PRESENT (NONE SEEN); ROULEAUX PRESENT (NORMAL)
[2018-01-28] MEDS: FLUTICASONE PROPIONATE 50 MCG/ACT 16 GM NASAL SPRAY EACH NARE SCH ×2 (09:33→19:54)
[2018-01-28] MEDS: ATENOLOL 50 MG TAB PO SCH (09:34)
[2018-01-28] MEDS: ALLOPURINOL 300 MG TAB PO SCH (09:34)
[2018-01-28] MEDS: LISINOPRIL 10 MG TAB PO SCH (09:34)
[2018-01-28] MEDS: PANTOPRAZOLE SOD 20 MG DELAYED RELEASE TAB PO SCH (09:34)
[2018-01-28] MEDS: SERTRALINE HCL 50 MG TAB PO SCH (09:34)
[2018-01-28] MEDS ORDERED: ALTEPLASE RECOMBINANT 2 MG VIAL INTRACATH PRN (10:15)
[2018-01-28] MEDS ORDERED: IOHEXOL 350 MG/ML 10 ML VIAL (for RAD DIAG) IVCONTRAST ONE (11:50)
--- NOTE | 2018-01-28 12:03 | RADRPT ---
EXAM DATE: 01/28/2018 11:57 AM EDT AGE/SEX: 77 years / Male INDICATIONS: Shortness of breath. CLINICAL DATA: This is the patient's initial encounter. Patient reports that signs and symptoms have been present for 1 day and indicates a pain score of 0/10. MEDICAL/SURGICAL HISTORY: Lymphoma. Hypertension. CABG. Appendectomy. Inguinal hernia repair. RADIATION DOSE: 20.87 CTDI (mGy) COMPARISON: No prior [place] exams available for comparison. TECHNIQUE: Volumetric scanning was performed using a multi-row detector CT scanner during bolus infu [place] of 70 ml Omnipaque 350 (iohexol) nonionic water-soluble contrast as a single exam dose. The tejal a was post processed with a variety of visualization algorithms including full volume maximum intensi ty projection and sliding thin slab reformation. Using automated exposure control and adjustment of the mA and/or kV according to patient size, radiation dose was kept as low as reasonably achievable t o obtain optimal diagnostic quality images. FINDINGS: Pulmonary Arteries: No filling defects are seen in the pulmonary arteries out to the subsegmental ve ssels. The left and right pulmonary arteries are normal in diameter. Lung: There are bilateral small to moderate-sized pleural effusions present. The lungs are somewhat limited by diffuse respiratory artifact but there is hazy groundglass opacity identified adjacent to the pulmonary vessels which are engorged. Effusion: Bilateral small to moderate-sized pleural effusion. Mediastinum: Moderate cardiomegaly with severe coronary artery disease. Postsurgical changes from pr ior CABG surgery and a right-sided central line with distal tip identified within the right atrium. Other: The axilla is unremarkable. CONCLUSION: 1. No evidence of PE. 2. Bilateral pleural effusions with cardiomegaly and groundglass opacity adjacent to the pulmonary v essels consistent with pulmonary edema. Electronically signed by: Deidra Hampton MD 01/28/2018 12:02 PM EDT
[2018-01-28] MEDS: FUROSEMIDE 20 MG/2 ML VIAL IV PUSH SCH (12:18)
--- NOTE | 2018-01-28 13:10 | HHI.PR ---
Subjective Remarks Pt seen and examined. present in the room. Patient continues to have WRIGHT. Denies CP. Has dry cough. No abdominal pain, nausea, vomiting. Objective Vital Signs Date Time Temp Pulse Resp B/P (MAP) Pulse Ox O2 Delivery O2 Flow Rate FiO2 01/28/18 12:34 70 01/28/18 10:23 97 Nasal Cannula 2.00 01/28/18 08:52 78 01/28/18 08:49 69 01/28/18 07:44 94 Nasal Cannula 2.00 01/28/18 07:39 97.6 76 24 128/72 (90) 94 01/28/18 04:00 97.9 74 17 136/78 (97) 98 01/28/18 04:00 66 01/28/18 00:00 98.0 75 16 147/74 (98) 95 01/28/18 00:00 71 01/27/18 21:45 97 Nasal Cannula 2.00 01/27/18 20:00 Nasal Cannula 2.00 01/27/18 20:00 65 01/27/18 20:00 97.7 68 16 138/72 (94) 97 01/27/18 16:45 98.4 74 18 124/78 (93) 97 01/27/18 16:00 84 I/O 01/27/18 01/27/18 01/27/18 01/28/18 01/28/18 01/28/18 07:00 15:00 23:00 07:00 15:00 23:00 Intake Total 830 ml 75 ml 240 ml Output Total 1074 ml 1050 ml 1200 ml 400 ml Balance -244 ml -1050 ml -1125 ml -160 ml Intake Oral 480 ml 75 ml 240 ml IV Total 350 ml Output Urine Total 1074 ml 1050 ml 1200 ml 400 ml # Voids 2 1 # Bowel Movements 1 Result Diagram: 01/28/18 0430 01/28/[address] Angiography 01/28/18 0000 Signed Impressions: CONCLUSION: 1. No evidence of PE. 2. Bilateral pleural effusions with cardiomegaly and groundglass opacity adjac ent to the pulmonary vessels consistent with pulmonary edema. Chest X-Ray 01/27/18 0000 Signed Impressions: CONCLUSION: Mild bibasilar atelectasis not significantly changed. Chest X-Ray 01/26/18 0000 Signed Impressions: CONCLUSION: 1. Cardiomegaly with mild pulmonary vascular congestion. 2. Interval development of small left pleural effusion with associated left lo wer lobe airspace disease. 3. Mild right lower lobe airspace disease, presumably atelectasis. Objective Remarks GENERAL: WN, WD male sitting up in chair in NAD. SKIN: Warm and dry. HEENT: AT/NC. Pupils equal and round. MMM. NECK: Supple no tender LAD or JVD. HEART: Irregular rhythm. LUNGS: Bibasilar crackles otherwise clear without wheezing. ABDOMEN: +BS, soft, NT, ND. EXTREMITIES: 1+ pitting edema up shins. NEURO: Awake and alert. Nonfocal. PSYCH: Appropriate mood and affect. A/P Problem List: (1) Neutropenic fever ICD Code: D70.9 - Neutropenia, unspecified; R50.81 - Fever presenting with conditions classified elsewhere Status: Acute (2) Pancytopenia due to chemotherapy ICD Code: D61.810 - Antineoplastic chemotherapy induced pancytopenia Status: Chronic (3) Large B-cell lymphoma ICD Code: C85.10 - Unspecified B-cell lymphoma, unspecified site (4) Cardiomyopathy ICD Code: I42.9 - Cardiomyopathy, unspecified Status: Chronic Assessment and Plan 77 YOWM with large B cell lymphoma, DM, cardiomyopathy, CAD, and CKD admitted for severe sepsis and neutropenic fever. 1. Severe sepsis, resolved - On admission was febrile, tachycardic, and had elevated lactic acid in the setting of neutropenia - Source of infection was suspected to be herpes simplex - OP blood cultures done at onc office growing Klebsiella and Strep viridans - Blood cultures have remained negative this hospitalization - U/A unremarkable 2. Neutropenic fever - Has remained afebrile >72 hours - ID and heme/onc following - Monitor for fevers - Currently on IV vanc and cefepime - Per ID, if WBC continues to improve can change to Levaquin x 7 days - WBC count up to 9.2 today, will transition to PO Levaquin 3. HSV - S/P completion of course of Acyclovir 4. Large B cell lymphoma - Stage IV disease with involvement of the bone marrow on initial diagnosis - Treated with his first cycle of R- ICE chemo last week - Heme/onc following 5. Pancytopenia - Transfuse to keep Hb>8 and PLT>20K - S/P 3 units RBCs and 3 units platelets transfused 6. Cardiomyopathy with EF 35% - Cardiology evaluated earlier in admission, available as needed - Continue Lisinopril - CXR 01/26 showing cardiomegaly with mild pulmonary vascular congestion and interval development of small left pleural effusion and RLL atelectasis - CXR 01/27 with mild bibailar atelectasis not significantly changed - CTA ordered by heme/onc today in light of continued dyspnea: negative for PE but bilateral pleural effusions and pulmonary edema - Increase Lasix to 40 mg IV BID - Repeat echo ordered 7. L forearm wound - Wound care following, placed absorbant transparent film since dressing changes are uncomfortable for patient and since the wound is not actively draining - Film may be left in place up to 7 days - Culture if wound begins draining 8. DM2 - Stable, continue Januvia 9. GERD - Stable, continue PPI 10. Anxiety/depression - Stable, continue home meds - Ativan PRN 11. HTN - Stable, continue atenolol and Lisinopril DVT prophylaxis: C/I given severe thrombocytopenia, SCDs, encourage ambulation Discharge Planning Anticipate D/C over next day or two if patient remains clinically stable. Increasing diuresis and checking echocardiogram today Nighat Quiñonez MD Jan 28, 2018 13:10
[2018-01-28] MEDS ORDERED: LEVOFLOXACIN 750 MG TAB PO ONE (13:15)
[2018-01-28] MEDS ORDERED: FUROSEMIDE 40 MG/4 ML VIAL ONE (15:56)
[2018-01-28] MEDS: FUROSEMIDE 40 MG/4 ML VIAL IV PUSH SCH (17:12)
[2018-01-28] MEDS: LORazepam 1 MG TAB PO PRN ×2 (18:01→23:35)
[2018-01-28] MEDS: SIMVASTATIN PO SCH (19:52)
[2018-01-28] MEDS: EZETIMIBE PO SCH (19:52)
[2018-01-28] MEDS: POTASSIUM CHLORIDE 10 MEQ CONTROLLED RELEASE TAB PO SCH (19:54)
[2018-01-29] VITALS: BP 143/68; PULSE 67; PULSE 77; RESP 16; TEMP 97.9; O2SAT 97
[2018-01-29 04:00] VITALS: BP 141/72; PULSE 60; PULSE 62; RESP 16; TEMP 97.9; O2SAT 96
[2018-01-29 05:59] LABS: HEMOGLOBIN 8.9 GM/DL (13.0-17.0); MEAN CELL VOLUME 91.3 FL (80.0-100.0); MEAN CORPUSCULAR HEMOGLOBIN 31.3 PG (27.0-34.0); MEAN CORPUSCULAR HGB CONC 34.2 % (32.0-36.0); MEAN PLATELET VOLUME 9.2 FL (7.0-11.0); PLATELET COUNT 31 TH/MM3 (150-450); RED BLOOD COUNT 2.84 MIL/MM3 (4.50-5.90); RED CELL DISTRIBUTION WIDTH 15.8 % (11.6-17.2); WHITE BLOOD COUNT 10.6 TH/MM3 (4.0-11.0)
[2018-01-29 06:16] LABS: ALBUMIN 2.6 GM/DL (3.4-5.0); ALT (GPT) 38 U/L (12-78); AST (GOT) 25 U/L (15-37); BICARBONATE 30.1 MEQ/L (21.0-32.0); BLOOD UREA NITROGEN 17 MG/DL (7-18); CALCIUM 8.8 MG/DL (8.5-10.1); CHLORIDE 102 MEQ/L (98-107); CREATININE 1.08 MG/DL (0.60-1.30); GLOMERULAR FILTRATION RATE 66 ML/MIN (>89); GLUCOSE,RANDOM 113 MG/DL (74-106); SODIUM (NA) 142 MEQ/L (136-145)
[2018-01-29 06:18] LABS: ALKALINE PHOSPHATASE 105 U/L (45-117); TOTAL BILIRUBIN ADULT 0.5 MG/DL (0.2-1.0); TOTAL PROTEIN 5.5 GM/DL (6.4-8.2)
[2018-01-29 07:00] VITALS: PULSE 103; PULSE 63
[2018-01-29 07:48] LABS: BANDS 27 % (0-6); LYMPHOCYTES 6 % (9-44); METAMYELOCYTES 4 % (0-1); MONOCYTES 12 % (0-8); MYELOCYTES 1 % (0-0); NEUTROPHIL # MANUAL DIFF 8.7 TH/MM3 (1.8-7.7); POLYS (SEG NEUTROPHILS) 50 % (16-70)
[2018-01-29 07:49] LABS: DOHLE BODIES PRESENT (NONE SEEN); TOXIC GRANULATION 2+ (NORMAL)
--- NOTE | 2018-01-29 08:05 | PD.ONC.PN ---
Subjective Subjective Remarks Still has shortness of breath but improved. Denies any chest pain. denies any bleeding. Denies any nausea vomiting or abdominal pain Objective Data Date Time Temp Pulse Resp B/P (MAP) Pulse Ox O2 Delivery O2 Flow Rate FiO2 01/29/18 07:00 63 01/29/18 04:00 62 01/29/18 04:00 97.9 60 16 141/72 (95) 96 01/29/18 00:00 97.9 67 16 143/68 (93) 97 01/29/18 00:00 77 01/28/18 21:18 Nasal Cannula 1.00 01/28/18 20:00 98.7 75 16 134/62 (86) 95 01/28/18 20:00 78 01/28/18 20:00 Room Air 01/28/18 16:00 98.1 78 18 114/44 (67) 94 01/28/18 16:00 74 01/28/18 13:00 98.0 63 20 114/55 (74) 98 01/28/18 12:34 70 01/28/18 12:30 70 01/28/18 10:23 97 Nasal Cannula 2.00 01/28/18 08:52 78 01/28/18 08:49 69 01/29/18 01/29/18 01/29/18 07:00 15:00 23:00 Intake Total 480 ml Output Total 1950 ml Balance -1470 ml Result Diagram: 01/29/18 0530 01/29/18 0530 Laboratory Results Laboratory Tests Test 01/29/18 05:30 White Blood Count 10.6 TH/MM3 Red Blood Count 2.84 MIL/MM3 Hemoglobin 8.9 GM/DL Hematocrit 26.0 % Mean Corpuscular Volume 91.3 FL Mean Corpuscular Hemoglobin 31.3 PG Mean Corpuscular Hemoglobin Concent 34.2 % Red Cell Distribution Width 15.8 % Platelet Count 31 TH/MM3 Mean Platelet Volume 9.2 FL CBC Comment AUTO DIFF Differential Total Cells Counted 100 Neutrophils % (Manual) 50 % Band Neutrophils % 27 % Lymphocytes % 6 % Monocytes % 12 % Neutrophils # (Manual) 8.7 TH/MM3 Metamyelocytes 4 % Myelocytes 1 % Differential Comment FINAL DIFF MANUAL Toxic Granulation 2+ Dohle Bodies PRESENT Platelet Estimate LOW Platelet Morphology Comment NORMAL Blood Urea Nitrogen 17 MG/DL Creatinine 1.08 MG/DL Random Glucose 113 MG/DL Total Protein 5.5 GM/DL Albumin 2.6 GM/DL Calcium Level 8.8 MG/DL Alkaline Phosphatase 105 U/L Aspartate Amino Transf (AST/SGOT) 25 U/L Alanine Aminotransferase (ALT/SGPT) 38 U/L Total Bilirubin 0.5 MG/DL Sodium Level 142 MEQ/L Potassium Level 3.5 MEQ/L Chloride Level 102 MEQ/L Carbon Dioxide Level 30.1 MEQ/L Anion Gap 10 MEQ/L Estimat Glomerular Filtration Rate 66 ML/MIN B-Type Natriuretic Peptide 416 PG/ML Administered Medications Medications (Trade) Dose Ordered Sig/Marilee Route PRN Reason Start Time Stop Time Status Last Admin Dose Admin Allopurinol (Zyloprim) 300 mg DAILY PO 01/20/18 09:00 01/28/18 09:34 Atenolol (Tenormin) 50 mg DAILY PO 01/20/18 09:00 01/28/18 09:34 Fluticasone Propionate (Flonase Gilles Spr) 2 spray BID EACH NARE 01/19/18 21:00 01/28/18 19:54 Sertraline HCl (Zoloft) 50 mg DAILY PO 01/20/18 09:00 01/28/18 09:34 Sitagliptin Phosphate (Januvia) 100 mg DAILY PO 01/20/18 09:00 01/28/18 09:34 Pantoprazole Sodium (Protonix) 20 mg DAILY PO 01/20/18 09:00 01/28/18 09:34 Acetaminophen/ Hydrocodone Bitart ([place] 5-325 Mg) 1 tab Q4H PRN PO pain 2-10 01/19/18 19:00 01/20/18 23:07 Multi-Ingredient Mouthwash/Gargle (Magic Mouthwash Adult Liq) 10 ml QID SWISH-SWAL 01/21/18 09:00 01/28/18 19:54 Albuterol/ Ipratropium (Duoneb Neb) 1 ampule Q4HR NEB PRN NEB sob/wheezing 01/21/18 12:00 01/27/18 22:18 Lisinopril (Prinivil) 10 mg DAILY PO 01/23/18 09:00 01/28/18 09:34 Sodium Chloride (NS Flush) 5 ml UNSCH PRN IV FLUSH SEE PROTOCOL TABLE 01/23/18 05:30 01/26/18 08:09 Diphenhydramine HCl (Benadryl) 25 mg Q4H PRN PO SEE LABEL COMMENTS 01/24/18 08:15 01/24/18 12:05 Diphenhydramine HCl (Benadryl) 25 mg Q4H PRN PO SEE LABEL COMMENTS 01/25/18 08:15 01/25/18 12:43 Heparin Sodium (Porcine) (Heparin Central Flush) 250 unit UNSCH PRN IV FLUSH SEE PROTOCOL TABLE 01/26/18 16:30 01/28/18 17:19 Lorazepam (Ativan) 1 mg Q6H PRN PO ANXIETY 01/28/18 08:30 01/28/18 23:35 Potassium Chloride (KCl) 10 meq Q12HR PO 01/28/18 21:00 01/28/18 19:54 Furosemide (Lasix Inj) 40 mg BID@, IV PUSH 01/28/18 18:00 01/28/18 17:12 Objective Remarks GENERAL: Well-nourished, well-developed patient. SKIN: Warm and dry. Pale. HEAD: Normocephalic. EYES: No scleral icterus. No injection or drainage. NECK: Supple, trachea midline. No JVD or lymphadenopathy. LYMPHATIC: No adenopathy. CARDIOVASCULAR: Regular rate and rhythm without murmurs. RESPIRATORY: Breath sounds equal bilaterally. No accessory muscle use. GASTROINTESTINAL: Abdomen soft, non-tender, nondistended. EXTREMITIES: No cyanosis, 1+BLE edema. MUSCULOSKELETAL: Adequate muscle tone. NEUROLOGICAL: No obvious focal deficit. Awake, alert, and oriented x3. PSYCHIATRIC: Appropriate mood and affect; insight and judgment normal. Assessment/Plan Problem List: (1) Neutropenic fever ICD Codes: D70.9 - Neutropenia, unspecified; R50.81 - Fever presenting with conditions classified elsewhere Status: Acute Plan: --Infectious disease following -- vancomycin, cefepime and acyclovir have been discontinued and he is now on Levaquin. --most recent blood cultures with no growth. 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 The patient had stage IV disease with involvement of the bone marrow on initial diagnosis. -- Treated with his first cycle of R- ICE chemo last week. --He received a second opinion at an academic center where they recommended R- EPOCH chemo however this was not feasible due to severe cardiomyopathy. (3) Cardiomyopathy ICD Codes: I42.9 - Cardiomyopathy, unspecified Status: Chronic Plan: --Chest x-ray on 01/21 showed vascular congestion --BNP elevated --Cardiology following (4) Pancytopenia due to chemotherapy ICD Codes: D61.810 - Antineoplastic chemotherapy induced pancytopenia Status: Chronic Plan: --Transfuse to keep hemoglobin greater than 8 and platelet count greater than 20,000. Assessment 77 y/o male admitted with neutropenic fever Plan 1. No need for transfusion today. CTA, I don't think the reason for his dyspnea can entirely be attributed to his cardiomyopathy. may need to consult pulmonology as well to see if they have any recommendations. 2. continue antibiotics per infectious disease. 3. Can be DC'd once CHF is controlled. 4. Follow-up in oncology clinic after discharge. Garett Granger MD Jan 29, 2018 08:05
[2018-01-29] MEDS ORDERED: LEVOFLOXACIN 750 MG TAB PO SCH (09:00)
[2018-01-29 09:41] VITALS: BP 113/80; PULSE 66; RESP 18; TEMP 97.5; O2SAT 95
[2018-01-29] MEDS: FLUTICASONE PROPIONATE 50 MCG/ACT 16 GM NASAL SPRAY EACH NARE SCH (09:47)
[2018-01-29] MEDS: POTASSIUM CHLORIDE 10 MEQ CONTROLLED RELEASE TAB PO SCH (09:47)
[2018-01-29] MEDS: ALLOPURINOL 300 MG TAB PO SCH (09:47)
[2018-01-29] MEDS: FUROSEMIDE 40 MG/4 ML VIAL IV PUSH SCH (09:48)
[2018-01-29] MEDS: ATENOLOL 50 MG TAB PO SCH (09:48)
[2018-01-29] MEDS: LISINOPRIL 10 MG TAB PO SCH (09:48)
[2018-01-29] MEDS: PANTOPRAZOLE SOD 20 MG DELAYED RELEASE TAB PO SCH (09:48)
[2018-01-29] MEDS: SERTRALINE HCL 50 MG TAB PO SCH (09:48)
[2018-01-29] MEDS: NYSTAT/DIPHENHY/LIDO MOUTHWASH (Adult) 120ML SWISH-SWAL SCH ×2 (09:49→13:13)
[2018-01-29 11:00] VITALS: PULSE 71
[2018-01-29] MEDS ORDERED: LEVA750T9 PO (11:44)
[2018-01-29] MEDS ORDERED: TORS10TA2 PO (11:44)
[2018-01-29] MEDS ORDERED: LISI10TA3 PO (11:44)
[2018-01-29 11:51] VITALS: BP 111/58; PULSE 61; RESP 18; TEMP 98.3; O2SAT 95
--- NOTE | 2018-01-29 14:15 | HHI.DS ---
Discharge Summary Admission Date January 19, 2018 at 3:08 pm Discharge Date: Jan 29, 2018 Admitting Diagnosis (1) Cardiomyopathy ICD Code: I42.9 - Cardiomyopathy, unspecified Diagnosis: Principal Status: Chronic (2) Large B-cell lymphoma ICD Code: C85.10 - Unspecified B-cell lymphoma, unspecified site (3) Anemia + thrombocytopenia (4) Lymphoma ICD Code: C85.90 - Non-Hodgkin lymphoma, unspecified, unspecified site (5) Retroperitoneal lymphadenopathy ICD Code: R59.0 - Localized enlarged lymph nodes (6) Bacteremia ICD Code: R78.81 - Bacteremia (7) Neutropenic fever ICD Code: D70.9 - Neutropenia, unspecified; R50.81 - Fever presenting with conditions classified elsewhere Status: Acute Procedures NONE Brief History - From Admission The patient is a 77-year-old male who 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 He was just discharged from the hospital last weekend. Hehas been getting Neupogen injection at the clinic. According to his , the patient developed fever up to 100.4 yesterday. He, however, refused to go to the emergency room as instructed. This morning he has temperature up to 101. Again, he refused to go to the emergency room. He also developed a blister-like lesion on his right face and scalp yesterday. When he came to the clinic for Neupogen injection, he was noted to be febrile and weak. He also had chills. Blood work showed 0 neutrophils. His platelet count was down to 15,000. He is admitted to the hospital for further evaluation, IV abx. He denies any headache. Denies any visual changes. Denies any focal numbness or weakness. He has no chest pain. Denies any shortness of breath. He has occasional wheezes. He has no nausea, vomiting , diarrhea or abdominal pain. Denies any dysuria or hematuria. He said that the blister-like lesion on his right jaw area is tender. CBC/BMP: 01/29/18 0530 01/29/18 0530 Significant Findings Laboratory Tests Test 01/27/18 04:20 6/3/18 04:30 01/28/18 04:56 01/29/18 05:30 White Blood Count 3.5 TH/MM3 (4.0-11.0) Red Blood Count 2.70 MIL/MM3 (4.50-5.90) 3.01 MIL/MM3 (4.50-5.90) 2.84 MIL/MM3 (4.50-5.90) Hemoglobin 8.5 GM/DL (13.0-17.0) 9.4 GM/DL (13.0-17.0) 8.9 GM/DL (13.0-17.0) Hematocrit 24.5 % (39.0-51.0) 27.6 % (39.0-51.0) 26.0 % (39.0-51.0) Platelet Count 23 TH/MM3 (150-450) 28 TH/MM3 (150-450) 31 TH/MM3 (150-450) Neutrophils % (Manual) 76 % (16-70) Band Neutrophils % 12 % (0-6) 28 % (0-6) 27 % (0-6) Lymphocytes % 5 % (9-44) 1 % (9-44) 6 % (9-44) Myelocytes 2 % (0-0) 2 % (0-0) 1 % (0-0) Dohle Bodies PRESENT (NONE SEEN) PRESENT (NONE SEEN) PRESENT (NONE SEEN) Platelet Estimate LOW (NORMAL) LOW (NORMAL) LOW (NORMAL) Rouleau PRESENT (NORMAL) PRESENT (NORMAL) Blood Urea Nitrogen 23 MG/DL (7-18) 19 MG/DL (7-18) Random Glucose 118 MG/DL (74-106) 111 MG/DL (74-106) 113 MG/DL (74-106) Total Protein 5.5 GM/DL (6.4-8.2) 5.5 GM/DL (6.4-8.2) Albumin 2.8 GM/DL (3.4-5.0) 2.6 GM/DL (3.4-5.0) Phosphorus Level 2.2 MG/DL (2.5-4.9) Estimat Glomerular Filtration Rate 70 ML/MIN (>89) 68 ML/MIN (>89) 66 ML/MIN (>89) Neutrophils # (Manual) 8.4 TH/MM3 (1.8-7.7) 8.7 TH/MM3 (1.8-7.7) Monocytes % 12 % (0-8) Metamyelocytes 4 % (0-1) Toxic Granulation 2+ (NORMAL) B-Type Natriuretic Peptide 416 PG/ML (0-100) Imaging Last Impressions CT Angiography 01/28/18 Signed Impressions: CONCLUSION: 1. No evidence of PE. 2. Bilateral pleural effusions with cardiomegaly and groundglass opacity adjac ent to the pulmonary vessels consistent with pulmonary edema. Chest X-Ray 01/27/18 Signed Impressions: CONCLUSION: Mild bibasilar atelectasis not significantly changed. Abdomen Ultrasound 01/25/18 Signed Impressions: CONCLUSION: 1. No abdominal ascites. 2. Cholelithiasis. 3. Bilateral pleural effusions. PE at Discharge GENERAL: Awake alert and oriented 3 talkative and cooperative SKIN: Warm and dry. Multiple lesions around the lips in various stages of healing HEAD: Atraumatic. Normocephalic. EYES: Pupils equal and round. No scleral icterus. No injection or drainage. Extraocular muscles intact ENT: No nasal bleeding or discharge. Mucous membranes pink and moist. Tongue is midline NECK: Trachea midline. No JVD. Supple CARDIOVASCULAR: Regular rate and rhythm. S1-S2 no S3 or S4 RESPIRATORY: No accessory muscle use. Clear to auscultation. Breath sounds equal bilaterally. DECREASED BREATH SOUNDS BL GASTROINTESTINAL: Abdomen soft, non-tender, nondistended. Hepatic and splenic margins not palpable. MUSCULOSKELETAL: Extremities without clubbing, cyanosis +1 to trace edema lower extrema. No obvious deformities. NEUROLOGICAL: Awake and alert. No obvious cranial nerve deficits. Motor grossly within normal limits. 4 out of 5 muscle strength in the arms and legs. Normal speech. PSYCHIATRIC: Appropriate mood and affect; insight and judgment normal. Pt update on day of discharge Patient is doing well. No acute concerns. Wants to go home. Denies any chest pain, shortness of breath, fever or chills. Hospital Course 77 YOWM with large B cell lymphoma, DM, cardiomyopathy, CAD, and CKD admitted for severe sepsis and neutropenic fever. 1. Severe sepsis, resolved - On admission was febrile, tachycardic, and had elevated lactic acid in the setting of neutropenia - Source of infection was suspected to be herpes simplex - OP blood cultures done at onc office growing Klebsiella and Strep viridans - Blood cultures have remained negative this hospitalization - U/A unremarkable 2. Neutropenic fever - Has remained afebrile >72 hours - ID and heme/onc following - Monitor for fevers - Currently on IV vanc and cefepime - Per ID, if WBC continues to improve can change to Levaquin x 7 days - WBC count 9.2, 10.6, we transitioned abx to PO Levaquin 3. HSV - S/P completion of course of Acyclovir 4. Large B cell lymphoma - Stage IV disease with involvement of the bone marrow on initial diagnosis - Treated with his first cycle of R- ICE 5. Pancytopenia - Transfuse to keep Hb>8 and PLT>20K - S/P 3 units RBCs and 3 units platelets transfused 6. Cardiomyopathy with EF 35% - Cardiology evaluated earlier in admission, available as needed - Continue Lisinopril - CXR 01/26 showing cardiomegaly with mild pulmonary vascular congestion and interval development of small left pleural effusion and RLL atelectasis - CXR 01/27 with mild bibailar atelectasis not significantly changed - CTA ordered by heme/onc in light of continued dyspnea: negative for PE but bilateral pleural effusions and pulmonary edema - Increase Lasix to 40 mg IV BID - Repeat echo limited ordered. Will be done today 01/29/2018. 7. L forearm wound - Wound care following, placed absorbant transparent film since dressing changes are uncomfortable for patient and since the wound is not actively draining - Film may be left in place up to 7 days - Culture if wound begins draining 8. DM2 - Stable, continue Januvia 9. GERD - Stable, continue PPI 10. Anxiety/depression - Stable, continue home meds - Ativan PRN 11. HTN - Stable, continue atenolol and Lisinopril Pt Condition on Discharge: Good Discharge Disposition: Discharge Home Discharge Time: > 30 minutes Discharge Instructions DIET: Follow Instructions for: As Tolerated, No Restrictions Activities you can perform: Regular-No Restrictions Follow up Referrals: Cardiology - 2 Weeks with Ronnell Lloyd MD PCP Follow-up - 1 Week New Medications: Torsemide (Torsemide) 10 Mg Tab 10 MG PO BID for Heart, #60 TAB 3 Refills Levofloxacin (Levaquin) 750 Mg Tablet 750 MG PO DAILY for Infection, #7 TAB Lisinopril (Lisinopril) 10 Mg Tab 10 MG PO DAILY for Blood Pressure Management, #30 TAB 11 Refills Continued Medications: Allopurinol (Allopurinol) 300 Mg Tab 300 MG PO DAILY for Gout, #30 TAB 0 Refills Aspirin (Aspirin) 81 Mg Chew 81 MG CHEW DAILY, TAB 0 Refills Atenolol (Atenolol) 50 Mg Tab 50 MG PO DAILY for Blood Pressure Management, #30 TAB 0 Refills Ezetimibe-Simvastatin (Vytorin) 10-40 Mg Tab 1 TAB PO HS, #30 TAB 0 Refills Ezetimibe-Simvastatin (Vytorin) 10-40 Mg Tab 1 TAB PO HS, #30 TAB 0 Refills Fluticasone Nasal [place] (Fluticasone Nasal [place]) 50 Mcg/Act Naspr 50 MCG EACH NARE BID for Allergy Management, #1 BOTTLE 0 Refills 50 mcg/spray Metformin (Metformin) 500 Mg Tab 500 MG PO BIDPC for Blood Sugar Management, #60 TAB 0 Refills Omeprazole (Omeprazole) 20 Mg Tab 20 MG PO DAILY, #30 TAB 0 Refills Sertraline (Sertraline) 50 Mg Tab 50 MG PO DAILY, #30 TAB 0 Refills Sitagliptin (Januvia) 100 Mg Tab 100 MG PO DAILY for Blood Sugar Management, #30 TAB 0 Refills Discontinued Medications: Lisinopril (Lisinopril) 2.5 Mg Tab 2.5 MG PO HS, #30 TAB 0 Refills Marianne Arboleda DO Jan 29, 2018 2:15 pm
--- NOTE | 2018-01-29 16:08 | ECHRPT ---
Indication: CONCLUSIONS Technically very difficult study making assessment of left ventricular function and wall motion subo ptimal. Normal left ventricular size. Wall thickness is normal. The left ventricular systolic function is low normal with an estimated ejection fraction of 50%. P ossible mild to moderate septal hypkinesis; other regional wall motiona abnormalities cannot be excluded. Left atrial size is mildly enlarged. The right atrial size is upper normal. Mild mitral valve regurgitation. Trileaflet aortic valve. Possible slight leaflet sclerosis. No aortic valve stenosis or regurgitat ion. There is trace tricuspid valve regurgitation. BP: / HR: Rhythm: MEASUREMENTS (Male / Female) Normal Values Technical Quality: 2D ECHO LV Diastolic Diameter PLAX 5.3 cm 4.2 - 5.9 / 3.9 - 5.3 cm LV Systolic Diameter PLAX 4.5 cm IVS Diastolic Thickness 0.9 cm 0.6 - 1.0 / 0.6 - 0.9 cm LVPW Diastolic Thickness 0.6 cm 0.6 - 1.0 / 0.6 - 0.9 cm LV Relative Wall Thickness 0.3 RV Internal Dim ED PLAX 2.2 cm LA Systolic Diameter LX 5.3 cm 3.0 - 4.0 / 2.7 - 3.8 cm M-MODE Aortic Root Diameter MM 3.0 cm AV Cusp Separation MM 1.6 cm DOPPLER Mitral E Point Velocity 131.0 cm/s Mitral A Point Velocity 35.8 cm/s Mitral E to A Ratio 3.7 TR Peak Velocity 331.0 cm/s TR Peak Gradient 43.8 mmHg Right Atrial Pressure 5.0 mmHg Pulmonary Artery Systolic Pressu 48.8 mmHg Right Ventricular Systolic Press 48.8 mmHg FINDINGS LEFT VENTRICLE Technically very difficult study making assessment of left ventricular function and wall motion subo ptimal. Normal left ventricular size. Wall thickness is normal. The left ventricular systolic function is low normal with an estimated ejection fraction of 50%. R egional wall motiona abnormalities cannot be excluded. RIGHT VENTRICLE Normal right ventricular size and systolic function. LEFT ATRIUM The left atrial size is mildly dilated. RIGHT ATRIUM The right atrial size is upper normal. ATRIAL SEPTUM Normal atrial septal thickness without atrial level shunting by limited color doppler interrogation. AORTA The aortic root and proximal ascending aorta are normal in size on limited imaging. MITRAL VALVE Mild mitral valve regurgitation. AORTIC VALVE Trileaflet aortic valve. Possible slight leaflet sclerosis. No aortic valve stenosis or regurgitat ion. TRICUSPID VALVE There is trace tricuspid valve regurgitation. PULMONARY VALVE No pulmonary valve regurgitation or stenosis. VESSELS The inferior vena cava is normal in size. PERICARDIUM No pericardial effusion. Kj Noguera MD (Electronically Signed) Final Date:29 January 2018 16:06
--- NOTE | 2018-01-29 18:06 | PD.WCN.NOT ---
Wound Consult Description: Consult for WOUND MANAGEMENT of left arm wound per Dr Rai Communicated with: ANIA Cooper Patient Patient Recommendation: Cleanse left forearm scab and periwound daily. Apply skin barrier film provided to patient at bedside along with gauze and shruthi for protection. Additional Information: Absorbant transparent film dressing removed from left forearm at patient/ patient significant other/RN request. Scab is noted to wound measuring ~0.7cm circumferentially with scant maceration noted to wound margins and unremarkable periwound. Wound was cleanse with NS and gauze. Cavilon skin barrier film was applied to periwound and scab that was then covered with gauze and rolled gauze to secure. Jeannie Leach [facility] Jan 29, 2018 18:06
== END 2018-01-29 15:30 | disposition home or self-care (01) | DRG 871 ==
LOC: HCIN 15:08
PROVIDERS: ADMIT Hospitalist; ATTEND Hospitalist
PROC: 30233N1 Transfusion of Nonautologous Red Blood Cells into Peripheral Vein, Percutaneous Approach (ICD-10-PCS; 2018-01-20)
PROC: 30233R1 Transfusion of Nonautologous Platelets into Peripheral Vein, Percutaneous Approach (ICD-10-PCS; principal; 2018-01-21)
DX: A41.9 Sepsis, unspecified organism (principal); D61.810 Antineoplastic chemotherapy induced pancytopenia; C85.13 Unspecified B-cell lymphoma, intra-abdominal lymph nodes; I13.0 Hypertensive heart and chronic kidney disease with heart failure and stage 1 through stage 4 chronic kidney disease, or unspecified chronic kidney disease; I50.9 Heart failure, unspecified; E11.22 Type 2 diabetes mellitus with diabetic chronic kidney disease; I48.1 Persistent atrial fibrillation; J98.11 Atelectasis; L03.113 Cellulitis of right upper limb; B02.9 Zoster without complications; I25.5 Ischemic cardiomyopathy; R50.81 Fever presenting with conditions classified elsewhere; T45.1X5A Adverse effect of antineoplastic and immunosuppressive drugs, initial encounter; R65.20 Severe sepsis without septic shock; K21.9 Gastro-esophageal reflux disease without esophagitis; M10.9 Gout, unspecified; I25.10 Atherosclerotic heart disease of native coronary artery without angina pectoris; N18.9 Chronic kidney disease, unspecified; F41.9 Anxiety disorder, unspecified; E78.5 Hyperlipidemia, unspecified; B95.5 Unspecified streptococcus as the cause of diseases classified elsewhere; E87.6 Hypokalemia; F32.9 Major depressive disorder, single episode, unspecified; S40.812A Abrasion of left upper arm, initial encounter; R00.0 Tachycardia, unspecified; R19.7 Diarrhea, unspecified; I25.2 Old myocardial infarction; Z95.1 Presence of aortocoronary bypass graft; Z87.891 Personal history of nicotine dependence; Z79.84 Long term (current) use of oral hypoglycemic drugs; Z79.82 Long term (current) use of aspirin; Z92.21 Personal history of antineoplastic chemotherapy
CPT/HCPCS: 36430; 71045; 71046; 71275; 76705; 80048; 80053; 81001; 82550; 83605; 83735; 83880; 84100; 84484; 85007; 85025; 85027; 86403; 86850; 86900; 86901; 86920; 87040; 87077; 87186; 87205; 87493; 87799; 93005; 93308; 94150; 94618; 94640; 94664; 96365; 96367; 96372; 99214; 99215; G0463; J0133; J0692; J1442; J1642; J1940; J2997; J3370; J3475; J7030; J7050; P9016; P9035; Q9967